=== PATIENT | male | born 1945 | race Caucasian/White ===

== ENCOUNTER → 2020-10-30 15:02 | Outpatient (BNVA) | payer SELFPAY | PROVIDERS: PCP Internal Medicine; Referring Provider Internal Medicine; Visit Provider Urology | DX: Z76.89 Persons encountering health services in other specified circumstances (principal) ==

== ENCOUNTER 2020-11-21 10:23 | Outpatient (REF) | payer MEDICARE, SELFPAY ==
--- NOTE | 2020-11-21 10:27 | US_ITS ---
EXAMINATION: US PELVIS LIMITED (BLADDER) CLINICAL INFORMATION: Poor urinary stream. COMPARISON: CT abdomen and pelvis without contrast dated 01/08/2020. Renal ultrasound only dated 01/04/2020. Renal ultrasound with bladder dated 08/03/2018. TECHNIQUE: Real-time imaging of the bladder. FINDINGS: BLADDER: Well distended and normal. Bilateral ureteral jets are demonstrated. Prevoid bladder volume is 949 mL. Postvoid bladder volume is 598 mL. The bladder wall is trabeculated with 2 small diverticula seen. Also visualized is a small TURP defect. Prostate volume is 26.5 mL. US/US bladder IMPRESSION: Diffuse trabeculated bladder wall thickening with 2 small diverticula seen one on each side laterally. Large postvoid residual bladder volume. Small TURP defect seen.
== END 2020-11-21 10:24 | disposition home or self-care (01) ==
LOC: HO.US 10:23
PROVIDERS: Visit Provider Urology
DX: N31.9 Neuromuscular dysfunction of bladder, unspecified (principal); R39.12 Poor urinary stream
CPT/HCPCS: 76857

== ENCOUNTER → 2020-11-26 13:30 | Outpatient (BNVA) | payer MEDICARE, SELFPAY | PROVIDERS: PCP Internal Medicine; Visit Provider Urology | DX: N31.9 Neuromuscular dysfunction of bladder, unspecified (principal); R39.14 Feeling of incomplete bladder emptying | CPT/HCPCS: Q3014 ==

== ENCOUNTER 2021-05-09 07:10 | Outpatient (REF) | payer MEDICARE, SELFPAY ==
[2021-05-09 11:08] LABS: MANUAL DIFF FLAG NO
[2021-05-09 11:29] LABS: Basophils Absolute Auto 0.1 X10*3/uL (0.0-0.2); Basophils Percent Auto 0.8 % (0-2); Eosinophils Absolute Auto 0.1 X10*3/uL (0.0-0.4); Eosinophils Percent Auto 1.8 % (0-4); Hematocrit 39.8 % (42-52); Hemoglobin 13.2 g/dl (14.0-18.0); Imm Gran Abs Auto 0.01 X10*3/uL (0.00-0.03); Imm Gran Pct Auto 0.2 % (0.0-0.4); Lymphocytes Percent Auto 31.5 % (20-40); Mean Corpuscular HGB Conc 33.2 g/dl (31.0-36.0); Mean Corpuscular Hemoglobin 30.7 pg (27.0-33.0); Mean Corpuscular Volume 92.6 fL (80-98); Mean Platelet Volume 11.5 fL (9.4-12.4); Monocytes Absolute Auto 0.7 X10*3/uL (0.1-1.2); Neutrophils Absolute Auto 3.3 X10*3/uL (2.0-8.3); Neutrophils Percent Auto 53.7 % (45-73); Platelet Count 225 X10*3/uL (160-400); Red Cell Distribution Width 13.2 % (11.0-16.0); White Blood Count 6.2 X10*3/uL (4.8-10.8)
[2021-05-09 11:52] LABS: Alanine Aminotransferase 9 U/L (0-40); Alkaline Phosphatase 60 U/L (39-117); Anion Gap 13 (12-20); Aspartate Amino Transferase 16 U/L (5-37); Bilirubin Total 0.3 mg/dL (0.0-1.0); Blood Urea Nitrogen 22 mg/dL (9-16); Calcium 9.1 mg/dL (8.4-10.2); Carbon Dioxide 28 mmol/L (22-29); Chloride 105 mmol/L (96-108); Cholesterol 193 mg/dL; Estimated Glomerular Filt Rate > 60; Glucose Fasting 108 mg/dL (60-99); HDL Cholesterol 63 mg/dL; LDL Cholesterol Calculated 122 mg/dl; Potassium 3.8 mmol/L (3.3-5.1); Sodium 142 mmol/L (135-145); Total Protein 6.8 g/dL (6.5-8.0); Triglycerides 42 mg/dL
[2021-05-09 12:45] LABS: Prostate Specific Antigen 0.38 ng/mL (<0.05-4.0)
== END 2021-05-09 07:11 | disposition home or self-care (01) ==
LOC: HO.HMGCLDS 07:10
PROVIDERS: PCP Internal Medicine; Visit Provider Nurse Practitioner Family
DX: Z12.5 Encounter for screening for malignant neoplasm of prostate (principal); Z13.220 Encounter for screening for lipoid disorders; Z13.1 Encounter for screening for diabetes mellitus; I10 Essential (primary) hypertension
CPT/HCPCS: 36415; 80053; 80061; 84153; 85025

== ENCOUNTER → 2021-05-27 13:25 | Outpatient (BNVA) | payer MEDICARE, SELFPAY | PROVIDERS: Visit Provider Urology | DX: N31.9 Neuromuscular dysfunction of bladder, unspecified (principal) | CPT/HCPCS: 51798; 99212 ==

== ENCOUNTER → 2021-07-07 10:59 | Outpatient (BNVA) | payer SELFPAY | PROVIDERS: Visit Provider Internal Medicine | DX: Z02.79 Encounter for issue of other medical certificate (principal) ==

== ENCOUNTER → 2022-01-13 10:10 | Outpatient (BNVA) | payer MEDICARE, SELFPAY | PROVIDERS: PCP Internal Medicine; Visit Provider Urology | DX: N31.9 Neuromuscular dysfunction of bladder, unspecified (principal) | CPT/HCPCS: 51798; 99212 ==

== ENCOUNTER 2022-02-09 09:29 | Outpatient (REF) | payer MEDICARE, SELFPAY ==
[2022-02-09 11:40] LABS: MANUAL DIFF FLAG NO
[2022-02-09 11:48] LABS: Basophils Absolute Auto 0.1 X10*3/uL (0.0-0.2); Basophils Percent Auto 0.8 % (0-2); Eosinophils Absolute Auto 0.1 X10*3/uL (0.0-0.4); Eosinophils Percent Auto 1.2 % (0-4); Hematocrit 40.6 % (42.0-52.0); Hemoglobin 13.4 g/dl (14.0-18.0); Imm Gran Abs Auto 0.02 X10*3/uL (0.00-0.03); Imm Gran Pct Auto 0.3 % (0.0-0.4); Lymphocytes Absolute Auto 1.8 X10*3/uL (1.2-4.9); Lymphocytes Percent Auto 27.9 % (20-40); Mean Corpuscular Hemoglobin 30.5 pg (27.0-33.0); Mean Corpuscular Volume 92.5 fL (80.0-98.0); Mean Platelet Volume 11.7 fL (9.4-12.4); Monocytes Absolute Auto 0.5 X10*3/uL (0.1-1.2); Monocytes Percent Auto 8.2 % (2-11); Neutrophils Absolute Auto 4.1 x10*3/uL (2.0-8.3); Neutrophils Percent Auto 61.6 % (45-73); Platelet Count 243 X10*3/uL (160-400); Red Blood Count 4.39 X10*6/uL (4.60-5.80); Red Cell Distribution Width 13.2 % (11.0-16.0); White Blood Count 6.6 X10*3/uL (4.8-10.8)
[2022-02-09 12:05] LABS: Alanine Aminotransferase 13 U/L (0-40); Albumin Level 4.2 g/dL (3.5-5.0); Alkaline Phosphatase 48 U/L (39-117); Anion Gap 12 (12-20); Aspartate Amino Transferase 17 U/L (5-37); Bilirubin Total 0.3 mg/dL (0.0-1.0); Blood Urea Nitrogen 19 mg/dL (9-16); Calcium 9.5 mg/dL (8.4-10.2); Carbon Dioxide 29 mmol/L (22-29); Chloride 102 mmol/L (96-108); Cholesterol 208 mg/dL; Estimated Glomerular Filt Rate > 60; Glucose Fasting 124 mg/dL (60-99); HDL Cholesterol 61 mg/dL; LDL Cholesterol Calculated 135 mg/dl; Potassium 4.2 mmol/L (3.3-5.1); Sodium 139 mmol/L (135-145); Total Protein 7.4 g/dL (6.5-8.0); Triglycerides 64 mg/dL
[2022-02-09 12:30] LABS: Thyroid Stimulating Hormone 1.32 uIU/mL (0.32-4.0)
== END 2022-02-09 09:30 | disposition home or self-care (01) ==
LOC: HO.HMGCLDS 09:29
PROVIDERS: Visit Provider Internal Medicine
DX: Z00.00 Encounter for general adult medical examination without abnormal findings (principal); Z13.0 Encounter for screening for diseases of the blood and blood-forming organs and certain disorders involving the immune mechanism
CPT/HCPCS: 36415; 80053; 80061; 84443; 85025

== ENCOUNTER → 2022-04-30 10:57 | Outpatient (BNVA) | payer MEDICARE, SELFPAY | PROVIDERS: PCP Internal Medicine; Visit Provider Urology | DX: N31.9 Neuromuscular dysfunction of bladder, unspecified (principal) | CPT/HCPCS: 51798; 99212 ==

== ENCOUNTER 2022-05-19 13:56 | Outpatient (REF) | payer MEDICARE, SELFPAY ==
--- NOTE | ~2022-05-19 | XR_ITS ---
EXAMINATION: XR LUMBOSACRAL SPINE CLINICAL INFORMATION: Pain COMPARISON: Previous CT of the abdomen and pelvis December 2019 TECHNIQUE: Three views of the lumbosacral spine. FINDINGS: Bone alignment is normal. No fracture or dislocation is seen. There is degenerative disc disease at L5-S1. There is multilevel spondylosis. 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 There is evidence of atherosclerotic disease. XR/XR lumbar spine 2-3V IMPRESSION: Degenerative changes.
== END 2022-05-19 13:57 | disposition home or self-care (01) ==
LOC: HO.XRAY 13:56
PROVIDERS: PCP Internal Medicine; Visit Provider Internal Medicine
DX: M54.9 Dorsalgia, unspecified (principal)
CPT/HCPCS: 72100

== ENCOUNTER → 2022-06-17 09:44 | Outpatient (BNVA) | payer MEDICARE, SELFPAY | PROVIDERS: PCP Internal Medicine; Visit Provider Orthopaedic Surgery | DX: M72.0 Palmar fascial fibromatosis [Dupuytren] (principal) | CPT/HCPCS: 99202 ==

== ENCOUNTER → 2022-07-22 13:02 | Outpatient (BNVA) | payer MEDICARE, SELFPAY | PROVIDERS: PCP Internal Medicine; Visit Provider Orthopaedic Surgery | DX: M72.0 Palmar fascial fibromatosis [Dupuytren] (principal); M19.042 Primary osteoarthritis, left hand; M19.041 Primary osteoarthritis, right hand | CPT/HCPCS: 99212 ==

== ENCOUNTER 2022-08-06 05:55 | Day surgery (SDC) | payer MEDICARE, SELFPAY ==
[2022-07-23 09:52] VITALS: BMI 29.7
--- NOTE | 2022-07-24 09:29 | ECG_ITS ---
Test Reason : PREOP Blood Pressure : / mmHG Vent. Rate : 064 BPM Atrial Rate : 064 BPM P-R Int : 134 ms QRS Dur : 090 ms QT Int : 420 ms P-R-T Axes : 061 -35 056 degrees QTc Int : 433 ms Normal sinus rhythm Left axis deviation Abnormal ECG When compared with ECG of 09-OCT-2014 15:19, QRS axis Shifted left Referred By: Geneva Berg Electronically Signed By:SIMON HE
--- NOTE | 2022-08-05 09:16 | P.CONAN_ITS ---
Documented by User: Luciana Jean NP 08/05/22 09:17 HPI - Anesthesia Eval Consult details Narrative: 76yo M for Right sm finger Dupuytrens Contracture Release of interfalangical joint, possible faciectomy, PCP cleared [facility] Active Problems Active Problems: All Active Problems (Updated 07/27/22 @ 10:15 by Miguelangel Bunch MD) Preop exam for internal medicine (Acute) Hypotonic neurogenic bladder (Acute) Gross hematuria (Acute) Feeling of incomplete bladder emptying (Acute) Cough (Acute) Impacted cerumen (Acute) Hypertension (Acute) Adult general medical exam (Acute) Trigger finger (Acute) Low back pain (Acute) Dupuytren's contracture of right hand (Acute) Screening for prostate cancer (Acute) Screening for hyperlipidemia (Acute) Screening for diabetes mellitus (Acute) Past Medical History Medical History (Updated 07/27/22 @ 10:15 by Miguelangel Bunch MD) History of bladder stone Screening for diabetes mellitus Screening for hyperlipidemia Screening for prostate cancer Family History Family History Father No problems noted. Mother No problems noted. Surgical History Surgical History History of appendectomy History of colonoscopy History of esophagogastroduodenoscopy (EGD) History of hemorrhoidectomy History of prostate surgery Hx of umbilical hernia repair Social History Social History Housing: House Do you presently have visiting nurse or other home services: No Alcohol intake: current Alcohol intake frequency: holidays/special occasions only Alcohol type: beer Patient Tobacco Use Status: Former Tobacco user Quit Date: 2013 Tobacco use type: Cigarette e-Cigarette/Vaping Use: Never Used Second Hand Smoke Exposure: No Have you been hit, kicked, punched, or otherwise hurt by someone within the past year? If so, by whom?: No Are you DNR?: No Advance Directives: No Advance Directives Information Provided: Yes Advance Directives on File: No Recently lost weight without trying: No service: No Current occupational status: retired Current occupation: left hand Cognitive needs: No Hearing needs: No Vision needs: No Meds Allergies Allergy/AdvReac Type Severity Reaction Status Date / Time No Known Allergies Allergy Verified 07/27/22 09:52 Home Medications Medication Instructions Recorded Confirmed Last Taken Type aspirin 81 mg tablet,delayed 81 mg PO DAILY 03/31/21 07/27/22 Unknown History release (Adult Low Dose Aspirin) Exam Exam Date and Time: August 05, 2022 0916 Height,Weight and Vital Signs: Height 6 ft 1 in Weight 102.058 kg Pertinent Lab Results Pertinent Lab Results: Laboratory Tests 02/09/22 02/09/22 09:45 09:45 WBC 6.6 Hgb 13.4 L Hct 40.6 L Plt Count 243 Sodium 139 Potassium 4.2 Chloride 102 Carbon Dioxide 29 BUN 19 H Creatinine 0.79 Narrative Narrative: EKG 06/2022 Vent. Rate : 064 BPM ? ? Atrial Rate : 064 BPM ?? P-R Int : 134 ms? QRS Dur : 090 ms ? ? QT Int : 420 ms ? ? ? P-R-T Axes : 061 -35 056 degrees ?? QTc Int : 433 ms ? Normal sinus rhythm Left axis deviation Abnormal ECG When compared with ECG of 09-OCT-2014 15:19, QRS axis Shifted left Assessment and Plan Assessment Anesthesia Assessment: Chart Reviewed Documented by User: Stephany Mobley MD 08/06/22 08:54 [facility] Past Medical History Medical History (Updated 07/27/22 @ 10:15 by Miguelangel Bunch MD) History of bladder stone Screening for diabetes mellitus Screening for hyperlipidemia Screening for prostate cancer Family History Family History Father No problems noted. Mother No problems noted. Family history of problems with anesthesia: No Surgical History Surgical History History of appendectomy History of colonoscopy History of esophagogastroduodenoscopy (EGD) History of hemorrhoidectomy History of prostate surgery Hx of umbilical hernia repair History of Problems with Anesthesia: No Social History Social History (Reviewed 07/22/22 @ 13:14 by ASHLEY Crowe Housing: House Do you presently have visiting nurse or other home services: No Alcohol intake: current Alcohol intake frequency: holidays/special occasions only Alcohol type: beer Patient Tobacco Use Status: Former Tobacco user Quit Date: 2013 Tobacco use type: Cigarette e-Cigarette/Vaping Use: Never Used Second Hand Smoke Exposure: No Have you been hit, kicked, punched, or otherwise hurt by someone within the past year? If so, by whom?: No Are you DNR?: No Advance Directives: No Advance Directives Information Provided: Yes Advance Directives on File: No Recently lost weight without trying: No service: No Current occupational status: retired Current occupation: left hand Cognitive needs: No Hearing needs: No Vision needs: No Meds Allergies Allergy/AdvReac Type Severity Reaction Status Date / Time No Known Allergies Allergy Verified 07/27/22 09:52 Home Medications Medication Instructions Recorded Confirmed Last Taken Type aspirin 81 mg tablet,delayed 81 mg PO DAILY 03/31/21 07/27/22 Unknown History release (Adult Low Dose Aspirin) Exam Height,Weight and Vital Signs: Height 6 ft 1 in Weight 102.058 kg Vital Signs Temp Pulse Resp BP Pulse Ox O2 Del Method 08/06/22 07:12 53 18 08/06/22 06:25 97.4 F 83 22 H 133/73 94 Room Air Airway Mallampati Class: III (Bearded ) TM Dist: >3cm Neck ROM: Full Loose/Missing/Broken Teeth: Yes (Some missing. No broken or loose) Heart: RRR Lungs: CTAB (post respiratory treatment) Assessment and Plan Assessment Anesthesia Assessment: Anesthesia Plan Discussed Final Anesthetic Review Family History of Problems with Anesthesia: No History of Problems with Anesthesia: No NPO: Yes ASA Class: III Final Preanesthetic Review: No Changes in Pt Med Stat, Meds/Allgs Chart Reviewed, Consent Obtained/Reviewed and Anes Risks/Benef Reviewed Patient Risk: Intermediate Procedure Risk: Low Assessment/Block/Sedation in SS: Assess/Block/Sedation-SS Anesthetic Plan Anesthetic Plan: GA and Regional Block (Supraclavicular brachial plexus block ) Disposition: Standard PACU
[2022-08-06] VITALS (9 sets, daily range): BP systolic 105–142; BP diastolic 51–81; PULSE 53–83; RESP 16–22; TEMP 36.1–36.6; O2SAT 93–99; BMI 29.7
[2022-08-06] MEDS: Lactated Ringers 1,000 ML 100 ML IVCONT (06:39)
--- NOTE | 2022-08-06 06:49 | PC.NURSE ---
pt with audible exp wheeze faint & freq npc rr 22 denies sob or respiratory distress sat 93-94% ra. coretext to Dr. Geovanny Mobley & request for udn made via text, pt updated.
[2022-08-06] MEDS: Albuterol Sulfate (0.083%) 2.5 MG/3 ML VIAL.NEB INHALE (07:10)
--- NOTE | 2022-08-06 09:48 | P.OP_ITS ---
Operative Note Operative Note Date of Service: 08/06/22 Narrative: Preop diagnosis: 1. Right small finger Dupuytren's contracture Postop diagnosis: Same Procedure: 1. right small finger Partial Dupuytren's fasciectomy 2. Right small finger PIP joint manipulation to improve flexion contracture Surgeon: Geneva Berg MD Anesthesia: General anesthesia plus regional block Findings: right small finger ulnar-sided Dupuytren's cord. Finger brought into full extension at the end of the case. Implants: None Tourniquet time: Fifty-nine minutes EBL: 5.0 ml Specimen: right small finger Dupuytren's cord sent for pathology Drains: None Complications: None Disposition: Brought to the recovery room in stable condition Plan: Follow-up in 10-14 days for wound check, suture removal and to check pathology OT appt on day of f/u to make a custom night spint and to begin OT Indications: The patient is a 76 year old man with a right small finger Dupuytren's contracture . The risks and benefits of operative treatment, including but not limited to risk of damage to blood vessels, nerves, tendons, infection, recurrence, persistent pain or numbness, incomplete resolution of preoperative symptoms, or need for further surgery were discussed with the patient and they wished to proceed with surgery. Procedure: Once consent was obtained patient was brought back to the operating suite and placed in the operating table in a supine position. A regional block was performed by the anesthesia team. Perioperative antibiotics and anesthesia was administered by the anesthesia team. A tourniquet was applied to the proximal aspect of the right upper extremity and the limb was prepped and draped in a standard surgical fashion. The limb was elevated exsanguinated with Esmarch bandage and the tourniquet inflated to 250 mm of mercury for a total tourniquet time of 59 minutes. I made a Marion type incision extending along the Dupuytren's cord from the A1 angeli to the distal phalanx of the right small finger.. The Incision was made with a 15. Blade through the skin the subcutaneous tissues. I then carefully dissected down to the level of the Dupuytren's cord beginning at the proximal aspect of the incision. This was done using tenotomy and iris scissors. Care was taken to protect the nearby neurovascular structures. he had an ulnar- sided Dupuytren's cord that extended from the small finger abductor extending distally inserting at various places in the skin, of the proximal and middle phalanxes before finally inserting distally at the ulnar aspect of the distal phalanx. The Dupuytren's cord was cut at its proximal aspect using tenotomy scissors. It was then grasped with an Allis clamp. The Dupuytren's cord was then carefully dissected free in a proximal to distal direction using tenotomy scissors and again taking care to protect the ulnar neurovascular bundle. The cord was dissected free and placed on the back table to be sent for histopathologic review. I was then able to bring the small finger out to extension with approximately 20 degrees of flexion contracture at the PIP joint. I then performed a gentle manipulation of the PIP joint, after which I was able to fully extend the small finger at all joints including the PIP joint. At this point the tourniquet was deflated and hemostasis obtained with a brief period of local pressure and bipolar electrocautery. The wound was copiously irrigated with normal saline. The skin edges were reapproximated with 5-0 Prolene suture. and ulnar nerve block was then performed by infiltrating about the ulnar nerve at the wrist with some 0.5% plain ropivacaine for postop pain control. A sterile dressing and volar splint holding the small and ring fingers in extension was applied. The patient appears to have tolerated the procedure well and with no complications. All digits were well vascularized conclusion of the case.
--- NOTE | 2022-08-06 09:48 | MHC.SHP ---
Pre-Procedural Eval Section A Date of Service: 08/06/22 The patient is an INPATIENT: No Changes since office visit: No Cold of Flu in the past 2 weeks, No New Medical Problems, No Changes in Medication and No Patient answered all questions The History & Physical has been completed within 30 days and I have reviewed it.: Yes Section B Chief Complaint: dupuytren Allergies: Allergies Allergy/AdvReac Type Severity Reaction Status Date / Time No Known Allergies Allergy Verified 07/27/22 09:52 Plan I have reviewed the history and physical and performed a pertinent physical examination on my patient. No changes have occurred unless specified.
== END 2022-08-06 11:07 | disposition home or self-care (01) ==
PROVIDERS: PCP Internal Medicine; Visit Provider Orthopaedic Surgery
PROC: (CPT 26045; principal; 2022-08-06 07:30)
DX: M72.0 Palmar fascial fibromatosis [Dupuytren] (principal); M19.041 Primary osteoarthritis, right hand; Z87.891 Personal history of nicotine dependence; Z79.82 Long term (current) use of aspirin; Z79.899 Other long term (current) drug therapy
CPT/HCPCS: 26123; 26340; 88304; 93005; 94640; J0690; J2250; J2370; J2795; J3010

== ENCOUNTER → 2022-08-19 12:56 | Outpatient (BNVA) | payer MEDICARE, SELFPAY | PROVIDERS: PCP Internal Medicine; Visit Provider Orthopaedic Surgery | DX: Z47.89 Encounter for other orthopedic aftercare (principal) | CPT/HCPCS: 99212 ==

== ENCOUNTER 2022-08-19 14:09 | Outpatient (RCR) | payer MEDICARE, SELFPAY ==
--- NOTE | 2022-08-20 10:57 | MHC.OT.EP ---
[address] [phone] Occupational Therapy Plan of Care Date of Evaluation: 08/19/22 Diagnosis: Right hand palmar fascial fibromatosis Assessment: Hunter was seen today for OT evaluation and splint fabrication s/p right small finger Dupuytren's release. Pt. saw Dr. Berg today for suture removal and is doing well post op. Pt. is able to bring his index, middle, and ring finger into a closed fist and fully extend. He is able to bring his small finger loosely to his palm with increased effort without pain. Pt. was educated in splint indications, wearing schedule and skin checks. Pt. does not wish to attend therapy based on his current abilities and demonstrated understanding of tendon glides, AROM, and precautions post session. Pt. was IND with donning/doffing splint this visit. Issued handouts for HEP. Pt. does not require skilled OT at this time and was instructed to call with questions/concerns. Frequency and Duration: Eval and d/c to HEP Short Term Goals: IND with nighttime orthosis wear (MET) Demo IND with home exercise program (MET) Magneto Repairer Goals: NA Treatment Plan: Home Exercise Program Splinting Patient Education Edema Control Other (see comments) Pt. seen for eval, HEP and splint fabrication. Discharged from OT. Electronically Signed By: Valery Yen MS OTR/L Please Sign and return to therapist. Thank you once again for your referral.
== END 2022-09-23 14:18 | disposition home or self-care (01) ==
LOC: HO.OT 14:09
PROVIDERS: Visit Provider Orthopaedic Surgery
DX: M72.0 Palmar fascial fibromatosis [Dupuytren] (principal)
CPT/HCPCS: 29130; 97110; 97165; 97760

== ENCOUNTER → 2022-08-25 13:55 | Outpatient (BNVA) | payer MEDICARE, SELFPAY | PROVIDERS: PCP Internal Medicine; Visit Provider Physician Assistant | DX: Z47.89 Encounter for other orthopedic aftercare (principal) | CPT/HCPCS: 99212 ==

== ENCOUNTER → 2022-09-23 09:58 | Outpatient (BNVA) | payer MEDICARE, SELFPAY | PROVIDERS: PCP Internal Medicine; Visit Provider Orthopaedic Surgery | DX: M72.0 Palmar fascial fibromatosis [Dupuytren] (principal) | CPT/HCPCS: 99212 ==

== ENCOUNTER → 2022-10-29 08:50 | Outpatient (BNVA) | payer MEDICARE, SELFPAY | PROVIDERS: PCP Internal Medicine; Visit Provider Urology | DX: N31.9 Neuromuscular dysfunction of bladder, unspecified (principal) | CPT/HCPCS: 51798; 99212 ==

== ENCOUNTER 2022-11-05 08:10 | Outpatient (REF) | payer MEDICARE, SELFPAY ==
--- NOTE | ~2022-11-05 | XR_ITS ---
EXAMINATION: XR CHEST CLINICAL INFORMATION: Cough COMPARISON: 10/28/2018 TECHNIQUE: 2 views of the chest were obtained. FINDINGS: The lungs are well expanded. There is no focal consolidation, edema, or effusion. No pneumothorax. The cardiomediastinal silhouette is within normal limits of size with a tortuous aorta. No acute osseous abnormality. XR/XR chest 2V IMPRESSION: Clear lungs.
== END 2022-11-05 08:11 | disposition home or self-care (01) ==
LOC: HO.XRAY 08:10
PROVIDERS: PCP Internal Medicine; Visit Provider Internal Medicine
DX: R05.9 Cough, unspecified (principal)
CPT/HCPCS: 71046

== ENCOUNTER 2022-11-27 08:05 | Outpatient (REF) | payer MEDICARE, SELFPAY ==
[2022-11-27 11:12] LABS: MANUAL DIFF FLAG NO
[2022-11-27 11:23] LABS: Basophils Absolute Auto 0.1 X10*3/uL (0.0-0.2); Eosinophils Absolute Auto 0.1 X10*3/uL (0.0-0.4); Hematocrit 38.9 % (42.0-52.0); Imm Gran Abs Auto 0.02 X10*3/uL (0.00-0.03); Imm Gran Pct Auto 0.3 % (0.0-0.4); Lymphocytes Absolute Auto 1.7 X10*3/uL (1.2-4.9); Lymphocytes Percent Auto 27.8 % (20-40); Mean Corpuscular HGB Conc 33.4 g/dl (31.0-36.0); Mean Corpuscular Hemoglobin 30.4 pg (27.0-33.0); Mean Corpuscular Volume 91.1 fL (80.0-98.0); Mean Platelet Volume 11.5 fL (9.4-12.4); Monocytes Absolute Auto 0.6 X10*3/uL (0.1-1.2); Neutrophils Absolute Auto 3.6 x10*3/uL (2.0-8.3); Neutrophils Percent Auto 59.9 % (45-73); Platelet Count 239 X10*3/uL (160-400); Red Blood Count 4.27 X10*6/uL (4.60-5.80); Red Cell Distribution Width 13.2 % (11.0-16.0)
[2022-11-27 12:07] LABS: Alanine Aminotransferase 12 U/L (0-40); Alkaline Phosphatase 48 U/L (39-117); Anion Gap 12 (12-20); Aspartate Amino Transferase 16 U/L (5-37); Bilirubin Total 0.5 mg/dL (0.0-1.0); Blood Urea Nitrogen 18 mg/dL (9-16); Calcium 9.3 mg/dL (8.4-10.2); Carbon Dioxide 29 mmol/L (22-29); Chloride 104 mmol/L (96-108); Cholesterol 206 mg/dL; Estimated Glomerular Filt Rate > 60; Glucose Fasting 92 mg/dL (60-99); HDL Cholesterol 58 mg/dL; LDL Cholesterol Calculated 137 mg/dl; Potassium 3.7 mmol/L (3.3-5.1); Sodium 141 mmol/L (135-145); Total Protein 6.6 g/dL (6.5-8.0); Triglycerides 56 mg/dL
== END 2022-11-27 08:06 | disposition home or self-care (01) ==
LOC: HO.HMGCLDS 08:05
PROVIDERS: PCP Internal Medicine; Visit Provider Internal Medicine
DX: I10 Essential (primary) hypertension (principal); E78.5 Hyperlipidemia, unspecified; Z13.0 Encounter for screening for diseases of the blood and blood-forming organs and certain disorders involving the immune mechanism
CPT/HCPCS: 36415; 80053; 80061; 85025

== ENCOUNTER → 2023-05-12 10:39 | Outpatient (BNVA) | payer MEDICARE, SELFPAY | PROVIDERS: PCP Internal Medicine; Visit Provider Urology | DX: N40.1 Benign prostatic hyperplasia with lower urinary tract symptoms (principal); N13.8 Other obstructive and reflux uropathy; N31.9 Neuromuscular dysfunction of bladder, unspecified; R33.9 Retention of urine, unspecified; Z87.442 Personal history of urinary calculi; Z79.82 Long term (current) use of aspirin | CPT/HCPCS: 51798; 99212 ==

== ENCOUNTER 2023-08-06 09:46 | Outpatient (AMB) | payer MEDICARE, SELFPAY ==
[2023-08-06 09:49] VITALS: BP 150/62; PULSE 65; O2SAT 97; BMI 29.9
--- NOTE | 2023-08-06 09:49 | A.OFFPC_ITS ---
Vital Signs 08/06/23 09:49 Height 6 ft 1 in Weight 226 lb 6 oz BMI 29.9 BP 150/62 H Blood Pressure Location Lt brachial Position Sitting Pulse 65 Pulse Source Pulse Oximeter Pulse Oximetry (%) 97 Oxygen Delivery Method Room Air Intake Visit Reasons: Podiatry Referral-Two Ingrown Toe Nails Emergency Service Worker: Not Required per policy Accompanied by: Self / Same As Patient Allergies No Known Allergies Allergy (Verified 08/06/23 09:49) Medication List - Last Reconciled 08/06/23 by Miguelangel Bunch MD albuterol sulfate 90 mcg/actuation (ProAir HFA) 2 puffs PO Q6H PRN 30 days aspirin (Adult Low Dose Aspirin) 81 mg PO DAILY bethanechol chloride 50 mg PO BID 90 days chlorthalidone 25 mg PO DAILY fluticasone propionate 50 mcg/actuation 1 spray intranasal Q12H hydrocortisone 2.5% (Anusol-HC) 1 appl [place] BID-QID PRN ibuprofen 600 mg PO Q6-8H PRN lisinopril 10 mg PO DAILY lorazepam 1 mg PO BID PRN sertraline (Zoloft) 50 mg PO DAILY Tobacco use date assessed: 12/08/22 Fall risk assessment: No Falls in past year Last assessed Fall Risk: 08/06/23 Dental Screening Dental Screen Date: 08/06/23 Did you have a dental visit in the last 12 months?: Yes Did you have a dental problem in the last 6 months where you did not have access to dental care?: No Was dental information given to patient?: Patient has dentist HPI Podiatry Referral-Two Ingrown Toe Nails HPI Details hypertension anxiety and ingrown toenails; sable; sees podiatry [facility] Medical History History of bladder stone Screening for prostate cancer Screening for hyperlipidemia Screening for diabetes mellitus Surgical History History of esophagogastroduodenoscopy (EGD) History of prostate surgery Hx of umbilical hernia repair History of colonoscopy History of hemorrhoidectomy History of appendectomy Family History Father No problems noted. Mother No problems noted. Social History Housing: House Do you presently have visiting nurse or other home services: No Alcohol intake: current Alcohol intake frequency: holidays/special occasions only Alcohol type: beer Patient Tobacco Use Status: Former Tobacco user Quit Date: 2013 Tobacco use type: Cigarette e-Cigarette/Vaping Use: Never Used Second Hand Smoke Exposure: No service: No Current occupational status: retired Current occupation: left hand Cognitive needs: No Hearing needs: No Vision needs: No Questionnaire PHQ-9 Over the last 2 weeks, how often have you been bothered by any of the following problems? 1. Little interest or pleasure in doing things: not at all 2. Feeling down, depressed, or hopeless: not at all 3. Trouble falling or staying asleep, or sleeping too much: not at all 4. Feeling tired or having little energy: not at all 5. Poor appetite or overeating: not at all 6. Feeling bad about yourself - or that you are a failure or have let yourself or your family down: not at all 7. Trouble concentrating on things, such as reading the newspaper or watching television: not at all 8. Moving or speaking so slowly that other people could have noticed. Or the opposite - being so fidgety or restless that you have been moving around a lot more than usual: not at all 9. Thoughts that you would be better off or of hurting yourself in some way: not at all Total score: 0 Depression Screening Interpretation: Negative 23471 - PHQ-9 Billing: Yes Source: Developed by Drs. Vince Calderon, Marlo Blanchard and colleagues, with an educational annmarie from [employer] ([employer]). Thrive Questionnaire Date Thrive assessed: 12/08/22 AUDIT C Alcohol Use Questionnaire (AUDIT-C) 1. How often do you have a drink containing alcohol?: Never Total Score: 0 Score Reviewed/Action Taken: Yes EDMUND-7 AMB Questionnaire EDMUND-7 Date EDMUND - 7 assessed: 12/08/22 Source: Developed by Drs. Vince Calderon, Marlo Blanchard and colleagues, with an educational annmarie from [employer] ([employer]). EDMUND-7 Assessment Billing EDMUND-7 Assessment Tool: EDMUND-7 Assessment 16211 Review of Systems Const Denies chills, Denies headache(s) and Denies weight loss ENT Denies headache(s) Card Denies chest pain, Denies syncope, Denies irregular heart rhythm and Denies dyspnea Resp Denies chest congestion, Denies cough and Denies dyspnea GI Denies abdominal pain, Denies change in stool character, Denies nausea and Denies vomiting Musc Denies deformity and Denies joint swelling Neuro Denies syncope and Denies headache(s) Physical exam (Primary Care) Vital Signs: Last Vital Signs Pulse 65 08/06/23 09:49 BP 150/62 H 08/06/23 09:49 Pulse Ox 97 08/06/23 09:49 Oxygen Delivery Method Room Air 08/06/23 09:49 BMI result Body Mass Index 29.9 Tobacco/Smoking Status: Tobacco use Status Tobacco use date assessed 12/08/22 08/06/23 09:50 Patient Tobacco Use Status Former Tobacco user 08/06/23 09:50 Tobacco use type Cigarette 08/06/23 09:50 e-Cigarette/Vaping Use Never Used 08/06/23 09:50 PHQ-9: PHQ-9 Score PHQ-9: Total score 0 08/06/23 09:50 Depression Screening Interpretation: Negative Thrive Assessment: Date of Thrive Assessment Date Thrive assessed 12/08/22 08/06/23 09:50 Const General: cooperative, comfortable, no acute distress and alert Neck Neck: Yes no lymphadenopathy Thyroid: Thyroid normal Resp Effort & Inspection: normal respiratory effort Auscultation: clear to auscultation bilaterally Percussion: percussion normal Cardio Jugular venous distension: no JVD Palpation: normal PMI Rate: regular rate Rhythm: regular rhythm Heart sounds: S1 normal heart sound present and S2 normal heart sound present GI Inspection: Yes normal to inspection Palpation (GI): No hepatosplenomegaly present Skin General skin exam: no rashes or lesions noted Extrem General: Yes no clubbing, cyanosis or edema Assessment and Plan Assessment & Plan (1) Anxiety: Code(s): F41.9 - Anxiety disorder, unspecified Plan: stable;same rx (2) Hypertension: Code(s): I10 - Essential (primary) hypertension Qualifiers: Hypertension type: unspecified Qualified Code(s): I10 - Essential (primary) hypertension Plan: stable;same rx (3) Ingrown right big toenail: Code(s): L60.0 - Ingrowing nail Plan: referred Orders: Referrals Podiatry Referral L60.0 - Ingrowing nail Coding Level of Care Code Est Pt Level 4 (96500) Diagnoses Anxiety F41.9 Hypertension, unspecified type I10 Hypertension type: unspecified Ingrown right big toenail L60.0 Additional Codes EDMUND-7 Assessment Billing - EDMUND-7 Assessment Tool: EDMUND-7 Assessment [id number] ([id number])
== END 2023-08-06 10:07 | disposition home or self-care (01) ==
PROVIDERS: PCP Internal Medicine; Visit Provider Internal Medicine
DX: I10 Essential (primary) hypertension (principal); F41.9 Anxiety disorder, unspecified; L60.0 Ingrowing nail
CPT/HCPCS: 99214

== ENCOUNTER 2023-11-05 09:17 | Outpatient (AMB) | payer MEDICARE, SELFPAY ==
[2023-11-05 10:53] VITALS: BP 130/78; PULSE 89; TEMP 36.1; O2SAT 96; BMI 30.7
--- NOTE | 2023-11-05 10:53 | AM.OFFWIN_ITS ---
Intake Vital Signs 11/05/23 10:53 Height 6 ft 1 in Weight 233 lb BMI 30.7 BP 130/78 Blood Pressure Location Lt brachial Position Sitting Pulse 89 Pulse Source Pulse Oximeter Temp 97.0 F Temp Source Temporal Artery Scan Pulse Oximetry (%) 96 Oxygen Delivery Method Room Air Intake Visit Reasons: EP, cough, congestion (masked) Intake Note: pt is here today for cough congestion started 1 week ago Patient Tobacco Use Status: Former Tobacco user Quit Date: 2013 Allergies No Known Allergies Allergy (Verified 11/05/23 10:58) Do you need a note to return to daycare/school/sports/work: No HPI HPI Comments History of Present Illness Details This is an 78-year-old male who presents to the office today for sick visit. Patient complaining of persistent cough and chest congestion x 3 weeks. He states that he has a history of COPD. He denies any shortness of breath. He states his cough is usually dry but sometimes productive of light sputum. He denies any chest pain. He denies any fevers/chills. [facility] Medical History History of bladder stone Screening for prostate cancer Screening for hyperlipidemia Screening for diabetes mellitus Surgical History History of esophagogastroduodenoscopy (EGD) History of prostate surgery Hx of umbilical hernia repair History of colonoscopy History of hemorrhoidectomy History of appendectomy Family History Father No problems noted. Mother No problems noted. Social History Housing: House Do you presently have visiting nurse or other home services: No Alcohol intake: current Alcohol intake frequency: holidays/special occasions only Alcohol type: beer Patient Tobacco Use Status: Former Tobacco user Quit Date: 2013 Tobacco use type: Cigarette e-Cigarette/Vaping Use: Never Used Second Hand Smoke Exposure: No service: No Current occupational status: retired Current occupation: left hand Cognitive needs: No Hearing needs: No Vision needs: No Review of Systems Const All systems reviewed & are unremarkable except as noted in HPI and below Reports no additional complaints Eyes Reports no additional complaints ENT Reports no additional complaints Card Reports no additional complaints Resp Reports no additional complaints GI Reports no additional complaints Reports no additional complaints Musc Reports no additional complaints Skin/Breast Reports system reviewed and no additional complaints, except as documented Neuro Reports no additional complaints Psych Reports no additional complaints Endo Reports no additional complaints Rigo/Lymph Reports no additional complaints Aller/Immun Reports no additional complaints Physical Exam Vital Signs: Last Vital Signs Temp 97.0 F 11/05/23 10:53 Pulse 89 11/05/23 10:53 BP 130/78 11/05/23 10:53 Pulse Ox 96 11/05/23 10:53 Oxygen Delivery Method Room Air 11/05/23 10:53 BMI result Body Mass Index 30.7 Const Other: Vital signs reviewed. Constitutional: Non-toxic appearing. No acute distress. Well-developed and well-nourished. HEENT: Normocephalic and atraumatic. Skin: Warm and dry. No rashes or lesions noted. Neck: Full and painless range of motion. No cervical lymphadenopathy. Cardio: Regular rate and rhythm. No murmurs, gallops, or rubs. No lower extremity edema. No JVD. Pulmonary: No respiratory distress. No accessory muscle usage. Clear to auscultation bilaterally without wheezing, crackles, or rhonchi. Gastrointestinal: Soft, nontender, and nondistended in all 4 quadrants. Musculoskeletal: Normal range of motion in joints throughout the body. No deformity or other signs of injury. Neuro: Alert and oriented x4. Cranial nerves 2-12 grossly intact. No focal deficits appreciated. Psych: Normal mood and affect. Assessment & Plan Assessment & Plan (1) Cough: Code(s): R05 - Cough Plan: This is an 78-year-old male presenting to the office complaining of cough and chest congestion x 3 weeks. He has a history of COPD but he denies any shortness of breath or sputum purulence. On physical examination, his lungs are clear to auscultation bilaterally. He is maintaining oxygen saturations on room air. Patient was offered a chest x-ray but he declined. He is just requesting an cough suppressant. COVID/RSV/flu sent. Patient sent home on PO benzonatate 100mg three times daily as needed. I do not believe patient requires steroids or antibiotics at this time. He was advised to follow up here or proceed to the emergency if he were to develop worsening symptoms such as sputum production/purulence, shortness of breath, or fevers/chills. Patient verbalized understanding and is agreeable with the plan. Orders: Orders SARS-CoV2/FLU/RSV Today R09.89 - Other specified symptoms and signs involving the circulatory and respiratory systems Medications: New benzonatate 100 mg PO TID PRN 20 caps 0RF cough Coding Level of Care Code Est Pt Level 3 (54631) Diagnoses Cough R05
== END 2023-11-05 11:35 | disposition home or self-care (01) ==
PROVIDERS: PCP Internal Medicine; Visit Provider Physician Assistant Medical
DX: R05.9 Cough, unspecified (principal)
CPT/HCPCS: 99213

== ENCOUNTER 2023-11-05 11:14 | Outpatient (REF) | payer MEDICARE, SELFPAY ==
[2023-11-05 15:44] LABS: Influenza A PCR NEGATIVE (Negative); Influenza B PCR NEGATIVE (Negative); Resp Syncy Virus RNA Qual PCR NEGATIVE (Negative); SARS COV2 PCR INHOUSE NEGATIVE (Negative)
== END 2023-11-05 11:15 | disposition home or self-care (01) ==
LOC: HO.LAB 11:14
PROVIDERS: Visit Provider Physician Assistant Medical
DX: Z11.52 Encounter for screening for COVID-19 (principal); Z20.822 Contact with and (suspected) exposure to COVID-19; R09.89 Other specified symptoms and signs involving the circulatory and respiratory systems
CPT/HCPCS: 0241U

== ENCOUNTER 2023-11-09 09:46 | Outpatient (AMB) | payer MEDICARE, SELFPAY ==
--- NOTE | 2023-11-09 09:54 | MHC.OFFVIS ---
Intake Intake Visit Reasons: 6m/PVR Intake Note: Patient is Present for Follow Up PVR Urology Medication: Bethanechol Antibiotic Allergies: None Blood Thinners: Aspirin PVR: 571 Allergies No Known Allergies Allergy (Verified 11/09/23 09:55) Medication List - Last Reconciled 11/09/23 by Jose Min MD albuterol sulfate 90 mcg/actuation (ProAir HFA) 2 puffs PO Q6H PRN 30 days aspirin (Adult Low Dose Aspirin) 81 mg PO DAILY benzonatate 100 mg PO TID PRN bethanechol chloride 50 mg PO BID 90 days chlorthalidone 25 mg PO DAILY fluticasone propionate 50 mcg/actuation 1 spray intranasal Q12H hydrocortisone 2.5% (Anusol-HC) 1 appl [place] BID-QID PRN ibuprofen 600 mg PO Q6-8H PRN lisinopril 10 mg PO DAILY lorazepam 1 mg PO BID PRN sertraline (Zoloft) 50 mg PO DAILY HPI HPI Comments History of Present Illness Details Hunter is a pleasant male. He is a patient of Dr. Hauser. He is seen for the following urologic conditions - lower urinary tract symptoms - incomplete bladder emptying PVR approximately 570 cc On bethanechol Discussed CIC versus suprapubic tube versus InterStim Creatinine remains stable Continue Q 6 month follow-up Neurogenic Bladder: 12/16 Greenlight laser - 08/16 PVR 300cc, 02/14 PVR 500cc. 11/20 PVR 570cc They are here for further management for incomplete emptying neurogenic bladder. Urinary retention initially found progressive development over time. Cystoscopy results 04/13 marked cellules and significant dilation. Imaging results 2015 - US shows 600cc residual, , no hydronephrosis. Cr 0.65, 100cc prostate 04/14 , US shows, , no hydronephrosis 10/15 , US shows, no hydronephrosis - 1cm bladder stone, 1300cc capacoty with 930cc residual 08/16 , US shows, no hydronephrosis, PVR 300 02/14 Cr 0.8 03/18 , US shows, no hydro, 11/17 bladder ultrasound with high residual Associated conditions Alzhiemers No CAD No CVA No Diabetes No Multiple sclerosis No renal replacement therapy No Spinal injury/surgery No Current management - bethanechol Therapeutic plan 6 month follow-up PVR PFSH Medical History History of bladder stone Screening for prostate cancer Screening for hyperlipidemia Screening for diabetes mellitus Surgical History History of esophagogastroduodenoscopy (EGD) History of prostate surgery Hx of umbilical hernia repair History of colonoscopy History of hemorrhoidectomy History of appendectomy Family History Father No problems noted. Mother No problems noted. Social History Housing: House Do you presently have visiting nurse or other home services: No Alcohol intake: current Alcohol intake frequency: holidays/special occasions only Alcohol type: beer Patient Tobacco Use Status: Former Tobacco user Quit Date: 2013 Tobacco use type: Cigarette e-Cigarette/Vaping Use: Never Used Second Hand Smoke Exposure: No service: No Current occupational status: retired Current occupation: left hand Cognitive needs: No Hearing needs: No Vision needs: No Review of Systems Const Denies chills and Denies fever(s) Card Reports no additional complaints and Denies syncope Resp Denies cough GI Denies abdominal pain and Denies heartburn Reports as per HPI and Denies change in libido Neuro Denies syncope Psych Denies change in libido Endo Denies change in libido Physical Exam Const General: cooperative, healthy appearing, comfortable and no acute distress Orientation/consciousness: patient oriented x3 HEENT Face and sinus: Yes normal facial exam Mouth: moist mucous membranes Neck Neck: Yes normal visual inspection, Yes full ROM and Yes trachea midline Chest Chest palpation & inspection: normal inspection of the chest Resp Effort & Inspection: normal respiratory effort, able to speak in complete sentences and no respiratory distress GI Inspection: Yes normal to inspection Back/Spine/Pelvis Cervical Spine: normal cervical lordosis Thoracic/Lumbar Spine: thoracic and lumbar spine normal to inspection Skin General skin exam: no rashes or lesions noted Neuro General: patient oriented x3, gait normal, tone normal and moves all extremities Extrem General: Yes normal to inspection and Yes capillary refill normal Office Procedures Post Void Residual Post Residual Void Post Void Residual (PVR): 571 [id number] Void Residual by ultrasound Assessment & Plan Assessment & Plan (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 No major barriers to patient understanding were identified. An opportunity to ask questions regarding the treatment plan was provided. All questions were answered. The patient expressed understanding and agreement with the above treatment plan. The patient is aware they should contact our office by phone for worsening of their current condition or the appearance of new urologic symptoms. Compliance is encouraged with any medications and followup testing that is ordered. It is a privilege to participate in the urologic care of your patient. If you have any questions or concerns regarding treatment for the above conditions, or other urologic issues, please do not hesitate to contact me. The office telephone contact is [phone]. This note is constructed using voice recognition software. While every effort has been made to ensure accuracy public relations writer errors may have been included. Yours sincerely, Dr Jose Min MD, [facility] - Urology Providers of Expert, Compassionate Care for the Genitourinary System Coding Level of Care Code Est Pt Level 3 (30606) Diagnoses Hypotonic neurogenic bladder N31.9 CPT Codes Post Residual Void - PVR CPT Code: [id number] Void Residual by ultrasound ([id number])
== END 2023-11-09 10:31 | disposition home or self-care (01) ==
PROVIDERS: PCP Internal Medicine; Visit Provider Urology
DX: N31.9 Neuromuscular dysfunction of bladder, unspecified (principal)
CPT/HCPCS: 99213

== ENCOUNTER → 2023-11-09 09:46 | Outpatient (BNVA) | payer MEDICARE, SELFPAY | PROVIDERS: PCP Internal Medicine; Visit Provider Urology | DX: N31.9 Neuromuscular dysfunction of bladder, unspecified (principal) | CPT/HCPCS: 51798; 99212 ==

== ENCOUNTER 2023-11-09 10:35 | Outpatient (AMB) | payer MEDICARE, SELFPAY ==
[2023-11-09 10:38] VITALS: BP 130/70; PULSE 60; O2SAT 98; BMI 30.5
--- NOTE | 2023-11-09 10:38 | MHC.PC.OV ---
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 Upsetting Machine Operator: Not Required per policy Accompanied by: Self / Same As Patient Allergies No Known Allergies Allergy (Verified 11/09/23 09:55) Medication List - Last Reconciled 11/09/23 by Miguelangel Bunch MD albuterol sulfate 90 mcg/actuation (ProAir HFA) 2 puffs PO Q6H PRN 30 days aspirin (Adult Low Dose Aspirin) 81 mg PO DAILY benzonatate 100 mg PO TID PRN bethanechol chloride 50 mg PO BID 90 days chlorthalidone 25 mg PO DAILY fluticasone propionate 50 mcg/actuation 1 spray intranasal Q12H hydrocortisone 2.5% (Anusol-HC) 1 appl [place] BID-QID PRN ibuprofen 600 mg PO Q6-8H PRN lisinopril 10 mg PO DAILY lorazepam 1 mg PO BID PRN sertraline (Zoloft) 50 mg PO DAILY Tobacco use date assessed: 12/08/22 Fall risk assessment: No Falls in past year Last assessed Fall Risk: 11/09/23 Dental Screening Dental Screen Date: 11/09/23 Did you have a dental visit in the last 12 months?: Yes Did you have a dental problem in the last 6 months where you did not have access to dental care?: No Was dental information given to patient?: Patient has dentist [facility], [facility] Medical History History of bladder stone Screening for prostate cancer Screening for hyperlipidemia Screening for diabetes mellitus Surgical History History of esophagogastroduodenoscopy (EGD) History of prostate surgery Hx of umbilical hernia repair History of colonoscopy History of hemorrhoidectomy History of appendectomy Family History Father No problems noted. Mother No problems noted. Social History Housing: House Do you presently have visiting nurse or other home services: No Alcohol intake: current Alcohol intake frequency: holidays/special occasions only Alcohol type: beer Patient Tobacco Use Status: Former Tobacco user Quit Date: 2013 Tobacco use type: Cigarette e-Cigarette/Vaping Use: Never Used Second Hand Smoke Exposure: No service: No Current occupational status: retired Current occupation: left hand Cognitive needs: No Hearing needs: No Vision needs: No Questionnaire Thrive Questionnaire Date Thrive assessed: 12/08/22 EDMUND-7 AMB Questionnaire EDMUND-7 Date EDMUND - 7 assessed: 12/08/22 Source: Developed by Drs. Vince Calderon, Jennifer Mathur, Marlo Bowman and colleagues, with an educational annmarie from [employer]. Review of Systems Const Denies chills, Denies headache(s) and Denies weight loss ENT Denies headache(s) Card Denies chest pain, Denies syncope, Denies irregular heart rhythm and Denies dyspnea Resp Denies chest congestion, Denies cough and Denies dyspnea GI Denies abdominal pain, Denies change in stool character, Denies nausea and Denies vomiting Musc Denies deformity and Denies joint swelling Neuro Denies syncope and Denies headache(s) Physical exam (Primary Care) Vital Signs: Last Vital Signs Pulse 60 11/09/23 10:38 BP 130/70 11/09/23 10:38 Pulse Ox 98 11/09/23 10:38 Oxygen Delivery Method Room Air 11/09/23 10:38 BMI result Body Mass Index 30.5 Tobacco/Smoking Status: Tobacco use Status Tobacco use date assessed 12/08/22 11/09/23 10:43 Patient Tobacco Use Status Former Tobacco user 11/09/23 10:43 Tobacco use type Cigarette 11/09/23 10:43 e-Cigarette/Vaping Use Never Used 11/09/23 10:43 Thrive Assessment: Date of Thrive Assessment Date Thrive assessed 12/08/22 11/09/23 10:43 Const General: cooperative, comfortable, no acute distress and alert Neck Neck: Yes no lymphadenopathy Thyroid: Thyroid normal Resp Effort & Inspection: normal respiratory effort Auscultation: clear to auscultation bilaterally Percussion: percussion normal Cardio Jugular venous distension: no JVD Palpation: normal PMI Rate: regular rate Rhythm: regular rhythm Heart sounds: S1 normal heart sound present and S2 normal heart sound present GI Inspection: Yes normal to inspection Palpation (GI): No hepatosplenomegaly present Skin General skin exam: no rashes or lesions noted Extrem General: Yes no clubbing, cyanosis or edema Assessment and Plan Assessment & Plan (1) Hypertension: Code(s): I10 - Essential (primary) hypertension Qualifiers: Hypertension type: unspecified Qualified Code(s): I10 - Essential (primary) hypertension Plan: stable; same rx Medications: New azithromycin take 500 mg today (day 1), then 250 mg for 4 days (days 2-5) PO 6 tabs 0RF Coding Level of Care Code Est Pt Level 3 (04420) Diagnoses Hypertension, unspecified type I10 Hypertension type: unspecified
== END 2023-11-09 11:01 | disposition home or self-care (01) ==
PROVIDERS: PCP Internal Medicine; Visit Provider Internal Medicine
DX: I10 Essential (primary) hypertension (principal)
CPT/HCPCS: 99213

== ENCOUNTER 2024-06-21 10:55 | Outpatient (AMB) | payer MEDICARE, SELFPAY ==
--- NOTE | 2024-06-21 10:49 | MHC.PC.OV ---
Intake Visit Reasons: Cough Intake Note: states feeling sick for a week with stomach pains and a cough. no fever Allergies No Known Allergies Allergy (Verified 11/09/23 09:55) Tobacco use date assessed: 06/21/24 Fall risk assessment: No Falls in past year Last assessed Fall Risk: 06/21/24 Dental Screening Dental Screen Date: 06/21/24 Did you have a dental visit in the last 12 months?: Yes Did you have a dental problem in the last 6 months where you did not have access to dental care?: No Was dental information given to patient?: Patient has dentist HPI Cough HPI Details cough for a week [facility] Medical History History of bladder stone Screening for prostate cancer Screening for hyperlipidemia Screening for diabetes mellitus Surgical History History of esophagogastroduodenoscopy (EGD) History of prostate surgery Hx of umbilical hernia repair History of colonoscopy History of hemorrhoidectomy History of appendectomy Family History Father No problems noted. Mother No problems noted. Social History Housing: House Do you presently have visiting nurse or other home services: No Alcohol intake: current Alcohol intake frequency: holidays/special occasions only Alcohol type: beer Patient Tobacco Use Status: Former Tobacco user Tobacco use type: Cigarette e-Cigarette/Vaping Use: Never Used Second Hand Smoke Exposure: No service: No Current occupational status: retired Current occupation: left hand Cognitive needs: No Hearing needs: No Vision needs: No Questionnaire PHQ-9 Over the last 2 weeks, how often have you been bothered by any of the following problems? 1. Little interest or pleasure in doing things: not at all 2. Feeling down, depressed, or hopeless: not at all 3. Trouble falling or staying asleep, or sleeping too much: not at all 4. Feeling tired or having little energy: not at all 5. Poor appetite or overeating: not at all 6. Feeling bad about yourself - or that you are a failure or have let yourself or your family down: not at all 7. Trouble concentrating on things, such as reading the newspaper or watching television: not at all 8. Moving or speaking so slowly that other people could have noticed. Or the opposite - being so fidgety or restless that you have been moving around a lot more than usual: not at all 9. Thoughts that you would be better off or of hurting yourself in some way: not at all Total score: 0 Depression Screening Interpretation: Negative Depression Screening Done: Yes 27504 - PHQ-9 Billing: Yes Source: Developed by Drs. Vince Calderon, Jennifer Mathur, Marlo Bowman and colleagues, with an educational annmarie from [employer]. Thrive Questionnaire Date Thrive assessed: 06/21/24 I am a: Patient What is your living situation today?: I have a steady place to live Within the past 12 months, did the food you bought not last and you didn't have the money to get more?: Never true Within the past 12 months, did you worry whether your food would run out before you got money to buy more?: Never true Do you have trouble paying for medicines?: No Do you have trouble getting transportation to medical appointments?: No Do you have trouble paying your heating and electricity bill?: No Do you have trouble taking care of your child, family member or friend?: No Do you have trouble with day-to-day activities such as bathing, preparing meals, shopping, managing finances, etc.?: No Are you currently unemployed and looking for a job?: No Are you interested in more education?: No Please select the resources that you would like help with: None THRIVE Score: 0 AUDIT C Alcohol Use Questionnaire (AUDIT-C) 1. How often do you have a drink containing alcohol?: Never Total Score: 0 Score Reviewed/Action Taken: Yes EDMUND-7 AMB Questionnaire EDMUND-7 Date EDMUND - 7 assessed: 12/08/22 Source: Developed by Drs. Vince Calderon, Jennifer Mathur, Marlo Bowman and colleagues, with an educational annmarie from [employer]. Review of Systems Const Denies chills, Denies headache(s) and Denies weight loss ENT Denies headache(s) Card Denies chest pain, Denies syncope, Denies irregular heart rhythm and Denies dyspnea Resp Denies dyspnea GI Denies abdominal pain, Denies change in stool character, Denies nausea and Denies vomiting Musc Denies deformity and Denies joint swelling Neuro Denies syncope and Denies headache(s) Physical exam (Primary Care) Tobacco/Smoking Status: Tobacco use Status Tobacco use date assessed 06/21/24 06/21/24 10:54 Patient Tobacco Use Status Former Tobacco user 06/21/24 10:51 Tobacco use type Cigarette 06/21/24 10:51 e-Cigarette/Vaping Use Never Used 06/21/24 10:51 PHQ-9: PHQ-9 Score PHQ-9: Total score 0 06/21/24 10:54 Depression Screening Interpretation: Negative Thrive Assessment: Date of Thrive Assessment Date Thrive assessed 06/21/24 06/21/24 10:54 Telehealth Telehealth Telehealth Platform: Telephone Location of provider rendering services: practice address Location of patient: address on file Patient Identification confirmed using: Name, : Yes Telehealth method: voice only Patient verbally consented to treatment: Yes Patient verbally consented to billing insurance company: Yes Patient informed of any privacy concerns related to visit: Yes Minutes spent on Phone/Video with Pt.: 15 (telephone) Assessment and Plan Assessment & Plan (1) Cough: Code(s): R05 - Cough Plan: rx sent Medications: New azithromycin take 500 mg today (day 1), then 250 mg for 4 days (days 2-5) PO 6 tabs 0RF Refilled lorazepam 1 mg PO BID PRN 60 tabs 5RF anxiety Coding Level of Care Code Tele Est Pt Level 3 (08695) Diagnoses Cough R05
== END 2024-06-21 14:12 | disposition home or self-care (01) ==
LOC: HO.HMGH 10:55
PROVIDERS: PCP Internal Medicine; Visit Provider Internal Medicine
DX: R05.9 Cough, unspecified (principal)
CPT/HCPCS: 99442

== ENCOUNTER 2024-10-02 08:39 | Outpatient (AMB) | payer MEDICARE, SELFPAY ==
[2024-10-02 08:43] VITALS: BP 144/86; PULSE 85; O2SAT 96; BMI 30.9
--- NOTE | 2024-10-02 08:43 | MHC.PC.OV ---
Vital Signs 10/02/24 08:43 Height 6 ft 1 in Weight 234 lb 2 oz BMI 30.9 BP 144/86 H Blood Pressure Location Lt brachial Position Sitting Pulse 85 Pulse Source Pulse Oximeter Pulse Oximetry (%) 96 Oxygen Delivery Method Room Air Intake Visit Reasons: 3m f/u sophie 09/21 Telephonic Nurse Required: No Accompanied by: Self / Same As Patient Allergies No Known Allergies Allergy (Verified 10/02/24 08:43) Medication List - Last Reconciled 10/02/24 by Miguelangel Bunch MD albuterol sulfate 90 mcg/actuation 2 puffs PO Q6H PRN 30 days aspirin (Adult Low Dose Aspirin) 81 mg PO DAILY azithromycin take 500 mg today (day 1), then 250 mg for 4 days (days 2-5) PO azithromycin take 500 mg today (day 1), then 250 mg for 4 days (days 2-5) PO benzonatate 100 mg PO TID PRN bethanechol chloride 50 mg PO BID 90 days chlorthalidone 25 mg PO DAILY fluticasone propionate 50 mcg/actuation 1 spray intranasal Q12H hydrocortisone 2.5% (Anusol-HC) 1 appl ME BID-QID PRN ibuprofen 600 mg PO Q6-8H PRN lisinopril 10 mg PO DAILY lorazepam 1 mg PO BID PRN sertraline (Zoloft) 50 mg PO DAILY Tobacco use date assessed: 10/02/24 Fall risk assessment: No Falls in past year Last assessed Fall Risk: 10/02/24 Dental Screening Dental Screen Date: 10/02/24 Did you have a dental visit in the last 12 months?: Yes Did you have a dental problem in the last 6 months where you did not have access to dental care?: No Was dental information given to patient?: Patient has dentist HPI 3mth f/u sophie 09/21 HPI Details HTN on Rx; doing well; compliant [facility] Medical History History of bladder stone Screening for prostate cancer Screening for hyperlipidemia Screening for diabetes mellitus Surgical History History of esophagogastroduodenoscopy (EGD) History of prostate surgery Hx of umbilical hernia repair History of colonoscopy History of hemorrhoidectomy History of appendectomy Family History Father No problems noted. Mother No problems noted. Social History Housing: House Do you presently have visiting nurse or other home services: No Alcohol intake: current Alcohol intake frequency: holidays/special occasions only Alcohol type: beer Patient Tobacco Use Status: Former Tobacco user Tobacco use type: Cigarette e-Cigarette/Vaping Use: Never Used Second Hand Smoke Exposure: No service: No Current occupational status: retired Current occupation: left hand Cognitive needs: No Hearing needs: No Vision needs: No Questionnaire PHQ-9 Over the last 2 weeks, how often have you been bothered by any of the following problems? 1. Little interest or pleasure in doing things: not at all 2. Feeling down, depressed, or hopeless: not at all 3. Trouble falling or staying asleep, or sleeping too much: not at all 4. Feeling tired or having little energy: not at all 5. Poor appetite or overeating: not at all 6. Feeling bad about yourself - or that you are a failure or have let yourself or your family down: not at all 7. Trouble concentrating on things, such as reading the newspaper or watching television: not at all 8. Moving or speaking so slowly that other people could have noticed. Or the opposite - being so fidgety or restless that you have been moving around a lot more than usual: not at all 9. Thoughts that you would be better off or of hurting yourself in some way: not at all Total score: 0 Depression Screening Interpretation: Negative Depression Screening Done: Yes 57408 - PHQ-9 Billing: Yes Source: Developed by Drs. Vince Calderon, Jennifer Mathur, Marlo Bowman and colleagues, with an educational annmarie from [employer]. Thrive Questionnaire Date Thrive assessed: 10/02/24 I am a: Patient What is your living situation today?: I have a steady place to live Within the past 12 months, did the food you bought not last and you didn't have the money to get more?: Never true Within the past 12 months, did you worry whether your food would run out before you got money to buy more?: Never true Do you have trouble paying for medicines?: No Do you have trouble getting transportation to medical appointments?: No Do you have trouble paying your heating and electricity bill?: No Do you have trouble taking care of your child, family member or friend?: No Do you have trouble with day-to-day activities such as bathing, preparing meals, shopping, managing finances, etc.?: No Are you currently unemployed and looking for a job?: No Are you interested in more education?: No Please select the resources that you would like help with: None Currently or been in a relationship where the following occur: No concerns reported THRIVE Score: 0 AUDIT C Alcohol Use Questionnaire (AUDIT-C) 1. How often do you have a drink containing alcohol?: Never Total Score: 0 Score Reviewed/Action Taken: Yes EDMUND-7 AMB Questionnaire EDMUND-7 Date EDMUND - 7 assessed: 10/02/24 Feeling nervous, anxious, or on edge: 0 = Not at all Not being able to stop or control worryin = Not at all Worrying too much about different things: 0 = Not at all Trouble relaxin = Not at all Being so restless that it is hard to sit still: 0 = Not at all Becoming easily annoyed or irritable: 0 = Not at all Feeling afraid as if something awful might happen: 0 = Not at all Total EDMUND-7 score (0-4 normal; 5-9 mild; 10-14 moderate; 15-21 severe): 0 Source: Developed by Drs. Vince Calderon, Jennifer Mathur, Marlo Bowman and colleagues, with an educational annmarie from [employer]. Review of Systems Const Denies chills, Denies headache(s) and Denies weight loss ENT Denies headache(s) Card Denies chest pain, Denies syncope, Denies irregular heart rhythm and Denies dyspnea Resp Denies chest congestion, Denies cough and Denies dyspnea GI Denies abdominal pain, Denies change in stool character, Denies nausea and Denies vomiting Musc Denies deformity and Denies joint swelling Neuro Denies syncope and Denies headache(s) Physical exam (Primary Care) Vital Signs: Last Vital Signs Pulse 85 10/02/24 08:43 BP 144/86 H 10/02/24 08:43 Pulse Ox 96 10/02/24 08:43 Oxygen Delivery Method Room Air 10/02/24 08:43 BMI result Body Mass Index 30.9 Tobacco/Smoking Status: Tobacco use Status Tobacco use date assessed 10/02/24 10/02/24 08:45 Patient Tobacco Use Status Former Tobacco user 10/02/24 08:45 Tobacco use type Cigarette 10/02/24 08:45 e-Cigarette/Vaping Use Never Used 10/02/24 08:45 PHQ-9: PHQ-9 Score PHQ-9: Total score 0 10/02/24 08:52 Depression Screening Interpretation: Negative Thrive Assessment: Date of Thrive Assessment Date Thrive assessed 10/02/24 10/02/24 08:45 Currently or been in a relationship where the following occur: No concerns reported Const General: cooperative, comfortable, no acute distress and alert Neck Neck: Yes no lymphadenopathy Thyroid: Thyroid normal Resp Effort & Inspection: normal respiratory effort Auscultation: clear to auscultation bilaterally Percussion: percussion normal Cardio Jugular venous distension: no JVD Palpation: normal PMI Rate: regular rate Rhythm: regular rhythm Heart sounds: S1 normal heart sound present and S2 normal heart sound present GI Inspection: Yes normal to inspection Palpation (GI): No hepatosplenomegaly present Skin General skin exam: no rashes or lesions noted Extrem General: Yes no clubbing, cyanosis or edema Office Procedures Flu Questionnaire Does the patient have a severe egg allergy?: No Immunizations Fluarix Triv [id number] (PF) 45 mcg (15 mcg x 3)/0.5 mL IM syringe Performing Provider: Miguelangel Bunch MD [facility] Documented (not given) by: YANNI Regalado on 10/02/24 08:52 Reason Not Given: Patient Refused Coding Level of Care Code Est Pt Level 3 (33027) Diagnoses Hypertension, unspecified type I10 Hypertension type: unspecified Assessment & Plan Assessment & Plan (1) Hypertension: Code(s): I10 - Essential (primary) hypertension Category: Medical Qualifiers: Hypertension type: unspecified Qualified Code(s): I10 - Essential (primary) hypertension Plan: stable; do labs Orders: Orders Influenza 1361-4911 Immunization Today Z23 - Encounter for immunization Lipid Panel Today Z13.220 - Encounter for screening for lipoid disorders Complete Blood Count Auto Diff Today Z13.0 - Encounter for screening for diseases of the blood and blood-forming organs and certain disorders involving the immune mechanism Comprehensive [place]. Panel Fast Today Z13.9 - Encounter for screening, unspecified
== END 2024-10-02 09:04 | disposition home or self-care (01) ==
LOC: HO.HMCH 08:40
PROVIDERS: PCP Internal Medicine; Visit Provider Internal Medicine
DX: Z23 Encounter for immunization (principal); I10 Essential (primary) hypertension

== ENCOUNTER → 2024-10-02 08:39 | Outpatient (BNVA) | payer MEDICARE, SELFPAY | PROVIDERS: PCP Internal Medicine; Visit Provider Internal Medicine | DX: I10 Essential (primary) hypertension (principal) | CPT/HCPCS: 90471; 96127; 99212 ==

== ENCOUNTER 2024-10-03 08:22 | Outpatient (REF) | payer MEDICARE, SELFPAY ==
[2024-10-03 10:12] LABS: MANUAL DIFF FLAG NO
[2024-10-03 10:24] LABS: Basophils Percent Auto 0.7 % (0-2); Eosinophils Absolute Auto 0.1 X10*3/uL (0.0-0.4); Eosinophils Percent Auto 1.5 % (0-4); Hematocrit 39.7 % (42.0-52.0); Hemoglobin 13.1 g/dl (14.0-18.0); Imm Gran Abs Auto 0.01 X10*3/uL (0.00-0.03); Imm Gran Pct Auto 0.2 % (0.0-0.4); Lymphocytes Absolute Auto 1.7 X10*3/uL (1.2-4.9); Lymphocytes Percent Auto 29.8 % (20-40); Mean Corpuscular Hemoglobin 30.7 pg (27.0-33.0); Mean Platelet Volume 11.4 fL (9.4-12.4); Monocytes Absolute Auto 0.6 X10*3/uL (0.1-1.2); Monocytes Percent Auto 10.5 % (2-11); Neutrophils Absolute Auto 3.3 x10*3/uL (2.0-8.3); Neutrophils Percent Auto 57.3 % (45-73); Platelet Count 253 X10*3/uL (160-400); Red Blood Count 4.27 X10*6/uL (4.60-5.80); Red Cell Distribution Width 13.4 % (11.0-16.0); White Blood Count 5.8 X10*3/uL (4.8-10.8)
[2024-10-03 10:45] LABS: Alanine Aminotransferase 21 U/L (0-40); Albumin Level 4.1 g/dL (3.5-5.0); Alkaline Phosphatase 60 U/L (39-117); Anion Gap 9 (12-20); Aspartate Amino Transferase 25 U/L (5-37); Bilirubin Total 0.5 mg/dL (0.0-1.0); Blood Urea Nitrogen 18 mg/dL (9-16); Calcium 9.9 mg/dL (8.4-10.2); Carbon Dioxide 31 mmol/L (22-29); Chloride 103 mmol/L (96-108); Cholesterol 207 mg/dL (<200); Estimated Glomerular Filt Rate > 60; Glucose Fasting 106 mg/dL (60-99); HDL Cholesterol 69 mg/dL (>40); LDL Cholesterol Calculated 128 mg/dL (<100); Potassium 4.3 mmol/L (3.3-5.1); Sodium 139 mmol/L (135-145); Total Protein 7.1 g/dL (6.5-8.0); Triglycerides 54 mg/dL (<150)
== END 2024-10-03 08:23 | disposition home or self-care (01) ==
LOC: HO.HMGCLDS 08:22
PROVIDERS: PCP Internal Medicine; Visit Provider Internal Medicine
DX: Z13.220 Encounter for screening for lipoid disorders (principal); Z13.0 Encounter for screening for diseases of the blood and blood-forming organs and certain disorders involving the immune mechanism; Z13.9 Encounter for screening, unspecified
CPT/HCPCS: 36415; 80053; 80061; 85025

== ENCOUNTER 2024-10-11 10:33 | Outpatient (AMB) | payer MEDICARE, SELFPAY ==
[2024-10-11 10:37] VITALS: BP 146/72; PULSE 75; O2SAT 93; BMI 30.3
--- NOTE | 2024-10-11 10:37 | MHC.PC.OV ---
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 Accompanied by: Self / Same As Patient Allergies No Known Allergies Allergy (Verified 10/11/24 10:37) Tobacco use date assessed: 10/02/24 Fall risk assessment: No Falls in past year Last assessed Fall Risk: 10/11/24 Dental Screening Dental Screen Date: 10/02/24 HPI Hips pain HPI Details low back pain for a few months PFSH Medical History History of bladder stone Screening for prostate cancer Screening for hyperlipidemia Screening for diabetes mellitus Surgical History History of esophagogastroduodenoscopy (EGD) History of prostate surgery Hx of umbilical hernia repair History of colonoscopy History of hemorrhoidectomy History of appendectomy Family History Father No problems noted. Mother No problems noted. Social History Housing: House Do you presently have visiting nurse or other home services: No Alcohol intake: current Alcohol intake frequency: holidays/special occasions only Alcohol type: beer Patient Tobacco Use Status: Former Tobacco user Tobacco use type: Cigarette e-Cigarette/Vaping Use: Never Used Second Hand Smoke Exposure: No service: No Current occupational status: retired Current occupation: left hand Cognitive needs: No Hearing needs: No Vision needs: No Questionnaire Thrive Questionnaire Date Thrive assessed: 10/02/24 EDMUND-7 AMB Questionnaire EDMUND-7 Date EDMUND - 7 assessed: 10/02/24 Source: Developed by Drs. Vince Calderon, Jennifer Mathur, Marlo Bowman and colleagues, with an educational annmarie from [employer]. Review of Systems Const Denies chills, Denies headache(s) and Denies weight loss ENT Denies headache(s) Card Denies chest pain, Denies syncope, Denies irregular heart rhythm and Denies dyspnea Resp Denies chest congestion, Denies cough and Denies dyspnea GI Denies abdominal pain, Denies change in stool character, Denies nausea and Denies vomiting Musc Denies deformity and Denies joint swelling Neuro Denies syncope and Denies headache(s) Physical exam (Primary Care) Vital Signs: Last Vital Signs Pulse 75 10/11/24 10:37 BP 146/72 H 10/11/24 10:37 Pulse Ox 93 10/11/24 10:37 Oxygen Delivery Method Room Air 10/11/24 10:37 BMI result Body Mass Index 30.3 Tobacco/Smoking Status: Tobacco use Status Tobacco use date assessed 10/02/24 10/11/24 10:41 Patient Tobacco Use Status Former Tobacco user 10/11/24 10:41 Tobacco use type Cigarette 10/11/24 10:41 e-Cigarette/Vaping Use Never Used 10/11/24 10:41 Thrive Assessment: Date of Thrive Assessment Date Thrive assessed 10/02/24 10/11/24 10:41 Const General: cooperative, comfortable, no acute distress and alert Neck Neck: Yes no lymphadenopathy Thyroid: Thyroid normal Resp Effort & Inspection: normal respiratory effort Auscultation: clear to auscultation bilaterally Percussion: percussion normal Cardio Jugular venous distension: no JVD Palpation: normal PMI Rate: regular rate Rhythm: regular rhythm Heart sounds: S1 normal heart sound present and S2 normal heart sound present GI Inspection: Yes normal to inspection Palpation (GI): No hepatosplenomegaly present Skin General skin exam: no rashes or lesions noted Extrem General: Yes no clubbing, cyanosis or edema Coding Level of Care Code Est Pt Level 3 (05824) Diagnoses Low back pain M54.50 Assessment & Plan Assessment & Plan (1) Low back pain: Code(s): M54.50 - Low back pain, unspecified Category: Medical Plan: xr Orders: Orders XR lumbar spine 2-3V Today M54.9 - Dorsalgia, unspecified ECG 12 lead EKG Today R00.2 - Palpitations
== END 2024-10-11 10:49 | disposition home or self-care (01) ==
PROVIDERS: PCP Internal Medicine; Visit Provider Internal Medicine
DX: M54.50 Low back pain, unspecified (principal)

== ENCOUNTER → 2024-10-11 10:33 | Outpatient (REF) | payer MEDICARE, SELFPAY ==
--- NOTE | 2024-10-11 11:03 | ECG_ITS ---
Test Reason : PALPITATIONS Blood Pressure : / mmHG Vent. Rate : 081 BPM Atrial Rate : 081 BPM P-R Int : 148 ms QRS Dur : 090 ms QT Int : 404 ms P-R-T Axes : 042 -34 032 degrees QTc Int : 469 ms Normal sinus rhythm Left axis deviation Nonspecific ST abnormality Abnormal ECG When compared with ECG of 24-JUL-2022 09:27, No significant change was found Referred By: Miguelangel Bunch Electronically Signed By:Preston Carter
== END ==
LOC: HO.CARD 10:33
PROVIDERS: PCP Internal Medicine; Visit Provider Internal Medicine
DX: R00.2 Palpitations (principal); M54.9 Dorsalgia, unspecified; M54.50 Low back pain, unspecified
CPT/HCPCS: 72100; 93005; 99212

== ENCOUNTER → 2024-10-11 11:03 | Outpatient (BNV) | payer MEDICARE, SELFPAY | PROVIDERS: PCP Internal Medicine; Visit Provider Internal Medicine Cardiovascular Disease | DX: R00.2 Palpitations (principal) | CPT/HCPCS: 93010 ==

== ENCOUNTER 2024-11-20 08:06 | Outpatient (AMB) | payer MEDICARE, SELFPAY ==
--- OUTSIDE RECORDS SUMMARY | 2024-11-20 08:13 | XMS_ITS ---
Author Organization [facility] Address [address] [place] [address] Care Team Providers Care Airport Representative Name Role Phone Alivia TOLENTINO, Miguelangel Primary Care Provider Otoniel Zahra Aviles Unavailable [phone] Allergies No Known Allergies REASON FOR VISIT Open sore - Toe Medications Medication SIG (Take, Route, Frequency, Duration) Notes Start Date End Date Status Chlorthalidone 25 MG 1 tablet in the mor anuel with food Orally Once a day for 30 day(s) Active Bethanechol Chloride 50 MG 1 tablet 1 ho ur before or 2 hours after meals Orally Three times a day Active Fluticasone Propionate 50 MCG/ACT 1 spray in each nostril Nasally Once a day Active Aspirin 81 81 MG 1 tablet Orally Once a day Active Albuterol Sulfate 108 (90 Base) MCG/ACT 1 puff as needed Inhalation every 4 hrs Active Cephalexin 500 MG 1 capsule Orally twi ce a day for 10 days 2023 Active LORazepam 1 MG 1 tablet at bedtime as needed Orally Once a day Active Sertraline HCl 50 MG 1 tablet Orally Onc e a day Active Hydrocortisone 2.5 % 1 application Exter gilberto Once a day Active Ibuprofen 600 MG 1 tablet with food o r milk as needed Orally Three times a day Active Lisinopril 10 MG 1 tablet Orally Once a day for 30 day(s) Active Social History Tobacco Use: Social History Observation Description Date Details (start date - stop date) Former Smoker NA - NA Tobacco Use/Smoking Question Answer Notes Are you a: former smoker Additional Findings: Tobacco Non-User Current no n-smoker Alcohol Screen Question Answer Notes Did you have a drink containing alcohol in the p ast year? No Points 0 Interpretation Negative Tobacco use other than smoking: Question Answer Notes Are you an other tobacco user? No Problems Problem Type SNOMED Code ICD Code Onset Dates Problem Status W/U Status Risk Notes Problem Skin ulcer of toe of left foot with fat layer exposed (L97.522) Active confirmed Problem Skin ulcer of toe of right foot with fat layer exposed (L97.512) Active confirmed Vital Signs Height 6 ft 1 in in 10/18/2023 Weight 225 lbs 10/18/2023 BMI 29.68 kg/m2 10/18/2023 Procedures Procedure Date Ordered Date Performed Result Body Sit e 32044-SNPXAWR SKIN/TISSUE 10/18/2023 N/A Encounters Encounter Location Date Provider Diagnosis [facility] [address] [address] 10/18/2023 Zahra Black Skin ulcer of toe of right foot with fat layer exposed L97.512 Assessments Encounter Date Diagnosis (ICD Code) Assessment Notes Treatment Notes Treatment Clinical Notes Section Notes 10/18/2023 Skin ulcer of toe of right foot with fat layer exposed (ICD-10 - L97.512) Patient Educated with: WOUND CARE INSTRUCTIONS.p df (WOUND CARE INSTRUCTIONS.p df) 10/18/2023 Other Plan Of Treatment Treatment Notes Assessment Notes Skin ulcer of toe of right f oot with fat layer exposed Patient Educated with: WOUND CARE INSTRUCTIONS.pdf (WOUND CARE INSTRUCTIONS.pdf) Pending Test Test Name Order Date [id number] SKIN/TISSUE 10/18/2023 Next Appt Details Follow Up: 2 Weeks, Reason: Procedure Notes * Category Sub-Category Detail Notes Debride skin and subQ Open wound Physician of record performed open wound selective debridement of devitalized necrotic/nonviable soft tissue, fibrin, exudate, epidermis, dermis, thru skin and subcutaneous fat tissue, first 20 sq cm or less, using sharp dissection with sterile 15 blade, and/or tissue nippers. ANESTHESIA- was accomplished TOPICALLY with Lidocaine Hydrochloride Jelly 2 percent, Sterile antibiotic dressing applied. Hemostasis was controlled through direct pressure. Post debridement measurements: 8 mm x 4mm x 3mm. Character of the wound post debriement is stable (85700) Progress Notes * Hunter DAVIS DDOB: [birth year] (78 yo M)Acc No.[id number]:10/18/2023 Progress Notes Patient:?Hunter Davis Provider:?Zahra Joya DPM :1945???Age:78 Y???Sex:Male Hardeep e:10/18/2023 Address:[address] [place] [address] [facility] Pcp:Miguelangel Bunch MD Subjective: * Chief Complaints: * ???Open sore - Toe * HPI: ???Skin problems:?Nature:?Open sore.?Treatments:?Topical abx, soaks.? * Medical History:? * Surgical History:?appendecto my 09/07/1963bladder surgery 2017esophagogastroduodenoscopy prostate surgery umbilical hernia repair colonoscopy hemorrhoidectomy * Hospitalization/Major Diagno stic Procedure:?Denies Past Hospitalization * Family History:?Mother: dece ased, Cancer, diagnosed with Other malignant neoplasm of unspecified site.?Father: .? * Social History:?Tobacco Use:?Tobacco Use/Smoking?Are you a:?former smoker ?Additional Findings: Tobacco Non-User?Current non-smoker ?Tobacco use other than smoking?Are you an other tobacco user??No ???Drugs/Alcohol:?Drugs?Have you used drugs other than those for medical reasons in the past 12 months??No ?Alcohol Screen?Did you have a drink containing alcohol in the past year??No ?Points?0 ?Interpretation?Negative ???Miscellaneous:?Caffeine: yes, 2-3 cups per day. ?Children: yes, 1. ?no Exercise. ?Marital status: . 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 * Medications:?TakingSertralin e HCl 50 MG Tablet 1 tablet Orally Once a dayIbuprofen 600 MG Tablet 1 tablet with food or milk as needed Orally Three times a dayHydrocortisone 2.5 % Cream 1 application Externally Once a dayFluticasone Propionate 50 MCG/ACT Suspension 1 spray in each nostril Nasally Once a dayBethanechol Chloride 50 MG Tablet 1 tablet 1 hour before or 2 hours after meals Orally Three times a dayAlbuterol Sulfate 108 (90 Base) MCG/ACT Aerosol Powder Breath Activated 1 puff as needed Inhalation every 4 hrsAspirin 81 81 MG Tablet Delayed Release 1 tablet Orally Once a dayChlorthalidone 25 MG Tablet 1 tablet in the morning with food Orally Once a dayLisinopril 10 MG Tablet 1 tablet Orally Once a dayLORazepam 1 MG Tablet 1 tablet at bedtime as needed Orally Once a dayCephalexin 500 MG Capsule 1 capsule Orally twice a dayMedication List reviewed and reconciled with the patientTaking Sertraline HCl 50 MG Tablet 1 tablet Orally Once a dayTaking Ibuprofen 600 MG Tablet 1 tablet with food or milk as needed Orally Three times a dayTaking Hydrocortisone 2.5 % Cream 1 application Externally Once a dayTaking Fluticasone Propionate 50 MCG/ACT Suspension 1 spray in each nostril Nasally Once a dayTaking Bethanechol Chloride 50 MG Tablet 1 tablet 1 hour before or 2 hours after meals Orally Three times a dayTaking Albuterol Sulfate 108 (90 Base) MCG/ACT Aerosol Powder Breath Activated 1 puff as needed Inhalation every 4 hrsTaking Aspirin 81 81 MG Tablet Delayed Release 1 tablet Orally Once a dayTaking Chlorthalidone 25 MG Tablet 1 tablet in the morning with food Orally Once a dayTaking Lisinopril 10 MG Tablet 1 tablet Orally Once a dayTaking LORazepam 1 MG Tablet 1 tablet at bedtime as needed Orally Once a dayTaking Cephalexin 500 MG Capsule 1 capsule Orally twice a dayMedication List reviewed and reconciled with the patient * Allergies:?N.K.D.A.yes[Aller gies Verified] Objective: * Vitals:?Ht: 6 ft 1 in, Wt: 2 25, BMI: 29.68, Shoe size: 12, Ht-cm: 185.42 cm, Wt- k.06 kg. * Examination: ???Dermatologic: ?ULCER:? LOCATION,T5, Dorsal, SIZE, 10mm X 6mm X 2-3mm, BASE, fibro- granular, RIM, hyperkeratotic, UNDERMINING, mild, TRACKING, Sub Q with Fat layer exposed, DRAINAGE, serosanguineous, moderate, NECROTIC TISSUE, loosely-adherent, yellow slough, MALODOR, absent, CALOR, trace, ERYTHEMA, trace.? Assessment: * Assessment: 1.?Skin ulcer of toe of righ t foot with fat layer exposed - L97.512 (Primary)? Plan: * Treatment: * Procedures:?Debride skin and subQ:?Open wound?Physician of record performed open wound selective debridement of devitalized necrotic/nonviable soft tissue, fibrin, exudate, epidermis, dermis, thru skin and subcutaneous fat tissue, first 20 sq cm or less, using sharp dissection with sterile 15 blade, and/or tissue nippers. ANESTHESIA- was accomplished TOPICALLY with Lidocaine Hydrochloride Jelly 2 percent, Sterile antibiotic dressing applied. Hemostasis was controlled through direct pressure. Post debridement measurements: 8 mm x 4mm x 3mm. Character of the wound post debriement is stable (03520).? * Procedure Codes:?00103 DEBRI DE SKIN/TISSUE, Modifiers: T5 * Preventive Medicine:? ??Counseling:?Ulcer:?A detailed plan of care was reviewed with the patient. We emphasized the fact that the patient takes on an active participating role in the treatment process and emphasized to them that they are an included, valued, and important member of the wound healing team in order to reach an expedient successful outcome. The patient agreed to follow their medically recommended diet while increasing their protein intake if safely able to do so, maintain proper bodily hydaration, abide by weight-bearing restrictions at all times, quit all current smoking habits if any, and diligently follow any/all dressing change instructions. It was clearly made known to the patient that if they fail to do their part, they will likely extend their course of treatment as well as possibly increase their risk of adverse events including amputation. The patient was instructed on importance of proper wound care consisting of pressure reduction, and proper maintainance of a moist wound environment. The patient is to cleanse the wound with warm soapy water/peroxide/saline, or betadine BID based on product availability. The patient is to apply ( Neosporin, Polysporin, or Triple, ) Antibiotic to the wound and cover with a DSD as directed. The patient was instructed to change dressings according to orders, or PRN saturation, leaks. The patient was instructed to monitor and report any signs or symptoms of infection or any untoward reactions. Precautions Taken: Offloading/Pressure reduction via rest/ limited activity to essential to daily life only, cane/ crutches/ walker/ knee scooter/ wheel chair, shoe modification, accommodative padding, sharp debridement, and take/apply medication as directed, Debridement frequency as indicated, Every 1-2 weeks until healed.? * Follow Up:?2 Weeks * Images: * Sign off status: Completed true * Provider:Neno Joya DPM Date:?2022 Generated for Jaya diaz/Josh/Cristyitting on:?11/20/2024 08:13 AM EST History and Physical Notes * HPI (History of Present Illness) Category Sub-Category Detail Notes Category Not es Skin problems Nature: Open sore Treatments: Topical abx, soaks Examination Category Sub-Category Detail Notes Category Not es Dermatologic ULCER: LOCATION,T5, Mj myra, SIZE, 10mm X 6mm X 2-3mm, BASE, fibro-granular, RIM, hyperkeratotic, UNDERMINING, mild, TRACKING, Sub Q with Fat layer exposed, DRAINAGE, serosanguineous, moderate, NECROTIC TISSUE, loosely-adherent, yellow slough, MALODOR, absent, CALOR, trace, ERYTHEMA, trace
--- OUTSIDE RECORDS SUMMARY | 2024-11-20 08:13 | XMS_ITS ---
Author Organization [facility] Address [address] [place] [address] Care Team Providers Care Appeals Analyst Name Role Phone Alivia TOLENTINO, Miguelangel Primary Care Provider Otoniel Zahra Aviles Unavailable [phone] Allergies No Known Allergies REASON FOR VISIT Open sore - Toe Medications Medication SIG (Take, Route, Frequency, Duration) Notes Start Date End Date Status Cephalexin 500 MG 1 capsule Orally twi ce a day for 10 days 2023 Active Chlorthalidone 25 MG 1 tablet in the mor anuel with food Orally Once a day for 30 day(s) Active Aspirin 81 81 MG 1 tablet Orally Once a day Active LORazepam 1 MG 1 tablet at bedtime as needed Orally Once a day Active Lisinopril 10 MG 1 tablet Orally Once a day for 30 day(s) Active Ibuprofen 600 MG 1 tablet with food o r milk as needed Orally Three times a day Active Fluticasone Propionate 50 MCG/ACT 1 spray in each nostril Nasally Once a day Active Hydrocortisone 2.5 % 1 application Exter gilberto Once a day Active Albuterol Sulfate 108 (90 Base) MCG/ACT 1 puff as needed Inhalation every 4 hrs Active Bethanechol Chloride 50 MG 1 tablet 1 ho ur before or 2 hours after meals Orally Three times a day Active Sertraline HCl 50 MG 1 tablet Orally Onc e a day Active Social History Tobacco Use: Social History [...] Problem Status W/U Status Risk Notes Problem Ulcer of toe of left foot (disorder) (7877833342 2954182) Skin ulcer of toe of left foot, limited to breakdown of skin (L97.521) Active confirmed Problem Ulcer of toe of right foot (disorder) (1263471143 2285113) Skin ulcer of toe of right foot, limited to breakdown of skin (L97.511) Active confirmed Improvement Vital Signs Height 6 ft 1 in in 11/01/2023 Weight 225 lbs 11/01/2023 BMI 29.68 kg/m2 11/01/2023 Procedures Procedure Date Ordered Date Performed Result Body Sit e 02720- Debride <25 sq cm 11/01/2023 N/A Encounters Encounter Location Date Provider Diagnosis [facility] [address] [address] 11/01/2023 Zahra Black Skin ulcer of toe of right foot, limited to breakdown of skin L97.511 Assessments Encounter Date Diagnosis (ICD Code) Assessment Notes Treatment Notes Treatment Clinical Notes Section Notes 11/01/2023 Skin ulcer of toe of right foot, limited to breakdown of skin (ICD-10 - L97.511) Improvement Patient Educated with: WOUND CARE INSTRUCTIONS.p df (WOUND CARE INSTRUCTIONS.p df) Plan Of Treatment Treatment Notes Assessment Notes Skin ulcer of toe of right f oot, limited to breakdown of skin Patient Educated with: WOUND CARE INSTRUCTIONS.pdf (WOUND CARE INSTRUCTIONS.pdf) Pending Test Test Name Order Date 38207- Debride <25 sq cm 11/01/2023 Next Appt Details Follow Up: prn, Reason: Procedure Notes * Category Sub-Category Detail Notes Debride skin< 25 sq cm Open wound Physician of record performed open wound selective debridement of first 25 sq cm or less, of devitilized necrotic/nonviable soft tissue, fibrin, and exudate extending from the epidermis through the dermis, utilizing sharp dissection with sterile 15 blade, and/or tissue nippers. Sterile antibiotic dressing applied, ANESTHESIA- was accomplished TOPICALLY with Lidocaine Hydrochloride Jelly 2 percent. Hemostasis was achieved through direct pressure. Post debridement measurements: 3 mm x 2 mm x 1-2 mm. Character of the wound post debridement is stable (04566) Progress Notes * Hunter DAVIS DDOB: [birth year] (78 yo M)Acc No.[id number]:11/01/2023 Progress Notes Patient:?Hunter Davis Provider:?Zahra Joya DPM :1945???Age:78 Y???Sex:Male Hardeep e:11/01/2023 Address:[address] [place], [place] [id number] Pcp:Miguelangel Bunch MD Subjective: * Chief Complaints: * ???Open sore - Toe * HPI: ???Skin problems:?Treatments:??Local care consisting of daily distilled water wound cleanse, topical antibiotic as recommended, application of sterile dressing, offloading/pressure reduction via rest, shoe modification, insert modification, accommodative padding, assisted ambulation via cane/ crutch/ walker/ wheel chair/ knee scooter, and surgical debridement.? * Medical History:? * Surgical History:?appendecto my [...] ?no Exercise. ?Marital status: . 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 * Medications:?TakingSertralin e HCl 50 MG [...] Wt- k.06 kg. * Examination: ???Dermatologic: ?ULCER:? LOCATION, SIZE, 4mm X 3mm X 2mm, BASE, granular, RIM, hyperkeratotic, UNDERMINING, absent, TRACKING, Full thickness breakdown of skin, DRAINAGE, serosanguineous, mild, NECROTIC TISSUE, loosely-adherent, yellow slough, MALODOR, absent, CALOR, absent, ERYTHEMA, absent, PAIN ON PALPATION, present.? Assessment: * Assessment: 1.?Skin ulcer of toe of righ t foot, limited to breakdown of skin - L97.511, Response to treatment, Improvement? Plan: * Treatment: * Procedures:?Debride skin< 25 sq cm:?Open wound?Physician of record performed open wound selective debridement of first 25 sq cm or less, of devitilized necrotic/nonviable soft tissue, fibrin, and exudate extending from the epidermis through the dermis, utilizing sharp dissection with sterile 15 blade, and/or tissue nippers. Sterile antibiotic dressing applied, ANESTHESIA- was accomplished TOPICALLY with Lidocaine Hydrochloride Jelly 2 percent. Hemostasis was achieved through direct pressure. Post debridement measurements: 3 mm x 2 mm x 1-2 mm. Character of the wound post debridement is stable (86368).? * Procedure Codes:?04350 ACTIV E WOUND CARE/20 CM OR <, Modifiers: T5 * Preventive Medicine:? ??Counseling:?Ulcer:?Given recent successful results to treatment, The patient is to cont the local wound care as directed.? * Follow Up:?prn * Images: * Sign off status: Completed true * Provider:Neno Joya DPM Date:?2022 Generated for Jaya diaz/Josh/Elizabeth on:?11/20/2024 08:13 AM EST History and Physical Notes * HPI (History of Present Illness) Category Sub-Category Detail Notes Category Not es Skin problems Treatments: Local care consi sting of daily distilled water wound cleanse, topical antibiotic as recommended, application of sterile dressing, offloading/pressure reduction via rest, shoe modification, insert modification, accommodative padding, assisted ambulation via cane/ crutch/ walker/ wheel chair/ knee scooter, and surgical debridement Examination Category Sub-Category Detail Notes Category Not es Dermatologic ULCER: LOCATION, SIZE, 4mm X 3mm X 2mm, BASE, granular, RIM, hyperkeratotic, UNDERMINING, absent, TRACKING, Full thickness breakdown of skin, DRAINAGE, serosanguineous, mild, NECROTIC TISSUE, loosely-adherent, yellow slough, MALODOR, absent, CALOR, absent, ERYTHEMA, absent, PAIN ON PALPATION, present
--- OUTSIDE RECORDS SUMMARY | 2024-11-20 08:14 | XMS_ITS | Patient Health Record ---
Author Organization [facility] Address [address] [place] [address] Care Team Providers Care Geology Technician Name Role Phone Miguelangel Bunch MD Primary Care Provider Booa dickson JoyaChee Unavailable [phone] Allergies No Known Allergies Reason For Referral No Information Medications Medication SIG (Take, Route, Frequency, Duration) Notes Start Date End Date Status Cephalexin 500 MG 1 capsule Orally twi ce a day for 10 days 2023 Active Ibuprofen 600 MG 1 tablet with food o r milk as needed Orally Three times a day Active Sertraline HCl 50 MG 1 tablet Orally Onc e a day Active Fluticasone Propionate 50 MCG/ACT [...] meals Orally Three times a day Active Chlorthalidone 25 MG 1 tablet in the mor anuel with food Orally Once a day for 30 day(s) Active Aspirin 81 81 MG 1 tablet Orally Once a day Active LORazepam 1 MG 1 tablet at bedtime as needed Orally Once a day Active Lisinopril 10 MG 1 tablet Orally Once a day for 30 day(s) Active Immunizations Vaccine Route Administration Date Status Comme nts COVID-19 Pfizer BioNTech Vaccine Unknown 10/03/[address] 1 [address] vaccine 12/31/20 2nd vaccine 01/21/21 Social History Tobacco Use: Social History Observation [...] Problem Status W/U Status Risk Notes Problem Acquired hammer toe of right foot (88170421294 08443) Other hammer toe(s) (acquired), right foot (M20.41) Active confirmed Problem Acquired hammer toe of left foot (93896648276 57451) Other hammer toe(s) (acquired), left foot (M20.42) Active confirmed Problem Ulcer of toe (879939778) Non-pressure chronic ulcer of other part of right foot limited to breakdown of skin (L97.511) Active confirmed Problem Ulcer of toe of right foot (disorder) (16836022688 161265) Skin ulcer of toe of right foot, limited to breakdown of skin (L97.511) Active confirmed Improvement Problem Ulcer of toe of left foot (disorder) (49984310306 583572) Skin ulcer of toe of left foot, limited to breakdown of skin (L97.521) Active confirmed Problem Skin ulcer of toe of right foot with fat layer exposed (L97.512) Active confirmed Problem Skin ulcer of toe of left foot with fat layer exposed (L97.522) Active confirmed Plan Of Treatment Pending Test Test Name Order Date 66734-ZGJCMPX NAIL, 6 OR MORE 07/15/2020 15294-JPCNWUJ NAIL, 6 OR MORE 10/28/2020 27539-FQTKJHV NAIL, 6 OR MORE 01/27/2021 40157-LDLEZMJ NAIL, 6 OR MORE 05/01/2021 20839-GGSBHGB NAIL, 1-5 2023 37748-Guwwbdvs Plate 10/01/2021 20550-Tgxwirdp Plate 05/01/2021 23683-Rwzdxljt Plate 01/27/2021 75309-Bmxfjenn Plate 10/28/2020 55105-Hwxaykbt Plate 07/15/2020 33450-XRG 2023 68687- Debride <25 sq cm 10/15/2021 31109- Debride <25 sq cm 11/01/2023 63779- Debride <25 sq cm 02/12/2021 87052-IUVKBZZ SKIN/TISSUE 10/18/2023 Insurance Providers Payer Name Payer Address Payer Phone Subscriber Number Group Number Insured Name Patient Relationship to Insured Coverage Start Date Coverage End Date Medicare [employer] [address] [place] [address] [id number] Hunter Davis Self - patient is the insured [facility] [address] [place] [address] [id number] Hunter Davis Self - patient is the insured Medical (General) History Medical History History ICD Code Anxiety Arthritis High blood pressure Measles Mumps Chicken pox Bladder stone Surgical History Surgery Date(Month/Year) appendectomy 09/07/1963 bladder surgery 2017 esophagogastroduodenoscopy prostate surgery umbilical hernia repair colonoscopy hemorrhoidectomy
--- OUTSIDE RECORDS SUMMARY | 2024-11-20 08:14 | XMS_ITS ---
Author Organization [facility] Address [address] [place] [address] Care Team Providers Care Wind Energy Technician Name Role Phone Miguelangel Bunch MD Primary Care Provider Otoniel Zahra Aviles Unavailable [phone] Allergies No Known Allergies REASON FOR VISIT Painful nail(s) aggrevated by shoes causing difficulty standing/walking, Ingrown nail Medications Medication SIG (Take, Route, Frequency, Duration) [...] each nostril Nasally Once a day Active Albuterol Sulfate 108 (90 Base) MCG/ACT 1 puff as needed Inhalation every 4 hrs Active Hydrocortisone 2.5 % 1 application Exter [...] Are you an other tobacco user? No Vital Signs Height 6 ft 1 in in 2023 Weight 226 lbs 2023 BMI 29.81 kg/m2 2023 Procedures Procedure Date Ordered Date Performed Result Body Sit e 90448-OBIXUCB NAIL, 1-5 2023 N/A 08279-LNQ 2023 N/A Encounters Encounter Location Date Provider Diagnosis [facility] [address] 2023 Zahra Black Tinea unguium B35.1 ; Pain in right toe(s) M79.674 ; Pain in left toe(s) M79.675 and Ingrown nail L60.0 Assessments Encounter Date Diagnosis (ICD Code) Assessment Notes Treatment Notes Treatment Clinical Notes Section Notes 2023 Tinea unguium (ICD-10 - B35.1) 2023 Pain in right toe(s) (ICD-10 - M79.674) 2023 Pain in left toe(s) (ICD-10 - M79.675) 2023 Ingrown nail (ICD-10 - L60.0) Plan Of Treatment Medication Medication Name Sig Start Date Stop Date Notes Cephalexin 500 MG 1 capsule Orally twice a day for 10 days 2023 Pending Test Test Name Order Date 62270-HDQYQIW NAIL, 1-5 2023 34120-WRH 2023 Next Appt Details Follow Up: 2 Weeks, Reason: Procedure Notes * Category Sub-Category Detail Notes Matricectomy (OP NOTE) Consent The patie nt was brought to the examination room and placed on the table in a supine position. The pre/yuri/postoperative course, risks, complications and alternatives were discussed, understood and accepted by the patient. No guarantees were given regarding the surgical outcome Procedure A digital prep with alcohol or betadine was performed. 3cc of 1 percent Xylocaine Plain local anesthetic was administered to the toe via digital block utilizing aseptic technique. A digital touriquet was applied. The affected toenail portion was undermined, incised and resected to the eponychium and matrix. It was noted to be significantly incurvated and hypertrophied. The nailbed and matrix were curetted and the nail groove, bed and matrix were cauterized with Phenol, 3 applications of 30 seconds each from a cotton tip applicator, no underling bone was identified. The surrounding skin was protected from the Phenol with Bacitracin ointment. The tourniquet was released and capillary fill time was intact to the digit. A sterile Bacitracin dressing was applied Disposition Disposition: The pat ient tolerated the procedure and anesthesia well and left in good condition, alert, oriented and stable in no acute distress. Local wound care instructions were discussed and dispensed. There were no complications and the prognosis is favorable, Recommended alternating/staggering Tylenol XS 2 tabs and Motrin 600mg q 6 hrs ea for discomfort, Rx narcotic postop pain meds were deferred Location Lateral nail border , T5 Debride Nails 1-5 Procedure: Nail debrideme nt performed extensively to reduce/remove overall nail length and girth, subungual debris, and necrotic tissue, by manual and electrical means with use of a nail nipper and/or dremel, to more viable healthy nail plate or bed tissue 1-5. Silver nitrate used for any petechial bleeding as necessary. Patient chooses, no pharmaceutical tx (36734) Progress Notes * Hunter DAVIS DDOB: [birth year] (78 yo M)Acc No.[id number] Progress Note Patient:?Hunter Davis Provider:?Zahra Joya DPM :1945???Age:78 Y???Sex:Male Hardeep e:2023 Address:[address] [place], [place] [id number] Pcp:Miguelangel Bunch MD Subjective: * Chief Complaints: * ???Painful nail(s) aggrevate d by shoes causing difficulty standing/walkingIngrown nail * HPI: ???Painful Nails:?Pt States Last PCP Visit:?Date:?08/18/2023 * Medical History:? * Surgical History:?appendecto my 09/07/1963bladder surgery 2017esophagogastroduodenoscopy prostate surgery umbilical hernia repair colonoscopy hemorrhoidectomy * Hospitalization/Major Diagno stic Procedure:?No Hospitalization History. * Family History:?Mother: dece ased, Cancer, diagnosed [...] ?no Exercise. ?Marital status: . 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 * Medications:?TakingSertralin e HCl 50 MG [...] at bedtime as needed Orally Once a dayMedication List reviewed and reconciled with [...] at bedtime as needed Orally Once a dayMedication List reviewed and reconciled with the patient * Allergies:?N.K.D.A.yes[Aller gies Verified] Objective: * Vitals:?Ht:6 ft 1 in, Wt:226 , BMI: 29.81, Shoe size: 12, Ht-cm: 185.42 cm, Wt- k.51 kg. * Examination: ???Nails: ?NAILS are:?Elongated, overgrown, dystrophic, lytic, greater than 3mm thick, discolored and friable with crumbly malodorous subungual debris, with pain on palpation , TA , T6.?Ingrown Nail: ?INSPECTION:?Reveals incurvation, pain on palpation, groove hypertrophy , groove ischemia , Lateral nail border , T5.? Assessment: * Assessment: 1.?Tinea unguium - B35.1?2.? Pain in right toe(s) - M79.674?3.?Pain in left toe(s) - M79.675?4.?Ingrown nail - L60.0 (Primary)? Plan: * Treatment: 2.?Tinea unguium?Procedure: 66820-SRLJGIL NAIL, 1-5 * Procedures:?Debride Nails 1-5:?Procedure:?Nail debridement performed extensively to reduce/remove overall nail length and girth, subungual debris, and necrotic tissue, by manual and electrical means with use of a nail nipper and/or dremel, to more viable healthy nail plate or bed tissue 1-5. Silver nitrate used for any petechial bleeding as necessary. Patient chooses, no pharmaceutical tx (68942).?Matricectomy (OP NOTE):?Location?Lateral nail border , T5.?Consent?The patient was brought to the examination room and placed on the table in a supine position. The pre/yuri/postoperative course, risks, complications and alternatives were discussed, understood and accepted by the patient. No guarantees were given regarding the surgical outcome.?Procedure?A digital prep with alcohol or betadine was performed. 3cc of 1 percent ?Xylocaine Plain local anesthetic was administered to the toe via digital block utilizing aseptic technique. A digital touriquet was applied. The affected toenail portion was undermined, incised and resected to the eponychium and matrix. It was noted to be significantly incurvated and hypertrophied. The nailbed and matrix were curetted and the nail groove, bed and matrix were cauterized with Phenol, 3 applications of 30 seconds each from a cotton tip applicator, no underling bone was identified. The surrounding skin was protected from the Phenol with Bacitracin ointment. The tourniquet was released and capillary fill time was intact to the digit. A sterile Bacitracin dressing was applied .?Disposition?Disposition: The patient tolerated the procedure and anesthesia well and left in good condition, alert, oriented and stable in no acute distress. Local wound care instructions were discussed and dispensed. There were no complications and the prognosis is favorable, Recommended alternating/staggering Tylenol XS 2 tabs and Motrin 600mg q 6 hrs ea for discomfort, Rx narcotic postop pain meds were deferred.? * Procedure Codes:?35819 RIKI BOOGIE NAIL, 1-5, Modifiers: XS 40115 REMOVAL OF NAIL BED, Modifiers: T5 A4550 STERILE TRAY * Follow Up:?2 Weeks * Images: * Sign off status: Completed true * Provider:?Zahra Joya DPM Date:?2022 Generated for Jaya diaz/Josh/Elizabeth on:?11/20/2024 08:13 AM EST History and Physical Notes * HPI (History of Present Illness) Category Sub-Category Detail Notes Category Not es Painful Nails Pt States Last PCP Visit: Date:: 08/18/2023 Examination Category Sub-Category Detail Notes Category Not es Ingrown Nail INSPECTION: Reveals incurvat ion, pain on palpation, groove hypertrophy , groove ischemia , Lateral nail border , T5 Nails NAILS are: Elongated, overg rown, dystrophic, lytic, greater than 3mm thick, discolored and friable with crumbly malodorous subungual debris, with pain on palpation , TA , T6
--- NOTE | 2024-11-20 08:44 | MHC.OFFWIV ---
Intake Vital Signs 11/20/24 08:49 Weight 234 lb BP 140/100 H Blood Pressure Location Lt brachial Position Sitting Pulse 80 Pulse Source Pulse Oximeter Temp 98.3 F Temp Source Oral Pulse Oximetry (%) 94 Oxygen Delivery Method Room Air Intake Visit Reasons: EP Cough [phone] Intake Note: Patient here for cough that has been present over 2 weeks. Patient Tobacco Use Status: Former Tobacco user Allergies No Known Allergies Allergy (Verified 11/20/24 08:49) Do you need a note to return to daycare/school/sports/work: No HPI HPI Comments History of Present Illness Details History The patient is an 79-year-old male presenting with a cough with phlegm and shortness of breath. The symptoms began approximately two weeks ago following what was initially perceived as a cold. The patient reports the phlegm is yellow in color. He denies fever but acknowledges elevated blood pressure. There is no head congestion, sinus pain, or ear pain. The patient has a past medical history of smoking and acknowledges a touch of COPD for which he uses an albuterol inhaler. The inhaler has been used consistently over the past two weeks with positive effects. The patient?s respiratory symptoms have been compounded by a mix of wheezing and shortness of breath. There is a reported familial tendency for cerumen impaction, and he expresses concerns about ongoing hip pain, presumed arthritic in nature. Physical Exam General: Cooperative, healthy appearing, comfortable and no acute distress Orientation/consciousness: Patient oriented x3 Limitations: No limitations Head: Normal to inspection Ears: Hearing grossly normal bilaterally, external ears normal and TM's normal left, right has cerumen blockage Nose: Normal external nose present, Normal nares present and No nasal discharge present Face and sinus: Normal facial exam and Yes sinuses nontender Mouth: Normal oral and palatal mucosa present and moist mucous membranes Throat: Yes tonsils normal, Yes uvula midline. Posterior oropharynx erythema Eyes: Appearance normal, both eyes and all related structures Neck: Normal visual inspection Respiratory: Right lower bronchovesicular sounds. Normal respiratory effort, able to speak in complete sentences, no respiratory distress, not tachypneic, no tripod positioning and no use of accessory muscles. Cardiovascular: Regular rate and rhythm. Normal S1 and S2 Skin: No rashes or lesions noted Neuro: Patient oriented x3 Extremities: Normal to inspection and Yes no clubbing, cyanosis or edema PFSH Medical History History of bladder stone Screening for prostate cancer Screening for hyperlipidemia Screening for diabetes mellitus Surgical History History of esophagogastroduodenoscopy (EGD) History of prostate surgery Hx of umbilical hernia repair History of colonoscopy History of hemorrhoidectomy History of appendectomy Family History Father No problems noted. Mother No problems noted. Social History Housing: House Do you presently have visiting nurse or other home services: No Alcohol intake: current Alcohol intake frequency: holidays/special occasions only Alcohol type: beer Patient Tobacco Use Status: Former Tobacco user Tobacco use type: Cigarette e-Cigarette/Vaping Use: Never Used Second Hand Smoke Exposure: No service: No Current occupational status: retired Current occupation: left hand Cognitive needs: No Hearing needs: No Vision needs: No Review of Systems Const All systems reviewed & are unremarkable except as noted in HPI and below Physical Exam Vital Signs: Last Vital Signs Temp 98.3 F 11/20/24 08:49 Pulse 80 11/20/24 08:49 BP 140/100 H 11/20/24 08:49 Pulse Ox 94 11/20/24 08:49 Oxygen Delivery Method Room Air 11/20/24 08:49 Assessment & Plan Assessment & Plan (1) Lower respiratory infection (e.g., bronchitis, pneumonia, pneumonitis, pulmonitis): Code(s): J22 - Unspecified acute lower respiratory infection Plan: - Antibiotic therapy: Initiate azithromycin Z-Romain with a loading dose of two tablets on the first day, followed by one tablet daily for four days. Concurrently, prescribe Augmentin every 12 hours for 7 days to comprehensively target suspected bacterial pneumonia. - Diagnostic Imaging: Obtain chest X-ray for confirmation of pneumonia. Plan to review and discuss findings promptly after imaging. My review of CXR is streaky opacity in right mid and lower lobe - Cough management: Nicko Leija advised for symptom relief at bedtime, not to exceed eight-hour intervals. - Cerumen management: Recommend eles-[id number]-eifqnud Debrox drops for cerumenolysis and plan return for follow-up if necessary. - Engage primary care physician for ongoing management of chronic conditions, particularly COPD and hypertension, and discussion of pulmonary function tests if persistent symptoms or exacerbations occur. Patient was informed and verbally consented to the use of an ambient scribe for clinic note documentation during this visit (2) Impacted cerumen of left ear: Code(s): H61.22 - Impacted cerumen, left ear Plan: as above Orders: Orders XR chest 2V Today R05.9 - Cough, unspecified SARS-CoV2/FLU/RSV Today J06.9 - Acute upper respiratory infection, unspecified Medications: New azithromycin For 250 mg dose pack: take 500 mg today (day 1), then 250 mg for 4 days (days 2-5) PO 6 tabs 0RF amoxicillin-pot clavulanate 875-125 mg 1 tab PO Q12H 14 tabs 0RF benzonatate 200 mg PO TID PRN 14 caps 0RF cough Coding Level of Care Code Est Pt Level 4 (48875) Diagnoses Lower respiratory infection (e.g., bronchitis, pneumonia, pneumonitis, pulmonitis) J22 Impacted cerumen of left ear H61.22
[2024-11-20 08:49] VITALS: BP 140/100; PULSE 80; TEMP 36.8; O2SAT 94
== END 2024-11-20 09:22 | disposition home or self-care (01) ==
PROVIDERS: PCP Internal Medicine; Visit Provider Physician Assistant
DX: J22 Unspecified acute lower respiratory infection (principal); H61.22 Impacted cerumen, left ear

== ENCOUNTER 2024-11-20 08:06 | Outpatient (REF) | payer MEDICARE, SELFPAY ==
[2024-11-20 13:04] LABS: Influenza A PCR NEGATIVE (Negative); Influenza B PCR NEGATIVE (Negative); Resp Syncy Virus RNA Qual PCR NEGATIVE (Negative); SARS COV2 PCR INHOUSE POSITIVE (Negative)
== END 2024-11-20 08:07 | disposition home or self-care (01) ==
LOC: HO.LAB 08:06
PROVIDERS: PCP Internal Medicine; Visit Provider Physician Assistant
DX: J06.9 Acute upper respiratory infection, unspecified (principal); R05.9 Cough, unspecified
CPT/HCPCS: 0241U; 99212

== ENCOUNTER 2024-11-20 09:03 | Outpatient (REF) | payer MEDICARE, SELFPAY ==
--- NOTE | ~2024-11-20 | XR_ITS ---
EXAMINATION: XR CHEST CLINICAL INFORMATION: R05.9 - Cough, unspecified COMPARISON: 11/05/2022 TECHNIQUE: 2 views of the chest were obtained. FINDINGS: Heart size is normal. There is no gross pneumothorax. Degenerative changes in the thoracic spine. No significant pleural effusion. Mild left basilar streaky opacities. XR/XR chest 2V IMPRESSION: Mild left basilar streaky opacities. This study was presented today to November 20, 2024 for interpretation. Stat results provided at this time as requested by referring provider. Electronically signed by: Tammy Leggett MD 11/20/2024 09:37 AM EST
== END 2024-11-20 09:04 | disposition home or self-care (01) ==
LOC: HO.HMGCLDS 09:03
PROVIDERS: PCP Internal Medicine; Visit Provider Physician Assistant
DX: R05.9 Cough, unspecified (principal)
CPT/HCPCS: 71046

== ENCOUNTER 2024-12-13 08:03 | Outpatient (REF) | payer MEDICARE, SELFPAY ==
--- NOTE | ~2024-12-13 | XR_ITS ---
EXAMINATION: XR CHEST CLINICAL INFORMATION: Z87.01 - Personal history of pneumonia (recurrent) COMPARISON: 11/20/2024, 11/05/22. TECHNIQUE: 2 views of the chest were obtained. FINDINGS: The cardiac, hilar, and mediastinal contours are normal. Aorta is uncoiled, calcified, tortuous. The lungs are somewhat hyperaerated, with flattened hemidiaphragms, suggestive of COPD. Lungs otherwise clear bilaterally. There is no pneumothorax or pleural effusion. There is no focal osseous or soft tissue abnormality. There are degenerative changes of the spine. XR/XR chest 2V IMPRESSION: 1. COPD. No active superimposed disease. Electronically signed by: Kelton Gallagher MD 12/13/2024 09:03 AM KRIS
== END 2024-12-13 08:04 | disposition home or self-care (01) ==
LOC: HO.HMGCX 08:03
PROVIDERS: PCP Internal Medicine; Visit Provider Physician Assistant
DX: R05.2 Subacute cough (principal); Z87.01 Personal history of pneumonia (recurrent)
CPT/HCPCS: 71046; 99212

== ENCOUNTER 2024-12-13 08:03 | Outpatient (AMB) | payer MEDICARE, SELFPAY ==
[2024-12-13 08:21] VITALS: BP 118/68; PULSE 78; O2SAT 95; BMI 30.3
--- NOTE | 2024-12-13 08:21 | MHC.OFFWIV ---
Intake Vital Signs 12/13/24 08:21 Height 6 ft 1 in Weight 230 lb BMI 30.3 BP 118/68 Blood Pressure Location Rt brachial Position Sitting Pulse 78 Pulse Source Pulse Oximeter Pulse Oximetry (%) 95 Oxygen Delivery Method Room Air Intake Visit Reasons: EP cough, phlegm Intake Note: Pt is here today for a walk in visit. Pt states that he was seen in a walk in and he had pneumonia and had covid. Pt states that he still has a cough Patient Tobacco Use Status: Former Tobacco user Allergies No Known Allergies Allergy (Verified 12/13/24 08:25) HPI HPI Comments History of Present Illness Details Patient is an 79yo M who presnts to office with cough He said ongoing x 2 months Associated phlegm He was seen 1 month ago and was + covid and also + infiltrate on xray Was treated with augmentin and azithromycin He completed medicine without complete relief No CP or SOB Cough lingering so wanted to be checked Cough medicine helped but he ran out No other URI symptoms like fever, chills congestion or ST No other complaints PFSH Medical History History of bladder stone Screening for prostate cancer Screening for hyperlipidemia Screening for diabetes mellitus Surgical History History of esophagogastroduodenoscopy (EGD) History of prostate surgery Hx of umbilical hernia repair History of colonoscopy History of hemorrhoidectomy History of appendectomy Family History Father No problems noted. Mother No problems noted. Social History Housing: House Do you presently have visiting nurse or other home services: No Alcohol intake: current Alcohol intake frequency: holidays/special occasions only Alcohol type: beer Patient Tobacco Use Status: Former Tobacco user Tobacco use type: Cigarette e-Cigarette/Vaping Use: Never Used Second Hand Smoke Exposure: No service: No Current occupational status: retired Current occupation: left hand Cognitive needs: No Hearing needs: No Vision needs: No Review of Systems Const Denies chills, Denies fever(s) and Denies headache(s) Eyes Denies change in vision ENT Denies otalgia, Denies headache(s), Reports nasal congestion and Denies sore throat Card Denies chest pain Resp Reports change in phlegm color, Reports chest congestion, Reports cough and Denies hemoptysis GI Denies abdominal pain Neuro Denies headache(s) Physical Exam Vital Signs: Last Vital Signs Pulse 78 12/13/24 08:21 BP 118/68 12/13/24 08:21 Pulse Ox 95 12/13/24 08:21 Oxygen Delivery Method Room Air 12/13/24 08:21 BMI result Body Mass Index 30.3 General: Non-toxic, NAD. Speaking full sentences. Skin: Warm dry throughout Eye: EOMI HENT: Airway patent. Uvula midline. No pharyngeal erythema or edema. 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 Bilateral canals clear. TM non-erythematous, non-bulging. No TM perforation or hemotympanum noted. Respiratory: Slight dinimished throughout but no wheezes, rales or rhonchi. No acessory muscle use or stridor Cardiac: RRR. MSK: Full ROM extremities. Neurology: Alert. No aphasia or facial droop. Gait without abnormality Psych: Good mood and affect Assessment & Plan Assessment & Plan (1) Cough: Code(s): R05 - Cough Qualifiers: Cough type: subacute Qualified Code(s): R05.2 - Subacute cough Plan: Chest xray; I viewed image and saw no significant difference. ? streak opacity from previous a chronic issue and not acute infection Will call pt with final reading if positive Discussed cough medicine Encouraged follow up with PCP Emergency room if worsening symotoms, CP or SOB (2) Hx of bacterial pneumonia: Code(s): Z87.01 - Personal history of pneumonia (recurrent) Plan: see above Orders: Orders XR chest 2V Today R05 - Cough, Z87.01 - Personal history of pneumonia (recurrent) Medications: Refilled benzonatate 200 mg PO TID PRN 14 caps 0RF cough Coding Level of Care Code Est Pt Level 3 (62036) Diagnoses Subacute cough R05.2 Cough type: subacute Hx of bacterial pneumonia Z87.01
== END 2024-12-13 09:03 | disposition home or self-care (01) ==
PROVIDERS: PCP Internal Medicine; Visit Provider Physician Assistant
DX: R05.2 Subacute cough (principal); Z87.01 Personal history of pneumonia (recurrent)

== ENCOUNTER → 2024-12-13 08:48 | Outpatient (BNV) | payer MEDICARE, SELFPAY | PROVIDERS: PCP Internal Medicine; Visit Provider Radiology Diagnostic Radiology | DX: Z87.01 Personal history of pneumonia (recurrent) (principal) | CPT/HCPCS: 71046 ==

== ENCOUNTER 2025-01-02 09:51 | Outpatient (AMB) | payer MEDICARE, SELFPAY ==
--- NOTE | 2025-01-02 09:58 | A.OFFPC_ITS ---
Vital Signs 01/02/25 10:01 Height 6 ft 1 in Weight 230 lb 4 oz BMI 30.4 BP 110/64 Blood Pressure Location Lt brachial Position Sitting Pulse 90 Pulse Source Pulse Oximeter Temp 96.9 F Temp Source Skin Pulse Oximetry (%) 96 Oxygen Delivery Method Room Air Intake Visit Reasons: 3 month f/u Intake Note: Patient is here to follow up on HTN, Low back pain. Supervisor Dry Cell Assembly Required: No Deputy Director Of Nursing: Not Required per policy Accompanied by: Self / Same As Patient Allergies No Known Allergies Allergy (Verified 01/02/25 10:00) Medication List - Last Reconciled 01/02/25 by Miguelangel Bunch MD albuterol sulfate 90 mcg/actuation 2 puffs PO Q6H PRN 30 days aspirin (Adult Low Dose Aspirin) 81 mg PO DAILY chlorthalidone 25 mg PO DAILY fluticasone propionate 50 mcg/actuation 1 spray intranasal Q12H hydrocortisone 2.5% (Anusol-HC) 1 appl MS BID-QID PRN ibuprofen 600 mg PO Q6-8H PRN lisinopril 10 mg PO DAILY lorazepam 1 mg PO BID PRN sertraline (Zoloft) 50 mg PO DAILY Tobacco use date assessed: 01/02/25 Fall risk assessment: No Falls in past year Last assessed Fall Risk: 01/02/25 Dental Screening Dental Screen Date: 01/02/25 Did you have a dental visit in the last 12 months?: Yes Did you have a dental problem in the last 6 months where you did not have access to dental care?: No Was dental information given to patient?: Patient has dentist HPI 3 month f/u HPI Details HTN on Rx; doing well; compliant [facility] Medical History History of bladder stone Screening for prostate cancer Screening for hyperlipidemia Screening for diabetes mellitus Surgical History History of esophagogastroduodenoscopy (EGD) History of prostate surgery Hx of umbilical hernia repair History of colonoscopy History of hemorrhoidectomy History of appendectomy Family History Father No problems noted. Mother No problems noted. Social History (Reviewed 01/02/25 @ 09:59 by ASHLEY Zambrano Housing: House Do you presently have visiting nurse or other home services: No Alcohol intake: current Alcohol intake frequency: holidays/special occasions only Alcohol type: beer Patient Tobacco Use Status: Former Tobacco user Tobacco use type: Cigarette e-Cigarette/Vaping Use: Never Used Second Hand Smoke Exposure: Yes service: No Current occupational status: retired Current occupation: left hand Cognitive needs: No Hearing needs: No Vision needs: No Questionnaire PHQ-9 Over the last 2 weeks, how often have you been bothered by any of the following problems? 1. Little interest or pleasure in doing things: not at all 2. Feeling down, depressed, or hopeless: not at all 3. Trouble falling or staying asleep, or sleeping too much: not at all 4. Feeling tired or having little energy: not at all 5. Poor appetite or overeating: not at all 6. Feeling bad about yourself - or that you are a failure or have let yourself or your family down: not at all 7. Trouble concentrating on things, such as reading the newspaper or watching television: not at all 8. Moving or speaking so slowly that other people could have noticed. Or the opposite - being so fidgety or restless that you have been moving around a lot more than usual: not at all 9. Thoughts that you would be better off or of hurting yourself in some way: not at all Total score: 0 Depression Screening Interpretation: Negative Depression Screening Done: Yes Source: Developed by Drs. Vince Calderon, Jennifer Mathur, Marlo Bowman and colleagues, with an educational annmarie from [employer]. Thrive Questionnaire Date Thrive assessed: 01/02/25 I am a: Patient What is your living situation today?: I have a steady place to live Within the past 12 months, did the food you bought not last and you didn't have the money to get more?: Never true Within the past 12 months, did you worry whether your food would run out before you got money to buy more?: Never true Do you have trouble paying for medicines?: No Do you have trouble getting transportation to medical appointments?: No Do you have trouble paying your heating and electricity bill?: No Do you have trouble taking care of your child, family member or friend?: No Do you have trouble with day-to-day activities such as bathing, preparing meals, shopping, managing finances, etc.?: No Are you currently unemployed and looking for a job?: No Are you interested in more education?: No Please select the resources that you would like help with: None Currently or been in a relationship where the following occur: No concerns reported THRIVE Score: 0 AUDIT C Alcohol Use Questionnaire (AUDIT-C) 1. How often do you have a drink containing alcohol?: Never Total Score: 0 EDMUND-7 AMB Questionnaire EDMUND-7 Date EDMUND - 7 assessed: 01/02/25 Feeling nervous, anxious, or on edge: 0 = Not at all Not being able to stop or control worryin = Not at all Worrying too much about different things: 0 = Not at all Trouble relaxin = Not at all Being so restless that it is hard to sit still: 0 = Not at all Becoming easily annoyed or irritable: 0 = Not at all Feeling afraid as if something awful might happen: 0 = Not at all Total EDMUND-7 score (0-4 normal; 5-9 mild; 10-14 moderate; 15-21 severe): 0 Source: Developed by Drs. Vince Calderon, Jennifer Mathur, Marlo Bowman and colleagues, with an educational annmarie from [employer]. Review of Systems Const Denies chills, Denies headache(s) and Denies weight loss ENT Denies headache(s) Card Denies chest pain, Denies syncope, Denies irregular heart rhythm and Denies dyspnea Resp Denies chest congestion, Denies cough and Denies dyspnea GI Denies abdominal pain, Denies change in stool character, Denies nausea and Denies vomiting Musc Denies deformity and Denies joint swelling Neuro Denies syncope and Denies headache(s) Physical exam (Primary Care) Vital Signs: Last Vital Signs Temp 96.9 F 01/02/25 10:01 Pulse 90 01/02/25 10:01 BP 110/64 01/02/25 10:01 Pulse Ox 96 01/02/25 10:01 Oxygen Delivery Method Room Air 01/02/25 10:01 BMI result Body Mass Index 30.4 Tobacco/Smoking Status: Tobacco use Status Tobacco use date assessed 01/02/25 01/02/25 10:06 Patient Tobacco Use Status Former Tobacco user 01/02/25 10:06 Tobacco use type Cigarette 01/02/25 10:06 e-Cigarette/Vaping Use Never Used 01/02/25 10:06 PHQ-9: PHQ-9 Score PHQ-9: Total score 0 01/02/25 10:06 Depression Screening Interpretation: Negative Thrive Assessment: Date of Thrive Assessment Date Thrive assessed 01/02/25 01/02/25 10:06 Currently or been in a relationship where the following occur: No concerns reported Const General: cooperative, comfortable, no acute distress and alert Neck Neck: Yes no lymphadenopathy Thyroid: Thyroid normal Resp Effort & Inspection: normal respiratory effort Auscultation: clear to auscultation bilaterally Percussion: percussion normal Cardio Jugular venous distension: no JVD Palpation: normal PMI Rate: regular rate Rhythm: regular rhythm Heart sounds: S1 normal heart sound present and S2 normal heart sound present GI Inspection: Yes normal to inspection Palpation (GI): No hepatosplenomegaly present Skin General skin exam: no rashes or lesions noted Extrem General: Yes no clubbing, cyanosis or edema Coding Level of Care Code Est Pt Level 3 (07405) Diagnoses Hypertension, unspecified type I10 Hypertension type: unspecified Assessment & Plan Assessment & Plan (1) Hypertension: Code(s): I10 - Essential (primary) hypertension Category: Medical Qualifiers: Hypertension type: unspecified Qualified Code(s): I10 - Essential (primary) hypertension Plan: stable; same rx
[2025-01-02 10:01] VITALS: BP 110/64; PULSE 90; TEMP 36.1; O2SAT 96; BMI 30.4
== END 2025-01-02 10:21 | disposition home or self-care (01) ==
PROVIDERS: PCP Internal Medicine; Visit Provider Internal Medicine
DX: I10 Essential (primary) hypertension (principal)

== ENCOUNTER → 2025-01-02 09:51 | Outpatient (BNVA) | payer MEDICARE, SELFPAY | PROVIDERS: PCP Internal Medicine; Visit Provider Internal Medicine | DX: I10 Essential (primary) hypertension (principal) | CPT/HCPCS: 99212 ==

== ENCOUNTER 2025-04-02 09:56 | Outpatient (AMB) | payer MEDICARE, SELFPAY ==
--- NOTE | 2025-04-02 10:01 | MHC.PC.OV ---
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 Required: No [place]: Not Required per policy Accompanied by: Self / Same As Patient Allergies No Known Allergies Allergy (Verified 04/02/25 10:13) Medication List - Last Reconciled 04/08/25 by PERRY Humphreys albuterol sulfate 90 mcg/actuation 2 puffs PO Q6H PRN 30 days aspirin (Adult Low Dose Aspirin) 81 mg PO DAILY chlorthalidone 25 mg PO DAILY fluticasone propionate 50 mcg/actuation 1 spray intranasal Q12H hydrocortisone 2.5% (Anusol-HC) 1 appl AL BID-QID PRN ibuprofen 600 mg PO Q6-8H PRN lisinopril 10 mg PO DAILY lorazepam 1 mg PO BID PRN mometasone-formoterol 100-5 mcg/actuation (Dulera) 2 puffs inhalation BID Tobacco use date assessed: 04/02/25 Fall risk assessment: No Falls in past year Last assessed Fall Risk: 04/02/25 Dental Screening Dental Screen Date: 01/02/25 HPI Transfer From [facility] 3 month f/u HPI Details The patient is 79 year old male presenting for transiton of care from Dr. Bunch Significant history of asthma, COPD, chronic anxiety, HTN, Dupuytren's contracture of right hand He experiences morning congestion and cough likely due to asthma exacerbated by allergies. Asthma symptoms are currently relieved after clearing airways, but wheezing persists on clinical examination. The patient is noted to only have a rescue inhaler-will add a long-acting His anxiety, particularly situational from his 's health deterioration, is managed with as-needed lorazepam. The patient previously used sertraline but discontinued it, finding effective management with lorazepam alone. There is a history of pneumonia on the right side, treated successfully. The patient has hip osteoarthritis, causing morning stiffness but subsiding with movement. Additionally, he has bladder urgency linked to a history of bladder enlargement surgery. Reports seeing Dr. Min every 6 months usually and will call and make an appt today. The patient is worried about not getting his medications refilled on time [facility] Medical History History of bladder stone Screening for prostate cancer Screening for hyperlipidemia Screening for diabetes mellitus Surgical History History of esophagogastroduodenoscopy (EGD) History of prostate surgery Hx of umbilical hernia repair History of colonoscopy History of hemorrhoidectomy History of appendectomy Family History Father No problems noted. Mother No problems noted. Social History Housing: House Do you presently have visiting nurse or other home services: No Alcohol intake: current Alcohol intake frequency: holidays/special occasions only Alcohol type: beer Patient Tobacco Use Status: Former Tobacco user Tobacco use type: Cigarette e-Cigarette/Vaping Use: Never Used Second Hand Smoke Exposure: Yes service: No Current occupational status: retired Current occupation: left hand Cognitive needs: No Hearing needs: No Vision needs: No Questionnaire Thrive Questionnaire Date Thrive assessed: 01/02/25 EDMUND-7 AMB Questionnaire EDMUND-7 Date EDMUND - 7 assessed: 01/02/25 Source: Developed by Drs. Vince Calderon, Jennifer Mathur, Marlo Bowman and colleagues, with an educational annmarie from [employer]. Review of Systems Const Denies headache(s) Eyes Denies loss of vision ENT Denies vertigo, Denies dizziness, Denies headache(s) and Denies sore throat Card Denies chest pain, Denies leg edema and Denies lightheadedness Resp Denies cough, Denies hemoptysis and Reports wheezing GI Denies abdominal pain, Denies melena, Denies constipation, Denies diarrhea and Denies vomiting Denies dysuria, Denies urinary frequency and Reports urinary urgency (Neurogenic bladder) Musc Reports arthralgias (Bilateral hip discomfort), Denies joint swelling, Denies numbness and Denies tingling Neuro Denies Abnormal speech present, Denies behavioral changes, Denies vertigo, Denies dizziness, Denies headache(s), Denies loss of vision, Denies memory loss, Denies numbness and Denies tingling Psych Reports anxiety (Chronic), Denies behavioral changes, Denies depression, Denies memory loss and Denies panic attacks Rigo/Lymph Denies easy bleeding and Denies easy bruising Aller/Immun Reports wheezing Physical exam (Primary Care) Vital Signs: Last Vital Signs Temp 97.1 F 04/02/25 10:03 Pulse 69 04/02/25 10:03 BP 120/64 04/02/25 10:03 Pulse Ox 95 04/02/25 10:03 Oxygen Delivery Method Room Air 04/02/25 10:03 BMI result Body Mass Index 29.9 Tobacco/Smoking Status: Tobacco use Status Tobacco use date assessed 04/02/25 04/02/25 10:08 Patient Tobacco Use Status Former Tobacco user 04/02/25 10:08 Tobacco use type Cigarette 04/02/25 10:08 e-Cigarette/Vaping Use Never Used 04/02/25 10:08 Thrive Assessment: Date of Thrive Assessment Date Thrive assessed 01/02/25 04/02/25 10:08 Const General: healthy appearing, no acute distress, alert and awake Nutritional Appearance: well nourished Orientation/consciousness: oriented to person, oriented to place and oriented to time HENMT Ears: TM's normal bilaterally General nose exam: Normal nasal mucous membranes and turbinates present Eyes Conjunctivae: conjunctivae normal Sclerae: sclerae normal Pupils: Equal, round and reactive pupils present Neck Neck: Yes no lymphadenopathy and Yes no JVD Thyroid: Thyroid normal Carotids: no bruits Resp Effort & Inspection: normal respiratory effort and not tachypneic Auscultation: no crackles, no rales, no rhonchi and wheezes expiratory wheezes, lower bilaterally, upper bilaterally and posterior Cardio Rate: regular rate Rhythm: regular rhythm Heart sounds: no murmurs and normal S1 and S2 GI Palpation (GI): Soft to palpation, nontender, no hepatomegaly and no splenomegaly Auscultation: normal bowel sounds General: Yes no CVA tenderness Back/Spine/Pelvis Back: no CVA tenderness Skin General skin exam: no rashes or lesions noted and dry skin Neuro General: oriented to person, oriented to place and oriented to time Cranial nerves: Yes Equal, round and reactive pupils present Speech: No Abnormal speech present Gait exam (Neuro): Normal gait present Motor exam (neuro): no tremor noted Extrem Right upper extremity: full ROM Left upper extremity: full ROM Right lower extremity: full ROM and hip/thigh Details: no tenderness; no edema Left lower extremity: full ROM and hip/thigh Details: no tenderness; no edema Psych Mental Status: mental status grossly normal Speech and movement: Normal speech and movement present Affect: normal affect Attitude: cooperative Thought process: Normal thought process present Coding Level of Care Code Est Pt Level 4 (49263) Diagnoses Anxiety F41.9 Asthma, unspecified asthma severity, unspecified whether complicated, unspecified whether persistent J45.909 Asthma severity: unspecified severity Asthma persistence: unspecified Asthma complication type: unspecified Urinary urgency R39.15 Hypertension, unspecified type I10 Hypertension type: unspecified Time Spent (min) 41 Assessment & Plan Assessment & Plan (1) Anxiety: Code(s): F41.9 - Anxiety disorder, unspecified Category: Medical Plan: The patient reports that he used to take zoloft 50 mg but stopped the medication because he it was not helping. He currently uses Ativan 1 mg BID PRN for anxiety. Denies si/hi. (2) Asthma: Code(s): J45.909 - Unspecified asthma, uncomplicated Category: Medical Qualifiers: Asthma severity: unspecified severity Asthma persistence: unspecified Asthma complication type: unspecified Qualified Code(s): J45.909 - Unspecified asthma, uncomplicated Plan: wheezing through lung bases, currently using rescue inhaler on and off, will add a long-acting inhaler (Dulera 2 puffs BID) (3) Urinary urgency: Code(s): R39.15 - Urgency of urination Category: Medical Plan: HX neurogenic bladder, s/p bladder surgery, he is being followed by Dr. Min every 6 months Follow up with urology as scheduled (4) Hypertension: Code(s): I10 - Essential (primary) hypertension Category: Medical Qualifiers: Hypertension type: unspecified Qualified Code(s): I10 - Essential (primary) hypertension Plan: BP 120/64 in office reinforced DASH diet continue lisinopril 10 mg daily, chlorthalidone 25 mg daily Orders: Orders Comprehensive [place]. Panel Fast 3 Months E78.5 - Hyperlipidemia, unspecified, F41.9 - Anxiety disorder, unspecified, I10 - Essential (primary) hypertension Glucose Fasting 3 Months E78.5 - Hyperlipidemia, unspecified, F41.9 - Anxiety disorder, unspecified, I10 - Essential (primary) hypertension Complete Blood Count Auto Diff 3 Months E78.5 - Hyperlipidemia, unspecified, F41.9 - Anxiety disorder, unspecified, I10 - Essential (primary) hypertension Lipid Panel 3 Months E78.5 - Hyperlipidemia, unspecified, F41.9 - Anxiety disorder, unspecified, I10 - Essential (primary) hypertension UA CC w/rflx Micro + Cult 3 Months E78.5 - Hyperlipidemia, unspecified, F41.9 - Anxiety disorder, unspecified, I10 - Essential (primary) hypertension TSH reflex Free T4 3 Months E78.5 - Hyperlipidemia, unspecified, F41.9 - Anxiety disorder, unspecified, I10 - Essential (primary) hypertension Vitamin D 25-OH Total 3 Months E78.5 - Hyperlipidemia, unspecified, F41.9 - Anxiety disorder, unspecified, I10 - Essential (primary) hypertension Medications: New mometasone-formoterol 100-5 mcg/actuation (Dulera) 2 puffs inhalation BID 8.8 grams 2RF Refilled lorazepam 1 mg PO BID PRN 60 tabs 0RF anxiety Patient Instructions: The patient to return in 3 months
[2025-04-02 10:03] VITALS: BP 120/64; PULSE 69; TEMP 36.2; O2SAT 95; BMI 29.9
== END 2025-04-02 10:45 | disposition home or self-care (01) ==
LOC: HO.HMCH 09:56
DX: F41.9 Anxiety disorder, unspecified (principal); J45.909 Unspecified asthma, uncomplicated; R39.15 Urgency of urination; I10 Essential (primary) hypertension

== ENCOUNTER → 2025-04-02 09:56 | Outpatient (BNVA) | payer MEDICARE, SELFPAY | DX: F41.9 Anxiety disorder, unspecified (principal); J45.909 Unspecified asthma, uncomplicated; R39.15 Urgency of urination; I10 Essential (primary) hypertension | CPT/HCPCS: 99212 ==

== ENCOUNTER 2025-06-13 09:07 | Outpatient (REF) | payer MEDICARE, SELFPAY | END 2025-06-13 09:08 | disposition home or self-care (01) | LOC: HO.HMGCLDS 09:07 | DX: Z13.89 Encounter for screening for other disorder (principal) ==

== ENCOUNTER 2025-06-14 06:13 | Outpatient (REF) | payer MEDICARE, SELFPAY ==
--- OUTSIDE RECORDS SUMMARY | 2025-06-14 06:16 | XMS_ITS | Patient Health Record ---
[facility] Address [address] [place] [address] Care Team Providers Care Sql Etl Developer Name Role Phone Miguelangel Bunch MD Primary Care Provider Otoniel JoyaChee Unavailable [phone] Allergies No Known Allergies Reason For Referral No Information Medications Medication SIG (Take, Route, Frequency, Duration) Notes Start Date End Date Status Cephalexin 500 MG 1 capsule Orally twi ce a day; Duration: 10 days 2023 Active Ibuprofen 600 MG [...] mor anuel with food Orally Once a day; Duration: 30 day(s) Active Aspirin 81 81 MG 1 tablet Orally Once a day Active LORazepam 1 MG 1 tablet at bedtime as needed Orally Once a day Active Lisinopril 10 MG 1 tablet Orally Once a day; Duration: 30 day(s) Active Immunizations Vaccine Route Administration [...] Problem Status W/U Status Risk Notes Problem Information temporarily unavailable Other hammer toe(s) (acquired), right foot (M20.41) Active confirmed Problem Information temporarily unavailable Other hammer toe(s) (acquired), left foot (M20.42) Active confirmed Problem Information temporarily unavailable Non-pressure chronic ulcer of other part of right foot limited to breakdown of skin (L97.511) Active confirmed Problem Information temporarily unavailable Skin ulcer of toe of right foot, limited to breakdown of skin (L97.511) Active confirmed Improvement Problem Information temporarily unavailable Skin ulcer of toe of left foot, limited to breakdown of skin (L97.521) Active confirmed Problem Information temporarily unavailable Skin ulcer of toe of right foot with fat layer exposed (L97.512) Active confirmed Problem Information temporarily unavailable Skin ulcer of toe of left foot with fat layer exposed (L97.522) Active confirmed Plan Of Treatment Pending Test Test Name Order Date [id number] NAIL, 6 OR MORE 07/15/2020 [id number] NAIL, 6 OR MORE 10/28/2020 [id number] NAIL, 6 OR MORE 01/27/2021 [id number] NAIL, 6 OR MORE 05/01/2021 [id number] NAIL, 1-5 2023 [id number]-Lrvkklqg Plate 10/01/2021 [id number]-Vtcuazyd Plate 05/01/2021 [id number]-Ueyegjmc Plate 01/27/2021 [id number] Plate 10/28/2020 [id number]-Uvrwezam Plate 07/15/2020 [id number] 2023 71447- Debride <25 sq cm 10/15/2021 89217- Debride <25 sq cm 11/01/2023 54516- Debride <25 sq cm 02/12/2021 [id number] SKIN/TISSUE 10/18/2023 Insurance Providers Payer Name Payer Address Payer Phone Subscriber Number Group Number Insured Name Patient Relationship to Insured Coverage Start Date Coverage End Date Medicare [employer] [address] [place] [address] [id number] Hunter Davis Self - patient is the insured [facility] [address] [place] [address] [phone] [id number] Hunter Davis Self - patient is the insured Medical (General) History Medical History History ICD Code Anxiety Arthritis High blood pressure Measles Mumps Chicken pox Bladder stone Surgical History Surgery Date(Month/Year) appendectomy 09/07/1963 bladder surgery 2017 esophagogastroduodenoscopy prostate surgery umbilical hernia repair colonoscopy hemorrhoidectomy
[2025-06-14 10:07] LABS: MANUAL DIFF FLAG NO
[2025-06-14 10:11] LABS: Hematocrit 37.7 % (42.0-52.0); Hemoglobin 13.0 g/dl (14.0-18.0); Imm Gran Abs Auto 0.02 X10*3/uL (0.00-0.03); Imm Gran Pct Auto 0.3 % (0.0-0.4); Lymphocytes Absolute Auto 2.0 X10*3/uL (1.2-4.9); Mean Corpuscular HGB Conc 34.5 g/dl (31.0-36.0); Mean Corpuscular Hemoglobin 31.3 pg (27.0-33.0); Mean Corpuscular Volume 90.8 fL (80.0-98.0); NRBC Abs Auto 0.000 X10*3/uL (0.0-0.012); NRBC Pct Auto 0.0 /100WBC (0.0-0.2); Platelet Count 238 X10*3/uL (160-400); Red Blood Count 4.15 X10*6/uL (4.60-5.80); White Blood Count 6.1 X10*3/uL (4.8-10.8)
[2025-06-14 10:42] LABS: Alanine Aminotransferase 16 U/L (0-40); Albumin Level 4.0 g/dL (3.5-5.0); Alkaline Phosphatase 73 U/L (39-117); Anion Gap 12 (12-20); Aspartate Amino Transferase 27 U/L (5-37); Blood Urea Nitrogen 22 mg/dL (9-16); Calcium 9.2 mg/dL (8.4-10.2); Carbon Dioxide 28 mmol/L (22-29); Chloride 106 mmol/L (96-108); Cholesterol 201 mg/dL (<200); Estimated Glomerular Filt Rate > 60; HDL Cholesterol 61 mg/dL (>40); Potassium 3.3 mmol/L (3.3-5.1); Sodium 143 mmol/L (135-145); Total Protein 6.8 g/dL (6.5-8.0); Triglycerides 56 mg/dL (<150)
[2025-06-14 10:55] LABS: Appearance Urine Clear; Glucose Urine UA Negative (Negative); PH 6.5 (5.0-9.0); Specific Gravity - Urine 1.020 (1.005-1.025); UMIC TRIGGER UACC YES
== END 2025-06-14 06:14 | disposition home or self-care (01) ==
LOC: HO.HMGCLDS 06:13
DX: I10 Essential (primary) hypertension (principal); F41.9 Anxiety disorder, unspecified; E78.5 Hyperlipidemia, unspecified
CPT/HCPCS: 36415; 80053; 80061; 81001; 81003; 82306; 84443; 85025

== ENCOUNTER 2025-07-03 09:00 | Outpatient (AMB) | payer MEDICARE, SELFPAY ==
[2025-07-03 09:06] VITALS: BP 148/70; PULSE 74; RESP 8; TEMP 36.2; O2SAT 94; BMI 30.2
--- NOTE | 2025-07-03 09:06 | A.OFFPC_ITS ---
Vital Signs 07/03/25 09:06 07/03/25 09:28 Height 6 ft 1 in Weight 229 lb 2 oz BMI 30.2 BP 148/70 H 128/72 Blood Pressure Location Lt brachial Lt brachial Position Sitting Sitting Respiration 8 L Pulse 74 Pulse Source Pulse Oximeter Temp 97.1 F Temp Source Temporal Artery Scan Pulse Oximetry (%) 94 Oxygen Delivery Method Room Air Intake Visit Reasons: 3mth f/u Machine Pecan Gatherer Required: No Accompanied by: Self / Same As Patient Allergies No Known Allergies Allergy (Verified 07/03/25 09:25) Medication List - Last Reconciled 07/03/25 by PERRY Humphreys aspirin (Adult Low Dose Aspirin) 81 mg PO DAILY chlorthalidone 25 mg PO DAILY hydrocortisone 2.5% (Anusol-HC) 1 appl SD BID-QID PRN ibuprofen 600 mg PO Q6-8H PRN lisinopril 10 mg PO DAILY lorazepam 1 mg PO BID PRN mometasone-formoterol 100-5 mcg/actuation (Dulera) 2 puffs inhalation BID Tobacco use date assessed: 07/03/25 Fall risk assessment: 1 Fall in past year Last assessed Fall Risk: 07/03/25 Dental Screening Dental Screen Date: 07/03/25 Did you have a dental visit in the last 12 months?: Yes Did you have a dental problem in the last 6 months where you did not have access to dental care?: No Was dental information given to patient?: Patient has dentist HPI 3mth f/u HPI Details The patient is an 79-year-old male presenting with management of low potassium levels, controlled substance prescription, and evaluation of a left foot bruised area and finger injury. The patient has a history of hypokalemia, which was noted again during recent blood work. He is advised to consume potassium-rich foods such as bananas and potatoes to manage the condition. The patient is currently on a medication that may contribute to decreased potassium levels. The patient is on a controlled substance and is required to visit every three months for prescription refills. There is a concern about the regulation of controlled substances, and the patient is advised to call for refills before running out. The patient reports a bruised area on his left foot that turned purple a few weeks ago, possibly due to trauma. The discoloration has persisted, and the growth is firm to touch. The patient experienced a fall resulting in a finger injury, which does not cause pain but requires an x-ray for further evaluation. The patient has a chronic cough with grayish mucus production, which improves with the use of an inhaler. He is advised to use the inhaler regularly to manage symptoms. The patient reports symptoms of allergic rhinitis, including nasal congestion and eye irritation, particularly in the last week. He is advised to use a nasal spray for symptom relief. [facility] Medical History History of bladder stone Screening for prostate cancer Screening for hyperlipidemia Screening for diabetes mellitus Surgical History History of esophagogastroduodenoscopy (EGD) History of prostate surgery Hx of umbilical hernia repair History of colonoscopy History of hemorrhoidectomy History of appendectomy Family History Father No problems noted. Mother No problems noted. Social History Housing: House Do you presently have visiting nurse or other home services: No Alcohol intake: current Alcohol intake frequency: holidays/special occasions only Alcohol type: beer Patient Tobacco Use Status: Former Tobacco user Tobacco use type: Cigarette e-Cigarette/Vaping Use: Never Used Second Hand Smoke Exposure: Yes service: No Current occupational status: retired Current occupation: left hand Cognitive needs: No Hearing needs: No Vision needs: No Questionnaire PHQ-9 Over the last 2 weeks, how often have you been bothered by any of the following problems? 1. Little interest or pleasure in doing things: not at all 2. Feeling down, depressed, or hopeless: not at all 3. Trouble falling or staying asleep, or sleeping too much: not at all 4. Feeling tired or having little energy: not at all 5. Poor appetite or overeating: not at all 6. Feeling bad about yourself - or that you are a failure or have let yourself or your family down: not at all 7. Trouble concentrating on things, such as reading the newspaper or watching television: not at all 8. Moving or speaking so slowly that other people could have noticed. Or the opposite - being so fidgety or restless that you have been moving around a lot more than usual: not at all 9. Thoughts that you would be better off or of hurting yourself in some way: not at all Total score: 0 Depression Screening Interpretation: Negative Depression Screening Done: Yes Source: Developed by Drs. Vince Calderon, Jennifer Mathur, Marlo Bowman and colleagues, with an educational annmarie from [employer] Thrive Questionnaire Date Thrive assessed: 07/03/25 I am a: Patient What is your living situation today?: I have a steady place to live Within the past 12 months, did the food you bought not last and you didn't have the money to get more?: Never true Within the past 12 months, did you worry whether your food would run out before you got money to buy more?: I choose not to answer this question Do you have trouble paying for medicines?: No Do you have trouble getting transportation to medical appointments?: No Do you have trouble paying your heating and electricity bill?: No Do you have trouble taking care of your child, family member or friend?: No Do you have trouble with day-to-day activities such as bathing, preparing meals, shopping, managing finances, etc.?: No Are you currently unemployed and looking for a job?: No Are you interested in more education?: No Please select the resources that you would like help with: None Currently or been in a relationship where the following occur: No concerns reported THRIVE Score: 0 AUDIT C Alcohol Use Questionnaire (AUDIT-C) 1. How often do you have a drink containing alcohol?: Monthly or less 2. How many drinks containing alcohol do you have on a typical day when you are drinking?: 1 or 2 3. How often do you have six or more drinks on one occasion?: Never Total Score: 1 EDMUND-7 AMB Questionnaire EDMUND-7 Date EDMUND - 7 assessed: 07/03/25 Feeling nervous, anxious, or on edge: 0 = Not at all Not being able to stop or control worryin = Not at all Worrying too much about different things: 0 = Not at all Trouble relaxin = Not at all Being so restless that it is hard to sit still: 0 = Not at all Becoming easily annoyed or irritable: 0 = Not at all Feeling afraid as if something awful might happen: 0 = Not at all Total EDMUND-7 score (0-4 normal; 5-9 mild; 10-14 moderate; 15-21 severe): 0 Source: Developed by Drs. Vince Calderon, Jennifer Mathur, Marlo Bowman and colleagues, with an educational annmarie from [employer] Review of Systems Const Denies body aches, Denies chills, Reports fatigue, Denies fever(s), Denies headache(s) and Denies poor appetite Eyes Reports itchy eyes ENT Denies dysphagia, Denies dizziness, Denies headache(s), Reports nasal congestion and Denies odynophagia Card Denies chest pain, Denies syncope, Denies edema, Denies irregular heart rhythm, Denies lightheadedness and Denies dyspnea Resp Reports cough (productive) and Denies dyspnea GI Denies abdominal pain, Denies constipation, Denies dysphagia, Denies diarrhea, Denies nausea, Denies odynophagia and Denies vomiting Reports no additional complaints Musc Denies abnormal gait, Reports deformity (Right 4th finger) and Reports other (Left foot bruised area) Skin/Breast Reports other (Left foot bruised area) Neuro Denies abnormal gait, Denies dizziness, Denies syncope and Denies headache(s) Psych Reports no additional complaints Endo Reports fatigue Aller/Immun Reports itchy eyes Physical exam (Primary Care) Vital Signs: Last Vital Signs Temp 97.1 F 07/03/25 09:06 Pulse 74 07/03/25 09:06 Resp 8 L 07/03/25 09:06 BP 128/72 07/03/25 09:28 Pulse Ox 94 07/03/25 09:06 Oxygen Delivery Method Room Air 07/03/25 09:06 BMI result Body Mass Index 30.2 Tobacco/Smoking Status: Tobacco use Status Tobacco use date assessed 07/03/25 07/03/25 09:16 Patient Tobacco Use Status Former Tobacco user 07/03/25 09:16 Tobacco use type Cigarette 07/03/25 09:16 e-Cigarette/Vaping Use Never Used 07/03/25 09:16 PHQ-9: PHQ-9 Score PHQ-9: Total score 0 07/03/25 09:53 Depression Screening Interpretation: Negative Thrive Assessment: Date of Thrive Assessment Date Thrive assessed 07/03/25 07/03/25 09:16 Currently or been in a relationship where the following occur: No concerns reported Const General: cooperative, healthy appearing, comfortable and no acute distress Orientation/consciousness: patient oriented x3 HENMT Head: Yes normocephalic Ears: TM's normal bilaterally General nose exam: Abnormal mucous membranes and turbinates present erythematous bilateral Eyes General: appearance normal, both eyes and all related structures Conjunctivae: conjunctivae normal Neck Neck: Yes full ROM and Yes no lymphadenopathy Resp Effort & Inspection: normal respiratory effort Auscultation: clear to auscultation bilaterally, no crackles, no rales, no rhonchi and no wheezes Cardio Rate: regular rate Rhythm: regular rhythm GI Inspection: Yes obesity Palpation (GI): Soft to palpation and nontender Auscultation: normal bowel sounds General: Yes no CVA tenderness Back/Spine/Pelvis Back: no CVA tenderness Skin Wounds: wounds noted (left foot, 2nd toe blister) Neuro General: patient oriented x3 Gait exam (Neuro): Normal gait present Extrem General: Yes normal to inspection, Yes full ROM and No edema Right upper extremity: Extremity exam: right hand (Right 4th finger deformity) Psych Affect: normal affect Attitude: cooperative Insight: Good insight present (Psych) Judgement: Good judgement present (Psych) Results Reviewed Results Reviewed: Laboratory Tests 06/14/25 06:25 WBC 6.1 RBC 4.15 L Hgb 13.0 L Hct 37.7 L MCV 90.8 MCH 31.3 RDW 13.4 Plt Count 238 Sodium 143 Potassium 3.3 D Chloride 106 Carbon Dioxide 28 Anion Gap 12 BUN 22 H Creatinine 0.78 Estimated GFR > 60 Fasting Glucose 118 H Calcium 9.2 D Total Bilirubin 0.4 AST 27 ALT 16 Alkaline Phosphatase 73 Total Protein 6.8 Albumin 4.0 Triglycerides 56 Cholesterol 201 H LDL Cholesterol, Calc 129 H HDL Cholesterol 61 25-OH Vitamin D Total 33.1 TSH 1.86 Urine Color Yellow Urine Appearance Clear Urine pH 6.5 Ur Specific [place] 1.020 Urine Protein Negative Urine Glucose (UA) Negative Urine Ketones Negative Urine Blood Negative Urine Nitrite Negative Ur Leukocyte Esterase Trace H Urine RBC 0-2 Urine WBC 0-5 Ur Squamous Epith Cells 0-2 Urine Bacteria None Seen Hyaline Casts 0-2 Coding Level of Care Code Est Pt Level 3 (71950) Diagnoses Anxiety F41.9 Asthma, unspecified asthma severity, unspecified whether complicated, unspecified whether persistent J45.909 Asthma severity: unspecified severity Asthma persistence: unspecified Asthma complication type: unspecified Urinary urgency R39.15 Hypertension, unspecified type I10 Hypertension type: unspecified Pure hypercholesterolemia E78.00 Hyperlipidemia type: pure hypercholesterolemia Seasonal allergic rhinitis, unspecified trigger J30.2 Allergic rhinitis trigger: unspecified Allergic rhinitis seasonality: seasonal Finger deformity M20.009 Blister of toe of left foot, subsequent encounter S90.425D Encounter type: subsequent encounter Hypokalemia E87.6 Impaired fasting glucose R73.01 Time Spent (min) 35 Assessment & Plan Assessment & Plan (1) Anxiety: Code(s): F41.9 - Anxiety disorder, unspecified Category: Medical Plan: The patient reports that he used to take zoloft 50 mg but stopped the medication because he it was not helping. He currently uses Ativan 1 mg BID PRN for anxiety. Denies si/hi. (2) Asthma: Code(s): J45.909 - Unspecified asthma, uncomplicated Category: Medical Qualifiers: Asthma severity: unspecified severity Asthma persistence: unspecified Asthma complication type: unspecified Qualified Code(s): J45.909 - Unspecified asthma, uncomplicated Plan: No shortness a breath or wheezing in office. Continue albuterol sulfate 90 mcg/actuation 2 puffs q.6 H p.r.n., Dulera 2 puffs inhalation b.i.d.. Rinse mouth after each use of the inhalers. (3) Urinary urgency: Code(s): R39.15 - Urgency of urination Category: Medical Plan: HX neurogenic bladder, s/p bladder surgery, he is being followed by Dr. Min every 6 months Follow up with urology as scheduled (4) Hypertension: Code(s): I10 - Essential (primary) hypertension Category: Medical Qualifiers: Hypertension type: unspecified Qualified Code(s): I10 - Essential (primary) hypertension Plan: BP 128/72 in office reinforced DASH diet continue lisinopril 10 mg daily, chlorthalidone 25 mg daily (5) HLD (hyperlipidemia): Code(s): E78.5 - Hyperlipidemia, unspecified Category: Medical Qualifiers: Hyperlipidemia type: pure hypercholesterolemia Qualified Code(s): E78.00 - Pure hypercholesterolemia, unspecified Plan: Total cholesterol 201 and LDL 129 Discussed lifestyle modifications including dietary changes and physical activity We will repeat lipid panel in 3 months (6) Allergic rhinitis: Code(s): J30.9 - Allergic rhinitis, unspecified Category: Medical Qualifiers: Allergic rhinitis trigger: unspecified Allergic rhinitis seasonality: seasonal Qualified Code(s): J30.2 - Other seasonal allergic rhinitis Plan: Limit exposure to allergens Air purifiers and dust filters Air conditioner in house, especially where sleeping Continue fluticasone propionate 50 mcg/actuation 1 spray intranasally q.12 hours. Refill Rx (7) Finger deformity: Code(s): M20.009 - Unspecified deformity of unspecified finger(s) Category: Medical Plan: Status post fall, right 4th finger deformity, denies pain. X-ray ordered to further evaluate (8) Blister of toe of left foot: Code(s): S90.425A - Blister (nonthermal), left lesser toe(s), initial encounter Category: Medical Qualifiers: Encounter type: subsequent encounter Qualified Code(s): S90.425D - Blister (nonthermal), left lesser toe(s), subsequent encounter Plan: Blister between left 2nd toe and 3rd towards the bottom to foot. To cleansed and clean dry dressing applied, similar to with the patient already applied. Keep area clean and monitor for infection. (9) Hypokalemia: Code(s): E87.6 - Hypokalemia Category: Medical Plan: Potassium low normal at 3.3. Encouraged foods that are rich in potassium. We will continue to monitor (10) Impaired fasting glucose: Code(s): R73.01 - Impaired fasting glucose Category: Medical Plan: Fasting glucose was 118, who will add an A1c to follow up labs Plan The patient is advised to increase the intake of potassium-rich foods such as bananas and potatoes to address hypokalemia. Regular monitoring of potassium levels is recommended to ensure stability. For the controlled substance management, the patient is instructed to schedule regular visits every three months for prescription refills and to call for refills before running out. The growth on the patient's toe should be monitored for changes in size or color, and the patient is advised to report any significant changes. An x-ray is recommended for the finger injury to assess any underlying damage, despite the absence of pain. The patient is advised to use the inhaler regularly to manage the chronic cough and to contact the clinic if symptoms persist or worsen. For allergic rhinitis, the patient is advised to use a nasal spray to alleviate symptoms of congestion and eye irritation. Patient was informed and verbally consented to the use of an ambient scribe for clinic note documentation during this visit. Orders: Orders Complete Blood Count Auto Diff 3 Months F41.9 - Anxiety disorder, unspecified, I10 - Essential (primary) hypertension, E78.5 - Hyperlipidemia, unspecified, R39.14 - Feeling of incomplete bladder emptying, R39.15 - Urgency of urination Comprehensive [place]. Panel Fast 3 Months F41.9 - Anxiety disorder, unspecified, I10 - Essential (primary) hypertension, E78.5 - Hyperlipidemia, unspecified, R39.14 - Feeling of incomplete bladder emptying, R39.15 - Urgency of urination UA CC w/rflx Micro + Cult 3 Months F41.9 - Anxiety disorder, unspecified, I10 - Essential (primary) hypertension, E78.5 - Hyperlipidemia, unspecified, R39.14 - Feeling of incomplete bladder emptying, R39.15 - Urgency of urination XR finger RT min 2V 07/03/25 M20.009 - Unspecified deformity of unspecified finger(s) Lipid Panel 3 Months F41.9 - Anxiety disorder, unspecified, I10 - Essential (primary) hypertension, E78.5 - Hyperlipidemia, unspecified, R39.14 - Feeling of incomplete bladder emptying, R39.15 - Urgency of urination TSH reflex Free T4 3 Months F41.9 - Anxiety disorder, unspecified, I10 - Essential (primary) hypertension, E78.5 - Hyperlipidemia, unspecified, R39.14 - Feeling of incomplete bladder emptying, R39.15 - Urgency of urination Hemoglobin A1c 3 Months F41.9 - Anxiety disorder, unspecified, I10 - Essential (primary) hypertension, E78.5 - Hyperlipidemia, unspecified, R39.14 - Feeling of incomplete bladder emptying, R39.15 - Urgency of urination Vitamin D 25-OH Total 3 Months F41.9 - Anxiety disorder, unspecified, I10 - Essential (primary) hypertension, E78.5 - Hyperlipidemia, unspecified, R39.14 - Feeling of incomplete bladder emptying, R39.15 - Urgency of urination Medications: Changed From mometasone-formoterol 100-5 mcg/actuation 2 puffs inhalation BID 8.8 grams 2RF To mometasone-formoterol 100-5 mcg/actuation (Dulera) 2 puffs inhalation BID 8.8 grams 2RF From albuterol sulfate 90 mcg/actuation 2 puffs PO Q6H 30 days PRN 18 grams 8RF bronchospasm R31.0 - Gross hematuria To albuterol sulfate 90 mcg/actuation 2 puffs PO Q6H PRN 18 grams 3RF bronchospasm 30 days R31.0 - Gross hematuria Refilled fluticasone propionate 50 mcg/actuation 1 spray intranasal Q12H 16 grams 2RF
[2025-07-03 09:28] VITALS: BP 128/72
== END 2025-07-03 09:55 | disposition home or self-care (01) ==
LOC: HO.HMCH 09:01
DX: F41.9 Anxiety disorder, unspecified (principal); J45.909 Unspecified asthma, uncomplicated; R39.15 Urgency of urination; I10 Essential (primary) hypertension; E78.00 Pure hypercholesterolemia, unspecified; J30.2 Other seasonal allergic rhinitis; M20.009 Unspecified deformity of unspecified finger(s); S90.425D Blister (nonthermal), left lesser toe(s), subsequent encounter; E87.6 Hypokalemia; R73.01 Impaired fasting glucose

== ENCOUNTER → 2025-07-03 09:00 | Outpatient (BNVA) | payer MEDICARE, SELFPAY | DX: F41.9 Anxiety disorder, unspecified (principal); J45.909 Unspecified asthma, uncomplicated; R39.15 Urgency of urination; E78.00 Pure hypercholesterolemia, unspecified; I10 Essential (primary) hypertension; M20.009 Unspecified deformity of unspecified finger(s); E87.6 Hypokalemia; R73.01 Impaired fasting glucose; S90.425D Blister (nonthermal), left lesser toe(s), subsequent encounter | CPT/HCPCS: 99212 ==

== ENCOUNTER 2025-09-20 08:11 | Outpatient (REF) | payer MEDICARE, SELFPAY ==
[2025-09-20 10:30] LABS: Appearance Urine Clear; Glucose Urine UA Negative (Negative); PH 6.5 (5.0-9.0); Specific Gravity - Urine 1.020 (1.005-1.025); UMIC TRIGGER UACC YES
[2025-09-20 10:31] LABS: MANUAL DIFF FLAG NO
[2025-09-20 10:38] LABS: Hematocrit 39.3 % (42.0-52.0); Hemoglobin 13.0 g/dl (14.0-18.0); Imm Gran Abs Auto 0.03 X10*3/uL (0.00-0.03); Imm Gran Pct Auto 0.5 % (0.0-0.4); Lymphocytes Absolute Auto 1.7 X10*3/uL (1.2-4.9); Mean Corpuscular HGB Conc 33.1 g/dl (31.0-36.0); Mean Corpuscular Hemoglobin 30.6 pg (27.0-33.0); Mean Corpuscular Volume 92.5 fL (80.0-98.0); NRBC Abs Auto 0.000 X10*3/uL (0.0-0.012); NRBC Pct Auto 0.0 /100WBC (0.0-0.2); Platelet Count 263 X10*3/uL (160-400); Red Blood Count 4.25 X10*6/uL (4.60-5.80); White Blood Count 6.3 X10*3/uL (4.8-10.8)
[2025-09-20 10:47] LABS: Hemoglobin A1C 152.3936 umol/L; Total Hemoglobin (HGBA1C) 3434.3553 umol/L
[2025-09-20 10:56] LABS: UACC Culture Trigger YES
[2025-09-20 10:59] LABS: Alanine Aminotransferase 157 U/L (0-40); Albumin Level 4.1 g/dL (3.5-5.0); Alkaline Phosphatase 198 U/L (39-117); Anion Gap 11 (12-20); Aspartate Amino Transferase 107 U/L (5-37); Blood Urea Nitrogen 20 mg/dL (9-16); Calcium 9.5 mg/dL (8.4-10.2); Carbon Dioxide 30 mmol/L (22-29); Chloride 105 mmol/L (96-108); Cholesterol 230 mg/dL (<200); Estimated Glomerular Filt Rate > 60; HDL Cholesterol 80 mg/dL (>40); Potassium 3.8 mmol/L (3.3-5.1); Sodium 142 mmol/L (135-145); Total Protein 7.1 g/dL (6.5-8.0); Triglycerides 55 mg/dL (<150)
== END 2025-09-20 08:12 | disposition home or self-care (01) ==
LOC: HO.HMGCLDS 08:11
DX: I10 Essential (primary) hypertension (principal); R39.14 Feeling of incomplete bladder emptying; R39.15 Urgency of urination; F41.9 Anxiety disorder, unspecified; E78.5 Hyperlipidemia, unspecified; Z13.1 Encounter for screening for diabetes mellitus
CPT/HCPCS: 36415; 80053; 80061; 81001; 82306; 83036; 84443; 85025; 87086

== ENCOUNTER 2025-10-05 09:01 | Outpatient (AMB) | payer MEDICARE, SELFPAY ==
[2025-10-05 09:09] VITALS: BP 140/68; PULSE 77; RESP 18; TEMP 36.2; O2SAT 97; BMI 30.9
--- NOTE | 2025-10-05 09:09 | A.OFFPC_ITS ---
Vital Signs 10/05/25 09:09 10/05/25 09:58 Height 6 ft 1 in Weight 234 lb 4 oz BMI 30.9 BP 140/68 H 138/62 Blood Pressure Location Lt brachial Lt brachial Position Sitting Sitting Respiration 18 Pulse 77 Pulse Source Pulse Oximeter Temp 97.1 F Temp Source Temporal Artery Scan Pulse Oximetry (%) 97 Oxygen Delivery Method Room Air Intake Visit Reasons: follow up Staff Physical Therapist Required: No Accompanied by: Self / Same As Patient Allergies No Known Allergies Allergy (Verified 10/05/25 09:17) Medication List - Last Reconciled 10/05/25 by PERRY Humphreys albuterol sulfate 90 mcg/actuation 2 puffs PO Q6H PRN 30 days aspirin (Adult Low Dose Aspirin) 81 mg PO DAILY chlorthalidone 25 mg PO DAILY fluticasone propionate 50 mcg/actuation 1 spray intranasal Q12H hydrocortisone 2.5% (Anusol-HC) 1 appl [place] BID-QID PRN ibuprofen 600 mg PO Q6-8H PRN lisinopril 10 mg PO DAILY lorazepam 1 mg PO BID PRN Tobacco use date assessed: 10/05/25 Fall risk assessment: No Falls in past year Last assessed Fall Risk: 10/05/25 Dental Screening Dental Screen Date: 10/05/25 Did you have a dental visit in the last 12 months?: Yes Did you have a dental problem in the last 6 months where you did not have access to dental care?: No Was dental information given to patient?: Patient has dentist HPI follow up HPI Details The patient is 79 year old male presenting significant history of asthma, COPD, chronic anxiety, HTN, Dupuytren's contracture of right hand The patient is presenting for a follow-up visit to review lab results and discuss new-onset abdominal discomfort. He reports intermittent central abdominal pain and some associated diarrhea, occurring about once every 10 hours. He has a history of a hernia repair and previously did heavy lifting during his working years. Two days of loose stools. Recent returned from [place]. No known sick contacts. Bilateral sclera light yellow appearing. Review of recent lab work revealed that his chronic anemia is stable. However, his liver enzymes have become significantly elevated, with his AST increasing from 27 to 107 and his ALT from 16 to 157. His cholesterol continues to be elevated. The patient reports significant stress as his is very ill battling cancer. He consumes alcohol sparingly, noting he might have one beer a week when dining out and keeps no liquor at home. He experiences morning congestion and cough likely due to asthma exacerbated by allergies. Asthma symptoms are currently relieved after clearing airways, but wheezing persists on clinical examination. The patient is noted to only have a rescue inhaler-will add a long-acting His anxiety, particularly situational from his 's health deterioration, is managed with as-needed lorazepam. The patient previously used sertraline but discontinued it, finding effective management with lorazepam alone. There is a history of pneumonia on the right side, treated successfully. The patient has hip osteoarthritis, causing morning stiffness but subsiding with movement. Additionally, he has bladder urgency linked to a history of bladder enlargement surgery. Reports seeing Dr. Min every 6 months usually and will call and make an appt. [facility] Medical History History of bladder stone Screening for prostate cancer Screening for hyperlipidemia Screening for diabetes mellitus Surgical History History of esophagogastroduodenoscopy (EGD) History of prostate surgery Hx of umbilical hernia repair History of colonoscopy History of hemorrhoidectomy History of appendectomy Family History Father No problems noted. Mother No problems noted. Social History Housing: House Do you presently have visiting nurse or other home services: No Alcohol intake: current Alcohol intake frequency: holidays/special occasions only Alcohol type: beer Patient Tobacco Use Status: Former Tobacco user Tobacco use type: Cigarette e-Cigarette/Vaping Use: Never Used Second Hand Smoke Exposure: Yes service: No Current occupational status: retired Current occupation: left hand Cognitive needs: No Hearing needs: No Vision needs: No Questionnaire PHQ-9 Over the last 2 weeks, how often have you been bothered by any of the following problems? Depression Screening Interpretation: Negative Depression Screening Done: Yes Source: Developed by Drs. Vince Calderon, Jennifer Mathur, Marlo Bowman and colleagues, with an educational annmarie from [facility]. Thrive Questionnaire Date Thrive assessed: 07/03/25 I am a: Patient What is your living situation today?: I have a steady place to live Within the past 12 months, did the food you bought not last and you didn't have the money to get more?: Never true Within the past 12 months, did you worry whether your food would run out before you got money to buy more?: I choose not to answer this question Do you have trouble paying for medicines?: No Do you have trouble getting transportation to medical appointments?: No Do you have trouble paying your heating and electricity bill?: No Do you have trouble taking care of your child, family member or friend?: No Do you have trouble with day-to-day activities such as bathing, preparing meals, shopping, managing finances, etc.?: No Are you currently unemployed and looking for a job?: No Are you interested in more education?: No Please select the resources that you would like help with: None Currently or been in a relationship where the following occur: No concerns r eported THRIVE Score: 0 EDMUND-7 AMB Questionnaire EDMUND-7 Date EDMUND - 7 assessed: 07/03/25 Source: Developed by Drs. Vince Calderon, Jennifer Mathur, Marlo Bowman and colleagues, with an educational annmarie from [facility]. Review of Systems Const Denies body aches, Denies chills, Reports fatigue, Denies fever(s), Denies headache(s) and Denies poor appetite Eyes Reports itchy eyes ENT Denies dysphagia, Denies dizziness, Denies headache(s), Reports nasal congestion and Denies odynophagia Card Denies chest pain, Denies syncope, Denies edema, Denies irregular heart rhythm, Denies lightheadedness and Denies dyspnea Resp Reports cough (productive) and Denies dyspnea GI Reports abdominal pain (slightly above umbiliu), Denies constipation, Denies dysphagia, Denies diarrhea, Denies nausea, Denies odynophagia and Denies vomiting Reports no additional complaints Musc Denies abnormal gait, Reports deformity (Right 4th finger) and Reports other (Left foot bruised area) Skin/Breast Reports other (Left foot bruised area) Neuro Denies abnormal gait, Denies dizziness, Denies syncope and Denies headache(s) Psych Reports no additional complaints Endo Reports fatigue Aller/Immun Reports itchy eyes Physical exam (Primary Care) Vital Signs: Last Vital Signs Temp 97.1 F 10/05/25 09:09 Pulse 77 10/05/25 09:09 Resp 18 10/05/25 09:09 BP 138/62 10/05/25 09:58 Pulse Ox 97 10/05/25 09:09 Oxygen Delivery Method Room Air 10/05/25 09:09 BMI result Body Mass Index 30.9 Tobacco/Smoking Status: Tobacco use Status Tobacco use date assessed 10/05/25 10/05/25 09:18 Patient Tobacco Use Status Former Tobacco user 10/05/25 09:18 Tobacco use type Cigarette 10/05/25 09:18 e-Cigarette/Vaping Use Never Used 10/05/25 09:18 Depression Screening Interpretation: Negative Thrive Assessment: Date of Thrive Assessment Date Thrive assessed 07/03/25 10/05/25 09:18 Currently or been in a relationship where the following occur: No concerns reported Const General: cooperative, healthy appearing, comfortable and no acute distress Orientation/consciousness: patient oriented x3 HENMT Head: Yes normocephalic Ears: TM's normal bilaterally General nose exam: Abnormal mucous membranes and turbinates present erythematous bilateral Eyes General: appearance normal, both eyes and all related structures Conjunctivae: conjunctivae normal Neck Neck: Yes full ROM and Yes no lymphadenopathy Resp Effort & Inspection: normal respiratory effort Auscultation: clear to auscultation bilaterally, no crackles, no rales, no rhonchi and no wheezes Cardio Rate: regular rate Rhythm: regular rhythm GI Inspection: Yes distended and Yes obesity Palpation (GI): Soft to palpation and Tenderness to palpation present (GI) periumbilically Auscultation: normal bowel sounds General: Yes no CVA tenderness Back/Spine/Pelvis Back: no CVA tenderness Neuro General: patient oriented x3 Gait exam (Neuro): Normal gait present Extrem General: Yes normal to inspection, Yes full ROM and No edema Right upper extremity: Extremity exam: right hand (Right 4th finger deformity) Psych Affect: normal affect Attitude: cooperative Insight: Good insight present (Psych) Judgement: Good judgement present (Psych) Results Reviewed Results Reviewed: Laboratory Tests 09/20/25 08:34 WBC 6.3 RBC 4.25 L Hgb 13.0 L Hct 39.3 L MCV 92.5 MCH 30.6 MCHC 33.1 RDW 13.7 Plt Count 263 MPV 11.4 Sodium 142 Potassium 3.8 Chloride 105 Carbon Dioxide 30 H Anion Gap 11 L BUN 20 H Creatinine 0.73 Estimated GFR > 60 Fasting Glucose 112 H Estimat Average Glucose 131 Hemoglobin A1c % 6.2 H Calcium 9.5 Total Bilirubin 0.6 AST 107 H ALT 157 H Alkaline Phosphatase 198 H Total Protein 7.1 Albumin 4.1 Triglycerides 55 Cholesterol 230 H LDL Cholesterol, Calc 139 H HDL Cholesterol 80 25-OH Vitamin D Total 26.7 L TSH 1.74 Urine Color Dark Yellow Urine Appearance Clear Urine pH 6.5 Ur Specific [place] 1.020 Urine Protein Negative Urine Glucose (UA) Negative Urine Ketones Negative Urine Blood Negative Urine Nitrite Negative Ur Leukocyte Esterase Small (1+) H Urine RBC 0-2 Urine WBC 0-5 Ur Squamous Epith Cells 0-2 Urine Bacteria None Seen Hyaline Casts 0-2 Coding Level of Care Code Est Pt Level 4 (56634) Diagnoses Anxiety F41.9 Asthma, unspecified asthma severity, unspecified whether complicated, unspecified whether persistent J45.909 Asthma complication type: unspecified Asthma persistence: unspecified Asthma severity: unspecified severity Urinary urgency R39.15 Hypertension, unspecified type I10 Hypertension type: unspecified Pure hypercholesterolemia E78.00 Hyperlipidemia type: pure hypercholesterolemia Seasonal allergic rhinitis, unspecified trigger J30.2 Allergic rhinitis seasonality: seasonal Allergic rhinitis trigger: unspecified Finger deformity M20.009 Hypokalemia E87.6 Impaired fasting glucose R73.01 Periumbilical abdominal pain R10.33 Abdominal location: periumbilical Jaundice R17 Elevated liver enzymes R74.8 Time Spent (min) 37 Assessment & Plan Assessment & Plan (1) Anxiety: Code(s): F41.9 - Anxiety disorder, unspecified Category: Medical Plan: The patient reports that he used to take zoloft 50 mg but stopped the medication because he it was not helping. He currently uses Ativan 1 mg BID PRN for anxiety. Denies si/hi. (2) Asthma: Code(s): J45.909 - Unspecified asthma, uncomplicated Category: Medical Qualifiers: Asthma complication type: unspecified Asthma persistence: unspecified Asthma severity: unspecified severity Qualified Code(s): J45.909 - Unspecified asthma, uncomplicated Plan: No shortness a breath or wheezing in office. Continue albuterol sulfate 90 mcg/actuation 2 puffs q.6 H p.r.n., Dulera 2 puffs inhalation b.i.d.. Rinse mouth after each use of the inhalers. (3) Urinary urgency: Code(s): R39.15 - Urgency of urination Category: Medical Plan: HX neurogenic bladder, s/p bladder surgery, he is being followed by Dr. Min every 6 months Follow up with urology as scheduled (4) Hypertension: Code(s): I10 - Essential (primary) hypertension Category: Medical Qualifiers: Hypertension type: unspecified Qualified Code(s): I10 - Essential (primary) hypertension Plan: BP 138/62 in office reinforced DASH diet continue lisinopril 10 mg daily, chlorthalidone 25 mg daily (5) HLD (hyperlipidemia): Code(s): E78.5 - Hyperlipidemia, unspecified Category: Medical Qualifiers: Hyperlipidemia type: pure hypercholesterolemia Qualified Code(s): E78.00 - Pure hypercholesterolemia, unspecified Plan: Total cholesterol 201 and LDL 129 Discussed lifestyle modifications including dietary changes and physical activity We will repeat lipid panel in 3 months (6) Allergic rhinitis: Code(s): J30.9 - Allergic rhinitis, unspecified Category: Medical Qualifiers: Allergic rhinitis seasonality: seasonal Allergic rhinitis trigger: unspecified Qualified Code(s): J30.2 - Other seasonal allergic rhinitis Plan: Limit exposure to allergens Air purifiers and dust filters Air conditioner in house, especially where sleeping Continue fluticasone propionate 50 mcg/actuation 1 spray intranasally q.12 hours . Refill Rx (7) Finger deformity: Code(s): M20.009 - Unspecified deformity of unspecified finger(s) Category: Medical Plan: Status post fall, right 4th finger deformity, denies pain. X-ray ordered to further evaluate (8) Hypokalemia: Code(s): E87.6 - Hypokalemia Category: Medical Plan: Potassium low normal at 3.3. Encouraged foods that are rich in potassium. We will continue to monitor (9) Impaired fasting glucose: Code(s): R73.01 - Impaired fasting glucose Category: Medical Plan: Fasting glucose was 118, who will add an A1c to follow up labs (10) Abdominal pain: Code(s): R10.9 - Unspecified abdominal pain Category: Medical Qualifiers: Abdominal location: periumbilical Qualified Code(s): R10.33 - Periumbilical pain Plan: Patient complain of pain slightly above the umbilicus area. Reports that this is worse after eating, but denies heartburn. Abdominal ultrasound ordered to further evaluate. (11) Jaundice: Code(s): R17 - Unspecified jaundice Category: Medical Plan: Bilateral sclera noted to be light yellow, labs and ultrasound ordered, to further evaluate. (12) Elevated liver enzymes: Code(s): R74.8 - Abnormal levels of other serum enzymes Category: Medical Plan: The patient liver enzymes significantly increased since last checked 3 months ago. Given the patient complaints of abdominal pain, we will order ultrasounds and labs Orders: Orders Hepatitis A,B,C Profile Today R17 - Unspecified jaundice, R74.8 - Abnormal levels of other serum enzymes Transferrin Today R17 - Unspecified jaundice, R74.8 - Abnormal levels of other serum enzymes Ferritin Today R17 - Unspecified jaundice, R74.8 - Abnormal levels of other serum enzymes US abdomen complete Today R10.9 - Unspecified abdominal pain, R74.8 - Abnormal levels of other serum enzymes Complete Blood Count Auto Diff 3 Months E78.00 - Pure hypercholesterolemia, unspecified, F41.9 - Anxiety disorder, unspecified, I10 - Essential (primary) hypertension, J45.909 - Unspecified asthma, uncomplicated, R73.01 - Impaired fasting glucose, R74.8 - Abnormal levels of other serum enzymes, Z13.220 - Encounter for screening for lipoid disorders Lipid Panel 3 Months E78.00 - Pure hypercholesterolemia, unspecified, F41.9 - Anxiety disorder, unspecified, I10 - Essential (primary) hypertension, J45.909 - Unspecified asthma, uncomplicated, R73.01 - Impaired fasting glucose, R74.8 - Abnormal levels of other serum enzymes, Z13.220 - Encounter for screening for lipoid disorders Vitamin D 25-OH Total 3 Months E78.00 - Pure hypercholesterolemia, unspecified, F41.9 - Anxiety disorder, unspecified, I10 - Essential (primary) hypertension, J45.909 - Unspecified asthma, uncomplicated, R73.01 - Impaired fasting glucose, R74.8 - Abnormal levels of other serum enzymes, Z13.220 - Encounter for screening for lipoid disorders CK, Total+Isoenzymes, Serum Today R17 - Unspecified jaundice, R74.8 - Abnormal levels of other serum enzymes Comprehensive [place]. Panel Fast 3 Months E78.00 - Pure hypercholesterolemia, unspecified, F41.9 - Anxiety disorder, unspecified, I10 - Essential (primary) hypertension, J45.909 - Unspecified asthma, uncomplicated, R73.01 - Impaired fasting glucose, R74.8 - Abnormal levels of other serum enzymes, Z13.220 - Encounter for screening for lipoid disorders UA CC w/rflx Micro + Cult 3 Months E78.00 - Pure hypercholesterolemia, unspecified, F41.9 - Anxiety disorder, unspecified, I10 - Essential (primary) hypertension, J45.909 - Unspecified asthma, uncomplicated, R73.01 - Impaired fasting glucose, R74.8 - Abnormal levels of other serum enzymes, Z13.220 - Encounter for screening for lipoid disorders TSH reflex Free T4 3 Months E78.00 - Pure hypercholesterolemia, unspecified, F41.9 - Anxiety disorder, unspecified, I10 - Essential (primary) hypertension, J45.909 - Unspecified asthma, uncomplicated, R73.01 - Impaired fasting glucose, R74.8 - Abnormal levels of other serum enzymes, Z13.220 - Encounter for screening for lipoid disorders Hemoglobin A1c 3 Months E78.00 - Pure hypercholesterolemia, unspecified, F41.9 - Anxiety disorder, unspecified, I10 - Essential (primary) hypertension, J45.909 - Unspecified asthma, uncomplicated, R73.01 - Impaired fasting glucose, R74.8 - Abnormal levels of other serum enzymes Medications: Refilled mometasone-formoterol 100-5 mcg/actuation (Dulera) 2 puffs inhalation BID 13 grams 2RF
[2025-10-05 09:58] VITALS: BP 138/62
== END 2025-10-05 10:09 | disposition home or self-care (01) ==
LOC: HO.HMCH 09:02
DX: F41.9 Anxiety disorder, unspecified (principal); J45.909 Unspecified asthma, uncomplicated; R39.15 Urgency of urination; I10 Essential (primary) hypertension; E78.00 Pure hypercholesterolemia, unspecified; J30.2 Other seasonal allergic rhinitis; M20.009 Unspecified deformity of unspecified finger(s); E87.6 Hypokalemia; R73.01 Impaired fasting glucose; R10.33 Periumbilical pain; R17 Unspecified jaundice; R74.8 Abnormal levels of other serum enzymes

== ENCOUNTER 2025-10-05 13:59 | Outpatient (REF) | payer MEDICARE, SELFPAY ==
--- NOTE | ~2025-10-05 | US_ITS ---
EXAMINATION: US ABDOMEN COMPLETE CLINICAL INFORMATION: Unspecified mid abdominal pain, increased LFTs, jaundice. COMPARISON: 11/28/2019. Correlation made with CT abdomen and pelvis 01/08/2020. TECHNIQUE: Real-time imaging of the abdominal viscera. FINDINGS: PANCREAS: Largely obscured by gas. Visualized aspects are normal. ABDOMINAL AORTA: The proximal and mid aspects are normal in caliber. Heavy atheromatous calcification. The distal aspect is not well seen. INFERIOR VENA CAVA: Visualized portions are normal. LIVER: There is mild liver enlargement. The right hepatic lobe measures 18.5 cm. The liver contour is normal. Parenchymal echogenicity is normal. No focal hepatic lesion. There is intrahepatic biliary ductal dilatation in the left liver lobe. In the right hepatic lobe there is a 9 x 6 mm coarse calcification. GALLBLADDER: The gallbladder is physiologically distended without evidence of stones, sludge, polyps, wall thickening or pericholecystic fluid. COMMON BILE DUCT: Normal in caliber measuring 0.6 cm in diameter. RIGHT KIDNEY: No hydronephrosis. No renal calculi or focal parenchymal lesions. The kidney measures 10.3 cm in maximum dimension. LEFT KIDNEY: No hydronephrosis. No renal calculi or focal parenchymal lesions. The kidney measures 11.6 cm in maximum dimension. SPLEEN: The spleen measures 7.2 cm in maximum dimension. FREE FLUID: None. US/US abdomen complete IMPRESSION: 1. Mild hepatomegaly. Focal intrahepatic ductal dilatation involving the left lobe of the liver. Obstructing lesion is not identified on this examination, although not excluded. No extrahepatic biliary dilatation. Recommend further evaluation with contrast-enhanced cross-sectional imaging, either CT or MR with hepatic protocol. 2. Normal gallbladder. 3. The pancreas is essentially obscured by bowel gas. 4. Heavy atheromatous calcification of the proximal and mid aorta. There is no definite aneurysm although the distal aspect is obscured. Electronically signed by: Kelton Gallagher MD 10/05/2025 04:12 PM [facility]
== END 2025-10-05 14:00 | disposition home or self-care (01) ==
LOC: HO.US 13:59
DX: R10.9 Unspecified abdominal pain (principal); R74.8 Abnormal levels of other serum enzymes; F41.9 Anxiety disorder, unspecified; J45.909 Unspecified asthma, uncomplicated; R39.15 Urgency of urination; I10 Essential (primary) hypertension; E78.00 Pure hypercholesterolemia, unspecified; M20.009 Unspecified deformity of unspecified finger(s); E87.6 Hypokalemia; R73.01 Impaired fasting glucose; R10.33 Periumbilical pain; R17 Unspecified jaundice
CPT/HCPCS: 76700; 99212

== ENCOUNTER → 2025-10-05 14:00 | Outpatient (BNV) | payer MEDICARE, SELFPAY | PROVIDERS: Visit Provider Radiology Diagnostic Radiology | DX: R16.0 Hepatomegaly, not elsewhere classified (principal); I70.0 Atherosclerosis of aorta | CPT/HCPCS: 76700 ==

== ENCOUNTER 2025-10-06 06:35 | Outpatient (REF) | payer MEDICARE, SELFPAY ==
[2025-10-06 12:13] LABS: Ferritin 1443 ng/mL (20-250)
[2025-10-07 04:07] LABS: HBS Num1 0.00 mIU/mL (0-7.99); HBc Num1 0.14 S/CO (0.00-0.79); HBsAGNum1 0.40 S/CO (0.00-0.99); Hepatitis A Antibody IgM 0.18 Index (0-0.79); Hepatitis B Surface Antigen Negative (Negative); ~HepC Num1 0.11 S/CO (0.00-0.79); ~Hepatitis A Antibody IgM Nonreactive (Nonreactive); ~Hepatitis B Surface Antibody NONREACTIVE (Nonreactive); ~Hepatitis C Antibody Nonreactive (Nonreactive)
[2025-10-09 09:34] LABS: Transferrin 242 mg/dL (188-341)
[2025-10-10 19:34] LABS: CK-BB None Detected (None Detected); CK-MB 0 % (<5); CK-MM 100 % (95-100); Creatine Kinase,Total,Serum 151 U/L (17-247)
== END 2025-10-06 06:36 | disposition home or self-care (01) ==
LOC: HO.HMGCLDS 06:35
DX: R74.8 Abnormal levels of other serum enzymes (principal); R17 Unspecified jaundice
CPT/HCPCS: 36415; 82552; 82728; 84466; 86704; 86706; 86709; 86803; 87340

== ENCOUNTER 2025-10-18 13:59 | Outpatient (AMB) | payer MEDICARE, SELFPAY ==
--- NOTE | 2025-10-18 14:03 | A.OFFPC_ITS ---
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 Accompanied by: Self / Same As Patient Allergies No Known Allergies Allergy (Verified 10/18/25 22:17) Medication List - Last Reconciled 10/18/25 by PERRY Humphreys albuterol sulfate 90 mcg/actuation 2 puffs PO Q6H PRN 30 days aspirin (Adult Low Dose Aspirin) 81 mg PO DAILY chlorthalidone 25 mg PO DAILY fluticasone propionate 50 mcg/actuation 1 spray intranasal Q12H hydrocortisone 2.5% (Anusol-HC) 1 appl [place] BID-QID PRN ibuprofen 600 mg PO Q6-8H PRN lisinopril 10 mg PO DAILY loperamide (Imodium A-D) 2 mg PO Q4H PRN lorazepam 1 mg PO BID PRN mometasone-formoterol 100-5 mcg/actuation (Dulera) 2 puffs inhalation BID Tobacco use date assessed: 10/18/25 Fall risk assessment: No Falls in past year Last assessed Fall Risk: 10/18/25 Dental Screening Dental Screen Date: 10/18/25 Did you have a dental visit in the last 12 months?: Yes Did you have a dental problem in the last 6 months where you did not have access to dental care?: No Was dental information given to patient?: Patient has dentist HPI HPI Comments History of Present Illness Details The patient is an 80 year old individual presenting for evaluation of new-onset diarrhea and to follow up on elevated liver enzymes. The patient reports a 15- day history of diarrhea, which began on October 03 [place] being [place] the airport. The patient has no prior history of chronic diarrhea and describes the stool as pale brown, runny, and sometimes like small alina. The patient has also experienced fecal urgency and several episodes of inconti nence, being unable to make it to the bathroom in time. Associated symptoms include dark urine, which started around the same time, dysgeusia, decreased appetite, and occasional weakness. Recent lab work revealed elevated liver enzymes (AST, ALT) and elevated ferritin (iron storage), which represented a sudden increase from baseline normal levels. Tests for hepatitis A, B, and C were negative. A prior imaging study noted an indeterminate shadow on the liver. The patient's past medical history is notable for a bladder procedure about 8 years ago for urinary retention. The patient reports maintaining a consistent diet for many years, including red meat once or twice a week. Health Maintenance Social History - Diet: Reports a consistent, lifelong d iet, which includes red meat once or twice weekly. - Recent intake includes a muffin for br eakfast, soup for lunch, and hamburger macaroni for dinner. - Travel: The patient was at an airport on October 03, the day the current symptoms began. Results - Labs: - Elevated liver enzymes (AST/ALT). - Elevated ferritin. - Hepatitis A, B, and C panel was negati ve. - Imaging: - A prior imaging study showed a 'shadow ' on the liver that could not be differentiated. [facility] Medical History History of bladder stone Screening for prostate cancer Screening for hyperlipidemia Screening for diabetes mellitus Surgical History History of esophagogastroduodenoscopy (EGD) History of prostate surgery Hx of umbilical hernia repair History of colonoscopy History of hemorrhoidectomy History of appendectomy Family History Father No problems noted. Mother No problems noted. Social History Housing: House Do you presently have visiting nurse or other home services: No Alcohol intake: current Alcohol intake frequency: holidays/special occasions only Alcohol type: beer Patient Tobacco Use Status: Former Tobacco user Tobacco use type: Cigarette e-Cigarette/Vaping Use: Never Used Second Hand Smoke Exposure: Yes service: No Current occupational status: retired Current occupation: left hand Cognitive needs: No Hearing needs: No Vision needs: No Questionnaire PHQ-9 Over the last 2 weeks, how often have you been bothered by any of the following problems? Depression Screening Interpretation: Negative Depression Screening Done: Yes Source: Developed by Drs. Jennifer Parker, Marlo Bowman and colleagues, with an educational annmarie from [employer]. Thrive Questionnaire Date Thrive assessed: 10/18/25 I am a: Patient What is your living situation today?: I have a steady place to live Within the past 12 months, did the food you bought not last and you didn't have the money to get more?: Never true Within the past 12 months, did you worry whether your food would run out before you got money to buy more?: I choose not to answer this question Do you have trouble paying for medicines?: No Do you have trouble getting transportation to medical appointments?: No Do you have trouble paying your heating and electricity bill?: No Do you have trouble taking care of your child, family member or friend?: No Do you have trouble with day-to-day activities such as bathing, preparing meals, shopping, managing finances, etc.?: No Are you currently unemployed and looking for a job?: No Are you interested in more education?: No Please select the resources that you would like help with: None Currently or been in a relationship where the following occur: No concerns reported THRIVE Score: 0 AUDIT C Alcohol Use Questionnaire (AUDIT-C) 1. How often do you have a drink containing alcohol?: Monthly or less 2. How many drinks containing alcohol do you have on a typical day when you are drinking?: 1 or 2 3. How often do you have six or more drinks on one occasion?: Never Total Score: 1 EDMUND-7 AMB Questionnaire EDMUND-7 Date EDMUND - 7 assessed: 07/03/25 Source: Developed by Drs. Vince Calderon, Marlo Blanchard and colleagues, with an educational annmarie from [employer]. Review of Systems Narrative Review of Systems - Constitutional: Reports occasionally feeling weak. - Gastrointestinal: Reports diarrhea for the past 15 days, described as runny, pale brown, and sometimes like small alina. - Reports decreased appetite and states that nothing tastes good (dysgeusia). - Reports fecal urgency and incontinence. - Denies constipation. - Genitourinary: Reports very dark urine. Const Denies body aches, Denies chills, Reports fatigue, Denies fever(s), Denies headache(s) and Denies poor appetite Eyes Reports itchy eyes ENT Denies dysphagia, Denies dizziness, Denies headache(s), Reports nasal congestion and Denies odynophagia Card Denies chest pain, Denies syncope, Denies edema, Denies irregular heart rhythm, Denies lightheadedness and Denies dyspnea Resp Reports cough (productive) and Denies dyspnea GI Reports abdominal pain (slightly above umbiliu), Denies constipation, Denies dysphagia, Reports fecal incontinence, Reports diarrhea (On and off explosive), Denies nausea, Denies odynophagia and Denies vomiting Reports other (Dark colored urine) Musc Denies abnormal gait, Reports deformity (Right 4th finger) and Reports other (Left foot bruised area) Skin/Breast Reports jaundice and Reports other (Left foot bruised area) Neuro Denies abnormal gait, Denies dizziness, Denies syncope and Denies headache(s) Psych Reports anxiety Endo Reports fatigue Aller/Immun Reports itchy eyes Physical exam (Primary Care) Vital Signs: Last Vital Signs Pulse 83 10/18/25 14:05 Resp 18 10/18/25 14:05 BP 116/52 L 10/18/25 14:05 Pulse Ox 98 10/18/25 14:05 Oxygen Delivery Method Room Air 10/18/25 14:05 BMI result Body Mass Index 30.0 Tobacco/Smoking Status: Tobacco use Status Tobacco use date assessed 10/18/25 10/18/25 14:12 Patient Tobacco Use Status Former Tobacco user 10/18/25 14:04 Tobacco use type Cigarette 10/18/25 14:04 e-Cigarette/Vaping Use Never Used 10/18/25 14:04 Depression Screening Interpretation: Negative Thrive Assessment: Date of Thrive Assessment Date Thrive assessed 10/18/25 10/18/25 14:12 Currently or been in a relationship where the following occur: No concerns reported Narrative Physical Exam Const General: cooperative, healthy appearing, comfortable and no acute distress Orientation/consciousness: patient oriented x3 HENMT Head: Yes normocephalic Ears: TM's normal bilaterally General nose exam: Abnormal mucous membranes and turbinates present erythematous bilateral Eyes General: appearance normal, both eyes and all related structures Conjunctivae: conjunctivae normal Sclerae: scleral abnormal bilateral (icterus) Neck Neck: Yes full ROM and Yes no lymphadenopathy Resp Effort & Inspection: normal respiratory effort Auscultation: clear to auscultation bilaterally, no crackles, no rales, no rhonchi and no wheezes Cardio Rate: regular rate Rhythm: regular rhythm Heart sounds: S1 normal heart sound present and S2 normal heart sound present GI Inspection: Yes distended and Yes obesity Palpation (GI): Soft to palpation and Tenderness to palpation present (GI) periumbilically Auscultation: normal bowel sounds General: Yes no CVA tenderness Back/Spine/Pelvis Back: no CVA tenderness Neuro General: patient oriented x3 Gait exam (Neuro): Normal gait present Extrem General: Yes normal to inspection, Yes full ROM and No edema Right upper extremity: Extremity exam: right hand (Right 4th finger deformity) Psych Affect: normal affect Attitude: cooperative Insight: Good insight present (Psych) Judgement: Good judgement present (Psych) Coding Level of Care Code Est Pt Level 4 (36610) Diagnoses Jaundice R17 Elevated liver enzymes R74.8 Liver mass R16.0 Diarrhea, unspecified type R19.7 Diarrhea type: unspecified type Periumbilical abdominal pain R10.33 Abdominal location: periumbilical Time Spent (min) 37 Assessment & Plan Assessment & Plan (1) Jaundice: Code(s): R17 - Unspecified jaundice Category: Medical (2) Elevated liver enzymes: Code(s): R74.8 - Abnormal levels of other serum enzymes Category: Medical (3) Liver mass: Code(s): R16.0 - Hepatomegaly, not elsewhere classified Category: Medical (4) Diarrhea: Code(s): R19.7 - Diarrhea, unspecified Category: Medical Qualifiers: Diarrhea type: unspecified type Qualified Code(s): R19.7 - Diarrhea, unspecified (5) Abdominal pain: Code(s): R10.9 - Unspecified abdominal pain Category: Medical Qualifiers: Abdominal location: periumbilical Qualified Code(s): R10.33 - Periumbilical pain Plan Plan Patient was informed and verbally consented to the use of an ambient scribe for clinic note documentation during this visit. 1. Diarrhea And Fecal Incontinence The patient's diarrhea, with associated fecal urgency and incontinence, is thought to be connected to an underlying liver and/or gallbladder pathology. To rule out an infectious etiology, a stool sample will be collected for analysis to check for parasites or any infectious processes. For symptomatic relief, Imodium 2 mg will be prescribed to be taken as needed. 2. Abnormal Liver Function Tests And Hyperferritinemia The patient has had a sudden elevation in liver enzymes (AST, ALT) and ferritin from a normal baseline, which is concerning. Hepatitis serologies were negative. The accompanying dark urine and characteristics of the stool suggest a connection to both the liver and gallbladder. Due to the acute and significant change in labs, an MRI was ordered on a STAT basis to urgently evaluate for serious pathology, including liver disease or malignancy. 3. Unspecified Finding On Diagnostic Imaging Of Liver A previous imaging study revealed an indeterminate shadow on the liver. The upcoming STAT MRI will be crucial to further characterize this finding in the context of the patient's new symptoms and abnormal lab results. Discussion Notes I discussed with the patient the concerning nature of the recent onset of diarrhea, dark urine, and the results of the recent blood work showing a sudden jump in liver enzymes and ferritin levels. I explained that these findings are likely interconnected and point toward a potential liver or gallbladder issue. I conveyed that due to the abrupt change from normal labs, we must consider serious possibilities, including malignancy, and that this was the reason for ordering an urgent (STAT) MRI. The plan is to await the results of this imaging before making a definitive diagnosis. In the interim, I ordered stool studies to rule out parasitic infection and recommended Imodium for symptomatic control of diarrhea. I informed the patient that I will contact the patient as soon as the MRI results are available to discuss the findings and next steps. The patient was advised to keep the currently scheduled follow-up appointment for January 03. Patient Instructions - An MRI has been ordered for you as an urgent priority and is scheduled for March 31. 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 - You will need to provide two separate stool samples to check for any infection. - The lab will provide a special container to catch the sample so it does not get contaminated by toilet water. - I have sent a prescription for Imodium 2 mg to your pharmacy. - Take this as needed to help control the diarrhea. - Please keep your follow-up appointment scheduled for January 03. - I will contact you with the results of your MRI as soon as they are available. Orders: Orders CDiff Gene PCR Today R19.7 - Diarrhea, unspecified Leukocytes Stool Qualitative Today R19.7 - Diarrhea, unspecified Ova and Parasite Today R19.7 - Diarrhea, unspecified Giardia Ag Stool EIA Today R19.7 - Diarrhea, unspecified Medications: New loperamide (Imodium A-D) administer after each loose stool until symptoms controlled; do not exceed 8 mg per 24 hrs 2 mg PO Q4H PRN 30 caps 3RF loose stool
[2025-10-18 14:05] VITALS: BP 116/52; PULSE 83; RESP 18; O2SAT 98
== END 2025-10-18 15:36 | disposition home or self-care (01) ==
LOC: HO.HMCH 14:00
DX: R17 Unspecified jaundice (principal); R74.8 Abnormal levels of other serum enzymes; R16.0 Hepatomegaly, not elsewhere classified; R19.7 Diarrhea, unspecified; R10.33 Periumbilical pain

== ENCOUNTER → 2025-10-18 13:59 | Outpatient (BNVA) | payer MEDICARE, SELFPAY | DX: R17 Unspecified jaundice (principal); R74.8 Abnormal levels of other serum enzymes; R16.0 Hepatomegaly, not elsewhere classified; R19.7 Diarrhea, unspecified; R10.33 Periumbilical pain; Z87.891 Personal history of nicotine dependence | CPT/HCPCS: 99212 ==

== ENCOUNTER 2025-10-19 14:03 | Outpatient (REF) | payer MEDICARE, SELFPAY ==
[2025-10-19 14:56] LABS: CDiff Gene PCR NEGATIVE (Negative); Leukocytes Stool Qualitative NEGATIVE (NEGATIVE)
== END 2025-10-19 14:04 | disposition home or self-care (01) ==
LOC: HO.LNP 14:03
DX: R19.7 Diarrhea, unspecified (principal)
CPT/HCPCS: 87177; 87209; 87329; 87493; 89055

== ENCOUNTER → 2025-10-22 14:55 | Outpatient (BNV) | payer MEDICARE, SELFPAY | PROVIDERS: Visit Provider Radiology Diagnostic Radiology | DX: K83.8 Other specified diseases of biliary tract (principal); E27.9 Disorder of adrenal gland, unspecified; N32.89 Other specified disorders of bladder; I77.812 Thoracoabdominal aortic ectasia | CPT/HCPCS: 74183 ==

== ENCOUNTER 2025-10-22 14:58 | Outpatient (REF) | payer MEDICARE, SELFPAY ==
--- NOTE | ~2025-10-22 | MR_ITS ---
EXAMINATION: MR ABDOMEN WITHOUT THEN WITH IV CONTRAST HISTORY: R17 - Unspecified jaundice COMPARISON: Previous abdominal ultrasound September [address] of the abdomen and pelvis December 2019 TECHNIQUE: Axial in and out of phase T1-weighted gradient echo, axial diffusion weighted, and axial and coronal HASTE T2 with fat saturation images were obtained through the abdomen. Subsequently, fat suppressed axial and coronal T1-weighted images were obtained after the intravenous administration of 10 mL Gadavist. FINDINGS: Liver: There are mild atrophic changes of the left lobe of the liver, particularly the lateral segment. There is no loss of signal intensity in the liver on opposed phase imaging to suggest steatosis. There is a 5 mm low signal T1 very high signal T2 lesion in the right lobe segment 8/5 axial T2 image 15 series 5. This does not demonstrate enhancement postcontrast for example image 29 series 20 and 29 series 16 and likely represents a cyst. There is no enhancing liver mass. There is is severe left-sided intrahepatic biliary duct dilatation, particularly the lateral segment of the left lobe. There is mild right-sided intrahepatic biliary duct dilatation. The common bile duct is not well visualized but does not appear dilated. There is diffuse restricted diffusion in the left lobe. No focal mass or abnormal enhancement appreciated. Gallbladder/biliary tree: No gallstones are identified. The common bile duct is not well visualized but does not appear dilated. Spleen: Small splenule.The spleen is otherwise unremarkable. Pancreas: There is no enhancing pancreatic mass. The pancreatic duct is normal in caliber. There are multiple small bright T2 lesions throughout the pancreas. These may represent small cysts or dilated side branch pancreatic duct radicals. Largest measure up to 3 mm. Adrenals: There is a1 cm right adrenal nodule and 1.7 x 2.3 cm left adrenal nodule. These loose signal on out of phase sequences suggestive of benign lipid rich adenomas. These are similar to 2020 CT scan. Kidneys: The kidneys are unremarkable. There is no hydronephrosis. Lymph nodes: There are small retroperitoneal lymph nodes. No enlarged lymph nodes. Fluid: There is no ascites in the upper abdomen. Vascular: The visualized descending thoracic aorta is tortuous and slightly dilated measuring 3.9 cm in diameter. This is similar to 2020 CT. The upper abdominal aorta is dilated measuring 4.3 x 4.8 cm in AP and transverse dimension. This is increased from prior CT 2019 when this measured 3.8 cm. The mid and lower abdominal aorta are normal in caliber. There is severe atherosclerotic plaque seen in the lower abdominal aorta and aortic bifurcation/origin of the bilateral common iliac arteries. There is significant secondary luminal narrowing or distal aortic stenosis. The portal and splenic veins are patent. The right and middle hepatic veins are patent. The left hepatic vein is not seen. Visualized bowel: The visualized small and large bowel loops are unremarkable in appearance. Very distended bladder with trabeculated bladder wall. Visualized bones: Degenerative changes of the spine. 8 mm bright T11 and 5 mm bright L4 vertebral body lesions. This may represent hemangiomas. MR/MR abdomen wo/w con IMPRESSION: Severe left-sided intrahepatic biliary duct dilatation and mild right-sided intrahepatic biliary duct dilatation. This is new from December 2019 exam. The common bile duct is not well visualized but does not appear dilated. There is diffuse restricted diffusion in the left lobe and mild atrophic changes of the lateral segment of the left lobe. No mass or abnormal enhancement is appreciated. Neoplasm cannot be excluded. Correlation with the ERCP and brushings is recommended. Probable small liver cyst. Small pancreatic cysts or dilated side branch radicles measuring up to 2 to 3 mm. The main pancreatic duct does not appear dilated. Cannot exclude small side branch IPMNs. 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 Very distended bladder with trabeculated bladder wall. This is suggestive of bladder outlet obstruction. 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 Upper abdominal aorta is increased from December 2019 exam now measuring up to 4.8 cm. Significant plaque in the lower abdominal aorta and likely secondary aortic stenosis. Electronically signed by: Sary Milton MD 10/22/2025 05:21 PM EST
== END 2025-10-22 14:59 | disposition home or self-care (01) ==
LOC: HO.MRI 14:58
DX: R16.0 Hepatomegaly, not elsewhere classified (principal); R17 Unspecified jaundice; R74.8 Abnormal levels of other serum enzymes
CPT/HCPCS: 74183; A9585

== ENCOUNTER 2025-10-23 10:53 | Emergency (ER) | payer MEDICARE, SELFPAY ==
--- NOTE | ~2025-10-23 | XR_ITS ---
EXAMINATION: XR CHEST CLINICAL INFORMATION: dyspnea on exertion, smoker, new jaundice COMPARISON: December 13, 2024 TECHNIQUE: 2 views of the chest were obtained. FINDINGS: Lungs are clear. There is no pneumothorax. The aorta is tortuous. Heart size is within normal limits. There is no pleural effusion. Mild degenerative changes are present in the midthoracic spine. XR/XR chest 2V IMPRESSION: Stable chest x-ray, no acute disease Electronically signed by: Armani Arguello MD 10/23/2025 11:49 AM EST
[2025-10-23 10:55] VITALS: BP 162/68; PULSE 94; RESP 18; O2SAT 95; BMI 29.0
--- NOTE | 2025-10-23 10:55 | ED.GENADULT ---
HPI - General Adult General Chief complaint: General Medical Stated complaint: sent by PCP, liver issues Time Seen by Provider: 10/23/25 11:11 History of Present Illness ED Provider: Shadia NGUYEN narrative: The patient is an 80-year-old male who says that he has been feeling gradually unwell over the last 3-4 weeks. Additionally he has developed a yellowish discoloration to his skin and he has also noticed that his stools have become paler. He says he has been losing his appetite and finds that things he normally enjoys eating or drinking no longer taste good. He has not had a fever, sweats, or. He has not were diarrhea. He has chronic shortness of breath he attributes to COPD. The patient has been seeing his primary care doctor with regard to these symptoms. He has had some outpatient lab work recently that showed some abnormal LFTs. Yesterday the patient had an outpatient MRI of his abdomen. Today the patient was contacted by his PCP and advised to come to the emergency room because the results of the MRI. The MRI shows severe left-sided intrahepatic biliary duct dilatation and mild right-sided intrahepatic biliary duct dilatation. These findings are new from December of 2019. The common bile duct was not well visualized but did not appear dilated. No mass was appreciated. Recommendation is for ERCP. Additional findings included small pancreatic cysts, stable bilateral adrenal nodules, and a distended bladder with a trabeculated bladder wall suggestive of a chronic bladder outlet obstruction. Related Data Home Medications ?Medication ?Instructions ?Recorded ?Confirmed aspirin 81 mg tablet,delayed 81 mg PO DAILY 03/31/21 10/18/25 release (Adult Low Dose Aspirin) Previous Rx's ?Medication ?Instructions ?Recorded hydrocortisone 2.5 % topical cream 1 appl NE BID-QID PRN hemorrhoids 03/21/21 with perineal applicator #30 grams (Anusol-HC) ibuprofen 600 mg tablet 600 mg PO Q6-8H PRN pain #30 tabs 08/06/22 lisinopril 10 mg tablet 10 mg PO DAILY #90 tabs 01/23/25 albuterol sulfate 90 mcg/actuation 2 puff PO Q6H PRN bronchospasm 30 07/03/25 aerosol inhaler days #18 grams fluticasone propionate 50 1 spray intranasal Q12H #16 grams 07/03/25 mcg/actuation nasal spray,suspension chlorthalidone 25 mg tablet 25 mg PO DAILY #90 tabs 07/16/25 lorazepam 1 mg tablet 1 mg PO BID PRN anxiety #60 tabs 07/16/25 mometasone-formoterol HFA 100 2 puff inhalation BID #13 grams 10/05/25 mcg-5 mcg/actuation aerosol inhaler (Dulera) loperamide 2 mg capsule (Imodium 2 mg PO Q4H PRN loose stool #30 10/18/25 A-D) caps Allergies Allergy/AdvReac Type Severity Reaction Status Date / Time No Known Allergies Allergy Verified 10/23/25 10:58 Review of Systems Review of Systems: Yes all other systems are reviewed and are negative [facility] Past Medical History Medical History History of bladder stone Screening for prostate cancer Screening for hyperlipidemia Screening for diabetes mellitus Surgical History History of esophagogastroduodenoscopy (EGD) History of prostate surgery Hx of umbilical hernia repair History of colonoscopy History of hemorrhoidectomy History of appendectomy Family History Family History Father No problems noted. Mother No problems noted. Social History Social History Housing: House Do you presently have visiting nurse or other home services: No Alcohol intake: current Alcohol intake frequency: holidays/special occasions only Alcohol type: beer Patient Tobacco Use Status: Former Tobacco user Tobacco use type: Cigarette e-Cigarette/Vaping Use: Never Used Second Hand Smoke Exposure: Yes Advance Directives: No Advance Directives Information Provided: Yes service: No Current occupational status: retired Current occupation: left hand Cognitive needs: No Hearing needs: No Vision needs: No Physical Exam ED Vital Signs: Vital Signs - 24 hr 10/23/25 10:55 10/23/25 11:19 Pulse Rate 94 74 Respiratory Rate 18 18 Blood Pressure 162/68 H 128/83 Pulse Oximetry 95 97 Oxygen Delivery Method Room Air Room Air BMI result Body Mass Index 29.0 Const Other: The patient is an 80-year-old man who was awake and alert with a normal mental status. He appears jaundiced. He does not appear obviously acutely ill although he has has a slightly unusual respiratory pattern. He seems to have some mild pursed lipped breathing. He says this is chronic because of a COPD. Orientation/consciousness: patient oriented x3 HENMT Other: The face is symmetrical. ?Mucous membranes moist. Eyes Other: Scleral icterus is present. Eyes are otherwise unremarkable Neck Neck: Yes normal visual inspection and Yes full ROM Resp Effort & Inspection: normal respiratory effort Auscultation: clear to auscultation bilaterally Cardio Rate: regular rate Rhythm: regular rhythm Heart sounds: S1 normal heart sound present and S2 normal heart sound present GI Other: The patient has a mildly protuberant abdomen. No tenderness appreciated, no masses. Skin Other: The patient's skin has a yellowish hue consistent with jaundice Neuro General: patient oriented x3, tone normal, moves all extremities and CN's II-XI intact bilaterally Extrem Other: There is no calf swelling or tenderness. No asymmetry. No peripheral edema. Course Course Course Narrative: This is a rapid medical exam performed by Tara Germain NP: Additional HPI, ROS, PE not included below will be deferred to primary provider. Patient is an 80y/o M referred to the ED by Dr. Cruz for evaluation of increasingly elevated LFTs. Patient with significant jaundice. Had MRI yesterday, noted to have intrahepatic biliary duct dilation. No solid stool for 3 weeks, all liquid. Plan: labs, pt to repain NPO Medications Administered Generic Name Dose Route Start Last Admin Trade Name Freq PRN Reason Stop Dose Admin Potassium Chloride/Sodium Chloride 40 meq in 1,000 mls @ 250 mls/hr 10/23/25 11:30 10/23/25 12:00 Kcl 40 Meq In 0.9 % Sodium Chl IV 10/23/25 15:29 250 mls/hr .Q4H NII Administration Discontinued Medications Generic Name Dose Route Start Last Admin Trade Name Freq PRN Reason Stop Dose Admin Potassium Chloride 40 meq 10/23/25 12:45 10/23/25 13:08 Potassium Chloride Er 20 Meq Tab.Er.Prt PO 10/23/25 12:46 40 meq ONCE ONE Administration Potassium Chloride 40 meq 10/23/25 12:52 10/23/25 13:28 Potassium Chloride Er 20 Meq Tab.Er.Prt PO 10/23/25 12:53 Not Given ONCE ONE Medical Decision Making Medical Decision Making [facility] Narrative: The patient is an 80-year-old male with a long smoking history who presents with 3-4 weeks of worsening jaundice and general malaise and failure to thrive. He has been seeing his primary care doctor who noticed abnormal liver testing. The patient has had an outpatient ultrasound 2 weeks ago which was not very diagnostic. He had an outpatient MRI of his abdomen yesterday that shows a lot of intrahepatic ductal dilation with the recommendation for ERCP. On this basis the patient was advised to come to the hospital today by his PCP. The patient has markedly abnormal LFTs today including a very high total bilirubin. Also transaminitis. He does not seem septic or unstable however. He remains without discomfort. He has a benign abdomen. This seems to be some kind of an obstructive jaundice. I contacted Gastroenterology. The plan will be to admit the patient to the hospital for a probable ERCP tomorrow. The patient was mildly hypokalemic and supplemental potassium was ordered. The patient will be admitted to the hospitalist service. Lab Data 10/23/25 11:03 10/23/25 11:03 Labs: Lab Results 10/23/25 Range/Units 11:03 WBC 8.5 (4.8-10.8) X10*3/uL RBC 3.93 L (4.60-5.80) X10*6/uL Hgb 12.6 L (14.0-18.0) g/dl Hct 34.8 L (42.0-52.0) % MCV 88.5 (80.0-98.0) fL MCH 32.1 (27.0-33.0) pg MCHC 36.2 H (31.0-36.0) g/dl RDW 17.2 H (11.0-16.0) % Plt Count 268 (160-400) X10*3/uL MPV 12.0 (9.4-12.4) fL Immature Gran % (Auto) 0.6 H (0.0-0.4) % Neut % (Auto) 67.9 (45-73) % Lymph % (Auto) 20.6 (20-40) % Cotton % (Auto) 9.3 (2-11) % Eos % (Auto) 0.9 (0-4) % Baso % (Auto) 0.7 (0-2) % Lymph # (Auto) 1.8 (1.2-4.9) X10*3/uL Cotton # (Auto) 0.8 (0.1-1.2) X10*3/uL Eos # (Auto) 0.1 (0.0-0.4) X10*3/uL Baso # (Auto) 0.1 (0.0-0.2) X10*3/uL Abs Immat Gran (auto) 0.05 H (0.00-0.03) X10*3/uL Absolute Neuts (auto) 5.8 (2.0-8.3) x10*3/uL Absolute Nucleated RBC 0.000 (0.0-0.012) X10*3/uL Nucleated RBC % (auto) 0.0 (0.0-0.2) /100WBC PT 16.6 H (11.2-13.5) SEC INR 1.4 H (0.9-1.1) Sodium 141 (135-145) mmol/L Potassium 2.8 L* D (3.3-5.1) mmol/L Chloride 104 (96-108) mmol/L Carbon Dioxide 30 H (22-29) mmol/L Anion Gap 10 L (12-20) BUN 25 H (9-16) mg/dL Creatinine 0.73 (0.5-1.4) mg/dL Estim Creat Clear Calc 96.9 Estimated GFR > 60 Random Glucose 156 H (60-115) mg/dL Calcium 9.7 (8.4-10.2) mg/dL Magnesium 1.8 (1.6-2.6) mg/dL Total Bilirubin 15.0 H (0.0-1.0) mg/dL Direct Bilirubin 10.7 H (0.0-0.5) mg/dL AST 246 H (5-37) U/L ALT 323 H (0-40) U/L Alkaline Phosphatase 410 H (39-117) U/L Total Protein 7.0 (6.5-8.0) g/dL Albumin 3.8 (3.5-5.0) g/dL Lipase 12 (8-78) U/L Independent Interpretation I performed an independent interpretation of an: EKG Interpretation: EKG at 11:53 shows normal sinus rhythm at 60 beats per minute. There is left axis deviation, there is LVH. Overall no significant change from previous. Discharge Plan Discharge Clinical Impression: Painless jaundice, Hypokalemia, COPD (chronic obstructive pulmonary disease) Patient Disposition: Admitted As Inpatient Print Language: [place]
[2025-10-23 11:07] LABS: MANUAL DIFF FLAG NO
[2025-10-23 11:08] LABS: Hematocrit 34.8 % (42.0-52.0); Hemoglobin 12.6 g/dl (14.0-18.0); Imm Gran Abs Auto 0.05 X10*3/uL (0.00-0.03); Imm Gran Pct Auto 0.6 % (0.0-0.4); Lymphocytes Absolute Auto 1.8 X10*3/uL (1.2-4.9); Mean Corpuscular HGB Conc 36.2 g/dl (31.0-36.0); Mean Corpuscular Hemoglobin 32.1 pg (27.0-33.0); Mean Corpuscular Volume 88.5 fL (80.0-98.0); NRBC Abs Auto 0.000 X10*3/uL (0.0-0.012); NRBC Pct Auto 0.0 /100WBC (0.0-0.2); Platelet Count 268 X10*3/uL (160-400); Red Blood Count 3.93 X10*6/uL (4.60-5.80); White Blood Count 8.5 X10*3/uL (4.8-10.8)
--- NOTE | 2025-10-23 11:18 | PC.NURSE ---
Pt roomed and placed on full monitor. Provider in to examine pt. Pt NSR no ectopy. VSS.
[2025-10-23 11:19] VITALS: BP 128/83; PULSE 74; RESP 18; O2SAT 97
[2025-10-23 11:23] LABS: INTERNATIONAL NORM RATIO 1.4 (0.9-1.1); Prothrombin Time 16.6 SEC (11.2-13.5)
[2025-10-23 11:26] LABS: Alanine Aminotransferase 323 U/L (0-40); Albumin Level 3.8 g/dL (3.5-5.0); Alkaline Phosphatase 410 U/L (39-117); Anion Gap 10 (12-20); Aspartate Amino Transferase 246 U/L (5-37); Blood Urea Nitrogen 25 mg/dL (9-16); Calcium 9.7 mg/dL (8.4-10.2); Carbon Dioxide 30 mmol/L (22-29); Chloride 104 mmol/L (96-108); Creatinine Clr Calc Pharmacy 96.9; Estimated Glomerular Filt Rate > 60; Lipase 12 U/L (8-78); Magnesium 1.8 mg/dL (1.6-2.6); Potassium 2.8 mmol/L (3.3-5.1); Sodium 141 mmol/L (135-145); Total Protein 7.0 g/dL (6.5-8.0)
--- NOTE | 2025-10-23 11:39 | ECG_ITS ---
Test Reason : HYPOKALEMIA Blood Pressure : */* mmHG Vent. Rate : 60 BPM Atrial Rate : 60 BPM P-R Int : 138 ms QRS Dur : 96 ms QT Int : 456 ms P-R-T Axes : 62 -31 79 degrees QTcB Int : 456 ms Normal sinus rhythm Left axis deviation Left ventricular hypertrophy with repolarization abnormality ( R in aVL ) Abnormal ECG When compared with ECG of 11-Oct-2024 11:08, No significant change was found Referred By: Cj Reno Electronically Signed By: Preston Carter
[2025-10-23] MEDS: KCl 40 mEq in 0.9 % Sodium Chl 40 MEQ/1,000 ML IV.SOLN 250 MEQ IV (12:00)
--- NOTE | 2025-10-23 12:41 | PM.IMHP ---
History of Present Illness Date of Service: 10/23/25 Chief Complaint: Jaundice 80 year old man presenting with jaundice. She has been following with his PCP over the last several weeks. He reports on October 04, he started having loose stools and when he came back from vacation. He has seen his primary care which showed severe left-sided intrahepatic biliary duct dilatation and mild right-sided intrahepatic biliary duct dilatation, common bile duct does not appear to be dilated, no mass or abnormal enhancement appreciated. He denied chest pain, shortness of breath, nausea, vomiting. He did report poor appetite poor p.o. intake. His potassium is 2.8, total bili 15.0 by direct bili 10.7, AST 246, ALT 323, alkaline phosphatase 410. No fever leukocytosis noted. Patient is noted to be jaundiced. Plan will be to admit patient to follow up with Gastroenterology for biliary tract dilatation and possible obstruction. Review of Systems Review of Systems: Denies any recent fever chills or decrease in appetite respiratory denies any shortness of breath or cough cardiovascular denied chest pain gastrointestinal see HPI genitourinary denies any dysuria frequency or hematuria musculoskeletal denies any joint pain or swelling neuropsych denies any weakness or seizures all other systems reviewed are negative [facility] Medical History History of bladder stone Screening for prostate cancer Screening for hyperlipidemia Screening for diabetes mellitus Family History Father No problems noted. Mother No problems noted. Surgical History History of esophagogastroduodenoscopy (EGD) History of prostate surgery Hx of umbilical hernia repair History of colonoscopy History of hemorrhoidectomy History of appendectomy Social History Housing: House Do you presently have visiting nurse or other home services: No Alcohol intake: current Alcohol intake frequency: holidays/special occasions only Alcohol type: beer Patient Tobacco Use Status: Former Tobacco user Tobacco use type: Cigarette e-Cigarette/Vaping Use: Never Used Second Hand Smoke Exposure: Yes Advance Directives: No Advance Directives Information Provided: Yes service: No Current occupational status: retired Current occupation: left hand Cognitive needs: No Hearing needs: No Vision needs: No Meds Allergies Allergy/AdvReac Type Severity Reaction Status Date / Time No Known Allergies Allergy Verified 10/23/25 10:58 Active Medications: Current Medications Acetaminophen (Acetaminophen 325 Mg Tablet) 650 mg PO Q6H PRN PRN Reason: Pain, Mild 1-3,fever,headache Calcium Carbonate (Calcium Carbonate 750 Mg Tab.Chew) 750 mg PO Q4H PRN PRN Reason: Heartburn Potassium Chloride/Sodium Chloride (Kcl 40 Meq In 0.9 % Sodium Chl) 40 meq in 1,000 mls @ 250 mls/hr IV .Q4H [facility] Stop: 10/23/25 15:29 Last Admin: 10/23/25 12:00 Dose: 250 mls/hr Magnesium Hydroxide (Milk Of Magnesia 30 Ml Oral.Susp) 30 ml PO DAILY PRN PRN Reason: Constipation Melatonin (Melatonin 3 Mg Tablet) 6 mg PO BEDTIME PRN PRN Reason: Insomnia Ondansetron HCl (Ondansetron Hcl 4 Mg/2 Ml Vial) 4 mg IVPUSH Q8H PRN PRN Reason: Nausea and Vomiting Sodium Chloride (0.9 % Sodium Chloride Flush 3 Ml Syringe) 3 ml IVFLUSH QSHIFT [facility] Home Medications ?Medication ?Instructions ?Recorded ?Confirmed ?Last Taken ?Type aspirin 81 mg tablet,delayed 81 mg PO DAILY 03/31/21 10/23/25 10/23/25 History release (Adult Low Dose Aspirin) Physical Exam Vital Signs and Narrative: Vital Signs: Last Vital Signs Pulse 74 10/23/25 11:19 Resp 18 10/23/25 11:19 BP 128/83 10/23/25 11:19 Pulse Ox 97 10/23/25 11:19 O2 Del Method Room Air 10/23/25 11:19 BMI result Body Mass Index 29.0 Appearing in no acute distress head is normocephalic atraumatic eyes pupils are PERRLA sclera is anicteric mouth throat mucous membranes are intact and moist neck is supple no lymphadenopathy, no JVD noted lung sounds are clear to auscultation heart regular rate rhythm, clear S1, S2 positive bowel sounds, abdomen is soft, nontender neuro patient is alert x3, no focal deficits Results Labs 10/23/25 11:03 10/23/25 11:03 Labs: Laboratory Results - last 24 hr 10/23/25 11:03 MCV 88.5 MCH 32.1 MCHC 36.2 H RDW 17.2 H Plt Count 268 MPV 12.0 Immature Gran % (Auto) 0.6 H Neut % (Auto) 67.9 Lymph % (Auto) 20.6 Mayes % (Auto) 9.3 Eos % (Auto) 0.9 Baso % (Auto) 0.7 Lymph # (Auto) 1.8 Mayes # (Auto) 0.8 Eos # (Auto) 0.1 Baso # (Auto) 0.1 Abs Immat Gran (auto) 0.05 H Absolute Neuts (auto) 5.8 Absolute Nucleated RBC 0.000 Nucleated RBC % (auto) 0.0 PT 16.6 H INR 1.4 H Anion Gap 10 L Estim Creat Clear Calc 96.9 Estimated GFR > 60 Random Glucose 156 H Calcium 9.7 Magnesium 1.8 Total Bilirubin 15.0 H Direct Bilirubin 10.7 H AST 246 H ALT 323 H Alkaline Phosphatase 410 H Total Protein 7.0 Albumin 3.8 Lipase 12 Imaging Radiologist's Impressions: Impressions Chest X-Ray 10/23/25 11:44 IMPRESSION: Stable chest x-ray, no acute disease Electronically signed by: Armani Arguello MD 10/23/2025 11:49 [place] [facility] and Plan Plan 80 year old man admitted with biliary duct dilatation Acute hepatitis Total bili 15.0, AST 246, ALT 323, alk phos 410, direct bili 10.7 Abdominal MRI from 10/22/2025 showing left-sided intrahepatic biliary duct dilatation and mild right-sided duct dilatation Gastroenterology consultation, we will likely need ERCP versus IR drain Monitor liver enzymes Urinary retention Question bladder outlet obstruction on abdominal MRI Place [place] catheter Hypokalemia potassium 2.8 replete and monitor Normocytic anemia Stable H&H Hypertension Continue lisinopril, hold chlorthalidone History of asthma No exacerbation Albuterol as needed Anxiety Continue lorazepam DVT prophylaxis with pneumatic compression boots Full code Quality VTE VTE Risk Level:: Medical - moderate - high VTE Device Contraindication: N/A - Device Ordered VTE Drug Contraindication: Treatment Not Indicated
--- NOTE | 2025-10-23 13:05 | P.CNGI_ITS ---
History of Present Illness Data of Consult Service Date: 10/23/25 Requesting physician: Nithya Chu Primary Care Provider: PERRY Humphreys Reason for consult: Painless jaundice This is an 80-year-old gentleman with reported history of COPD, hypertension, who presented to the hospital on behest of his primary care provider for abnormal labs and MRI. Patient reports 3 weeks of pale diarrhea with dark urine. Assoc with loss of appetite and nausea. He denies any fevers, pruritus, abdominal pain. Pt otherwise has good functional status. Lives at home with his . 09/20: AST 107, ALT 157, ALP 198 TB 0.6. 10/05: ultrasound showed intrahepatic ductal dilatation in the left lobe of the liver. No overt mass was noted. 10/22: MRI shows atrophic left lobe of the liver with severe left-sided dilation of the biliary system. No dilation of the CBD. Pt was therefore referred to ER by his PCP. Overall appearance suspicious for cholangioca. Case reviewed with the biliary colleague, who recommended IR consultation. Case discussed with IR, and based on their view of imaging may not be able to successfully drain the L system + may have risk of seeding. Case was then reviewed with [facility] advanced GI who accept the pt for transfer. Review of Systems 2 Review of Systems: Yes all other systems are reviewed and are negative [facility] Past Medical History Medical History History of bladder stone Screening for prostate cancer Screening for hyperlipidemia Screening for diabetes mellitus Family History Family History Father No problems noted. Mother No problems noted. Surgical History Surgical History History of esophagogastroduodenoscopy (EGD) History of prostate surgery Hx of umbilical hernia repair History of colonoscopy History of hemorrhoidectomy History of appendectomy Social History Social History Housing: House Do you presently have visiting nurse or other home services: No Alcohol intake: current Alcohol intake frequency: holidays/special occasions only Alcohol type: beer Patient Tobacco Use Status: Former Tobacco user Tobacco use type: Cigarette e-Cigarette/Vaping Use: Never Used Second Hand Smoke Exposure: Yes service: No Current occupational status: retired Current occupation: left hand Cognitive needs: No Hearing needs: No Vision needs: No Meds Allergies Allergy/AdvReac Type Severity Reaction Status Date / Time No Known Allergies Allergy Verified 10/23/25 10:58 Active Medications: Current Medications Acetaminophen (Acetaminophen 325 Mg Tablet) 650 mg PO Q6H PRN PRN Reason: Pain, Mild 1-3,fever,headache Calcium Carbonate (Calcium Carbonate 750 Mg Tab.Chew) 750 mg PO Q4H PRN PRN Reason: Heartburn Potassium Chloride/Sodium Chloride (Kcl 40 Meq In 0.9 % Sodium Chl) 40 meq in 1,000 mls @ 250 mls/hr IV .Q4H [facility] Stop: 10/23/25 15:29 Last Admin: 10/23/25 12:00 Dose: 250 mls/hr Magnesium Hydroxide (Milk Of Magnesia 30 Ml Oral.Susp) 30 ml PO DAILY PRN PRN Reason: Constipation Melatonin (Melatonin 3 Mg Tablet) 6 mg PO BEDTIME PRN PRN Reason: Insomnia Ondansetron HCl (Ondansetron Hcl 4 Mg/2 Ml Vial) 4 mg IVPUSH Q8H PRN PRN Reason: Nausea and Vomiting Sodium Chloride (0.9 % Sodium Chloride Flush 3 Ml Syringe) [facility] Medications ?Medication ?Instructions ?Recorded ?Confirmed ?Last Taken ?Type aspirin 81 mg tablet,delayed 81 mg PO DAILY 03/31/21 1 12/23/24 10/23/25 History release (Adult Low Dose Aspirin) Physical Exam 2 Exam: Exam: Elderly male Tachypneac with mild WOB Grossly icteric abd soft nontender nondistended No VINCENZO Vital Signs: Vital Signs: Last Vital Signs Pulse 74 10/23/25 11:19 Resp 18 10/23/25 11:19 BP 128/83 10/23/25 11:19 Pulse Ox 97 10/23/25 11:19 O2 Del Method Room Air 10/23/25 11:19 BMI result Body Mass Index 29.0 Results Labs 10/23/25 11:03 10/23/25 11:03 Labs: Short CBC 10/23/25 Range/Units 11:03 WBC 8.5 (4.8-10.8) X10*3/uL Hgb 12.6 L (14.0-18.0) g/dl Hct 34.8 L (42.0-52.0) % Plt Count 268 (160-400) X10*3/uL BMP 10/23/25 11:03 Sodium 141 Potassium 2.8 L* D Chloride 104 Carbon Dioxide 30 H BUN 25 H Creatinine 0.73 Calcium 9.7 Liver Function 10/23/25 Range/Units 11:03 Total Bilirubin 15.0 H (0.0-1.0) mg/dL Direct Bilirubin 10.7 H (0.0-0.5) mg/dL AST 246 H (5-37) U/L ALT 323 H (0-40) U/L Alkaline Phosphatase 410 H (39-117) U/L Albumin 3.8 (3.5-5.0) g/dL Imaging MRI - abdomen: My impression: Assessment and Plan (1) Biliary stricture: Status: Acute (2) Elevated liver enzymes: Status: Acute (3) Painless jaundice: Status: Acute Plan Reviewed with the pt that overall presentation 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 Biliary and IR colleagues here recommend transfer to tertiary care hospital. Case reviewed with [facility] advanced endoscopy team who recommend transfer to [facility]. Keep on clears for now Correction of electrolytes Thank you for allowing me to participate in his care. Please do not hesitate to reach out for questions or concerns. Procedures Date of Service Date of Service: 10/23/25
[2025-10-23] MEDS: Potassium Chloride ER 20 MEQ TAB.ER.PRT 40 MEQ PO (13:08)
--- NOTE | 2025-10-23 14:16 | PHA.MEDREC ---
Addendum entered by Cookie Landeros RPh 10/23/25 14:27: MED REC REVIEWED BY [facility] Original Note: Pharmacy Consult ? Medication Reconciliation Pharmacy has completed the medication reconciliation. Spoke with pt and he confirmed his medications. Pt states he is no longer taking Loperamide due to not liking how it made him feel.
[2025-10-23 15:34] VITALS: BP 143/70; PULSE 88; RESP 16; TEMP 36.5; O2SAT 97
--- NOTE | 2025-10-23 15:45 | PC.NURSE ---
[facility] paper baler aware of this patient. Awaiting ALS transport
[2025-10-23 16:02] VITALS: BP 143/70; PULSE 88; RESP 16; TEMP 36.5; O2SAT 97
--- NOTE | 2025-10-23 16:07 | PC.NURSE ---
Pt transferred to ED, Potassium remained running on transfer.
[2025-10-24 05:47] LABS: HBS Num1 4.35 mIU/mL (0-7.99); HBc Num1 0.26 S/CO (0.00-0.79); HBsAGNum1 2.49 S/CO (0.00-0.99); Hepatitis A Antibody IgM 0.18 Index (0-0.79); ~HepC Num1 0.10 S/CO (0.00-0.79); ~Hepatitis A Antibody IgM Nonreactive (Nonreactive); ~Hepatitis B Surface Antibody NONREACTIVE (Nonreactive); ~Hepatitis C Antibody Nonreactive (Nonreactive)
[2025-10-24 07:06] LABS: HBsAGNum2 Nonreactive; HBsAGNum3 Nonreactive; Hepatitis B Surface Antigen NEGATIVE (Negative)
== END 2025-10-23 16:08 | disposition short-term general hospital (02) ==
LOC: HO.ED 12:34 → HO.EDOVER 14:44 → HO.ED 16:02
PROVIDERS: Nurse Practitioner Acute Care; Registered Nurse Emergency; Emergency Provider Emergency Medicine
DX: R17 Unspecified jaundice (principal); E87.6 Hypokalemia; K83.1 Obstruction of bile duct; R74.8 Abnormal levels of other serum enzymes; J44.9 Chronic obstructive pulmonary disease, unspecified; R19.7 Diarrhea, unspecified; I10 Essential (primary) hypertension; Z79.899 Other long term (current) drug therapy
CPT/HCPCS: 36415; 71046; 80048; 80076; 83690; 83735; 85025; 85610; 86704; 86706; 86709; 86803; 87340; 93005; 96365; 96366; 99285; J3480

== ENCOUNTER → 2025-10-23 11:07 | Outpatient (BNV) | payer MEDICARE, SELFPAY | PROVIDERS: Emergency Provider Emergency Medicine; Visit Provider Internal Medicine | DX: K83.1 Obstruction of bile duct (principal); R74.8 Abnormal levels of other serum enzymes; R17 Unspecified jaundice | CPT/HCPCS: 99283 ==

== ENCOUNTER → 2025-10-23 11:37 | Outpatient (BNV) | payer MEDICARE, SELFPAY | PROVIDERS: Emergency Provider Emergency Medicine; Visit Provider Radiology Diagnostic Radiology | DX: R06.00 Dyspnea, unspecified (principal); R17 Unspecified jaundice; F17.210 Nicotine dependence, cigarettes, uncomplicated | CPT/HCPCS: 71046 ==

== ENCOUNTER → 2025-10-23 11:39 | Outpatient (BNV) | payer MEDICARE, SELFPAY | PROVIDERS: Emergency Provider Emergency Medicine; Visit Provider Internal Medicine Cardiovascular Disease | DX: I51.7 Cardiomegaly (principal) | CPT/HCPCS: 93010 ==

== ENCOUNTER 2025-11-08 09:33 | Outpatient (AMB) | payer MEDICARE, SELFPAY ==
[2025-11-08 09:38] VITALS: BP 110/62; PULSE 68; O2SAT 97; BMI 28.6
--- NOTE | 2025-11-08 09:38 | A.OFFPC_ITS ---
Vital Signs 11/08/25 09:38 Height 6 ft 1 in Weight 217 lb BMI 28.6 BP 110/62 Blood Pressure Location Lt brachial Position Sitting Pulse 68 Pulse Source Pulse Oximeter Pulse Oximetry (%) 97 Oxygen Delivery Method Room Air Intake Visit Reasons: [facility] [place] 11/02 Allergies No Known Allergies Allergy (Verified 11/08/25 09:57) Medication List - Last Reconciled 11/08/25 by PERRY Humphreys albuterol sulfate 90 mcg/actuation 2 puffs PO Q6H PRN 30 days aspirin (Adult Low Dose Aspirin) 81 mg PO DAILY chlorthalidone 25 mg PO DAILY fluticasone propionate 50 mcg/actuation 1 spray intranasal Q12H hydrocortisone 2.5% (Anusol-HC) 1 appl DC BID-QID PRN ibuprofen 600 mg PO Q6-8H PRN lisinopril 10 mg PO DAILY lorazepam 1 mg PO BID PRN mometasone-formoterol 100-5 mcg/actuation (Dulera) 2 puffs inhalation BID Tobacco use date assessed: 10/18/25 Fall risk assessment: No Falls in past year Last assessed Fall Risk: 11/08/25 Dental Screening Dental Screen Date: 10/18/25 HPI [facility] [place] 11/02 HPI Details The patient is 80 year old male presenting post hospital follow appt The patient was noted to have an abrupt elevation liver enzymes along with jaundice A stat abdominal ultrasound was ordered that showed mild hepatomegaly. Focal intrahepatic ductal dilatation involving the left lobe of the liver. Obstructing lesion is not identified on that exam but was not excluded. No extrahepatic biliary dilatation. Recommend further evaluation with contrast enhancement cross-sectional imaging, either CT or MRI. A stat MRI was ordered that showed severe left-sided intrahepatic biliary ductal dilatation. There was diffuse restricted diffusion in the left lobe and mild atrophic changes of the lateral segment of the left lobe. No mass or abnormal enhancement was appreciated.. Neoplasm was not excluded and a correlation with ERCP and brushings was recommended. There was also a small pancreatic cyst or dilated side branch radicles measuring up to 2-3 mm. They could not exclude small side branch intraductal papillary mucinous neoplasm. 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 The patient was sent emergently to the [facility] ER for concern of biliary obstruction. He was evaluated by [facility] gastroenterology, who decided that the patient needed services that were not readily available at [facility]. [facility] was contacted but they are closed to transfers because of capacity. [facility] was also contacted and they are willing to accept the patient for further care. The patient was seen at [facility] and is presenting for post hospital follow up today. There is no paperwork available to evaluate. The patient reports that he was told that he have liver cancer and needs to be seen by Oncology. The patient also has a Salinas catheter in place, per patient, they placed 3 stents due to obstruction. The patient is requesting to see Urology to see when his Salinas catheter is able to be taken out. The patient is requesting to be referred to oncology at [facility] (Dr. Alaniz and Dr. Teran). Reports that his is battling cancer and he as been pleased with the care she is receiving from the these providers. Patient requested to be referred to Dr. Min Urology to see if his Salinas could be removed. [facility] Medical History History of bladder stone Screening for prostate cancer Screening for hyperlipidemia Screening for diabetes mellitus Surgical History History of esophagogastroduodenoscopy (EGD) History of prostate surgery Hx of umbilical hernia repair History of colonoscopy History of hemorrhoidectomy History of appendectomy Family History Father No problems noted. Mother No problems noted. Social History Housing: House Do you presently have visiting nurse or other home services: No Alcohol intake: current Alcohol intake frequency: holidays/special occasions only Alcohol type: beer Patient Tobacco Use Status: Former Tobacco user Tobacco use type: Cigarette e-Cigarette/Vaping Use: Never Used Second Hand Smoke Exposure: Yes service: No Current occupational status: retired Current occupation: left hand Cognitive needs: No Hearing needs: No Vision needs: Yes Questionnaire PHQ-9 Over the last 2 weeks, how often have you been bothered by any of the following problems? Depression Screening Interpretation: Negative Depression Screening Done: Yes Source: Developed by Drs. Jennifer Parker, Marlo Bowman and colleagues, with an educational annmarie from [employer]. Thrive Questionnaire Date Thrive assessed: 07/03/25 I am a: Patient What is your living situation today?: I have a steady place to live Within the past 12 months, did the food you bought not last and you didn't have the money to get more?: Never true Within the past 12 months, did you worry whether your food would run out before you got money to buy more?: I choose not to answer this question Do you have trouble paying for medicines?: No Do you have trouble getting transportation to medical appointments?: No Do you have trouble paying your heating and electricity bill?: No Do you have trouble taking care of your child, family member or friend?: No Do you have trouble with day-to-day activities such as bathing, preparing meals, shopping, managing finances, etc.?: No Are you currently unemployed and looking for a job?: No Are you interested in more education?: No Please select the resources that you would like help with: None Currently or been in a relationship where the following occur: No concerns reported THRIVE Score: 0 EDMUND-7 AMB Questionnaire EDMUND-7 Date EDMUND - 7 assessed: 07/03/25 Source: Developed by Drs. Vince Calderon, Jennifer Mathur, Marlo Bowman and colleagues, with an educational annmarie from [employer]. Review of Systems Narrative Review of Systems - General: Reports significant recent weight loss of almost 20 pounds. - Eyes: Reports color change in his eyes. - Gastrointestinal: Reports melena, though it is improving, and abdominal pain described as feeling like being punched in the stomach. - Genitourinary: Reports having an indwelling catheter due to inability to urinate. Const Denies body aches, Denies chills, Reports fatigue, Denies fever(s), Denies headache(s) and Denies poor appetite Eyes Denies loss of vision ENT Denies dysphagia, Denies dizziness, Denies headache(s) and Denies odynophagia Card Denies chest pain, Denies syncope, Denies edema, Denies irregular heart rhythm, Denies lightheadedness and Denies dyspnea Resp Reports cough (productive) and Denies dyspnea GI Reports abdominal pain (slightly above umbilicus), Denies constipation, Denies dysphagia, Reports fecal incontinence, Reports diarrhea (On and off explosive), Denies nausea, Denies odynophagia and Denies vomiting Reports other (Dark colored urine) Musc Denies abnormal gait, Reports deformity (Right 4th finger) and Reports other (Left foot bruised area) Skin/Breast Reports jaundice and Reports other (Left foot bruised area) Neuro Denies abnormal gait, Denies dizziness, Denies syncope, Denies headache(s) and Denies loss of vision Psych Reports anxiety Endo Reports fatigue Physical exam (Primary Care) Vital Signs: Last Vital Signs Pulse 68 11/08/25 09:38 BP 110/62 11/08/25 09:38 Pulse Ox 97 11/08/25 09:38 Oxygen Delivery Method Room Air 11/08/25 09:38 BMI result Body Mass Index 28.6 Tobacco/Smoking Status: Tobacco use Status Tobacco use date assessed 10/18/25 11/08/25 09:44 Patient Tobacco Use Status Former Tobacco user 11/08/25 09:44 Tobacco use type Cigarette 11/08/25 09:44 e-Cigarette/Vaping Use Never Used 11/08/25 09:44 Depression Screening Interpretation: Negative Thrive Assessment: Date of Thrive Assessment Date Thrive assessed 07/03/25 11/08/25 09:44 Currently or been in a relationship where the following occur: No concerns reported Narrative Physical Exam Const General: cooperative, healthy appearing, comfortable and no acute distress Orientation/consciousness: patient oriented x3 HENMT Head: Yes normocephalic Ears: TM's normal bilaterally General nose exam: Abnormal mucous membranes and turbinates present erythematous bilateral Eyes General: appearance normal, both eyes and all related structures Conjunctivae: conjunctivae normal Sclerae: scleral abnormal bilateral (icterus) Neck Neck: Yes full ROM and Yes no lymphadenopathy Resp Effort & Inspection: normal respiratory effort Auscultation: clear to auscultation bilaterally, no crackles, no rales, no rhonchi and no wheezes Cardio Rate: regular rate Rhythm: regular rhythm Heart sounds: S1 normal heart sound present and S2 normal heart sound present GI Inspection: Yes distended and Yes obesity Palpation (GI): Soft to palpation and Tenderness to palpation present (GI) periumbilically Auscultation: normal bowel sounds General: Yes no CVA tenderness Back/Spine/Pelvis Back: no CVA tenderness Neuro General: patient oriented x3 Gait exam (Neuro): Normal gait present Extrem General: Yes normal to inspection, Yes full ROM and No edema Right upper extremity: Extremity exam: right hand (Right 4th finger deformity) Psych Affect: normal affect Attitude: cooperative Insight: Good insight present (Psych) Judgement: Good judgement present (Psych) Coding Level of Care Code Est Pt Level 4 (37910) Diagnoses Malignant neoplasm of liver, unspecified liver malignancy type C22.9 Liver malignancy type: unspecified liver malignancy Acute urinary retention R33.8 Time Spent (min) 41 Assessment & Plan Assessment & Plan (1) Liver cancer: Code(s): C22.9 - Malignant neoplasm of liver, not specified as primary or secondary Category: Medical Qualifiers: Liver malignancy type: unspecified liver malignancy Qualified Code(s): C22.9 - Malignant neoplasm of liver, not specified as primary or secondary (2) Acute urinary retention: Code(s): R33.8 - Other retention of urine Category: Medical Plan Plan Patient was informed and verbally consented to the use of an ambient scribe for clinic note documentation during this visit. 1. Liver Cancer This is a new diagnosis from a recent hospitalization at [facility], where the patient was transferred because [facility] could not due to capacity constraints. He reports he underwent two endoscopies, a CT scan, and an MRI. No discharge summary or records were provided to the patient. Plan is to obtain all records from [facility] to understand the exact findings, extent of disease, and recommended plan. A referral will be made to an oncologist, and the patient has provided contact information for Dr. Chet Loyola and Dr. Marshall Cintron at [facility]. Blood work will be ordered after reviewing the hospital records to ensure comprehensive testing is done at once. Once the information is received, the patient will be contacted by phone to ex plain the findings and next steps. 2. Urinary Retention The patient has an indwelling Salnias catheter, which was placed because he was unable to void after a procedure where three stents were inserted. He finds the catheter uncomfortable and wishes to have it removed if not necessary. An urgent referral will be placed to urology with Dr. Min to evaluate the need for the catheter. The patient is advised to call Dr. Min's office to schedule an appointment after the referral is sent. Discussion Notes I explained to the patient that the immediate priority is to obtain all his medical records from [facility] regarding his recent admission and new diagnosis of liver cancer. I acknowledged the lack of a discharge summary and informed him that my office will fax a request to obtain these documents. I informed him that I will place an urgent referral to urology (Dr. Min) for evaluation of his Salinas catheter. I also discussed placing a referral to an oncologist once we have more information. I advised delaying further blood work until the hospital records are reviewed to avoid repeat testing, ensuring all necessary labs are drawn at once. I reassured the patient that I would call him as soon as I receive and review the information to explain the findings and the plan. A follow-up appointment was scheduled in a month as a placeholder, which can be canceled if not needed. Patient Instructions - My office will request your medical records from [facility]. - Once the records are received, I will call you to discuss the findings and the plan for your care. - We will send an urgent referral to the urologist, Dr. iMn, for your catheter. - Please call Dr. Min's office to schedule an appointment once you get home. - Please wait to have blood work done until I contact you, so we can ensure we order all the necessary tests at one time. - A follow-up appointment has been scheduled for about a month from now, which can be canceled if not needed. Orders: Referrals Hematology & Oncology Referral C22.9 - Malignant neoplasm of liver, not specified as primary or secondary Urology Referral R33.8 - Other retention of urine
== END 2025-11-08 10:28 | disposition home or self-care (01) ==
LOC: HO.HMCH 09:33
DX: C22.9 Malignant neoplasm of liver, not specified as primary or secondary (principal); R33.8 Other retention of urine

== ENCOUNTER → 2025-11-08 09:33 | Outpatient (BNVA) | payer MEDICARE, SELFPAY | DX: Z09 Encounter for follow-up examination after completed treatment for conditions other than malignant neoplasm (principal); C22.9 Malignant neoplasm of liver, not specified as primary or secondary; R33.8 Other retention of urine | CPT/HCPCS: 99212 ==

== ENCOUNTER 2025-11-14 12:22 | Outpatient (REF) | payer MEDICARE, SELFPAY ==
[2025-11-14 12:47] LABS: MANUAL DIFF FLAG NO
[2025-11-14 13:02] LABS: Hematocrit 36.4 % (42.0-52.0); Hemoglobin 12.3 g/dl (14.0-18.0); Imm Gran Abs Auto 0.09 X10*3/uL (0.00-0.03); Imm Gran Pct Auto 0.6 % (0.0-0.4); Lymphocytes Absolute Auto 2.0 X10*3/uL (1.2-4.9); Mean Corpuscular HGB Conc 33.8 g/dl (31.0-36.0); Mean Corpuscular Hemoglobin 32.0 pg (27.0-33.0); Mean Corpuscular Volume 94.8 fL (80.0-98.0); NRBC Abs Auto 0.000 X10*3/uL (0.0-0.012); NRBC Pct Auto 0.0 /100WBC (0.0-0.2); Platelet Count 320 X10*3/uL (160-400); Red Blood Count 3.84 X10*6/uL (4.60-5.80); White Blood Count 14.1 X10*3/uL (4.8-10.8)
[2025-11-14 13:37] LABS: Alanine Aminotransferase 115 U/L (0-40); Albumin Level 3.5 g/dL (3.5-5.0); Alkaline Phosphatase 281 U/L (39-117); Anion Gap 15 (12-20); Aspartate Amino Transferase 95 U/L (5-37); Blood Urea Nitrogen 24 mg/dL (9-16); Calcium 9.3 mg/dL (8.4-10.2); Carbon Dioxide 28 mmol/L (22-29); Chloride 98 mmol/L (96-108); Estimated Glomerular Filt Rate 49; Potassium 3.5 mmol/L (3.3-5.1); Sodium 137 mmol/L (135-145); Total Protein 7.1 g/dL (6.5-8.0)
--- OUTSIDE RECORDS SUMMARY | 2025-11-14 16:15 | XMS_ITS ---
Author Name [facility] Organization Unknown Results Test Name/Text Value Interpretation Date Range Source Albumin SerPl-mCnc 2.9 g/dL Below low normal 11/02/2025 3.4 - 4.8 [facility] ALT SerPl-cCnc 130.0 U/L Above high normal 11/02/2025 10 - 5 5 [facility] AST SerPl-cCnc 112.0 U/L Above high normal 11/02/2025 10 - 5 5 [facility] Prot SerPl-mCnc 6.0 g/dL Below low normal 11/02/2025 6.3 - 8.3 [facility] Bilirub Direct SerPl-mCnc 4.9 mg/dL Above high normal 11/02/2025 0 - 0.2 [facility] Albumin/Glob SerPl 0.9 Ratio Below low normal 11/02/2025 1 - 3 [facility] Bilirub SerPl-mCnc 6.2 mg/dL Above high normal 11/02/2025 0. 2 - 1 [facility] Globulin Ser Calc-mCnc 3.1 g/dL 11/02/2025 1.5 - 3.9 [facility] ALP SerPl-cCnc 312.0 U/L Above high normal 11/02/2025 45 - 1 28 [facility] Prothrombin time 13.4 seconds 11/02/2025 10 - 13.5 [facility] INR PPP 1.2 11/02/2025 [facility] Anticoagulant NO ANTI COAGULANT MEDS 11/02/2025 [facility] Nitrite Ur Ql Strip Positive Abnormal 11/02[facility]2025 [facility] Leukocyte esterase Ur Ql Strip Small Abnormal 11/02/2025 - [facility] Glucose Ur Strip-mCnc Negative 11/02/2025 - [facility] Hgb Ur Ql Strip Trace Abnormal 11/02/2025 - [facility] CT Ketones Ur Strip-mCnc Negative 11/02/2025 - [facility] WBC num/area UrnS HPF 3.0 per hpf 11/02/2025 0 - 4 [facility] Clarity Ur Cloudy 11/02/2025 [facility] RBC num/area UrnS HPF >25.0 per hpf Above high normal 11/02/2025 0 - 4 [facility] Sp Gr Ur Strip 1.02 11/02/2025 1.005 - 1.03 [facility] Color Ur Dark yellow 11/02/2025 [facility] Squamous num/area UrnS HPF 2.0 per hpf 11/02/2025 [facility] pH Ur Strip 6.5 11/02/2025 5 - 8 [facility] Prot Ur Strip-mCnc 30.0 mg/dL Abnormal 11/02/2025 - [facility] Bilirub Ur Strip-mCnc Large Abnormal 11/02/2025 - [facility] Albumin SerPl-mCnc 3.1 g/dL Below low normal 11/01/2025 3.4 - 4.8 [facility]CT Globulin Ser Calc-mCnc 3.2 g/dL 11/01/2025 1.5 - 3.9 [facility] Albumin/Glob SerPl 1.0 Ratio 11/01/2025 1 - 3 [facility] ALP SerPl-cCnc 329.0 U/L Above high normal 11/01/2025 45 - 1 28 [facility]CT Bilirub SerPl-mCnc 7.5 mg/dL Above high normal 11/01/2025 0. 2 - 1 [facility] Bilirub Direct SerPl-mCnc 5.8 mg/dL Above high normal 11/01/2025 0 - 0.2 [facility]CT AST SerPl-cCnc 117.0 U/L Above high normal 11/01/2025 10 - 5 5 [facility]CT ALT SerPl-cCnc 140.0 U/L Above high normal 11/01/2025 10 - 5 5 [facility] Prot SerPl-mCnc 6.3 g/dL 11/01/2025 6.3 - 8.[address] Prothrombin time 14.2 seconds Above high normal 11/01/2025 1 0 - 13.5 [facility]HCCT INR PPP 1.2 11/01/2025 [facility]CT Anticoagulant NO ANTI COAGULANT MEDS 11/01/2025 [facility]CT Phosphate SerPl-mCnc 2.8 mg/dL 10/31/2025 2.7 - 4.5 H[facility]CT BUN/Creat SerPl 25.0 Ratio 10/31/2025 10 - 25 HH CCT BUN SerPl-mCnc 16.0 mg/dL 10/31/2025 8 - [address] Calcium SerPl-mCnc 8.9 mg/dL 10/31/2025 8.7 - 10.5 H[facility]CT Creat SerPl-mCnc 0.64 mg/dL 10/31/2025 0.5 - 1.3 H HCCT Chloride SerPl-sCnc 104.0 mmol/L 10/31/2025 98 - 1 07 H[facility]CT Sodium SerPl-sCnc 141.0 mmol/L 10/31/2025 136 - 14 5 HHCCT CO2 SerPl-sCnc 25.0 mmol/L 10/31/2025 22 - 33 HH CCT Anion Gap Bld-sCnc 12.0 10/31/2025 7 - 17 H[facility]CT GFR/BSA.pred SerPlBld RJX-TFE-DfLBin >90.0 10/31/2025 59 - HHCCT Glucose SerPl-mCnc 127.0 mg/dL Above high normal 10/31/2025 65 - 99 HHCCT Potassium SerPl-sCnc 3.8 mmol/L 10/31/2025 3.4 - 5.3 HHCCT Bilirub SerPl-mCnc 7.6 mg/dL Above high normal 10/31/2025 0. 2 - 1 HHCCT AST SerPl-cCnc 121.0 U/L Above high normal 10/31/2025 10 - 5 5 [facility]CT Globulin Ser Calc-mCnc 3.4 g/dL 10/31/2025 1.5 - 3.9 HHCCT Albumin SerPl-mCnc 3.2 g/dL Below low normal 10/31/2025 3.4 - 4.8 HHCCT Albumin/Glob SerPl 0.9 Ratio Below low normal 10/31/2025 1 - 3 H[facility]CT Prot SerPl-mCnc 6.6 g/dL 10/31/2025 6.3 - 8.[address] ALT SerPl-cCnc 150.0 U/L Above high normal 10/31/2025 10 - 5 5 HHCCT ALP SerPl-cCnc 334.0 U/L Above high normal 10/31/2025 45 - 1 28 HHCCT Bilirub Direct SerPl-mCnc 5.8 mg/dL Above high normal 10/31/2025 0 - 0.2 HHCCT Magnesium SerPl-mCnc 2.2 mg/dL 10/31/2025 1.6 - 2.7 HHCCT Albumin/Glob SerPl 1.0 Ratio 10/30/2025 1 - 3 H[facility]CT Bilirub Direct SerPl-mCnc 6.4 mg/dL Above high normal 10/30/2025 0 - 0.2 HHCCT AST SerPl-cCnc 126.0 U/L Above high normal 10/30/2025 10 - 5 5 H[facility]CT ALP SerPl-cCnc 330.0 U/L Above high normal 10/30/2025 45 - 1 28 HHCCT Prot SerPl-mCnc 6.2 g/dL Below low normal 10/30/2025 6.3 - 8.3 HHCCT Albumin SerPl-mCnc 3.1 g/dL Below low normal 10/30/2025 3.4 - 4.8 HHCCT ALT SerPl-cCnc 154.0 U/L Above high normal 10/30/2025 10 - 5 5 HHCCT Bilirub SerPl-mCnc 8.4 mg/dL Above high normal 10/30/2025 0. 2 - 1 H[facility]CT Globulin Ser Calc-mCnc 3.1 g/dL 10/30/2025 1.5 - 3.9 HHCCT CO2 SerPl-sCnc 24.0 mmol/L 10/30/2025 22 - 33 HH CCT Anion Gap Bld-sCnc 9.0 10/30/2025 7 - 17 HHCCT Creat SerPl-mCnc 0.61 mg/dL 10/30/2025 0.5 - 1.3 H HCCT Calcium SerPl-mCnc 8.6 mg/dL Below low normal 10/30/2025 8.7 - 10.5 HHCCT Chloride SerPl-sCnc 104.0 mmol/L 10/30/2025 98 - 1 07 HHCCT Glucose SerPl-mCnc 101.0 mg/dL Above high normal 10/30/2025 65 - 99 HHCCT Potassium SerPl-sCnc 3.8 mmol/L 10/30/2025 3.4 - 5.3 HHCCT BUN SerPl-mCnc 15.0 mg/dL 10/30/2025 8 - [address] BUN/Creat SerPl 25.0 Ratio 10/30/2025 10 - 25 HH CCT Sodium SerPl-sCnc 137.0 mmol/L 10/30/2025 136 - 14 5 HHCCT GFR/BSA.pred SerPlBld JHQ-WOZ-JlILhx >90.0 10/30/2025 59 - HHCCT Magnesium SerPl-mCnc 1.9 mg/dL 10/30/2025 1.6 - 2.7 HHCCT Prothrombin time 13.5 seconds 10/30/2025 10 - 13.5 HHCCT INR PPP 1.2 10/30/2025 HHCCT Anticoagulant SUB Q UNFRACTIONATED HEPARIN 10/30/2025 HHCCT MCH RBC Qn Auto 32.2 pg Above high normal 10/30/2025 27 - 31 HHCCT MCV RBC Auto 92.0 fL 10/30/2025 80 - 100 HHCCT WBC num Bld Auto 11.1 Thou/uL Above high normal 10/30/2025 4 - 11 HHCCT RBC num Bld Auto 3.38 Mil/uL Below low normal 10/30/2025 4.5 - 6.2 HHCCT MCHC RBC Auto-mCnc 35.0 g/dL 10/30/2025 30 - 36 HHCCT Platelet num Bld Auto 249.0 Thou/uL 10/30/2025 150 - 450 HHCCT Hgb Bld-mCnc 10.9 g/dL Below low normal 10/30/2025 13 - 17.7 HHCCT RDW RBC Auto-Rto 19.5 % Above high normal 10/30/2025 11.5 - 14.5 HHCCT Hct VFr Bld Auto 31.1 % Below low normal 10/30/2025 39 - 54 HHCCT PMV Bld Auto 12.5 fL 10/30/2025 7.5 - 12.5 HHCCT POC Glucose 154.0 mg/dL Above high normal 10/29/2025 65 - 99 HHCCT Sodium SerPl-sCnc 138.0 mmol/L 10/29/2025 136 - 14 5 HHCCT Potassium SerPl-sCnc 3.6 mmol/L 10/29/2025 3.4 - 5.3 HHCCT Calcium SerPl-mCnc 8.8 mg/dL 10/29/2025 8.7 - 10.5 HHCCT BUN SerPl-mCnc 18.0 mg/dL 10/29/2025 8 - [address] Creat SerPl-mCnc 0.63 mg/dL 10/29/2025 0.5 - 1.3 H HCCT GFR/BSA.pred SerPlBld EBL-[id number]-[id number] >90.0 10/29/2025 59 - HHCCT Anion Gap Bld-sCnc 11.0 10/29/2025 7 - 17 HHCCT Chloride SerPl-sCnc 103.0 mmol/L 10/29/2025 98 - 1 07 HHCCT Glucose SerPl-mCnc 100.0 mg/dL Above high normal 10/29/2025 65 - 99 HHCCT CO2 SerPl-sCnc 24.0 mmol/L 10/29/2025 22 - 33 HH CCT BUN/Creat SerPl 29.0 Ratio Above high normal 10/29/2025 10 - 25 HHCCT Albumin/Glob SerPl 1.0 Ratio 10/29/2025 1 - 3 HHCCT AST SerPl-cCnc 125.0 U/L Above high normal 10/29/2025 10 - 5 5 HHCCT Prot SerPl-mCnc 6.1 g/dL Below low normal 10/29/2025 6.3 - 8.3 HHCCT ALP SerPl-cCnc 322.0 U/L Above high normal 10/29/2025 45 - 1 28 HHCCT Albumin SerPl-mCnc 3.1 g/dL Below low normal 10/29/2025 3.4 - 4.8 HHCCT ALT SerPl-cCnc 155.0 U/L Above high normal 10/29/2025 10 - 5 5 HHCCT Globulin Ser Calc-mCnc 3.0 g/dL 10/29/2025 1.5 - 3.9 HHCCT Bilirub Direct SerPl-mCnc 6.7 mg/dL Above high normal 10/29/2025 0 - 0.2 HHCCT Bilirub SerPl-mCnc 8.8 mg/dL Above high normal 10/29/2025 0. 2 - 1 HHCCT D dimer FEU PPP-mCnc 372.0 ng/mL DDU Above high normal 10/28/2025 - 230 HHCCT pro BNP, N-terminal 211.0 pg/mL 10/28/2025 - 450 HHCCT BUN/Creat SerPl 26.0 Ratio Above high normal 10/28/2025 10 - 25 HHCCT Chloride SerPl-sCnc 104.0 mmol/L 10/28/2025 98 - 1 07 HHCCT Sodium SerPl-sCnc 139.0 mmol/L 10/28/2025 136 - 14 5 HHCCT BUN SerPl-mCnc 19.0 mg/dL 10/28/2025 8 - [address] CO2 SerPl-sCnc 25.0 mmol/L 10/28/2025 22 - 33 HH CCT Potassium SerPl-sCnc 3.3 mmol/L Below low normal 10/28/2025 3.4 - 5.3 HHCCT Glucose SerPl-mCnc 103.0 mg/dL Above high normal 10/28/2025 65 - 99 HHCCT Anion Gap Bld-sCnc 10.0 10/28/2025 7 - 17 HHCCT Calcium SerPl-mCnc 8.7 mg/dL 10/28/2025 8.7 - 10.5 HHCCT Creat SerPl-mCnc 0.72 mg/dL 10/28/2025 0.5 - 1.3 H HCCT GFR/BSA.pred SerPlBld IZA-POA-VhKWiy >90.0 10/28/2025 59 - HHCCT ALP SerPl-cCnc 309.0 U/L Above high normal 10/28/2025 45 - 1 28 HHCCT Globulin Ser Calc-mCnc 2.7 g/dL 10/28/2025 1.5 - 3.9 HHCCT Prot SerPl-mCnc 5.9 g/dL Below low normal 10/28/2025 6.3 - 8.3 HHCCT AST SerPl-cCnc 121.0 U/L Above high normal 10/28/2025 10 - 5 5 HHCCT Bilirub Direct SerPl-mCnc 6.6 mg/dL Above high normal 10/28/2025 0 - 0.2 HHCCT Bilirub SerPl-mCnc 9.3 mg/dL Above high normal 10/28/2025 0. 2 - 1 HHCCT ALT SerPl-cCnc 157.0 U/L Above high normal 10/28/2025 10 - 5 5 HHCCT Albumin/Glob SerPl 1.2 Ratio 10/28/2025 1 - 3 HHCCT Albumin SerPl-mCnc 3.2 g/dL Below low normal 10/28/2025 3.4 - 4.8 HHCCT ALP SerPl-cCnc 364.0 U/L Above high normal 10/27/2025 45 - 1 28 HHCCT Albumin SerPl-mCnc 3.4 g/dL 10/27/2025 3.4 - 4.8 HHCCT CO2 SerPl-sCnc 27.0 mmol/L 10/27/2025 22 - 33 HH CCT AST SerPl-cCnc 144.0 U/L Above high normal 10/27/2025 10 - 5 5 HHCCT Chloride SerPl-sCnc 99.0 mmol/L 10/27/2025 98 - 10 7 HHCCT Glucose SerPl-mCnc 109.0 mg/dL Above high normal 10/27/2025 65 - 99 HHCCT Albumin/Glob SerPl 1.1 Ratio 10/27/2025 1 - 3 HHCCT Anion Gap Bld-sCnc 11.0 10/27/2025 7 - 17 HHCCT GFR/BSA.pred SerPlBld HQW-ASY-QmPOxk >90.0 10/27/2025 59 - HHCCT Sodium SerPl-sCnc 137.0 mmol/L 10/27/2025 136 - 14 5 HHCCT ALT SerPl-cCnc 194.0 U/L Above high normal 10/27/2025 10 - 5 5 HHCCT BUN/Creat SerPl 23.0 Ratio 10/27/2025 10 - 25 HH CCT Bilirub SerPl-mCnc 10.6 mg/dL Above high normal 10/27/2025 0 .2 - 1 HHCCT Creat SerPl-mCnc 0.7 mg/dL 10/27/2025 0.5 - 1.3 HH CCT Prot SerPl-mCnc 6.6 g/dL 10/27/2025 6.3 - 8.[address] Potassium SerPl-sCnc 3.5 mmol/L 10/27/2025 3.4 - 5.3 HHCCT Globulin Ser Calc-mCnc 3.2 g/dL 10/27/2025 1.5 - 3.9 HHCCT Calcium SerPl-mCnc 9.2 mg/dL 10/27/2025 8.7 - 10.5 HHCCT BUN SerPl-mCnc 16.0 mg/dL 10/27/2025 8 - [address] Bilirub Direct SerPl-mCnc 7.8 mg/dL Above high normal 10/26/2025 0 - 0.2 HHCCT Prot SerPl-mCnc 6.5 g/dL 10/26/2025 6.3 - 8.[address] ALP SerPl-cCnc 381.0 U/L Above high normal 10/26/2025 45 - 1 28 HHCCT ALT SerPl-cCnc 210.0 U/L Above high normal 10/26/2025 10 - 5 5 HHCCT Globulin Ser Calc-mCnc 2.9 g/dL 10/26/2025 1.5 - 3.9 HHCCT AST SerPl-cCnc 155.0 U/L Above high normal 10/26/2025 10 - 5 5 HHCCT Albumin SerPl-mCnc 3.6 g/dL 10/26/2025 3.4 - 4.8 HHCCT Bilirub SerPl-mCnc 10.9 mg/dL Above high normal 10/26/2025 0 .2 - 1 HHCCT Albumin/Glob SerPl 1.2 Ratio 10/26/2025 1 - 3 HHCCT Chloride SerPl-sCnc 102.0 mmol/L 10/26/2025 98 - 1 07 HHCCT Sodium SerPl-sCnc 141.0 mmol/L 10/26/2025 136 - 14 5 HHCCT Glucose SerPl-mCnc 122.0 mg/dL Above high normal 10/26/2025 65 - 99 HHCCT BUN/Creat SerPl 16.0 Ratio 10/26/2025 10 - 25 HH CCT Potassium SerPl-sCnc 3.1 mmol/L Below low normal 10/26/2025 3.4 - 5.3 HHCCT CO2 SerPl-sCnc 26.0 mmol/L 10/26/2025 22 - 33 HH CCT GFR/BSA.pred SerPlBld [id number]-WuXAld 86.0 10/26/2025 59 - HHCCT Calcium SerPl-mCnc 9.2 mg/dL 10/26/2025 8.7 - 10.5 HHCCT BUN SerPl-mCnc 14.0 mg/dL 10/26/2025 8 - [address] Anion Gap Bld-sCnc 13.0 10/26/2025 7 - 17 HHCCT Creat SerPl-mCnc 0.87 mg/dL 10/26/2025 0.5 - 1.3 H HCCT CA 19-9 984.0 U/mL Above high normal 10/27/2025 - 34 HHCCT CEA SerPl-mCnc 5.1 ng/mL Above high normal 10/25/2025 0 - 3. 8 HHCCT Prot SerPl-mCnc 6.6 g/dL 10/25/2025 6.3 - 8.[address] BUN SerPl-mCnc 16.0 mg/dL 10/25/2025 8 - [address] Glucose SerPl-mCnc 106.0 mg/dL Above high normal 10/25/2025 65 - 99 HHCCT Creat SerPl-mCnc 0.67 mg/dL 10/25/2025 0.5 - 1.3 H HCCT Sodium SerPl-sCnc 138.0 mmol/L 10/25/2025 136 - 14 5 HHCCT CO2 SerPl-sCnc 24.0 mmol/L 10/25/2025 22 - 33 HH CCT Potassium SerPl-sCnc 3.3 mmol/L Below low normal 10/25/2025 3.4 - 5.3 HHCCT Bilirub SerPl-mCnc 12.0 mg/dL Above high normal 10/25/2025 0 .2 - 1 HHCCT ALT SerPl-cCnc 237.0 U/L Above high normal 10/25/2025 10 - 5 5 HHCCT Chloride SerPl-sCnc 101.0 mmol/L 10/25/2025 98 - 1 07 HHCCT Calcium SerPl-mCnc 9.2 mg/dL 10/25/2025 8.7 - 10.5 HHCCT Albumin SerPl-mCnc 3.4 g/dL 10/25/2025 3.4 - 4.8 HHCCT AST SerPl-cCnc 173.0 U/L Above high normal 10/25/2025 10 - 5 5 HHCCT Albumin/Glob SerPl 1.1 Ratio 10/25/2025 1 - 3 HHCCT GFR/BSA.pred SerPlBld ECH-YED-AsLWza >90.0 10/25/2025 59 - HHCCT Globulin Ser Calc-mCnc 3.2 g/dL 10/25/2025 1.5 - 3.9 HHCCT ALP SerPl-cCnc 396.0 U/L Above high normal 10/25/2025 45 - 1 28 HHCCT BUN/Creat SerPl 24.0 Ratio 10/25/2025 10 - 25 HH CCT Anion Gap Bld-sCnc 13.0 10/25/2025 7 - 17 HHCCT INR PPP 1.5 10/24/2025 HHCCT Prothrombin time 17.3 seconds Above high normal 10/24/2025 1 0 - 13.5 HHCCT Anticoagulant OTHER AGENT OR UNKNOWN 10/24/2025 HHCCT Magnesium SerPl-mCnc 1.9 mg/dL 10/24/2025 1.6 - 2.7 HHCCT Phosphate SerPl-mCnc 2.0 mg/dL Below low normal 10/24/2025 2.7 - 4.5 HHCCT GFR/BSA.pred SerPlBld RJI-ZYC-FhXIvq >90.0 10/24/2025 59 - HHCCT Creat SerPl-mCnc 0.71 mg/dL 10/24/2025 0.5 - 1.3 H HCCT Calcium SerPl-mCnc 9.2 mg/dL 10/24/2025 8.7 - 10.5 HHCCT Potassium SerPl-sCnc 3.3 mmol/L Below low normal 10/24/2025 3.4 - 5.3 HHCCT Anion Gap Bld-sCnc 10.0 10/24/2025 7 - 17 HHCCT CO2 SerPl-sCnc 27.0 mmol/L 10/24/2025 22 - 33 HH CCT Sodium SerPl-sCnc 137.0 mmol/L 10/24/2025 136 - 14 5 HHCCT Chloride SerPl-sCnc 100.0 mmol/L 10/24/2025 98 - 1 07 HHCCT Glucose SerPl-mCnc 102.0 mg/dL Above high normal 10/24/2025 65 - 99 HHCCT BUN/Creat SerPl 24.0 Ratio 10/24/2025 10 - 25 HH CCT BUN SerPl-mCnc 17.0 mg/dL 10/24/2025 8 - [address] Monocytes/leuk NFr Bld Auto 11.3 % 10/24/2025 HHCCT Imm Granulocytes/leuk NFr Bld Auto 1.2 % 10/24/2025 HHCCT MCH RBC Qn Auto 31.4 pg Above high normal 10/24/2025 27 - 31 HHCCT Neutrophils num Bld Auto 5.16 Thou/uL 10/24/2025 2 - 7.5 HHCCT Eosinophil num Bld Auto 0.09 Thou/uL 10/24/2025 0 - 0.7 HHCCT RDW RBC Auto-Rto 18.1 % Above high normal 10/24/2025 11.5 - 14.5 HHCCT Basophils/leuk NFr Bld Auto 0.7 % 10/24/2025 HHCCT Lymphocytes num Bld Auto 1.43 Thou/uL Below low normal 10/24/2025 1.5 - 4.5 HHCCT WBC num Bld Auto 7.7 Thou/uL 10/24/2025 4 - 11 HHCCT Imm Granulocytes num Bld Auto 0.09 Thou/uL 10/24/2025 0 - 0.1 HHCCT Neutrophils/leuk NFr Bld Auto 67.0 % 10/24/2025 HHCCT Platelet num Bld Auto 250.0 Thou/uL 10/24/2025 150 - 450 HHCCT PMV Bld Auto 11.7 fL 10/24/2025 7.5 - 12.5 HHCCT Eosinophil/leuk NFr Bld Auto 1.2 % 10/24/2025 HHCCT RBC num Bld Auto 3.79 Mil/uL Below low normal 10/24/2025 4.5 - 6.2 HHCCT Basophils num Bld Auto 0.05 Thou/uL 10/24/2025 0 - 0.2 HHCCT Hct VFr Bld Auto 34.1 % Below low normal 10/24/2025 39 - 54 HHCCT MCV RBC Auto 90.0 fL 10/24/2025 80 - 100 HHCCT MCHC RBC Auto-mCnc 34.9 g/dL 10/24/2025 30 - 36 HHCCT Lymphocytes/leuk NFr Bld Auto 18.6 % 10/24/2025 HHCCT Hgb Bld-mCnc 11.9 g/dL Below low normal 10/24/2025 13 - 17.7 HHCCT Monocytes num Bld Auto 0.87 Thou/uL 10/24/2025 0.2 - 1.5 HHCCT Lipase SerPl-cCnc 15.0 U/L 10/24/2025 13 - 60 H HCCT Sodium SerPl-sCnc 142.0 mmol/L 10/24/2025 136 - 14 5 HHCCT GFR/BSA.pred SerPlBld TVW-QCE-HvCMly >90.0 10/24/2025 59 - HHCCT Chloride SerPl-sCnc 105.0 mmol/L 10/24/2025 98 - 1 07 HHCCT BUN/Creat SerPl 32.0 Ratio Above high normal 10/24/2025 10 - 25 HHCCT Calcium SerPl-mCnc 8.9 mg/dL 10/24/2025 8.7 - 10.5 HHCCT CO2 SerPl-sCnc 23.0 mmol/L 10/24/2025 22 - 33 HH CCT BUN SerPl-mCnc 21.0 mg/dL 10/24/2025 8 - [address] Glucose SerPl-mCnc 86.0 mg/dL 10/24/2025 65 - 99 HHCCT Potassium SerPl-sCnc 3.0 mmol/L Below low normal 10/24/2025 3.4 - 5.3 HHCCT Creat SerPl-mCnc 0.65 mg/dL 10/24/2025 0.5 - 1.3 H HCCT Anion Gap Bld-sCnc 14.0 10/24/2025 7 - 17 HHCCT Albumin SerPl-mCnc 3.3 g/dL Below low normal 10/24/2025 3.4 - 4.8 HHCCT Globulin Ser Calc-mCnc 2.9 g/dL 10/24/2025 1.5 - 3.9 HHCCT Albumin/Glob SerPl 1.1 Ratio 10/24/2025 1 - 3 HHCCT Bilirub Direct SerPl-mCnc 9.0 mg/dL Above high normal 10/24/2025 0 - 0.2 HHCCT Prot SerPl-mCnc 6.2 g/dL Below low normal 10/24/2025 6.3 - 8.3 HHCCT AST SerPl-cCnc 207.0 U/L Above high normal 10/24/2025 10 - 5 5 HHCCT ALT SerPl-cCnc 256.0 U/L Above high normal 10/24/2025 10 - 5 5 HHCCT ALP SerPl-cCnc 368.0 U/L Above high normal 10/24/2025 45 - 1 28 HHCCT Bilirub SerPl-mCnc 11.8 mg/dL Above high normal 10/24/2025 0 .2 - 1 HHCCT Neutrophils num Bld Auto 4.78 Thou/uL 10/23/2025 2 - 7.5 HHCCT MCH RBC Qn Auto 31.3 pg Above high normal 10/23/2025 27 - 31 HHCCT Hct VFr Bld Auto 31.7 % Below low normal 10/23/2025 39 - 54 HHCCT Imm Granulocytes num Bld Auto 0.08 Thou/uL 10/23/2025 0 - 0.1 HHCCT Neutrophils/leuk NFr Bld Auto 62.5 % 10/23/2025 HHCCT MCHC RBC Auto-mCnc 35.0 g/dL 10/23/2025 30 - 36 HHCCT Monocytes num Bld Auto 0.92 Thou/uL 10/23/2025 0.2 - 1.5 HHCCT RDW RBC Auto-Rto 17.5 % Above high normal 10/23/2025 11.5 - 14.5 HHCCT Platelet num Bld Auto 235.0 Thou/uL 10/23/2025 150 - 450 HHCCT Basophils num Bld Auto 0.06 Thou/uL 10/23/2025 0 - 0.2 HHCCT Eosinophil/leuk NFr Bld Auto 1.4 % 10/23/2025 HHCCT Imm Granulocytes/leuk NFr Bld Auto 1.0 % 10/23/2025 HHCCT WBC num Bld Auto 7.7 Thou/uL 10/23/2025 4 - 11 HHCCT Hgb Bld-mCnc 11.1 g/dL Below low normal 10/23/2025 13 - 17.7 HHCCT Monocytes/leuk NFr Bld Auto 12.0 % 10/23/2025 HHCCT PMV Bld Auto 12.4 fL 10/23/2025 7.5 - 12.5 HHCCT Eosinophil num Bld Auto 0.11 Thou/uL 10/23/2025 0 - 0.7 HHCCT Lymphocytes/leuk NFr Bld Auto 22.3 % 10/23/2025 HHCCT MCV RBC Auto 89.0 fL 10/23/2025 80 - 100 HHCCT Basophils/leuk NFr Bld Auto 0.8 % 10/23/2025 HHCCT Lymphocytes num Bld Auto 1.71 Thou/uL 10/23/2025 1.5 - 4.5 HHCCT RBC num Bld Auto 3.55 Mil/uL Below low normal 10/23/2025 4.5 - 6.2 HHCCT Problems Problem Status Onset Date Problem Type Date of Resolution Source Anxiety active 2025-10-23 ProblemAct [facility] Hypertension active 2025-10-23 ProblemAct [facility] Obstructive jaundice active 2025-10-27 ProblemAct [facility] Transaminitis active 2025-10-23 ProblemAct [facility] T GERD (gastroesophageal reflux disease) active 2025-10-25 ProblemAct [facility] Jaundice active 2025-10-23 ProblemAct [facility] COPD (chronic obstructive pulmonary disease) active 2025-10-23 ProblemAct [facility] Dilation of biliary tract active 2025-10-23 ProblemAct [facility] Shortness of breath active EncounterDiagnosisAc t [facility] Urinary retention active 2025-10-29 ProblemAct [facility] Hyperbilirubinemia active 2025-10-27 ProblemAct [facility] Hypokalemia active EncounterDiagnosisAct [facility] Hypokalemia active EncounterDiagnosisAct [facility] Immunizations Vaccine Date Source Lot Number Status Influenza, Trivalent (FLUAD) Adjuvanted Preservative Free IM 65 years and older 10/24/2025 CCT completed Encounters Encounter Type Encounter Reason Primary Diagnosis Location Date Inpatient Unspecified jaundice Unspecified jaundice [facility] 10/23/2025 Care Team Organization Name Specialty Phone Email Start Date End Da te [facility] 10/23/2025 [facility] 10/23/2025
--- OUTSIDE RECORDS SUMMARY | 2025-11-14 16:15 | XMS_ITS | Clinical Summary ---
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 Active LORazepam (ATIVAN) 1 MG tablet Take 1 tablet (1 mg total) by mouth 2 times daily (every 12 hours) as needed for anxiety. Active mometasone-form oterol (DULERA) 100-5 MCG/ACT inhaler Inhale 2 puffs 2 (two) times a day. Active albuterol (PROVENTIL HFA; VENTOLIN HFA) 108 (90 Base) MCG/ACT inhaler Inhale 2 puffs 4 times daily (every 6 hours) as needed for wheezing. Active chlorhexidine gluconate 2 % wipesIndication s:Urinary retention Apply topically once. For Salinas catheter care 30 each 5 Active PANTOprazole (PROTONIX) 40 MG EC tabletIndicatio ns:Gastroesopha geal reflux disease, unspecified whether esophagitis present Take 1 tablet (40 mg total) by mouth daily. 30 tablet 5 12/03/19 26 Active tamsulosin (FLOMAX) 0.4 MG capsuleIndicati ons:Urinary retention Take 1 capsule (0.4 mg total) by mouth daily. 30 capsule 5 12/03/19 26 Active chlorthalidone (HYGROTON) 25 MG tablet Take 1 tablet (25 mg total) by mouth daily. 11/02/20 25 Discontinu ed(Stop Taking at Discharge) Active Problems Problem Noted Date Diagnosed Date Urinary retention 10/29/2025 Assessment & Plan (11/01/2025 1:43 PM EST): Remove urinary catheter today Will do bladder scan 2 hours after removal. Patient also reports burning urination even while he is on Salinas. Will obtain urinalysis after Salinas is removed Continue tamsulosin 0.4 mg daily Assessment & Plan (10/31/2025 6:09 PM EST): Continue Salinas catheter. Start tamsulosin. Will plan for Salinas catheter discontinuation tomorrow Assessment & Plan (10/30/2025 4:17 PM EST): He was retaining urine on 10/28. Straight cath was performed. He retained urine again on the morning of 10/29 for which Salinas catheter was placed. He reports remote history of bladder/prostate issues for which she had an intervention before. He could not recall further details. His urine is dark likely secondary to hyperbilirubinemia. Will plan to discontinue Salinas catheter today and attempt voiding trial in anticipation he gets discharged in the next 24-48 hours. Assessment & Plan (10/29/2025 12:13 PM EST): He was retaining urine on 10/28. Straight cath was performed. He retained urine again on the morning of 10/29 for which Salinas catheter was placed. He reports remote history of bladder/prostate issues for which she had an intervention before. He could not recall further details. His urine is dark likely secondary to hyperbilirubinemia. Will attempt a voiding trial when closer to discharge. 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 A biliary sphincterotomy was performed and brushing was obtained. One pancreatic stent was placed into the ventral pancreatic duct. One plastic stent was placed into the left hepatic duct.One plastic stent was placed into the right hepatic duct. Cytology brushing suspicious for possible adenocarcinoma Status post repeat ERCP 10/26: Biliary strictures were found in the common hepatic duct extending into the left and right hepatic ducts. Previously placed stents removed and replaced with smaller stents which could be advanced further into the intrahepatic ducts. One stent was removed from the pancreatic duct. S/p levofloxacin course of 5 days Discussed with GI team Parag Navarro PA-C regarding discharge plan. Patient continues to remain asymptomatic. 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 A biliary sphincterotomy was performed and brushing was obtained. One pancreatic stent was placed into the ventral pancreatic duct. One plastic stent was placed into the left hepatic duct.One plastic stent was placed into the right hepatic duct. Cytology brushing suspicious for possible adenocarcinoma Status post repeat ERCP 10/26: Biliary strictures were found in the common hepatic duct extending into the left and right hepatic ducts. Previously placed stents removed and replaced with smaller stents which could be advanced further into the intrahepatic ducts. One stent was removed from the pancreatic duct. S/p levofloxacin course of 5 days Patient continues to remain asymptomatic. LFTs slightly improved specially bilirubin. Plan: Plan was to get IR involvement if LFTs are worsening. GI recommended to hold off on IR consult for now. 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 A biliary sphincterotomy was performed and brushing was obtained. One pancreatic stent was placed into the ventral pancreatic duct. One plastic stent was placed into the left hepatic duct.One plastic stent was placed into the right hepatic duct. Cytology brushing suspicious for possible adenocarcinoma Status post repeat ERCP 10/26: Biliary strictures were found in the common hepatic duct extending into the left and right hepatic ducts. Previously placed stents removed and replaced with smaller stents which could be advanced further into the intrahepatic ducts. One stent was removed from the pancreatic duct. ALP, ALT, AST and total bilirubin still elevated but significantly improved from last ERCP. Continue to monitor LFTs. For abdominal distention, paracentesis attempted on 10/28 but there was not enough fluid for drainage. S/p Levaquin course Continue Ensure supplements He will follow-up with [facility] oncology after discharge. 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 A biliary sphincterotomy was performed and brushing was obtained. One pancreatic stent was placed into the ventral pancreatic duct. One plastic stent was placed into the left hepatic duct.One plastic stent was placed into the right hepatic duct. Cytology brushing suspicious for possible adenocarcinoma Status post repeat ERCP 10/26: Biliary strictures were found in the common hepatic duct extending into the left and right hepatic ducts. Previously placed stents removed and replaced with smaller stents which could be advanced further into the intrahepatic ducts. One stent was removed from the pancreatic duct. ALP, ALT, AST and total bilirubin are plateauing and still elevated. Will continue to monitor LFTs and if remains with no improvement over the next 24-48 hours, will consider consulting IR for percutaneous cholecystostomy. For abdominal distention, paracentesis attempted on 10/28 but there was not enough fluid for drainage. S/p Levaquin course Continue Ensure supplements He will follow-up with [facility] oncology after discharge. 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 A biliary sphincterotomy was performed and brushing was obtained. One pancreatic stent was placed into the ventral pancreatic duct. One plastic stent was placed into the left hepatic duct.One plastic stent was placed into the right hepatic duct. Cytology brushing suspicious for possible adenocarcinoma Status post repeat ERCP 10/26: Biliary strictures were found in the common hepatic duct extending into the left and right hepatic ducts. Previously placed stents removed and replaced with smaller stents which could be advanced further into the intrahepatic ducts. One stent was removed from the pancreatic duct. AST, ALT, ALP and bilirubin still elevated but trending down.. If continues to have hyperbilirubinemia, will consider percutaneous bile duct drain placement For abdominal distention, paracentesis attempted on 10/28 but there was not enough fluid for drainage. S/p Levaquin course Nutrition consult for decreased appetite. Ordered Ensure supplements He will follow-up with [facility] oncology after discharge. 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 A biliary sphincterotomy was performed and brushing was obtained. One pancreatic stent was placed into the ventral pancreatic duct. One plastic stent was placed into the left hepatic duct.One plastic stent was placed into the right hepatic duct. Cytology brushing suspicious for possible adenocarcinoma Status post repeat ERCP 10/26: Biliary strictures were found in the common hepatic duct extending into the left and right hepatic ducts. Previously placed stents removed and replaced with smaller stents which could be advanced further into the intrahepatic ducts. One stent was removed from the pancreatic duct. total bilirubin continues to be elevated If continues to have hyperbilirubinemia, will consider percutaneous bile duct drain placement Continue Levaquin 500 mg daily He will follow-up with [facility] oncology after discharge. 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 A biliary sphincterotomy was performed and brushing was obtained. One pancreatic stent was placed into the ventral pancreatic duct. One plastic stent was placed into the left hepatic duct.One plastic stent was placed into the right hepatic duct. Cytology brushing suspicious for possible adenocarcinoma Status post repeat ERCP 10/26: Biliary strictures were found in the common hepatic duct extending into the left and right hepatic ducts. Previously placed stents removed and replaced with smaller stents which could be advanced further into the intrahepatic ducts. One stent was removed from the pancreatic duct. S/p levofloxacin course of 5 days Discussed with GI team Parag Navarro PA-C regarding discharge plan. Patient continues to remain asymptomatic. 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 A biliary sphincterotomy was performed and brushing was obtained. One pancreatic stent was placed into the ventral pancreatic duct. One plastic stent was placed into the left hepatic duct.One plastic stent was placed into the right hepatic duct. Cytology brushing suspicious for possible adenocarcinoma Status post repeat ERCP 10/26: Biliary strictures were found in the common hepatic duct extending into the left and right hepatic ducts. Previously placed stents removed and replaced with smaller stents which could be advanced further into the intrahepatic ducts. One stent was removed from the pancreatic duct. S/p levofloxacin course of 5 days Patient continues to remain asymptomatic. LFTs slightly improved specially bilirubin. Plan: Plan was to get IR involvement if LFTs are worsening. GI recommended to hold off on IR consult for now. 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 A biliary sphincterotomy was performed and brushing was obtained. One pancreatic stent was placed into the ventral pancreatic duct. One plastic stent was placed into the left hepatic duct.One plastic stent was placed into the right hepatic duct. Cytology brushing suspicious for possible adenocarcinoma Status post repeat ERCP 10/26: Biliary strictures were found in the common hepatic duct extending into the left and right hepatic ducts. Previously placed stents removed and replaced with smaller stents which could be advanced further into the intrahepatic ducts. One stent was removed from the pancreatic duct. ALP, ALT, AST and total bilirubin still elevated but significantly improved from last ERCP. Continue to monitor LFTs. For abdominal distention, paracentesis attempted on 10/28 but there was not enough fluid for drainage. S/p Levaquin course Continue Ensure supplements He will follow-up with [facility] oncology after discharge. 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 A biliary sphincterotomy was performed and brushing was obtained. One pancreatic stent was placed into the ventral pancreatic duct. One plastic stent was placed into the left hepatic duct.One plastic stent was placed into the right hepatic duct. Cytology brushing suspicious for possible adenocarcinoma Status post repeat ERCP 10/26: Biliary strictures were found in the common hepatic duct extending into the left and right hepatic ducts. Previously placed stents removed and replaced with smaller stents which could be advanced further into the intrahepatic ducts. One stent was removed from the pancreatic duct. ALP, ALT, AST and total bilirubin are plateauing and still elevated. Will continue to monitor LFTs and if remains with no improvement over the next 24-48 hours, will consider consulting IR for percutaneous cholecystostomy. For abdominal distention, paracentesis attempted on 10/28 but there was not enough fluid for drainage. S/p Levaquin course Continue Ensure supplements He will follow-up with [facility] oncology after discharge. 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 A biliary sphincterotomy was performed and brushing was obtained. One pancreatic stent was placed into the ventral pancreatic duct. One plastic stent was placed into the left hepatic duct.One plastic stent was placed into the right hepatic duct. Cytology brushing suspicious for possible adenocarcinoma Status post repeat ERCP 10/26: Biliary strictures were found in the common hepatic duct extending into the left and right hepatic ducts. Previously placed stents removed and replaced with smaller stents which could be advanced further into the intrahepatic ducts. One stent was removed from the pancreatic duct. AST, ALT, ALP and bilirubin still elevated but trending down.. If continues to have hyperbilirubinemia, will consider percutaneous bile duct drain placement For abdominal distention, paracentesis attempted on 10/28 but there was not enough fluid for drainage. S/p Levaquin course Nutrition consult for decreased appetite. Ordered Ensure supplements He will follow-up with [facility] oncology after discharge. 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 A biliary sphincterotomy was performed and brushing was obtained. One pancreatic stent was placed into the ventral pancreatic duct. One plastic stent was placed into the left hepatic duct.One plastic stent was placed into the right hepatic duct. Cytology brushing suspicious for possible adenocarcinoma Status post repeat ERCP 10/26: Biliary strictures were found in the common hepatic duct extending into the left and right hepatic ducts. Previously placed stents removed and replaced with smaller stents which could be advanced further into the intrahepatic ducts. One stent was removed from the pancreatic duct. total bilirubin continues to be elevated If continues to have hyperbilirubinemia, will consider percutaneous bile duct drain placement Continue Levaquin 500 mg daily He will follow-up with [facility] oncology after discharge. 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 A biliary sphincterotomy was performed and brushing was obtained. One pancreatic stent was placed into the ventral pancreatic duct. One plastic stent was placed into the left hepatic duct.One plastic stent was placed into the right hepatic duct. Cytology brushing suspicious for possible adenocarcinoma Status post repeat ERCP 10/26: Biliary strictures were found in the common hepatic duct extending into the left and right hepatic ducts. Previously placed stents removed and replaced with smaller stents which could be advanced further into the intrahepatic ducts. One stent was removed from the pancreatic duct. S/p levofloxacin course of 5 days Discussed with GI team Parag Navarro PA-C regarding discharge plan. Patient continues to remain asymptomatic. 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 A biliary sphincterotomy was performed and brushing was obtained. One pancreatic stent was placed into the ventral pancreatic duct. One plastic stent was placed into the left hepatic duct.One plastic stent was placed into the right hepatic duct. Cytology brushing suspicious for possible adenocarcinoma Status post repeat ERCP 10/26: Biliary strictures were found in the common hepatic duct extending into the left and right hepatic ducts. Previously placed stents removed and replaced with smaller stents which could be advanced further into the intrahepatic ducts. One stent was removed from the pancreatic duct. S/p levofloxacin course of 5 days Patient continues to remain asymptomatic. LFTs slightly improved specially bilirubin. Plan: Plan was to get IR involvement if LFTs are worsening. GI recommended to hold off on IR consult for now. 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 A biliary sphincterotomy was performed and brushing was obtained. One pancreatic stent was placed into the ventral pancreatic duct. One plastic stent was placed into the left hepatic duct.One plastic stent was placed into the right hepatic duct. Cytology brushing suspicious for possible adenocarcinoma Status post repeat ERCP 10/26: Biliary strictures were found in the common hepatic duct extending into the left and right hepatic ducts. Previously placed stents removed and replaced with smaller stents which could be advanced further into the intrahepatic ducts. One stent was removed from the pancreatic duct. ALP, ALT, AST and total bilirubin still elevated but significantly improved from last ERCP. Continue to monitor LFTs. For abdominal distention, paracentesis attempted on 10/28 but there was not enough fluid for drainage. S/p Levaquin course Continue Ensure supplements He will follow-up with [facility] oncology after discharge. 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 A biliary sphincterotomy was performed and brushing was obtained. One pancreatic stent was placed into the ventral pancreatic duct. One plastic stent was placed into the left hepatic duct.One plastic stent was placed into the right hepatic duct. Cytology brushing suspicious for possible adenocarcinoma Status post repeat ERCP 10/26: Biliary strictures were found in the common hepatic duct extending into the left and right hepatic ducts. Previously placed stents removed and replaced with smaller stents which could be advanced further into the intrahepatic ducts. One stent was removed from the pancreatic duct. ALP, ALT, AST and total bilirubin are plateauing and still elevated. Will continue to monitor LFTs and if remains with no improvement over the next 24-48 hours, will consider consulting IR for percutaneous cholecystostomy. For abdominal distention, paracentesis attempted on 10/28 but there was not enough fluid for drainage. S/p Levaquin course Continue Ensure supplements He will follow-up with [facility] oncology after discharge. 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 A biliary sphincterotomy was performed and brushing was obtained. One pancreatic stent was placed into the ventral pancreatic duct. One plastic stent was placed into the left hepatic duct.One plastic stent was placed into the right hepatic duct. Cytology brushing suspicious for possible adenocarcinoma Status post repeat ERCP 10/26: Biliary strictures were found in the common hepatic duct extending into the left and right hepatic ducts. Previously placed stents removed and replaced with smaller stents which could be advanced further into the intrahepatic ducts. One stent was removed from the pancreatic duct. AST, ALT, ALP and bilirubin still elevated but trending down.. If continues to have hyperbilirubinemia, will consider percutaneous bile duct drain placement For abdominal distention, paracentesis attempted on 10/28 but there was not enough fluid for drainage. S/p Levaquin course Nutrition consult for decreased appetite. Ordered Ensure supplements He will follow-up with [facility] oncology after discharge. 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 A biliary sphincterotomy was performed and brushing was obtained. One pancreatic stent was placed into the ventral pancreatic duct. One plastic stent was placed into the left hepatic duct.One plastic stent was placed into the right hepatic duct. Cytology brushing suspicious for possible adenocarcinoma Status post repeat ERCP 10/26: Biliary strictures were found in the common hepatic duct extending into the left and right hepatic ducts. Previously placed stents removed and replaced with smaller stents which could be advanced further into the intrahepatic ducts. One stent was removed from the pancreatic duct. total bilirubin continues to be elevated If continues to have hyperbilirubinemia, will consider percutaneous bile duct drain placement Continue Levaquin 500 mg daily He will follow-up with [facility] oncology after discharge. 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 A biliary sphincterotomy was performed and brushing was obtained. One pancreatic stent was placed into the ventral pancreatic duct. One plastic stent was placed into the left hepatic duct.One plastic stent was placed into the right hepatic duct. Cytology brushing suspicious for possible adenocarcinoma Status post repeat ERCP today, 10/26: Biliary strictures were found in the common hepatic duct extending into the left and right hepatic ducts. Previously placed stents removed and replaced with smaller stents which could be advanced further into the intrahepatic ducts. One stent was removed from the pancreatic duct. Plan for clear liquid diet today. Will advance tomorrow as tolerated If continues to have hyperbilirubinemia then plan for possible percutaneous bile duct drain placement On antibiotic Levaquin as per GI, continue Plan for referral to [facility] oncology, Dr. Indio Coker (oncology) and Dr. 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 A biliary sphincterotomy was performed and brushing was obtained. One pancreatic stent was placed into the ventral pancreatic duct. One plastic stent was placed into the left hepatic duct.One plastic stent was placed into the right hepatic duct. Diet advance to soft diet today. Tolerating Bilirubin 12 this morning As per GI, plan to monitor LFTs early a.m. If bilirubin does not go down, plan for repeatERCP tomorrow, 10/26. N.p.o. from midnight CT chest abdomen pelvis done, read pending, follow CEA 5.1, CA 19-9 pending, follow On antibiotic Levaquin as per GI, continue Monitor LFTs Assessment & Plan (10/24/2025 5:58 PM EST): Came in for worsening jaundice and hyperbilirubinemia Bilirubin 11.8 AST 207 ALT 256 alk phos 368 lipase 15 Appreciate GI recommendations, status post ERCP 10/24 -pending results Tumor markers including CEA, CA 19-9 CT chest abdomen pelvis with contrast N.p.o. for ERCP today Assessment & Plan (10/23/2025 8:14 PM EST): 10/05: Ultrasound showed intrahepatic ductal dilatation in the left lobe of liver. No overt mass was noted. 10/22: MRI shows atrophic left lobe of the liver with severe left-sided dilatation of biliary system. No dilatation of CBD. LFTs abnormal ALP 368, AST 207, ALT 256, total bilirubin 1.8, direct bilirubin 9 Plan - Consult GI - Keep patient n.p.o. 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 A biliary sphincterotomy was performed and brushing was obtained. One pancreatic stent was placed into the ventral pancreatic duct. One plastic stent was placed into the left hepatic duct.One plastic stent was placed into the right hepatic duct. Cytology brushing suspicious for possible adenocarcinoma Status post repeat ERCP 10/26: Biliary strictures were found in the common hepatic duct extending into the left and right hepatic ducts. Previously placed stents removed and replaced with smaller stents which could be advanced further into the intrahepatic ducts. One stent was removed from the pancreatic duct. S/p levofloxacin course of 5 days Discussed with GI team Parag Navarro PA-C regarding discharge plan. Patient continues to remain asymptomatic. 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 A biliary sphincterotomy was performed and brushing was obtained. One pancreatic stent was placed into the ventral pancreatic duct. One plastic stent was placed into the left hepatic duct.One plastic stent was placed into the right hepatic duct. Cytology brushing suspicious for possible adenocarcinoma Status post repeat ERCP 10/26: Biliary strictures were found in the common hepatic duct extending into the left and right hepatic ducts. Previously placed stents removed and replaced with smaller stents which could be advanced further into the intrahepatic ducts. One stent was removed from the pancreatic duct. S/p levofloxacin course of 5 days Patient continues to remain asymptomatic. LFTs slightly improved specially bilirubin. Plan: Plan was to get IR involvement if LFTs are worsening. GI recommended to hold off on IR consult for now. 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 A biliary sphincterotomy was performed and brushing was obtained. One pancreatic stent was placed into the ventral pancreatic duct. One plastic stent was placed into the left hepatic duct.One plastic stent was placed into the right hepatic duct. Cytology brushing suspicious for possible adenocarcinoma Status post repeat ERCP 10/26: Biliary strictures were found in the common hepatic duct extending into the left and right hepatic ducts. Previously placed stents removed and replaced with smaller stents which could be advanced further into the intrahepatic ducts. One stent was removed from the pancreatic duct. ALP, ALT, AST and total bilirubin still elevated but significantly improved from last ERCP. Continue to monitor LFTs. For abdominal distention, paracentesis attempted on 10/28 but there was not enough fluid for drainage. S/p Levaquin course Continue Ensure supplements He will follow-up with [facility] oncology after discharge. 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 A biliary sphincterotomy was performed and brushing was obtained. One pancreatic stent was placed into the ventral pancreatic duct. One plastic stent was placed into the left hepatic duct.One plastic stent was placed into the right hepatic duct. Cytology brushing suspicious for possible adenocarcinoma Status post repeat ERCP 10/26: Biliary strictures were found in the common hepatic duct extending into the left and right hepatic ducts. Previously placed stents removed and replaced with smaller stents which could be advanced further into the intrahepatic ducts. One stent was removed from the pancreatic duct. ALP, ALT, AST and total bilirubin are plateauing and still elevated. Will continue to monitor LFTs and if remains with no improvement over the next 24-48 hours, will consider consulting IR for percutaneous cholecystostomy. For abdominal distention, paracentesis attempted on 10/28 but there was not enough fluid for drainage. S/p Levaquin course Continue Ensure supplements He will follow-up with [facility] oncology after discharge. 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 A biliary sphincterotomy was performed and brushing was obtained. One pancreatic stent was placed into the ventral pancreatic duct. One plastic stent was placed into the left hepatic duct.One plastic stent was placed into the right hepatic duct. Cytology brushing suspicious for possible adenocarcinoma Status post repeat ERCP 10/26: Biliary strictures were found in the common hepatic duct extending into the left and right hepatic ducts. Previously placed stents removed and replaced with smaller stents which could be advanced further into the intrahepatic ducts. One stent was removed from the pancreatic duct. AST, ALT, ALP and bilirubin still elevated but trending down.. If continues to have hyperbilirubinemia, will consider percutaneous bile duct drain placement For abdominal distention, paracentesis attempted on 10/28 but there was not enough fluid for drainage. S/p Levaquin course Nutrition consult for decreased appetite. Ordered Ensure supplements He will follow-up with [facility] oncology after discharge. 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 A biliary sphincterotomy was performed and brushing was obtained. One pancreatic stent was placed into the ventral pancreatic duct. One plastic stent was placed into the left hepatic duct.One plastic stent was placed into the right hepatic duct. Cytology brushing suspicious for possible adenocarcinoma Status post repeat ERCP 10/26: Biliary strictures were found in the common hepatic duct extending into the left and right hepatic ducts. Previously placed stents removed and replaced with smaller stents which could be advanced further into the intrahepatic ducts. One stent was removed from the pancreatic duct. total bilirubin continues to be elevated If continues to have hyperbilirubinemia, will consider percutaneous bile duct drain placement Continue Levaquin 500 mg daily He will follow-up with [facility] oncology after discharge. 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 A biliary sphincterotomy was performed and brushing was obtained. One pancreatic stent was placed into the ventral pancreatic duct. One plastic stent was placed into the left hepatic duct.One plastic stent was placed into the right hepatic duct. Cytology brushing suspicious for possible adenocarcinoma Status post repeat ERCP today, 10/26: Biliary strictures were found in the common hepatic duct extending into the left and right hepatic ducts. Previously placed stents removed and replaced with smaller stents which could be advanced further into the intrahepatic ducts. One stent was removed from the pancreatic duct. Plan for clear liquid diet today. Will advance tomorrow as tolerated If continues to have hyperbilirubinemia then plan for possible percutaneous bile duct drain placement On antibiotic Levaquin as per GI, continue Plan for referral to [facility] oncology, Dr. Indio Coker (oncology) and Dr. 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 A biliary sphincterotomy was performed and brushing was obtained. One pancreatic stent was placed into the ventral pancreatic duct. One plastic stent was placed into the left hepatic duct.One plastic stent was placed into the right hepatic duct. Diet advance to soft diet today. Tolerating Bilirubin 12 this morning As per GI, plan to monitor LFTs early a.m. If bilirubin does not go down, plan for repeatERCP tomorrow, 10/26. N.p.o. from midnight CT chest abdomen pelvis done, read pending, follow CEA 5.1, CA 19-9 pending, follow On antibiotic Levaquin as per GI, continue Monitor LFTs Assessment & Plan (10/24/2025 5:58 PM EST): Came in for worsening jaundice and hyperbilirubinemia Bilirubin 11.8 AST 207 ALT 256 alk phos 368 lipase 15 Appreciate GI recommendations, status post ERCP 10/24 -pending results Tumor markers including CEA, CA 19-9 CT chest abdomen pelvis with contrast N.p.o. for ERCP today Assessment & Plan (10/23/2025 8:14 PM EST): 10/05: Ultrasound showed intrahepatic ductal dilatation in the left lobe of liver. No overt mass was noted. 10/22: MRI shows atrophic left lobe of the liver with severe left-sided dilatation of biliary system. No dilatation of CBD. LFTs abnormal ALP 368, AST 207, ALT 256, total bilirubin 1.8, direct bilirubin 9 Plan - Consult GI - Keep patient n.p.o. after midnight for possible ERCP COPD (chronic obstructive pulmonary disease) Assessment & Plan (11/01/2025 1:43 PM EST): COPD: Not currently in exacerbation. Will continue Breo Ellipta Hypertension: Blood pressure stable so far. Will continue lisinopril Anxiety: Continue home dose of Ativan as needed Assessment & Plan (10/31/2025 6:09 PM EST): Not currently in exacerbation. Continue Breo Ellipta Assessment & Plan (10/30/2025 2:41 PM EST): Patient reports intermittent episodes of shortness of breath, likely secondary to abdominal distention. proBNP WNL D-dimer slightly elevated but age-appropriate Chest x-ray negative for acute intrathoracic abnormalities. Low concern for pneumonia Continue Breo Ellipta inhaler Assessment & Plan (10/29/2025 12:13 PM EST): Continue Breo Ellipta inhaler Assessment & Plan (10/28/2025 2:48 PM EST): Continue Breo Ellipta Assessment & Plan (10/27/2025 1:20 PM EST): Continue Breo Ellipta Assessment & Plan (10/26/2025 5:32 PM EST): Continue home Breo Assessment & Plan (10/25/2025 3:38 PM EST): Continue home Breo Currently stable, not in exacerbation Assessment & Plan (10/24/2025 5:58 PM EST): He is on room air in no acute respiratory distress Continue Breo once a day and albuterol as needed Assessment & Plan (10/23/2025 8:14 PM EST): - Continue albuterol, breo Hypertension 10/23/2025 Assessment & Plan (11/01/2025 1:43 PM EST): COPD: Not currently in exacerbation. Will continue Breo Ellipta Hypertension: Blood pressure stable so far. Will continue lisinopril Anxiety: Continue home dose of Ativan as needed Assessment & Plan (10/31/2025 6:09 PM EST): Vitals have been stable so far. Continue lisinopril Assessment & Plan (10/30/2025 2:41 PM EST): Continue lisinopril 10 mg daily Assessment & Plan (10/29/2025 12:13 PM EST): Continue lisinopril 10 mg daily Assessment & Plan (10/28/2025 2:48 PM EST): Continue lisinopril 10 mg daily Assessment & Plan (10/27/2025 1:20 PM EST): Continue lisinopril Assessment & Plan (10/26/2025 5:32 PM EST): Continue lisinopril Assessment & Plan (10/25/2025 3:38 PM EST): Continue lisinopril Assessment & Plan (10/24/2025 5:58 PM EST): Blood pressure is well-controlled Will resume lisinopril Continue to hold chlorthalidone due to hyponatremia Monitor blood pressure, may need to uptitrate lisinopril Assessment & Plan (10/23/2025 8:14 PM EST): - Continue chlorthalidone 25 mg daily - Continue lisinopril 10 mg daily Anxiety 10/23/2025 Assessment & Plan (11/01/2025 1:43 PM EST): COPD: Not currently in exacerbation. Will continue Breo Ellipta Hypertension: Blood pressure stable so far. Will continue lisinopril Anxiety: Continue home dose of Ativan as needed Assessment & Plan (10/31/2025 6:09 PM EST): Continue home dose of Ativan as needed for anxiety Assessment & Plan (10/30/2025 2:41 PM EST): Continue Ativan as needed for anxiety Assessment & Plan (10/29/2025 12:13 PM EST): Continue Ativan as needed Assessment & Plan (10/28/2025 2:48 PM EST): Continue Ativan as needed Assessment & Plan (10/27/2025 1:20 PM EST): Continue Ativan as needed Assessment & Plan (10/26/2025 5:32 PM EST): On Ativan as needed, continue Assessment & Plan (10/25/2025 3:38 PM EST): On Ativan as needed Assessment & Plan (10/24/2025 5:58 PM EST): Continue home dose of Ativan 1 mg every 12 as needed Assessment & Plan (10/23/2025 8:14 PM EST): - Continue lorazepam 1 mg twice daily Jaundice 10/23/2025 Resolved Problems Problem Noted Date Diagnosed Date Resolved Date Shortness of breath 10/28/2025 10/31/20 Assessment & Plan (10/31/2025 6:09 PM EST): Not currently in exacerbation. Continue Breo Ellipta Assessment & Plan (10/30/2025 2:41 PM EST): Patient reports intermittent episodes of shortness of breath, likely secondary to abdominal distention. proBNP WNL D-dimer slightly elevated but age-appropriate Chest x-ray negative for acute intrathoracic abnormalities. Low concern for pneumonia Continue Breo Ellipta inhaler Assessment & Plan (10/29/2025 12:13 PM EST): Patient reports intermittent episodes of shortness of breath, likely secondary to abdominal distention. proBNP WNL D-dimer slightly elevated but age-appropriate Chest x-ray negative for acute intrathoracic abnormalities. Assessment & Plan (10/28/2025 2:48 PM EST): Patient describes intermittent episodes of shortness of breath upon physical exertion. proBNP WNL Will obtain a D-dimer Follow-up chest x-ray Hypokalemia 10/24/2025 10/31/2025 Assessment & Plan (10/30/2025 2:41 PM EST): Potassium 3.8 Assessment & Plan (10/29/2025 12:13 PM EST): Potassium chloride 40 mEq x 1 ordered for today. Hold chlorthalidone for intermittent episodes of hyperkalemia. Assessment & Plan (10/28/2025 2:48 PM EST): Potassium 3.3. Will replace with potassium chloride 40 mEq x 2 Assessment & Plan (10/27/2025 1:20 PM EST): Potassium 3.5. Will give potassium chloride 40 meq x 1. Assessment & Plan (10/26/2025 5:32 PM EST): Potassium still low Repleted with goal K >4 Monitor potassium Assessment & Plan (10/25/2025 3:38 PM EST): potassium decreased at 3.3 this a.m. Repleted Monitor BMP with goal K >4 Assessment & Plan (10/24/2025 5:58 PM EST): Potassium 3 improved to 3.3 GI vs renal losses Patient is on chlorthalidone at home -Will hold Continue to replace and monitor potassium Encounters Date Type Department Care Team Description 10/26/2025 12:10 PM EST Anesthesia Event [facility] [address] [place] [address], [place] [address] Gerson Horn MD Clair, Hannah A, PA-C 10/26/2025 10:45 AM EST - 10/26/2025 11:56 AM EST Surgery [facility] [address] [place] [address], [place] [phone] Boston Hunt MD ERCP /C PLACEMENT STENT 10/24/2025 5:48 PM EST Anesthesia Event [facility] [address] [place] [address], [place] [address] Radha Molina MD Waqar, Syed M, MD 10/24/2025 5:16 PM EST - 10/24/2025 6:27 PM EST Surgery [facility] [address] [place] [address], [place] [address] Boston Hunt MD ERCP /C PLACEMENT STENT 10/23/2025 5:47 PM EST - 11/02/2025 3:30 PM EST Hospital Encounter [facility] [address] [place] [id number] She, MD Buzz Malagon, MD Ansley Graham, MD Bo Orta, MD Federico Dao Bibek, MD Elajami, MD Catarina Duncan, MD Alessandra Jaundice (Primary Dx); Transaminitis; Gastroesophageal reflux disease, unspecified whether esophagitis present; Urinary retention Discharge Disposition: Home or Self Care from Last 3 Months Immunizations Immunization Administration Dates Next Due Influenza, Trivalent (FLUAD) Adjuvanted Preservative Free IM 65 years and older 10/24/2025() Social History Tobacco Use Types Packs/Day Years Used Date Smoking Tobacco: Former Cigarettes Tobacco Cessation:Counseling Given: Yes Alcohol Use Standard Drinks/Week Comments Never 0 (1 standard drink = 0.6 oz pur e alcohol) AUDIT-C Answer Date Recorded Q1: How often do you have a drink containing alcohol? Never 10/25/2025 Q2: How many drinks containi ng alcohol do you have on a typical day when you are drinking? Patient does not drink Q3: How often do you have si x or more drinks on one occasion? Never 10/25/2025 Overall Financial Resource Strain (CARDIA) Answe r Date Recorded How hard is it for you to pa y for the very basics like food, housing, medical care, and heating? Not very hard 10/24/2025 Hunger Vital Sign Answer Date Recorded Within the past 12 months, y ou worried that your food would run out before you got the money to buy more. Never true 10/24/20 25 Within the past 12 months, t he food you bought just didn't last and you didn't have money to get more. Never true 10/24/2025 PRAPARE - Transportation Answer Date Re corded In the past 12 months, has l ack of transportation kept you from medical appointments or from getting medications? No 09/30 In the past 12 months, has l ack of transportation kept you from meetings, work, or from getting things needed for daily living? No 10/24/2025 Housing Stability Vital Sign Answer Hardeep e Recorded In the last 12 months, was t here a time when you were not able to pay the mortgage or rent on time? No 10/24/2025 In the past 12 months, how m any times have you moved where you were living? 0 10/24/2025 At any time in the past 12 m [facility], were you homeless or living in a correction (including now)? No 10/24/2025 [facility] Utilities Answer Date Recorded In the past 12 months has [employer] electric, gas, oil, or water company threatened to shut off services in your home? No 10/24/2025 Sex and Gender Information Value Date Recorded Sex Assigned at Male 10/23/2025 5:55 PM EST Legal Sex Male 3:12 PM EST Gender Identity Male 10/23/2025 5:55 PM EST Sexual Orientation Heterosexual (straight) 10/23 5:55 PM EST Last Filed Vital Signs Vital Sign Reading Time Taken Comments Blood Pressure 128/68 11/02/2025 11:11 AM EST Pulse 76 11/02/2025 11:11 AM EST Temperature 36.7 C (98.1 F) 11/02/2025 11:11 AM EST Respiratory Rate 18 11/02/2025 11:11 AM EST Oxygen Saturation 96% 11/02/2025 11:11 AM EST Inhaled Oxygen Concentration - - Weight 106 kg (233 lb 11 oz) 10/24/2025 3:00 AM EST Height 185.4 cm (6' 1 ) 10/24/2025 3:00 AM EST Body Mass Index 30.83 10/24/2025 3:00 AM EST Plan of Treatment Upcoming Encounters Date Type Department Care Team (Late st Contact Info) Description 11/20/2025 10:15 AM EST Office Visit [facility] [address] [place] [address] Parag Navarro PA-C [address] [place] [address] Health Maintenance Due Date Last Done Comments Advance Care Planning 1945 DTaP/Tdap/Td Vaccines (1 - Tdap) 1962 Pneumococcal Vaccines 50+ (1 of 2 - PCV) 1962 Zoster (Shingles) Vaccine (1 of 2) 1993 RSV Vaccine 50 years and old er and Patients (1 - 1-dose 75+ series) 2018 Influenza Vaccine 06/29/2025 COVID-19 Vaccine (2024-2 6 season) 2025 Hepatitis B Vaccines Aged Out No long er eligible based on patient's age to complete this topic Medical Devices Implanted Type Area Building Stonecutter Device Identifier Shelf Expiration Date Model / Serial / Lot [id number] Stent Pancreatic 5fr 12cm Guidewire Zimmon 2mm [place] Accessory - [id number] Implanted:Qty: 1 on 10/26/2025 by Boston Hunt MD at [facility] Stent N/A: Bile Duct [employer] [id number] 05/10/2027 [id number] / / [id number] Stent Pancreatic 5fr 12cm Guidewire Zimmon 2mm [place] Accessory - [id number] Implanted:Qty: 1 on 10/26/2025 by Boston Hunt MD at [facility] Stent N/A: Bile Duct [employer] [id number] 11/14/2027 [id number] / / [id number] Explanted Type Area Building Stonecutter Device Identifier Shelf Expiration Date Model / Serial / Lot [id number] Stent Pancreatic 5fr 5cm Pigtail Curve Radopq Push Cath - [id number] Implanted:Qty: 1 on 10/24/2025 by Boston Hunt MD at [facility] Explanted:Qty: 1 on 10/26/2025 by Boston Hunt MD at [facility] Stent N/A: Pancreas [employer] [id number] 08/31/2028 [id number] / / [id number] Stent Pancreatic 7fr 12cm Push Cath Drain Obstruct Pstn - [id number] Implanted:Qty: 1 on 10/24/2025 by Boston Hunt MD at [facility] Explanted:Qty: 1 on 10/26/2025 by Boston Hunt MD at [facility] Stent N/A: Bile Duct [employer] [id number] 08/27/2028 [id number] / / [id number] Stent Pancreatic 7fr 15cm [facility] Cath [facility] [id number] Implanted:Qty: 1 on 10/24/2025 by Boston Hunt MD at [facility] Explanted:Qty: 1 on 10/26/2025 by Boston Hunt MD at [facility] Stent N/A: Bile Duct [employer] [id number] 08/06/2028 [id number] / / [id number] Procedures Procedure Name Priority Date/Time Associated Diagnosis Comments HEPATIC FUNCTION PANEL Routine 6:05 AM EST PROTIME-INR Routine 11/02/2025 6:05 AM EST URINALYSIS WITH REFLEX TO MICROSCOPIC Routine 11/02/2025 2:19 AM EST HEPATIC FUNCTION PANEL Routine 5 5:49 AM EST PROTIME-INR Routine 11/01/2025 5:49 AM EST MAGNESIUM Routine 10/31/2025 11:15 AM EST PHOSPHORUS Routine 10/31/2025 11:15 AM EST BASIC METABOLIC PANEL Routine 10/31/2025 11:15 AM EST HEPATIC FUNCTION PANEL Routine 5 11:15 AM EST HEPATIC FUNCTION PANEL Routine 5 6:14 AM EST PROTIME-INR Routine 10/30/2025 6:14 AM EST COMPLETE BLOOD COUNT, WITHOUT DIFFERENTIAL Routine 10/30/2025 6:14 AM EST MAGNESIUM Routine 10/30/2025 6:14 AM EST BASIC METABOLIC PANEL Routine 10/30/2025 6:14 AM EST POCT GLUCOSE, FINGERSTICK (CHARGE) Routine 10/29/2025 5:19 PM EST BASIC METABOLIC PANEL Routine 10/29/2025 6:31 AM EST HEPATIC FUNCTION PANEL Routine 6:31 AM EST XR CHEST 1 VIEW-PORTABLE STAT 10/28/2025 3:33 PM EST HIGH SENSITIVITY D-DIMER Routine 10/28/2025 3:14 PM EST US GUIDED BEDSIDE ABDOMINAL PARACENTESIS Routine 10/28/2025 9:11 AM EST PROBNP, N-TERMINAL Routine 10/28/2025 6: 30 AM EST HEPATIC FUNCTION PANEL Routine 6:30 AM EST BASIC METABOLIC PANEL Routine 10/28/2025 6:30 AM EST COMPREHENSIVE METABOLIC PANEL Routine 10/27/2025 8:06 AM EST [place] ERCP BILIARY AND PANCREATIC Routine 10/26/2025 1:15 PM EST CYTOLOGY REPORT Routine 10/26/2025 12:42 PM EST [place] ERCP STENT PLACEMENT BILIARY/PANCREATIC DUCT 10/26/2025 12:04 PM EST Jaundice Transaminitis BASIC METABOLIC PANEL Routine 10/26/2025 6:07 AM EST HEPATIC FUNCTION PANEL Routine 6:[address] CHEST/ABDOMEN+PELVIS W/CONTRAST W/PO Routine 10/25/2025 6:14 AM EST COMPREHENSIVE METABOLIC PANEL Routine 10/25/2025 5:45 AM EST CA 19-9 [id number] Routine 10/25/2025 5:45 AM EST CEA Routine 10/25/2025 5:45 AM EST [place] ERCP BILIARY AND PANCREATIC Routine 10/24/2025 7:30 PM EST CYTOLOGY REPORT Routine 10/24/2025 6:28 PM EST [place] ERCP STENT PLACEMENT BILIARY/PANCREATIC DUCT 10/24/2025 5:37 PM EST Jaundice PROTIME-INR Routine 10/24/2025 10:47 AM EST PHOSPHORUS Routine 10/24/2025 6:37 AM EST MAGNESIUM Routine 10/24/2025 6:37 AM EST BASIC METABOLIC PANEL Routine 10/24/2025 6:37 AM EST COMPLETE BLOOD COUNT, WITH DIFFERENTIAL Routine 10/24/2025 6:37 AM EST LIPASE STAT 10/23/2025 6:08 PM EST HEPATIC FUNCTION PANEL STAT 6:08 PM EST BASIC METABOLIC PANEL STAT 10/23/2025 6:08 PM EST COMPLETE BLOOD COUNT, WITH DIFFERENTIAL STAT 10/23/2025 6:08 PM EST from Last 3 Months Results * PROTIME-INR (11/02/2025 6:05 AM EST) Only the most recent of4 resultswithin the time period is included. Anticoagulant NO ANTI COAGULANT MEDS 11/01/2025 9:30 PM EST [facility] Prothrombin Time (PT) 13.4 10.0 - 13.5 seconds 11/02/2025 7:26 AM [facility] INR 1.2 11/02/2025 7:26 AM [facility] Comment:INR Therapeutic Rang es: Standard dose anticoagulant 2.0 to 3.0, High dose anticoagulant 2.5-3.5. Blood Blood specimen / Unknown 11/02/2025 6:05 AM EST 11/02/2025 6:51 AM EST Alessandra Elmore MD LAB BLOOD [place]AB[place] [address], [place] [address] * (ABNORMAL) Hepatic Function Panel (AM) (11/02/2025 6:05 AM EST) Only the most recent of8 resultswithin the time period is included. Alkaline Phosphatase 312(H) 45 - 128 U/L 11/02/2025 7:49 AM [facility] Aspartate Aminotrans (AST) 112(H) 10 - 55 U/L 11/02/2025 7:49 AM [facility] Alanine Aminotrans (ALT) 130(H) 10 - 55 U/L 11/02/2025 7:49 AM [facility] Bilirubin, Total 6.2(H) 0.2 - 1.0 mg/dL 11/02/2025 7:49 AM [facility] Protein, Total 6.0(L) 6.3 - 8.3 g/dL 11/02/2025 7:49 AM [facility] Albumin 2.9(L) 3.4 - 4.8 g/dL 11/02/2025 7:49 AM [facility] Bilirubin, Direct 4.9(H) 0 - 0.2 mg/dL 11/02/2025 7:49 AM [facility] Globulin 3.1 1.5 - 3.9 g/dL 11/02/2025 7:49 AM [facility] Albumin/Globulin Ratio 0.9(L) 1.0 - 3.0 Ratio 11/02/2025 7:49 AM [facility] Blood Blood specimen / Unknown 11/02/2025 6:05 AM EST 11/02/2025 6:51 AM EST Alessandra Elmore MD LAB BLOOD ORDERABLES Final Resu lt Performing Organization Address City/[facility]/[place] [address], [place] [address] * (ABNORMAL) Urinalysis with Reflex to Microscopic (11/02/2025 2:19 AM EST) Color Dark yellow 11/02/2025 3:57 AM [facility] Clarity Cloudy 11/02/2025 3:57 AM [facility] Specific [place] 1.020 1.005 - 1.030 11/02/2025 3:57 AM [facility] pH 6.5 5.0 - 8.0 11/02/2025 3:57 AM [facility] Leukocyte Esterase Small(A) Negative 11/02/2025 3:57 AM [facility] Nitrite Positive(A) Negative 11/02/2025 3:57 AM [facility] Protein 30(A) NEG^Negative mg/dL 11/02/2025 3:57 AM [facility] Glucose Negative Negative mg/dL 11/02/2025 3:57 AM [facility] Ketones Negative Negative mg/dL 11/02/2025 3:57 AM [facility] Blood Trace(A) Negative 11/02/2025 3:57 AM [facility] Bilirubin Large(A) Negative 11/02/2025 3:57 AM [facility] RBC >25(H) 0 - 4 per hpf 11/02/2025 3:57 AM [facility] WBC 3 0 - 4 per hpf 11/02/2025 3:57 AM [facility] Epithelial Cells 2 per hpf 11/02/2025 3:57 AM [facility] Urine Urine specimen obtained via straight catheter / Unknown 11/02/2025 2:19 AM EST 11/02/2025 3:19 AM EST Alessandra Elmore MD URINE ORDERABLES Final Result Performing Organization Address City/[facility]/[place] [address], [place] [address] * Phosphorus (10/31/2025 11:15 AM EST) Only the most recent of2 resultswithin the time period is included. Phosphorus 2.8 2.7 - 4.5 mg/dL 10/31/2025 12:30 PM [facility] Blood Blood specimen / Unknown 10/31/2025 11:15 AM EST 10/31/2025 11:56 AM EST us Alessandra Elmore MD LAB BLOOD ORDERABLES Final Resu lt Performing Organization Address City/[facility]/[place] [address], [place] [address] * Magnesium (10/31/2025 11:15 AM EST) Only the most recent of3 resultswithin the time period is included. Magnesium 2.2 1.6 - 2.7 mg/dL 10/31/2025 12:30 PM [facility] Blood Blood specimen / Unknown 10/31/2025 11:15 AM EST 10/31/2025 11:56 AM EST us Alessandra Elmore MD LAB BLOOD ORDERABLES Final Resu lt Performing Organization Address City/[facility]/[place] [address], [place] [address] * (ABNORMAL) Basic Metabolic Panel (10/31/2025 11:15 AM EST) Only the most recent of7 resultswithin the time period is included. Glucose 127(H) 65 - 99 mg/dL 10/31/2025 12:30 PM [facility] Comment:Fasting: <100 mg/dL, Non-Fasting: <200 mg/dL (ADA 2005) Blood Urea Nitrogen (BUN) 16 8 - 21 mg/dL 10/31/2025 12:30 PM [facility] Creatinine 0.64 0.50 - 1.30 mg/dL 10/31/2025 12:30 PM [facility] eGFR >90 >59 10/31/2025 12:30 PM [facility] Comment:CKD-EPI (2020) in mL /min/1.73 sq meters. Sodium 141 136 - 145 mmol/L 10/31/2025 12:30 PM [facility] Potassium 3.8 3.4 - 5.3 mmol/L 10/31/2025 12:30 PM [facility] Chloride 104 98 - 107 mmol/L 10/31/2025 12:30 PM [facility] CO2 25 22 - 33 mmol/L 10/31/2025 12:30 PM [facility] Anion Gap 12 7 - 17 10/31/2025 12:30 PM [facility] Calcium 8.9 8.7 - 10.5 mg/dL 10/31/2025 12:30 PM [facility] BUN/Creatinine Ratio 25 10.0 - 25.0 Ratio 10/31/2025 12:30 PM [facility] Blood Blood specimen / Unknown 10/31/2025 11:15 AM EST 10/31/2025 11:56 AM EST Alessandra Elmore MD LAB BLOOD [place] [address], [place] [address] * (ABNORMAL) COMPLETE BLOOD COUNT, WITHOUT DIFFERENTIAL (10/30/2025 6:14 AM EST) White Blood Cell Count 11.1(H) 4.0 - 11.0 Thou/uL 10/30/2025 7:37 AM [facility] Platelet Count 249 150 - 450 Thou/uL 10/30/2025 7:37 AM [facility] Hemoglobin 10.9(L) 13.0 - 17.7 g/dL 10/30/2025 7:37 AM [facility] Hematocrit 31.1(L) 39.0 - 54.0 % 10/30/2025 7:37 AM [facility] Red Blood Cell Count 3.38(L) 4.50 - 6.20 Mil/uL 10/30/2025 7:37 AM [facility] MCV 92 80 - 100 fL 10/30/2025 7:37 AM [facility] MCH 32.2(H) 27.0 - 31.0 pg 10/30/2025 7:37 AM [facility] MCHC 35.0 30.0 - 36.0 g/dL 10/30/2025 7:37 AM [facility] RDW 19.5(H) 11.5 - 14.5 % 10/30/2025 7:37 AM [facility] MPV 12.5 7.5 - 12.5 fL 10/30/2025 7:37 AM [facility] Blood Blood specimen / Unknown 10/30/2025 6:14 AM EST 10/30/2025 7:16 AM EST Perla Ivan MD LAB BLOOD ORDERABLES Final Re sult Performing Organization Address [facility]/[place] [address], [place] [address] * (ABNORMAL) POCT Glucose, Fingerstick (10/29/2025 5:19 PM EST) POC Glucose 154(H) 65 - 99 mg/dL 10/29/2025 5:23 PM EST Blood specimen / Unknown 10/29/2025 5:19 PM EST 10/29/2025 5:23 PM EST Felix Garcia MD POINT OF CARE TEST ORDERABLES Fi nal Result HOSPITAL LAB See Below * XR Chest 1 view-Portable (10/28/2025 3:33 PM EST) Anatomical Region Laterality Modality Chest Computed Radiogr aphy 10/28/2025 2:56 PM EST Impressions 10/28/2025 6:08 PM EST No acute pulmonary disease. Interpreted by: Kelton Mckinley MD Sheriff Sergeant I personally reviewed the images and the resident's preliminary report and AGREE with the report as it is now presented ([id number]). Narrative 10/28/2025 6:08 PM EST EXAMINATION: XR CHEST CLINICAL INFORMATION: Shortness of breath COMPARISON: CT chest 10/25/2025 TECHNIQUE: AP view of the chest was obtained. FINDINGS: The lungs are adequately expanded. There is no focal consolidation or effusion or edema. No perceptible pneumothorax. The cardiomediastinal silhouette is enlarged. Tortuous thoracic aorta. No acute osseous abnormality. Procedure Note Natanael Foster MD - 10/28/2025 EXAMINATION: XR CHEST CLINICAL INFORMATION: Shortness of breath COMPARISON: CT chest 10/25/2025 TECHNIQUE: AP view of the chest was obtained. FINDINGS: The lungs are adequately expanded. There is no focal consolidation or effusion or edema. No perceptible pneumothorax. The cardiomediastinal silhouette is enlarged. Tortuous thoracic aorta. No acute osseous abnormality. IMPRESSION: No acute pulmonary disease. Interpreted by: Kelton Mckinley MD Sheriff Sergeant I personally reviewed the images and the resident's preliminary report and AGREE with the report as it is now presented ([id number]). Perla Ivan MD IMG DIAGNOSTIC IMAGING ORDERA BLES Final Result * (ABNORMAL) High Sensitivity D-Dimer (10/28/2025 3:14 PM EST) [facility] High Sensitivity D-Dimer 372(H) <230 ng/mL DDU 10/28/2025 3:48 PM EST [facility] Comment: The threshold for exclusion of venous thromboembolism (VTE) is 230 ng/mL DDU (D Dimer Units). The Normal Range for D-Dimer is <244 ng/mL DDU (D Dimer Units). Studies, however, indicate a higher threshold is more appropriate for patients >50 y. This threshold is calculated by multiplying age by 5. Example: The estimated age adjusted VTE threshold for a 60 year old is 60 x 5 = 300 ng/mL DDU. Note: 1 DDU = 2 FEU (Fibrinogen Equivalent Units) Blood Blood specimen / Unknown 10/28/2025 3:14 PM EST 10/28/2025 3:31 PM EST Perla Ivan MD LAB BLOOD ORDERABLES Final Re sult Performing Organization Address [facility] [place] [address], [place] [address] * US Guided Bedside Abdominal Paracentesis (10/28/2025 9:11 AM EST) Anatomical Region Laterality Modality Ultrasound Narrative 10/28/2025 9:13 AM EST Table formatting from the original result was not included. Images from the original result were not included. Inpatient Procedure Team Brief Procedure Note: Patient name: Naomi Davis Pt Date of procedure: 10/28/2025 Comments: Ultrasound images of the abdomen shows no ascites. No procedure performed at this time. VALENTINE Davalos 10/28/2025 9:04 AM Perla Ivan MD IMG US ORDERABLES Final Resul t * proBNP, N-terminal (10/28/2025 6:30 AM EST) proBNP, N-terminal 211 <450 pg/mL 10/28/2025 11:54 AM EST [facility] 10/28/2025 6:30 AM EST 10/28/2025 7:38 AM EST Perla Ivan MD LAB BLOOD ORDERABLES Final Re sult Performing Organization Address [facility]/ZIP Co de Phone Number [address] [address], [address] [address] * (ABNORMAL) Comprehensive Metabolic Panel (10/27/2025 8:06 AM EST) Only the most recent of2 resultswithin the time period is included. Glucose 109(H) 65 - 99 mg/dL 10/27/2025 9:21 AM EST [facility] Comment:Fasting: <100 mg/dL, Non-Fasting: <200 mg/dL (ADA 2005) Blood Urea Nitrogen (BUN) 16 8 - 21 mg/dL 10/27/2025 9:21 AM [facility] Creatinine 0.70 0.50 - 1.30 mg/dL 10/27/2025 9:21 AM [facility] eGFR >90 >59 10/27/2025 9:21 AM [facility] Comment:CKD-EPI (2020) in mL /min/1.73 sq meters. Sodium 137 136 - 145 mmol/L 10/27/2025 9:21 AM [facility] Potassium 3.5 3.4 - 5.3 mmol/L 10/27/2025 9:21 AM [facility] Chloride 99 98 - 107 mmol/L 10/27/2025 9:21 AM [facility] CO2 27 22 - 33 mmol/L 10/27/2025 9: AM [facility] Calcium 9.2 8.7 - 10.5 mg/dL 10/27/2025 9:21 [facility] Alkaline Phosphatase 364(H) 45 - 128 U/L 10/27/2025 9:21 AM [facility] Aspartate Aminotrans (AST) 144(H) 10 - 55 U/L 10/27/2025 9:21 [facility] Alanine Aminotrans (ALT) 194(H) 10 - 55 U/L 10/27/2025 9:21 AM [facility] Bilirubin, Total 10.6(H) 0.2 - 1.0 mg/dL 10/27/2025 9: [facility] Protein, Total 6.6 6.3 - 8.3 g/dL 10/27/2025 9:21 AM [facility] Albumin 3.4 3.4 - 4.8 g/dL 10/27/2025 9:21 AM [facility] BUN/Creatinine Ratio 23 10.0 - 25.0 Ratio 10/27/2025 9: AM [facility] Globulin 3.2 1.5 - 3.9 g/dL 10/27/2025 9:21 [facility] Albumin/Globulin Ratio 1.1 1.0 - 3.0 Ratio 10/27/2025 9:21 [facility] Anion Gap 11 7 - 17 10/27/2025 9:21 AM [facility] Blood Blood specimen / Unknown 10/27/2025 8:06 AM EST 10/27/2025 8:35 AM EST us Igor Caballero MD LAB BLOOD ORDERABLES Final Resul t [address] [address], [address] [address] * [place] ERCP (10/26/2025 1:15 PM EST) Only the most recent of2 resultswithin the time period is included. Anatomical Region Laterality Modality Abdomen Radio Fluoroscop y 10/26/2025 11:5 9 AM EST Impressions 11/01/2025 12:57 PM EST Fluoroscopy during procedure. Please see procedure report for additional information. Narrative 11/01/2025 12:57 PM EST EXAMINATION: [place] ERCP BILIARY AND PANCREATIC CLINICAL INFORMATION: Jaundice. COMPARISON: None available. TECHNIQUE: Fluoroscopy during procedure. 7 mL of Omnipaque 350 was used. FINDINGS: Cholangiogram, CBD stent exchange and pancreatic stent placement FLUOROSCOPY TIME: 06.5 (mm.d) DOSE AREA PRODUCT: 44.179 Gy-cm2 (wall-centimeter squared) Procedure Note Asiya Small MD - 11/01/2025 EXAMINATION: [place] ERCP BILIARY AND PANCREATIC CLINICAL INFORMATION: Jaundice. COMPARISON: None available. TECHNIQUE: Fluoroscopy during procedure. 7 mL of Omnipaque 350 was used. FINDINGS: Cholangiogram, CBD stent exchange and pancreatic stent placement FLUOROSCOPY TIME: 06.5 (mm.d) DOSE AREA PRODUCT: 44.179 Gy-cm2 (wall-centimeter squared) IMPRESSION: Fluoroscopy during procedure. Please see procedure report for additional information. us Boston Hunt MD IMG FLUOROSCOPY ORDERABL ES Final Result * (ABNORMAL) Cytology Report (10/26/2025 12:42 PM EST) Only the most recent of2 resultswithin the time period is included. Report [facility] [id number] CLIA ID [id number] [address] [place] [id number] / [phone] Cytopathology Report PATIENT NAME: NAOMI DAVIS REC NUMBER: [id number] (AGE): 1945 (Age: 80) SPECIMEN NUMBER: [id number] DATE OBTAINED: 10/26/2025 DIAGNOSIS: A. 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 Again noted atrophic left hepatic lobe with heterogenous attenuation and significant intrahepatic biliary ductal dilatation. The dilated left intrahepatic ducts are opacified with contrast, possibly related to recent ERCP procedure. Correlation with recent tissue sampling is recommended. 2. Interval placement of biliary and ventral pancreatic stents as above. 3. No definite findings to suggest metastatic disease in the abdomen and pelvis. 4. 4 mm nodule in the anterior right upper lobe. Multiple additional pulmonary micronodules bilaterally as above. Findings are nonspecific. Follow-up as per oncology protocol. 5. 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 Narrative 10/26/2025 11:20 AM EST EXAMINATION: CT CHEST, ABDOMEN AND PELVIS WITH CONTRAST CLINICAL INFORMATION: obstructive jaundice, biliary stricture. check for metastatic disease. COMPARISON: Fluoroscopic ERCP 10/24/2025. MRI abdomen without and with contrast 10/22/2025. TECHNIQUE: Multidetector volumetric imaging was performed from the thoracic inlet through the pubic symphysis following the administration of: Oral contrast: Present Intravenous contrast: 80 mL Omnipaque 350 No contrast reaction reported Sagittal and coronal reformatted images were obtained on the technologist's workstation. This CT examination was performed using dose optimization techniques as appropriate, variously including the following: *Automated exposure control *Adjustment of mA and/or kV according to patient size (this includes techniques or standardized protocols for targeted exams where dose is matched to indication/reason for exam; i.e. extremities or head) *Use of iterative reconstruction technique Total exam dose-length product 527 mGy-cm. FINDINGS: CHEST: LUNG: Central airways are patent. Mild bilateral bronchial wall thickening. Streaky bibasilar atelectasis. No focal consolidation. Mild emphysematous changes. 4 mm nodule in the anterior right upper lobe, 303:154. Multiple additional pulmonary micronodules for instance 3 mm nodule in the lateral right upper lobe, 303:178. 3 mm nodule in the lateral right lung apex, 303:119. 3 mm nodule in the lateral left upper lobe, 303:253. 3 mm nodule in the posterior left lower lobe, 303:250. PLEURA: No pleural effusion or pneumothorax. MEDIASTINUM: Normal heart size. No pericardial effusion. No hilar or mediastinal lymphadenopathy. VASCULAR: Aneurysmal dilation of ascending thoracic aorta measuring 4.5 x 4.2 cm, 303:298. Irregular aneurysmal dilation of the aortic arch measuring up to 3.8 cm, 303:214. Aneurysmal dilatation of descending thoracic aorta measuring 3.7 x 3.4 cm, 303:306. Scattered aortic calcifications Central pulmonary arteries opacify normally. CHEST WALL/AXILLA: No axillary or internal mammary lymphadenopathy. ABDOMEN/PELVIS: LIVER, GALLBLADDER, AND BILIARY TREE: Again noted atrophic left hepatic lobe with heterogenous attenuation and significant intrahepatic biliary ductal dilation. The dilated left intrahepatic ducts are opacified with contrast, possibly related to recent ERCP procedure. No dilatation of the right intrahepatic ducts. Again noted focal coarse calcification in the right hepatic lobe. Interval placement of biliary and pancreatic stent. The gallbladder is opacified with contrast with small focus of gas, likely related to recent ERCP procedure. No intraluminal filling defects. No pericholecystic inflammatory changes. PANCREAS: Interval placement of pigtail stent in the ventral pancreatic duct. No ductal dilation. No surrounding inflammatory changes. SPLEEN: Normal size. No focal lesion. Accessory splenule in the left upper quadrant. 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 KIDNEYS AND URETERS: The kidneys are normal in size, shape, and attenuation. No hydronephrosis, hydroureter, or calculi. GASTROINTESTINAL TRACT: Stomach and small bowel non-dilated. No significant colonic wall thickening or pericolonic inflammatory changes. Few scattered colonic diverticuli. Moderate stool burden in the descending and rectosigmoid colon. Although the appendix is not visualized, there are no inflammatory changes in the right upper quadrant. ABDOMINAL WALL: No significant hernia is appreciated. LYMPHOVASCULAR STRUCTURES: No abdominopelvic lymphadenopathy. 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 Aneurysmal dilatation of suprarenal abdominal aorta measuring 3.8 x 3.7 cm, 303:516. Extensive aortoiliac atherosclerosis. BLADDER: The urinary bladder is overdistended. No wall thickening or bladder calculi. PELVIC VISCERA: Coarse calcifications within the prostate. OSSEOUS STRUCTURES: No acute or suspicious osseous abnormality. 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 Multilevel degenerative changes of the visualized spine, with degenerative disc disease in the lumbar spine most prominent at L2-L3 and L3-L4.. 5 mm retrolisthesis of L2 over L3 and 6 mm retrolisthesis of L3 over L4. Severe spondylosis of the visualized cervical spine. Procedure Note Juan Stover MD - 10/26/2025 EXAMINATION: CT CHEST, ABDOMEN AND PELVIS WITH CONTRAST CLINICAL INFORMATION: obstructive jaundice, biliary stricture. check for metastatic disease. COMPARISON: Fluoroscopic ERCP 10/24/2025. MRI abdomen without and with contrast 10/22/2025. TECHNIQUE: Multidetector volumetric imaging was performed from the thoracic inlet through the pubic symphysis following the administration of: Oral contrast: Present Intravenous contrast: 80 mL Omnipaque 350 No contrast reaction reported Sagittal and coronal reformatted images were obtained on the technologist's workstation. This CT examination was performed using dose optimization techniques as appropriate, variously including the following: *Automated exposure control *Adjustment of mA and/or kV according to patient size (this includes techniques or standardized protocols for targeted exams where dose is matched to indication/reason for exam; i.e. extremities or head) *Use of iterative reconstruction technique Total exam dose-length product 527 mGy-cm. FINDINGS: CHEST: LUNG: Central airways are patent. Mild bilateral bronchial wall thickening. Streaky bibasilar atelectasis. No focal consolidation. Mild emphysematous changes. 4 mm nodule in the anterior right upper lobe, 303:154. Multiple additional pulmonary micronodules for instance 3 mm nodule in the lateral right upper lobe, 303:178. 3 mm nodule in the lateral right lung apex, 303:119. 3 mm nodule in the lateral left upper lobe, 303:253. 3 mm nodule in the posterior left lower lobe, 303:250. PLEURA: No pleural effusion or pneumothorax. MEDIASTINUM: Normal heart size. No pericardial effusion. No hilar or mediastinal lymphadenopathy. VASCULAR: Aneurysmal dilation of ascending thoracic aorta measuring 4.5 x 4.2 cm, 303:298. Irregular aneurysmal dilation of the aortic arch measuring up to 3.8 cm, 303:214. Aneurysmal dilatation of descending thoracic aorta measuring 3.7 x 3.4 cm, 303:306. Scattered aortic calcifications Central pulmonary arteries opacify normally. CHEST WALL/AXILLA: No axillary or internal mammary lymphadenopathy. ABDOMEN/PELVIS: LIVER, GALLBLADDER, AND BILIARY TREE: Again noted atrophic left hepatic lobe with heterogenous attenuation and significant intrahepatic biliary ductal dilation. The dilated left intrahepatic ducts are opacified with contrast, possibly related to recent ERCP procedure. No dilatation of the right intrahepatic ducts. Again noted focal coarse calcification in the right hepatic lobe. Interval placement of biliary and pancreatic stent. The gallbladder is opacified with contrast with small focus of gas, likely related to recent ERCP procedure. No intraluminal filling defects. No pericholecystic inflammatory changes. PANCREAS: Interval placement of pigtail stent in the ventral pancreatic duct. No ductal dilation. No surrounding inflammatory changes. SPLEEN: Normal size. No focal lesion. Accessory splenule in the left upper quadrant. 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 KIDNEYS AND URETERS: The kidneys are normal in size, shape, and attenuation. No hydronephrosis, hydroureter, or calculi. GASTROINTESTINAL TRACT: Stomach and small bowel non-dilated. No significant colonic wall thickening or pericolonic inflammatory changes. Few scattered colonic diverticuli. Moderate stool burden in the descending and rectosigmoid colon. Although the appendix is not visualized, there are no inflammatory changes in the right upper quadrant. ABDOMINAL WALL: No significant hernia is appreciated. LYMPHOVASCULAR STRUCTURES: No abdominopelvic lymphadenopathy. 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 Aneurysmal dilatation of suprarenal abdominal aorta measuring 3.8 x 3.7 cm, 303:516. Extensive aortoiliac atherosclerosis. BLADDER: The urinary bladder is overdistended. No wall thickening or bladder calculi. PELVIC VISCERA: Coarse calcifications within the prostate. OSSEOUS STRUCTURES: No acute or suspicious osseous abnormality. 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 Multilevel degenerative changes of the visualized spine, with degenerative disc disease in the lumbar spine most prominent at L2-L3 and L3-L4.. 5 mm retrolisthesis of L2 over L3 and 6 mm retrolisthesis of L3 over L4. Severe spondylosis of the visualized cervical spine. IMPRESSION: 1. Again noted atrophic left hepatic lobe with heterogenous attenuation and significant intrahepatic biliary ductal dilatation. The dilated left intrahepatic ducts are opacified with contrast, possibly related to recent ERCP procedure. Correlation with recent tissue sampling is recommended. 2. Interval placement of biliary and ventral pancreatic stents as above. 3. No definite findings to suggest metastatic disease in the abdomen and pelvis. 4. 4 mm nodule in the anterior right upper lobe. Multiple additional pulmonary micronodules bilaterally as above. Findings are nonspecific. Follow-up as per oncology protocol. 5. 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 Marivel Panchal MD IMG CT ORDERABLES Final Result * (ABNORMAL) CA 19-9 (10/25/2025 5:45 AM EST) Pathologist [facility] CA 19-9 984(H) <34 U/mL 10/27/2025 7:14 AM EST [employer], [place] Comment: (NOTE) This test was performed using the Siemens chemiluminescent method. Values obtained from different assay methods cannot be used inter- changeably. CA 19-9 levels, regardless of value, should not be interpreted as absolute evidence of the presence or absence of disease. Blood Blood specimen / Unknown 10/25/2025 5:45 AM EST 10/25/2025 6:50 AM EST Boston Hunt MD LAB BLOOD ORDERABLES Fin al Result Performing Organization Address City/[facility] de Phone Number [employer], [employer] [address] [place] [address] [address] [place] [address] , [employer], [employer] [address] [place] [address] [place] [address] * (ABNORMAL) CEA (10/25/2025 5:45 AM EST) Pathologist [facility] CEA (Javy) 5.1(H) 0.0 - 3.8 ng/mL 10/25/2025 7:33 AM EST [facility] Comment: Reference range: Age 20 - 69: Non-smokers 0 - 3.8 ng/mL Smokers 0 - 5.4 ng/mL Performed by [employer] electrochemiluminescence immunoassay (ECLIA). Results obtained by different methods not interchangeable. Result cannot be interpreted as absolute evidence of the presence or absence of malignant disease. Blood Blood specimen / Unknown 10/25/2025 5:45 AM EST 10/25/2025 6:50 AM EST Boston Hunt MD LAB BLOOD ORDERABLES Fin al Result Performing Organization Address City/[facility] Co de Phone Number [address] [address], [facility] [address] [place] [address] * (ABNORMAL) Complete Blood Count, with Differential (10/24/2025 6:37 AM EST) Only the most recent of2 resultswithin the time period is included. White Blood Cell Count 7.7 4.0 - 11.0 Thou/uL 10/24/2025 7:22 AM [facility] Platelet Count 250 150 - 450 Thou/uL 10/24/2025 7:22 AM [facility] Hemoglobin 11.9(L) 13.0 - 17.7 g/dL 10/24/2025 7:22 AM [facility] Hematocrit 34.1(L) 39.0 - 54.0 % 10/24/2025 7:22 AM [facility] Red Blood Cell Count 3.79(L) 4.50 - 6.20 Mil/uL 10/24/2025 7:22 AM [facility] MCV 90 80 - 100 fL 10/24/2025 7:22 AM [facility] MCH 31.4(H) 27.0 - 31.0 pg 10/24/2025 7:22 AM [facility] MCHC 34.9 30.0 - 36.0 g/dL 10/24/2025 7:22 AM [facility] RDW 18.1(H) 11.5 - 14.5 % 10/24/2025 7:22 [facility] MPV 11.7 7.5 - 12.5 fL 10/24/2025 7:22 AM [facility] Neutrophils Auto 67.0 % 10/24/20 7:22 AM [facility] Immature Granulocytes 1.2 % 10/24/2025 7:22 AM [facility] Lymphocytes Auto 18.6 % 10/24/20 7: AM [facility] Monocytes Auto 11.3 % 10/24/2025 7:22 [facility] Eosinophils Auto 1.2 % 10/24/20 7:22 AM [facility] Basophils Auto 0.7 % 10/24/2025 7:22 [facility] Abs Neutrophils Auto 5.16 2.00 - 7.50 Thou/uL 10/24/2025 7:22 AM [facility] Abs Immature Granulocytes 0.09 0.00 - 0.10 Thou/uL 10/24/2025 7:22 AM [facility] Abs Lymphocytes Auto 1.43(L) 1.50 - 4.50 Thou/uL 10/24/2025 7:22 AM [facility] Abs Monocytes Auto 0.87 0.20 - 1.50 Thou/uL 10/24/2025 7:22 AM [facility] Abs Eosinophils Auto 0.09 0.00 - 0.70 Thou/uL 10/24/2025 7:22 AM [facility] Abs Basophils Auto 0.05 0.00 - 0.20 Thou/uL 10/24/2025 7:22 AM [facility] Blood Blood specimen / Unknown 10/24/2025 6:37 AM EST 10/24/2025 7:07 AM EST Gladys Gerber MD LAB BLOOD ORDERABLES Final Re sult Performing Organization Address City/[facility]/[place] [address], [place] [address] * Lipase (10/23/2025 6:08 PM EST) Lipase 15 13 - 60 U/L 10/23/2025 7:07 PM [facility] Blood Blood specimen / Unknown 10/23/2025 6:08 PM EST 10/23/2025 6:48 PM EST Vamshi Castillo PA-C LAB BLOOD ORDERABLES Final Re sult Performing Organization Address City/[facility]/[place] [address], [place] [address] from Last 3 Months Insurance [facility] OUT STATE - PPO MEDICARE PART A & B [facility] [employer] MEDIC[facility] PART A & B Advance Directives * Full Code (Latest Code Status on File) Date Activated Date Inactivated Comments 10/23/2025 7:53 PM
== END 2025-11-14 12:23 | disposition home or self-care (01) ==
LOC: HO.LAB 12:22
DX: R16.0 Hepatomegaly, not elsewhere classified (principal)
CPT/HCPCS: 36415; 80053; 85025; 85652; 86141

== ENCOUNTER 2025-11-15 13:47 | Outpatient (REF) | payer MEDICARE, SELFPAY ==
[2025-11-15 14:20] LABS: Appearance Urine Cloudy; Glucose Urine UA Negative (Negative); PH 5.5 (5.0-9.0); Specific Gravity - Urine 1.015 (1.005-1.025); UMIC TRIGGER UACC YES
[2025-11-15 14:42] LABS: UACC Culture Trigger YES
--- OUTSIDE RECORDS SUMMARY | 2025-11-15 18:02 | XMS_ITS | Clinical Summary ---
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 Assessment & Plan [...] Continue Ensure supplements He will follow-up with [facility] oncology after discharge. Assessment & Plan [...] Ordered Ensure supplements He will follow-up with [facility] oncology after discharge. Assessment & Plan [...] 500 mg daily He will follow-up with [facility] oncology after discharge. Obstructive jaundice 10/27/2025 [...] Continue Ensure supplements He will follow-up with [facility] oncology after discharge. Assessment & Plan [...] Continue Ensure supplements He will follow-up with [facility] oncology after discharge. Assessment & Plan [...] Ordered Ensure supplements He will follow-up with [facility] oncology after discharge. Assessment & Plan [...] 500 mg daily He will follow-up with [facility] oncology after discharge. GERD (gastroesophageal reflux [...] Continue Ensure supplements He will follow-up with [facility] oncology after discharge. Assessment & Plan [...] Continue Ensure supplements He will follow-up with [facility] oncology after discharge. Assessment & Plan [...] Ordered Ensure supplements He will follow-up with [facility] oncology after discharge. Assessment & Plan [...] 500 mg daily He will follow-up with [facility] oncology after discharge. Assessment & Plan [...] per GI, continue Plan for referral to [facility] oncology, Dr. Indio Coker (oncology) and [...] Continue Ensure supplements He will follow-up with [facility] oncology after discharge. Assessment & Plan [...] Continue Ensure supplements He will follow-up with [facility] oncology after discharge. Assessment & Plan [...] Ordered Ensure supplements He will follow-up with [facility] oncology after discharge. Assessment & Plan [...] 500 mg daily He will follow-up with [facility] oncology after discharge. Assessment & Plan [...] per GI, continue Plan for referral to [facility] oncology, Dr. Indio Coker (oncology) and [...] Description 10/26/2025 12:10 PM EST Anesthesia Event [facility] [address] [place] [address], [place] [address] Gerson Horn MD Clair, Hannah A, PA-C 10/26/2025 10:45 AM EST - 10/26/2025 11:56 AM EST Surgery [facility] [address] [place] [address], [place] [address] Boston Hunt MD ERCP /C PLACEMENT STENT 10/24/2025 5:48 PM EST Anesthesia Event [facility] [address] [place] [address], [place] [address] Radha Molina MD Waqar, Syed M, MD 10/24/2025 5:16 PM EST - 10/24/2025 6:27 PM EST Surgery [facility] [address] [place] [address], [place] [address] Boston Hunt MD ERCP /C PLACEMENT STENT 10/23/2025 5:47 PM EST - 11/02/2025 3:30 PM EST Hospital Encounter [facility] [address] [place] [id number] She, MD Buzz Malagon, MD Ansley Graham, [...] any time in the past 12 m [facility], were you homeless or living in a intermediate (including now)? No 10/24/2025 [facility] Utilities Answer Date Recorded In the past 12 months has [employer], gas, oil, or water company threatened [...] Description 11/20/2025 10:15 AM EST Office [facility] [address] [place] [address] Parag Navarro PA-C [address] [place] [address] Health Maintenance Due Date Last Done Comments [...] this topic Medical Devices Implanted Type Area Chief Psychology Device Identifier Shelf Expiration Date Model / Serial / Lot [id number] Stent Pancreatic 5fr 12cm Guidewire Zimmon 2mm Mn Accessory - [id number] Implanted:Qty: 1 on 10/26/2025 by Boston Hunt MD at [facility] Stent N/A: Bile Duct [employer] [id number] 05/10/2027 [id number] / / [id number] Stent Pancreatic 5fr 12cm Guidewire Zimmon 2mm Mn Accessory - [id number] Implanted:Qty: 1 on 10/26/2025 by Boston Hunt MD at [facility] Stent N/A: Bile Duct [employer] [id number] 11/14/2027 [id number] / / [id number] Explanted Type Area Chief Psychology Device Identifier Shelf Expiration Date Model / Serial / Lot [id number] Stent Pancreatic 5fr 5cm Pigtail Curve Radopq Push Cath - [id number] Implanted:Qty: 1 on 10/24/2025 by Boston Hunt MD at [facility] Explanted:Qty: 1 on 10/26/2025 by Boston Hunt MD at [facility] Stent N/A: Pancreas [employer] [id number] 08/31/2028 [id number] / / [id number] Stent Pancreatic 7fr 12cm Push Cath Drain Obstruct Pstn - [id number] Implanted:Qty: 1 on 10/24/2025 by Boston Hunt MD at [facility] Explanted:Qty: 1 on 10/26/2025 by Boston Hunt MD at [facility] Stent N/A: Bile Duct [employer] [id number] 08/27/2028 [id number] / / [id number] Stent Pancreatic 7fr 15cm Push Cath Drain [facility] [id number] Implanted:Qty: 1 on 10/24/2025 by Boston Hunt MD at [facility] Explanted:Qty: 1 on 10/26/2025 by Boston Hunt MD at [facility] Stent N/A: Bile Duct [employer] [id number] 08/06/2028 [id number] / / [id number] Procedures Procedure Name Priority Date/Time Associated Diagnosis [...] CYTOLOGY REPORT Routine 10/26/2025 12:42 PM EST [facility] ERCP STENT PLACEMENT BILIARY/PANCREATIC DUCT 10/26/2025 12:04 PM EST Jaundice Transaminitis BASIC METABOLIC PANEL Routine 10/26/2025 6:07 AM EST HEPATIC FUNCTION PANEL Routine 6:[address] CHEST/ABDOMEN+PELVIS W/CONTRAST W/PO Routine 10/25/2025 6:14 AM EST COMPREHENSIVE METABOLIC PANEL Routine 10/25/2025 5:45 AM EST CA 19-9 [id number] Routine 10/25/2025 5:45 AM EST CEA Routine 10/25/2025 5:45 AM EST [place] ERCP BILIARY AND PANCREATIC Routine 10/24/2025 7:30 PM EST CYTOLOGY REPORT Routine 10/24/2025 6:28 PM EST [facility] ERCP STENT PLACEMENT BILIARY/PANCREATIC DUCT 10/24/2025 5:37 [...] ANTI COAGULANT MEDS 11/01/2025 9:30 PM EST [facility] Prothrombin Time (PT) 13.4 10.0 - 13.5 seconds 11/02/2025 7:26 AM [facility] INR 1.2 11/02/2025 7:26 AM [facility] Comment:INR Therapeutic Rang es: Standard dose anticoagulant 2.0 to 3.0, High dose anticoagulant 2.5-3.5. Blood Blood specimen / Unknown 11/02/2025 6:05 AM EST 11/02/2025 6:51 AM EST Alessandra Elmore MD LAB BLOOD [place] [address], [place] [address] * (ABNORMAL) Hepatic Function Panel (AM) (11/02/2025 6:05 AM EST) Only the most recent of8 resultswithin the time period is included. Alkaline Phosphatase 312(H) 45 - 128 U/L 11/02/2025 7:49 AM [facility] Aspartate Aminotrans (AST) 112(H) 10 - 55 U/L 11/02/2025 7:49 AM [facility] Alanine Aminotrans (ALT) 130(H) 10 - 55 U/L 11/02/2025 7:49 AM [facility] Bilirubin, Total 6.2(H) 0.2 - 1.0 mg/dL 11/02/2025 7:49 AM [facility] Protein, Total 6.0(L) 6.3 - 8.3 g/dL 11/02/2025 7:49 AM [facility] Albumin 2.9(L) 3.4 - 4.8 g/dL 11/02/2025 7:49 AM [facility] Bilirubin, Direct 4.9(H) 0 - 0.2 mg/dL 11/02/2025 7:49 AM [facility] Globulin 3.1 1.5 - 3.9 g/dL 11/02/2025 7:49 AM [facility] Albumin/Globulin Ratio 0.9(L) 1.0 - 3.0 Ratio 11/02/2025 7:49 AM [facility] Blood Blood specimen / Unknown 11/02/2025 6:05 AM EST 11/02/2025 6:51 AM EST Alessandra Elmore MD LAB BLOOD ORDERABLES Final Resu lt Performing Organization Address City/[facility]/[place] [address], [place] [address] * (ABNORMAL) Urinalysis with Reflex to Microscopic (11/02/2025 2:19 AM EST) Color Dark yellow 11/02/2025 3:57 AM [facility] Clarity Cloudy 11/02/2025 3:57 AM [facility] Specific [place] 1.020 1.005 - 1.030 11/02/2025 3:57 AM [facility] pH 6.5 5.0 - 8.0 11/02/2025 3:57 AM [facility] Leukocyte Esterase Small(A) Negative 11/02/2025 3:57 AM [facility] Nitrite Positive(A) Negative 11/02/2025 3:57 AM [facility] Protein 30(A) NEG^Negative mg/dL 11/02/2025 3:57 AM [facility] Glucose Negative Negative mg/dL 11/02/2025 3:57 AM [facility] Ketones Negative Negative mg/dL 11/02/2025 3:57 AM [facility] Blood Trace(A) Negative 11/02/2025 3:57 AM [facility] Bilirubin Large(A) Negative 11/02/2025 3:57 AM [facility] RBC >25(H) 0 - 4 per hpf 11/02/2025 3:57 AM [facility] WBC 3 0 - 4 per hpf 11/02/2025 3:57 AM [facility] Epithelial Cells 2 per hpf 11/02/2025 3:57 AM [facility] Urine Urine specimen obtained via straight catheter / Unknown 11/02/2025 2:19 AM EST 11/02/2025 3:19 AM EST Alessandra Elmore MD URINE ORDERABLES Final Result Performing Organization Address City/[facility]/[place] [address], [place] [address] * Phosphorus (10/31/2025 11:15 AM EST) Only the most recent of2 resultswithin the time period is included. Phosphorus 2.8 2.7 - 4.5 mg/dL 10/31/2025 12:30 PM [facility] Blood Blood specimen / Unknown 10/31/2025 11:15 AM EST 10/31/2025 11:56 AM EST us Alessandra Elmore MD LAB BLOOD ORDERABLES Final Resu lt Performing Organization Address City/[facility]/[place] [address], [place] [address] * Magnesium (10/31/2025 11:15 AM EST) Only the most recent of3 resultswithin the time period is included. Magnesium 2.2 1.6 - 2.7 mg/dL 10/31/2025 12:30 PM [facility] Blood Blood specimen / Unknown 10/31/2025 11:15 AM EST 10/31/2025 11:56 AM EST us Alessandra Elmore MD LAB BLOOD ORDERABLES Final Resu lt Performing Organization Address City/[facility]/[place] [address], [place] [address] * (ABNORMAL) Basic Metabolic Panel (10/31/2025 11:15 AM EST) Only the most recent of7 resultswithin the time period is included. Glucose 127(H) 65 - 99 mg/dL 10/31/2025 12:30 PM [facility] Comment:Fasting: <100 mg/dL, Non-Fasting: <200 mg/dL (ADA 2005) Blood Urea Nitrogen (BUN) 16 8 - 21 mg/dL 10/31/2025 12:30 PM [facility] Creatinine 0.64 0.50 - 1.30 mg/dL 10/31/2025 12:30 PM [facility] eGFR >90 >59 10/31/2025 12:30 PM [facility] Comment:CKD-EPI (2020) in mL /min/1.73 sq meters. Sodium 141 136 - 145 mmol/L 10/31/2025 12:30 PM [facility] Potassium 3.8 3.4 - 5.3 mmol/L 10/31/2025 12:30 PM [facility] Chloride 104 98 - 107 mmol/L 10/31/2025 12:30 PM [facility] CO2 25 22 - 33 mmol/L 10/31/2025 12:30 PM [facility] Anion Gap 12 7 - 17 10/31/2025 12:30 PM [facility] Calcium 8.9 8.7 - 10.5 mg/dL 10/31/2025 12:30 PM [facility] BUN/Creatinine Ratio 25 10.0 - 25.0 Ratio 10/31/2025 12:30 PM [facility] Blood Blood specimen / Unknown 10/31/2025 11:15 AM EST 10/31/2025 11:56 AM EST Alessandra Elmore MD LAB BLOOD [place] [address], [place] [address] * (ABNORMAL) COMPLETE BLOOD COUNT, WITHOUT DIFFERENTIAL (10/30/2025 6:14 AM EST) White Blood Cell Count 11.1(H) 4.0 - 11.0 Thou/uL 10/30/2025 7:37 AM [facility] Platelet Count 249 150 - 450 Thou/uL 10/30/2025 7:37 AM [facility] Hemoglobin 10.9(L) 13.0 - 17.7 g/dL 10/30/2025 7:37 AM [facility] Hematocrit 31.1(L) 39.0 - 54.0 % 10/30/2025 7:37 AM [facility] Red Blood Cell Count 3.38(L) 4.50 - 6.20 Mil/uL 10/30/2025 7:37 AM [facility] MCV 92 80 - 100 fL 10/30/2025 7:37 AM [facility] MCH 32.2(H) 27.0 - 31.0 pg 10/30/2025 7:37 AM [facility] MCHC 35.0 30.0 - 36.0 g/dL 10/30/2025 7:37 AM [facility] RDW 19.5(H) 11.5 - 14.5 % 10/30/2025 7:37 AM [facility] MPV 12.5 7.5 - 12.5 fL 10/30/2025 7:37 AM [facility] Blood Blood specimen / Unknown 10/30/2025 6:14 AM EST 10/30/2025 7:16 AM EST Perla Ivan MD LAB BLOOD ORDERABLES Final Re sult Performing Organization Address [facility]/[place] [address], [place] [address] * (ABNORMAL) POCT Glucose, Fingerstick (10/29/2025 5:19 [...] pulmonary disease. Interpreted by: Kelton Mckinley MD Stull Hewer I personally reviewed the images and the [...] pulmonary disease. Interpreted by: Kelton Mckinley MD Stull Hewer I personally reviewed the images and the resident's preliminary report and AGREE with the report as it is now presented (RADPAL1). Perla Ivan MD IMG DIAGNOSTIC IMAGING ORDERA BLES Final Result * (ABNORMAL) High Sensitivity D-Dimer (10/28/2025 3:14 PM EST) [facility] High Sensitivity D-Dimer 372(H) <230 ng/mL DDU 10/28/2025 3:48 PM EST [facility] Comment: The threshold for exclusion of venous [...] ORDERABLES Final Re sult Performing Organization Address [facility] [place] [address], [place] [address] * US Guided Bedside Abdominal Paracentesis (10/28/2025 [...] 211 <450 pg/mL 10/28/2025 11:54 AM EST [facility] 10/28/2025 6:30 AM EST 10/28/2025 7:38 AM EST Perla Ivan MD LAB BLOOD ORDERABLES Final Re sult Performing Organization Address [facility]/ZIP Co de Phone Number [address] [address], [address] [address] * (ABNORMAL) Comprehensive Metabolic Panel (10/27/2025 8:06 AM EST) Only the most recent of2 resultswithin the time period is included. Glucose 109(H) 65 - 99 mg/dL 10/27/2025 9:21 AM EST [facility] Comment:Fasting: <100 mg/dL, Non-Fasting: <200 mg/dL (ADA 2005) Blood Urea Nitrogen (BUN) 16 8 - 21 mg/dL 10/27/2025 9:21 AM [facility] Creatinine 0.70 0.50 - 1.30 mg/dL 10/27/2025 9:21 AM [facility] eGFR >90 >59 10/27/2025 9:21 AM [facility] Comment:CKD-EPI (2020) in mL /min/1.73 sq meters. Sodium 137 136 - 145 mmol/L 10/27/2025 9:21 AM [facility] Potassium 3.5 3.4 - 5.3 mmol/L 10/27/2025 9:21 AM [facility] Chloride 99 98 - 107 mmol/L 10/27/2025 9:21 AM [facility] CO2 27 22 - 33 mmol/L 10/27/2025 9: AM [facility] Calcium 9.2 8.7 - 10.5 mg/dL 10/27/2025 9:21 [facility] Alkaline Phosphatase 364(H) 45 - 128 U/L 10/27/2025 9:21 AM [facility] Aspartate Aminotrans (AST) 144(H) 10 - 55 U/L 10/27/2025 9:21 [facility] Alanine Aminotrans (ALT) 194(H) 10 - 55 U/L 10/27/2025 9:21 AM [facility] Bilirubin, Total 10.6(H) 0.2 - 1.0 mg/dL 10/27/2025 9: [facility] Protein, Total 6.6 6.3 - 8.3 g/dL 10/27/2025 9:21 AM [facility] Albumin 3.4 3.4 - 4.8 g/dL 10/27/2025 9:21 AM [facility] BUN/Creatinine Ratio 23 10.0 - 25.0 Ratio 10/27/2025 9: AM [facility] Globulin 3.2 1.5 - 3.9 g/dL 10/27/2025 9:21 [facility] Albumin/Globulin Ratio 1.1 1.0 - 3.0 Ratio 10/27/2025 9:21 [facility] Anion Gap 11 7 - 17 10/27/2025 9:21 AM [facility] Blood Blood specimen / Unknown 10/27/2025 8:06 AM EST 10/27/2025 8:35 AM EST us Igor Caballero MD LAB BLOOD ORDERABLES Final Resul t [address] [address], [address] [address] * [place] ERCP (10/26/2025 1:15 PM EST) [...] resultswithin the time period is included. Report [facility] [id number] CLIA ID [id number] [address] [place] [id number] / [phone] Cytopathology Report PATIENT NAME: NAOMI DAVIS REC NUMBER: [id number] (AGE): 1945 (Age: 80) SPECIMEN NUMBER: [id number] DATE OBTAINED: 10/26/2025 DIAGNOSIS: A. 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 rna/10/30/2025 Electronicall y Signed Out MD MADISON SANTIAGO III, MD Signout Facility: [address] CLIA #: [id number] Clinical Diagnosis and History: COMMON HEPATIC DUCT [...] 19-9 (10/25/2025 5:45 AM EST) Pathologist [facility] [place] 19-9 984(H) <34 U/mL 10/27/2025 7:14 AM EST [facility], [place] Comment: (NOTE) This test was performed using [...] ORDERABLES Fin al Result Performing Organization Address City/[facility] de Phone Number [email or web address] [address] [place] [address] [place] [address] , [facility], [employer] [address] [place] [address] [place] [address] * (ABNORMAL) CEA (10/25/2025 5:45 AM EST) Pathologist [facility] [place] CEA (Javy) 5.1(H) 0.0 - 3.8 ng/mL 10/25/2025 7:33 AM EST [facility] Comment: Reference range: Age 20 - 69: [...] ORDERABLES Fin al Result Performing Organization Address City/[facility] Co de Phone Number [address] [address], [facility] [address] [place] [address] * (ABNORMAL) Complete Blood Count, with Differential (10/24/2025 6:37 AM EST) Only the most recent of2 resultswithin the time period is included. White Blood Cell Count 7.7 4.0 - 11.0 Thou/uL 10/24/2025 7:22 AM [facility] Platelet Count 250 150 - 450 Thou/uL 10/24/2025 7:22 AM [facility] Hemoglobin 11.9(L) 13.0 - 17.7 g/dL 10/24/2025 7:22 AM [facility] Hematocrit 34.1(L) 39.0 - 54.0 % 10/24/2025 7:22 AM [facility] Red Blood Cell Count 3.79(L) 4.50 - 6.20 Mil/uL 10/24/2025 7:22 AM [facility] MCV 90 80 - 100 fL 10/24/2025 7:22 AM [facility] MCH 31.4(H) 27.0 - 31.0 pg 10/24/2025 7:22 AM [facility] MCHC 34.9 30.0 - 36.0 g/dL 10/24/2025 7:22 AM [facility] RDW 18.1(H) 11.5 - 14.5 % 10/24/2025 7:22 [facility] MPV 11.7 7.5 - 12.5 fL 10/24/2025 7:22 AM [facility] Neutrophils Auto 67.0 % 10/24/20 7:22 AM [facility] Immature Granulocytes 1.2 % 10/24/2025 7:22 AM [facility] Lymphocytes Auto 18.6 % 10/24/20 7: AM [facility] Monocytes Auto 11.3 % 10/24/2025 7:22 [facility] Eosinophils Auto 1.2 % 10/24/20 7:22 AM [facility] Basophils Auto 0.7 % 10/24/2025 7:22 [facility] Abs Neutrophils Auto 5.16 2.00 - 7.50 Thou/uL 10/24/2025 7:22 AM [facility] Abs Immature Granulocytes 0.09 0.00 - 0.10 Thou/uL 10/24/2025 7:22 AM [facility] Abs Lymphocytes Auto 1.43(L) 1.50 - 4.50 Thou/uL 10/24/2025 7:22 AM [facility] Abs Monocytes Auto 0.87 0.20 - 1.50 Thou/uL 10/24/2025 7:22 AM [facility] Abs Eosinophils Auto 0.09 0.00 - 0.70 Thou/uL 10/24/2025 7:22 AM [facility] Abs Basophils Auto 0.05 0.00 - 0.20 Thou/uL 10/24/2025 7:22 AM [facility] Blood Blood specimen / Unknown 10/24/2025 6:37 AM EST 10/24/2025 7:07 AM EST Gladys Gerber MD LAB BLOOD ORDERABLES Final Re sult Performing Organization Address City/[facility]/[place] [address], [place] [address] * Lipase (10/23/2025 6:08 PM EST) Lipase 15 13 - 60 U/L 10/23/2025 7:07 PM [facility] Blood Blood specimen / Unknown 10/23/2025 6:08 PM EST 10/23/2025 6:48 PM EST Vamshi Castillo PA-C LAB BLOOD ORDERABLES Final Re sult Performing Organization Address City/[facility]/[place] [address], [place] [address] from Last 3 Months Insurance [facility] OUT STATE - PPO MEDICARE PART A & B [facility] OUT [facility] MEDICARE PART A & B Advance Directives * Full Code (Latest Code Status on File) Date Activated Date Inactivated Comments 10/23/2025 7:53 PM
== END 2025-11-15 13:48 | disposition home or self-care (01) ==
LOC: HO.LNP 13:47
DX: I10 Essential (primary) hypertension (principal); F41.9 Anxiety disorder, unspecified; E78.5 Hyperlipidemia, unspecified; R39.14 Feeling of incomplete bladder emptying; R39.15 Urgency of urination; R16.0 Hepatomegaly, not elsewhere classified
CPT/HCPCS: 81001; 81003; 87086; 87088; 87186

== ENCOUNTER 2025-11-23 07:58 | Outpatient (AMB) | payer MEDICARE, SELFPAY ==
--- OUTSIDE RECORDS SUMMARY | 2025-11-23 08:03 | XMS_ITS | Clinical Summary ---
Author Organization [facility] Address [address] [place] [address] Care Team Providers Care Tipple Greaser Name Role Phone Alessandra Elmore MD Primary Care Provider [phone] Allergies No known active allergies Medications lisinopril [...] Continue Ensure supplements He will follow-up with [facility] oncology after discharge. Assessment & Plan [...] Continue Ensure supplements He will follow-up with [facility] oncology after discharge. Assessment & Plan [...] Ordered Ensure supplements He will follow-up with [facility] oncology after discharge. Assessment & Plan [...] 500 mg daily He will follow-up with [facility] oncology after discharge. Obstructive jaundice 10/27/2025 [...] Continue Ensure supplements He will follow-up with [facility] oncology after discharge. Assessment & Plan [...] Continue Ensure supplements He will follow-up with [facility] oncology after discharge. Assessment & Plan [...] Ordered Ensure supplements He will follow-up with [facility] oncology after discharge. Assessment & Plan [...] 500 mg daily He will follow-up with [facility] oncology after discharge. GERD (gastroesophageal reflux [...] Continue Ensure supplements He will follow-up with [facility] oncology after discharge. Assessment & Plan [...] Continue Ensure supplements He will follow-up with [facility] oncology after discharge. Assessment & Plan [...] Ordered Ensure supplements He will follow-up with [facility] oncology after discharge. Assessment & Plan [...] 500 mg daily He will follow-up with [facility] oncology after discharge. Assessment & Plan [...] per GI, continue Plan for referral to [facility] oncology, Dr. Indio Coker (oncology) and [...] Continue Ensure supplements He will follow-up with [facility] oncology after discharge. Assessment & Plan [...] Continue Ensure supplements He will follow-up with [facility] oncology after discharge. Assessment & Plan [...] Ordered Ensure supplements He will follow-up with [facility] oncology after discharge. Assessment & Plan [...] 500 mg daily He will follow-up with [facility] oncology after discharge. Assessment & Plan [...] per GI, continue Plan for referral to [facility] oncology, Dr. Indio Coker (oncology) and [...] Description 10/26/2025 12:10 PM EST Anesthesia Event [facility] [address] [place] [address], [place] [phone] Gerson Horn MD Clair, Hannah A PA-C 10/26/2025 10:45 AM EST - 10/26/2025 11:56 AM EST Surgery [facility] [address] [place] [address], [place] [address] Boston Hunt MD ERCP /C PLACEMENT STENT 10/24/2025 5:48 PM EST Anesthesia Event [facility] [address] [place] [phone] Radha Molina MD Waqar, Syed M, MD 10/24/2025 5:16 PM EST - 10/24/2025 6:27 PM EST Surgery [facility] [address] [place] [address], [place] [address] Boston Hunt MD ERCP /C PLACEMENT STENT 10/23/2025 5:47 PM EST - 11/02/2025 3:30 PM [facility] Hospital Encounter [facility] [address] [place] [phone] She, MD Buzz Malagon, MD Ansley Graham Amna, MD Castro Montenegro, MD Federico Dao Bibek, MD Elajami, Mohamad, MD Nepal, MD Alessandra Jaundice (Primary Dx); Transaminitis; Gastroesophageal [...] any time in the past 12 m [facility], were you homeless or living in a assisted (including now)? No 10/24/2025 [facility] Utilities Answer Date Recorded In the past 12 months has [employer], gas, oil, or water company threatened to [...] 10/24/2025 3:00 AM EST Plan of Treatment Health Maintenance Due Date Last Done Comments Advance Care Planning 1945 DTaP/Tdap/Td Vaccines (1 - Tdap) 1962 Pneumococcal Vaccines 50+ (1 of 2 - PCV) 1962 Zoster (Shingles) Vaccine (1 of 2) 1993 RSV Vaccine 50 years and old er and Patients (1 - 1-dose 75+ series) 2018 Influenza Vaccine 06/29/2025 COVID-19 Vaccine ( - 2024-2 6 season) 2025 Hepatitis B Vaccines Aged Out No long er eligible based on patient's age to complete this topic Medical Devices Implanted Type Area Moss Picker Device Identifier Shelf Expiration Date Model / Serial / Lot [id number] Stent Pancreatic 5fr 12cm Guidewire Zimmon 2mm Mn Accessory - [id number] Implanted:Qty: 1 on 10/26/2025 by Boston Hunt MD at [facility] Stent N/A: Bile Duct [employer] [id number] 05/10/2027 [id number] / / [id number] Stent Pancreatic 5fr 12cm Guidewire Zimmon 2mm Mn Accessory - [id number] Implanted:Qty: 1 on 10/26/2025 by Boston Hunt MD at [facility] Stent N/A: Bile Duct [employer] [id number] 11/14/2027 [id number] / / [id number] Explanted Type Area Moss Picker Device Identifier Shelf Expiration Date Model / Serial / Lot [id number] Stent Pancreatic 5fr 5cm Pigtail Curve Radopq Push Cath - [id number] Implanted:Qty: 1 on 10/24/2025 by Boston Hunt MD at [facility] Explanted:Qty: 1 on 10/26/2025 by Boston Hunt MD at [facility] Stent N/A: Pancreas [employer] [id number] 08/31/2028 [id number] / / [id number] Stent Pancreatic 7fr 12cm Push Cath Drain Obstruct Pstn - [id number] Implanted:Qty: 1 on 10/24/2025 by Boston Hunt MD at [facility] Explanted:Qty: 1 on 10/26/2025 by Boston Hunt MD at [facility] Stent N/A: Bile Duct [employer] [id number] 08/27/2028 [id number] / / [id number] Stent Pancreatic 7fr 15cm Push Cath Drain Obstruct Pstn - [id number] Implanted:Qty: 1 on 10/24/2025 by Boston Hunt MD at [facility] Explanted:Qty: 1 on 10/26/2025 by Boston Hunt MD at [facility] Stent N/A: Bile Duct [employer] [id number] 08/06/2028 [id number] / / [id number] Procedures Procedure Name Priority Date/Time Associated Diagnosis Comments HEPATIC FUNCTION PANEL Routine 5 6:05 AM EST PROTIME-INR Routine 11/02/2025 6:05 AM EST URINALYSIS WITH REFLEX TO MICROSCOPIC Routine 11/02/2025 2:19 AM EST HEPATIC FUNCTION PANEL Routine 5 5:49 AM EST PROTIME-INR Routine 11/01/2025 5:49 AM EST MAGNESIUM Routine 10/31/2025 11:15 AM EST PHOSPHORUS Routine 10/31/2025 11:15 AM EST BASIC METABOLIC PANEL Routine 10/31/2025 11:15 AM EST HEPATIC FUNCTION PANEL Routine 11:15 AM EST HEPATIC FUNCTION PANEL Routine 6:14 AM EST PROTIME-INR Routine 10/30/2025 6:14 [...] CYTOLOGY REPORT Routine 10/26/2025 12:42 PM EST MD ERCP STENT PLACEMENT BILIARY/PANCREATIC DUCT 10/26/2025 12:04 PM EST Jaundice Transaminitis BASIC METABOLIC PANEL Routine 10/26/2025 6:07 AM EST HEPATIC FUNCTION PANEL Routine 6:[address] CHEST/ABDOMEN+PELVIS W/CONTRAST W/PO Routine 10/25/2025 6:14 AM EST COMPREHENSIVE METABOLIC PANEL Routine 10/25/2025 5:45 AM EST CA 19-9 [id number] Routine 10/25/2025 5:45 AM EST CEA Routine 10/25/2025 5:45 AM EST FL ERCP BILIARY AND PANCREATIC Routine 10/24/2025 7:30 PM EST CYTOLOGY REPORT Routine 10/24/2025 6:28 PM EST MD ERCP STENT PLACEMENT BILIARY/PANCREATIC DUCT 10/24/2025 5:37 [...] NO ANTI COAGULANT MEDS 11/01/2025 9:30 PM [facility] Prothrombin Time (PT) 13.4 10.0 - 13.5 seconds 11/02/2025 7:26 AM [facility] INR 1.2 11/02/2025 7:26 AM [facility] Comment:INR Therapeutic Rang es: Standard dose anticoagulant 2.0 to 3.0, High dose anticoagulant 2.5-3.5. Blood Blood specimen / Unknown 11/02/2025 6:05 AM EST 11/02/2025 6:51 AM EST us Alessandra Elmore MD LAB BLOOD ORDERABLES Final Resu lt [facility] [address] [place] [address], [address] [address] * (ABNORMAL) Hepatic Function Panel (AM) (11/02/2025 6:05 AM EST) Only the most recent of8 resultswithin the time period is included. Alkaline Phosphatase 312(H) 45 - 128 U/L 11/02/2025 7:49 AM [facility] Aspartate Aminotrans (AST) 112(H) 10 - 55 U/L 11/02/2025 7:49 AM [facility] Alanine Aminotrans (ALT) 130(H) 10 - 55 U/L 11/02/2025 7:49 AM [facility] Bilirubin, Total 6.2(H) 0.2 - 1.0 mg/dL 11/02/2025 7:49 AM [facility] Protein, Total 6.0(L) 6.3 - 8.3 g/dL 11/02/2025 7:49 AM [facility] Albumin 2.9(L) 3.4 - 4.8 g/dL 11/02/2025 7:49 AM [facility] Bilirubin, Direct 4.9(H) 0 - 0.2 mg/dL 11/02/2025 7:49 AM [facility] Globulin 3.1 1.5 - 3.9 g/dL 11/02/2025 7:49 AM [facility] Albumin/Globulin Ratio 0.9(L) 1.0 - 3.0 Ratio 11/02/2025 7:49 AM [facility] Blood Blood specimen / Unknown 11/02/2025 6:05 AM EST 11/02/2025 6:51 AM EST Alessandra Elmore MD LAB BLOOD ORDERABLES Final Resu lt [address] [address], [address] [address] * (ABNORMAL) Urinalysis with Reflex to Microscopic (11/02/2025 2:19 AM EST) Color Dark yellow 11/02/2025 3:57 AM [facility] Clarity Cloudy 11/02/2025 3:57 AM [facility] Specific Mcmillan 1.020 1.005 - 1.030 11/02/2025 3:57 AM [facility] pH 6.5 5.0 - 8.0 11/02/2025 3:57 AM [facility] Leukocyte Esterase Small(A) Negative 11/02/2025 3:57 AM [facility] Nitrite Positive(A) Negative 11/02/2025 3:57 AM [facility] Protein 30(A) NEG^Negative mg/dL 11/02/2025 3:57 AM [facility] Glucose Negative Negative mg/dL 11/02/2025 3:57 AM [facility] Ketones Negative Negative mg/dL 11/02/2025 3:57 AM [facility] Blood Trace(A) Negative 11/02/2025 3:57 AM [facility] Bilirubin Large(A) Negative 11/02/2025 3:57 AM [facility] RBC >25(H) 0 - 4 per hpf 11/02/2025 3:57 AM [facility] WBC 3 0 - 4 per hpf 11/02/2025 3:57 AM [facility] Epithelial Cells 2 per hpf 11/02/2025 3:57 AM [facility] Urine Urine specimen obtained via straight catheter / Unknown 11/02/2025 2:19 AM EST 11/02/2025 3:19 AM EST Alessandra Elmore MD URINE ORDERABLES Final Result [address] [address], [address] [address] * Phosphorus (10/31/2025 11:15 AM EST) Only the most recent of2 resultswithin the time period is included. Phosphorus 2.8 2.7 - 4.5 mg/dL 10/31/2025 12:30 PM [facility] Blood Blood specimen / Unknown 10/31/2025 11:15 AM EST 10/31/2025 11:56 AM EST us Alessandra Elmore MD LAB BLOOD ORDERABLES Final Resu lt Performing Organization Address City/[facility]/[place] [address], [place] [address] * Magnesium (10/31/2025 11:15 AM EST) Only the most recent of3 resultswithin the time period is included. Magnesium 2.2 1.6 - 2.7 mg/dL 10/31/2025 12:30 PM [facility] Blood Blood specimen / Unknown 10/31/2025 11:15 AM EST 10/31/2025 11:56 AM EST us Alessandra Elmore MD LAB BLOOD ORDERABLES Final Resu lt Performing Organization Address [facility] [place] [address], [place] [address] * (ABNORMAL) Basic Metabolic Panel (10/31/2025 11:15 AM EST) Only the most recent of7 resultswithin the time period is included. Glucose 127(H) 65 - 99 mg/dL 10/31/2025 12:30 PM [facility] Comment:Fasting: <100 mg/dL, Non-Fasting: <200 mg/dL (ADA 2005) Blood Urea Nitrogen (BUN) 16 8 - 21 mg/dL 10/31/2025 12:30 PM [facility] Creatinine 0.64 0.50 - 1.30 mg/dL 10/31/2025 12:30 PM [facility] eGFR >90 >59 10/31/2025 12:30 PM [facility] Comment:CKD-EPI (2020) in mL /min/1.73 sq meters. Sodium 141 136 - 145 mmol/L 10/31/2025 12:30 PM [facility] Potassium 3.8 3.4 - 5.3 mmol/L 10/31/2025 12:30 PM [facility] Chloride 104 98 - 107 mmol/L 10/31/2025 12:30 PM [facility] CO2 25 22 - 33 mmol/L 10/31/2025 12:30 PM [facility] Anion Gap 12 7 - 17 10/31/2025 12:30 PM [facility] Calcium 8.9 8.7 - 10.5 mg/dL 10/31/2025 12:30 PM [facility] BUN/Creatinine Ratio 25 10.0 - 25.0 Ratio 10/31/2025 12:30 PM [facility] Blood Blood specimen / Unknown 10/31/2025 11:15 AM EST 10/31/2025 11:56 AM EST Alessandra Elmore MD LAB BLOOD [place]AB[place] [address], [place] [address] * (ABNORMAL) COMPLETE BLOOD COUNT, WITHOUT DIFFERENTIAL (10/30/2025 6:14 AM EST) White Blood Cell Count 11.1(H) 4.0 - 11.0 Thou/uL 10/30/2025 7:37 AM [facility] Platelet Count 249 150 - 450 Thou/uL 10/30/2025 7:37 AM [facility] Hemoglobin 10.9(L) 13.0 - 17.7 g/dL 10/30/2025 7:37 AM [facility] Hematocrit 31.1(L) 39.0 - 54.0 % 10/30/2025 7:37 AM [facility] Red Blood Cell Count 3.38(L) 4.50 - 6.20 Mil/uL 10/30/2025 7:37 AM [facility] MCV 92 80 - 100 fL 10/30/2025 7:37 AM [facility] MCH 32.2(H) 27.0 - 31.0 pg 10/30/2025 7:37 AM [facility] MCHC 35.0 30.0 - 36.0 g/dL 10/30/2025 7:37 AM [facility] RDW 19.5(H) 11.5 - 14.5 % 10/30/2025 7:37 AM EST [facility] MPV 12.5 7.5 - 12.5 fL 10/30/2025 7:37 AM EST [facility] Blood Blood specimen / Unknown 10/30/2025 6:14 AM EST 10/30/2025 7:16 AM EST Perla Ivan MD LAB BLOOD ORDERABLES Final Re sult Performing Organization Address [facility]/ZIP Co de Phone Number [address] [address], [address] [address] * (ABNORMAL) POCT Glucose, Fingerstick (10/29/2025 5:19 PM EST) POC Glucose 154(H) 65 - 99 mg/dL 10/29/2025 5:23 PM EST Blood specimen / Unknown 10/29/2025 5:19 PM EST 10/29/2025 5:23 PM EST Felix Garcia MD POINT OF CARE TEST ORDERABLES Fi nal Result Performing Organization Address [facility] Co de Phone Number HOSPITAL LAB See Below * XR Chest 1 view-Portable (10/28/2025 3:33 PM EST) Anatomical Region Laterality Modality Chest Computed Radiogr aphy 10/28/2025 2:56 PM EST Impressions 10/28/2025 6:08 PM EST No acute pulmonary disease. Interpreted by: Kelton Mckinley MD Floor Coverer I personally reviewed the images and the resident's preliminary report and AGREE with the report as it is now presented (RADPAL1). Narrative 10/28/2025 6:08 PM EST EXAMINATION: XR [...] pulmonary disease. Interpreted by: Kelton Mckinley MD Floor Coverer I personally reviewed the images and the resident's preliminary report and AGREE with the report as it is now presented (RADPAL1). Perla Ivan MD IMG DIAGNOSTIC IMAGING ORDERA BLES Final Result * (ABNORMAL) High Sensitivity D-Dimer (10/28/2025 3:14 PM EST) High Sensitivity D-Dimer 372(H) <230 ng/mL DDU 10/28/2025 3:48 PM EST [facility] Comment: The threshold for exclusion of [...] MD LAB BLOOD ORDERABLES [place] [address], [place] [address] * US Guided Bedside Abdominal Paracentesis (10/28/2025 [...] N-terminal 211 <450 pg/mL 10/28/2025 11:54 AM [facility] 10/28/2025 6:30 AM EST 10/28/2025 7:38 AM EST Perla Ivan MD LAB BLOOD ORDERABLES [place] [address], [place] [address] * (ABNORMAL) Comprehensive Metabolic Panel (10/27/2025 8:06 AM EST) Only the most recent of2 resultswithin the time period is included. Glucose 109(H) 65 - 99 mg/dL 10/27/2025 9:21 AM [facility] Comment:Fasting: <100 mg/dL, Non-Fasting: <200 mg/dL (ADA 2004) Blood Urea Nitrogen (BUN) 16 8 - 21 mg/dL 10/27/2025 9:21 AM [facility] Creatinine 0.70 0.50 - 1.30 mg/dL 10/27/2025 9:21 AM [facility] eGFR >90 >59 10/27/2025 9:21 AM [facility] Comment:CKD-EPI (2020) in mL /min/1.73 sq meters. Sodium 137 136 - 145 mmol/L 10/27/2025 9:21 AM [facility] Potassium 3.5 3.4 - 5.3 mmol/L 10/27/2025 9:21 AM [facility] Chloride 99 98 - 107 mmol/L 10/27/2025 9:21 AM [facility] CO2 27 22 - 33 mmol/L 10/27/2025 9:21 AM [facility] Calcium 9.2 8.7 - 10.5 mg/dL 10/27/2025 9:21 AM [facility] Alkaline Phosphatase 364(H) 45 - 128 U/L 10/27/2025 9:21 AM [facility] Aspartate Aminotrans (AST) 144(H) 10 - 55 U/L 10/27/2025 9:21 AM [facility] Alanine Aminotrans (ALT) 194(H) 10 - 55 U/L 10/27/2025 9:21 AM [facility] Bilirubin, Total 10.6(H) 0.2 - 1.0 mg/dL 10/27/2025 9:21 AM [facility] Protein, Total 6.6 6.3 - 8.3 g/dL 10/27/2025 9:21 AM [facility] Albumin 3.4 3.4 - 4.8 g/dL 10/27/2025 9:21 AM [facility] BUN/Creatinine Ratio 23 10.0 - 25.0 Ratio 10/27/2025 9:21 AM [facility] Globulin 3.2 1.5 - 3.9 g/dL 10/27/2025 9:21 AM [facility] Albumin/Globulin Ratio 1.1 1.0 - 3.0 Ratio 10/27/2025 9:21 AM [facility] Anion Gap 11 7 - 17 10/27/2025 9:21 AM [facility] Blood Blood specimen / Unknown 10/27/2025 8:06 AM EST 10/27/2025 8:35 AM EST us Igor Caballero MD LAB BLOOD ORDERABLES Final Resul t [address] [address], [address] [address] * FL ERCP (10/26/2025 1:15 PM EST) [...] Please see procedure report for additional information. Boston Hunt MD IMG FLUOROSCOPY ORDERABL ES Final Result * (ABNORMAL) Cytology Report (10/26/2025 12:42 PM EST) Only the most recent of2 resultswithin the time period is included. Report [facility] [id number] CLIA ID [id number] [address] [place] [address] / [phone] Cytopathology Report PATIENT NAME: NAOMI DAVIS [facility] REC NUMBER: [id number] (AGE): 1945 (Age: 80) SPECIMEN NUMBER: [id number] DATE OBTAINED: 10/26/2025 DIAGNOSIS: A. 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 rna/10/30/2025 Electronicall y Signed Out MD MADISON SANTIAGO III, MD Signout Facility: [address] CLIA #: [id number] Clinical Diagnosis and History: COMMON HEPATIC DUCT [...] dating back to 01/08/2020. Marivel Panchal MD [facility] CT ORDERABLES Final Result * (ABNORMAL) CA 19-9 (10/25/2025 5:45 AM EST) CA 19-9 984(H) <34 U/mL 10/27/2025 7:14 AM EST [facility] Comment: (NOTE) This test was performed using [...] ORDERABLES Fin al Result Performing Organization Address [facility] Co de Phone Number [employer], [address] [address] [place], [place] , [employer], [address] [address] [place] * (ABNORMAL) CEA (10/25/2025 5:45 AM EST) CEA (Javy) 5.1(H) 0.0 - 3.8 ng/mL 10/25/2025 7:33 AM EST [facility] Comment: Reference range: Age 20 - [...] ORDERABLES Fin al Result Performing Organization Address [facility]/ZIP Co de Phone Number [address] [address], [address] [address] * (ABNORMAL) Complete Blood Count, with Differential (10/24/2025 6:37 AM EST) Only the most recent of2 resultswithin the time period is included. White Blood Cell Count 7.7 4.0 - 11.0 Thou/uL 10/24/2025 7:22 AM [facility] Platelet Count 250 150 - 450 Thou/uL 10/24/2025 7:22 AM [facility] Hemoglobin 11.9(L) 13.0 - 17.7 g/dL 10/24/2025 7:22 AM [facility] Hematocrit 34.1(L) 39.0 - 54.0 % 10/24/2025 7:22 AM [facility] Red Blood Cell Count 3.79(L) 4.50 - 6.20 Mil/uL 10/24/2025 7: AM [facility] MCV 90 80 - 100 fL 10/24/2025 7: AM [facility] MCH 31.4(H) 27.0 - 31.0 pg 10/24/2025 7: AM [facility] MCHC 34.9 30.0 - 36.0 g/dL 10/24/2025 7: AM [facility] RDW 18.1(H) 11.5 - 14.5 % 10/24/2025 7: AM [facility] MPV 11.7 7.5 - 12.5 fL 10/24/2025 7: AM [facility] Neutrophils Auto 67.0 % 10/24/20 7: AM [facility] Immature Granulocytes 1.2 % 10/24/2025 7: AM [facility] Lymphocytes Auto 18.6 % 10/24/20 7: AM [facility] Monocytes Auto 11.3 % 10/24/2025 7: AM [facility] Eosinophils Auto 1.2 % 10/24/20 7: AM [facility] Basophils Auto 0.7 % 10/24/2025 7: AM [facility] Abs Neutrophils Auto 5.16 2.00 - 7.50 Thou/uL 10/24/2025 7: AM [facility] Abs Immature Granulocytes 0.09 0.00 - 0.10 Thou/uL 10/24/2025 7:22 AM [facility] Abs Lymphocytes Auto 1.43(L) 1.50 - 4.50 Thou/uL 10/24/2025 7:22 AM [facility] Abs Monocytes Auto 0.87 0.20 - 1.50 Thou/uL 10/24/2025 7:22 AM [facility] Abs Eosinophils Auto 0.09 0.00 - 0.70 Thou/uL 10/24/2025 7:22 AM [facility] Abs Basophils Auto 0.05 0.00 - 0.20 Thou/uL 10/24/2025 7:22 AM [facility] Blood Blood specimen / Unknown 10/24/2025 6:37 AM EST 10/24/2025 7:07 AM EST Gladys Gerber MD LAB BLOOD ORDERABLES [place] [address], [place] [address] * Lipase (10/23/2025 6:08 PM EST) Lipase 15 13 - 60 U/L 10/23/2025 7:07 PM [facility] Blood Blood specimen / Unknown 10/23/2025 6:08 PM EST 10/23/2025 6:48 PM EST Vamshi Castillo PA-C LAB BLOOD ORDERABLES [place] [address], [place] [address] from Last 3 Months Insurance [facility] MEDICARE PART A & B BLUE BAGGS OUT [facility] MEDICARE PART A & B Advance Directives * Full Code (Latest Code Status on File) Date Activated Date Inactivated Comments 10/23/2025 7:53 PM Care Teams Tipple Greaser Relationship Specialty Start Date End Date Alessandra Elmore MD [address] [place] [id number] PCP - General Medicine Hospitalist 11/16/25
--- NOTE | 2025-11-23 08:04 | MHC.OFFVIS ---
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 Accompanied by: Spouse Allergies No Known Allergies Allergy (Verified 11/23/25 08:15) Medication List - Last Reconciled 11/23/25 by Kinga Estrada MD albuterol sulfate 90 mcg/actuation 2 puffs PO Q6H PRN 30 days aspirin (Adult Low Dose Aspirin) 81 mg PO DAILY cefuroxime axetil 500 mg PO BID 7 days chlorthalidone 25 mg PO DAILY finasteride 5 mg PO DAILY 30 days fluticasone propionate 50 mcg/actuation 1 spray intranasal Q12H hydrocortisone 2.5% (Anusol-HC) 1 appl [place] BID-QID PRN ibuprofen 600 mg PO Q6-8H PRN lisinopril 10 mg PO DAILY lorazepam 1 mg PO BID PRN mometasone-formoterol 100-5 mcg/actuation (Dulera) 2 puffs inhalation BID pantoprazole 40 mg PO DAILY sulfamethoxazole-trimethoprim 800-160 mg (Bactrim DS) 1 tab PO BID 7 days tamsulosin mg PO DAILY HPI Comments Details: 11/23/2025--Hunter is an 80-year-old male who has been seen by Dr. Mullen in the past he has a history of GreenLight laser he has been diagnosed with neurogenic bladder currently has a Becerril in place for urinary retention. He presents today. Patient newly diagnosed with liver cancer. In review of the chart he had a urine culture that was done on 11/15/2025 positive for E coli. The patient received Bactrim but states he is still having UTI symptoms urine remains cloudy. We will start Ceftin 500 mg twice a day. Proscar 5 mg daily. Discussion today included CIC which the patient declines versus suprapubic tube insertion. He agrees with this suprapubic tube insertion. We will schedule. Results: Labs: BUN- 24 Creatinine- 1.38(11/14/2025) Last PSA- 0.38(2020) 11/20/23-- Hunter is a pleasant male. He is a patient of Dr. Hauser. He is seen for the following urologic conditions - lower urinary tract symptoms - incomplete bladder emptying PVR approximately 570 cc On bethanechol Discussed CIC versus suprapubic tube versus InterStim Creatinine remains stable Continue Q 6 month follow-up Neurogenic Bladder: 12/16 Greenlight laser - 08/16 PVR 300cc, 02/14 PVR 500cc. 11/20 PVR 570cc They are here for further management for incomplete emptying neurogenic bladder. Urinary retention initially found progressive development over time. Cystoscopy results 04/13 marked cellules and significant dilation. Imaging results 2015 - US shows 600cc residual, , no hydronephrosis. Cr 0.65, 100cc prostate 04/14 , US shows, , no hydronephrosis 10/15 , US shows, no hydronephrosis - 1cm bladder stone, 1300cc capacoty with 930cc residual 08/16 , US shows, no hydronephrosis, PVR 300 02/14 Cr 0.8 03/18 , US shows, no hydro, 11/17 bladder ultrasound with high residual Associated conditions Alzhiemers No CAD No CVA No Diabetes No Multiple sclerosis No renal replacement therapy No Spinal injury/surgery No Current management - bethanechol Therapeutic plan 6 month follow-up PVR PFSH Medical History History of bladder stone Screening for prostate cancer Screening for hyperlipidemia Screening for diabetes mellitus Surgical History History of esophagogastroduodenoscopy (EGD) History of prostate surgery Hx of umbilical hernia repair History of colonoscopy History of hemorrhoidectomy History of appendectomy Family History Father No problems noted. Mother No problems noted. Social History Housing: House Do you presently have visiting nurse or other home services: No Alcohol intake: current Alcohol intake frequency: holidays/special occasions only Alcohol type: beer Patient Tobacco Use Status: Former Tobacco user Tobacco use type: Cigarette e-Cigarette/Vaping Use: Never Used Second Hand Smoke Exposure: Yes service: No Current occupational status: retired Current occupation: left hand Cognitive needs: No Hearing needs: No Vision needs: Yes Office Procedures Bladder/Catheter Procedure Details: Patient presents to the office for VT. 120mls instilled through catheter, patient tolerated well. Removed 18fr becerril catheter, patient tolerated removal well. Patient was not able to void. Reviewed with Dr. Tovar as patient previously seen by Dr. Mullen for neurogenic bladder. New 18fr rousch catheter placed 10ml balloon flip valve, patient tolerated insertion well. Educated patient on use of flip valve and bladder cycling, use of large urine bag at night. Patient stated he understood. Spouse present for visit and education as well. Dr. Tovar to room [place] [address]-Orgeicamrb of Bladder [id number]-Swkccv Temporary Bladder Catheter Procedure code (CPT) selection complete Results Reviewed Results Reviewed: Date of Service: 10/22/25 EXAMINATION: MR ABDOMEN WITHOUT THEN WITH IV CONTRAST HISTORY: R17 - Unspecified jaundice COMPARISON: Previous abdominal ultrasound September [address] of the abdomen and pelvis December 2019 TECHNIQUE: Axial in and out of phase T1-weighted gradient echo, axial diffusion weighted, and axial and coronal HASTE T2 with fat saturation images were obtained through the abdomen. Subsequently, fat suppressed axial and coronal T1-weighted images were obtained after the intravenous administration of 10 mL Gadavist. FINDINGS: Liver: There are mild atrophic changes of the left lobe of the liver, particularly the lateral segment. There is no loss of signal intensity in the liver on opposed phase imaging to suggest steatosis. There is a 5 mm low signal T1 very high signal T2 lesion in the right lobe segment 8/5 axial T2 image 15 series 5. This does not demonstrate enhancement postcontrast for example image 29 series 20 and 29 series 16 and likely represents a cyst. There is no enhancing liver mass. There is is severe left-sided intrahepatic biliary duct dilatation, particularly the lateral segment of the left lobe. There is mild right-sided intrahepatic biliary duct dilatation. The common bile duct is not well visualized but does not appear dilated. There is diffuse restricted diffusion in the left lobe. No focal mass or abnormal enhancement appreciated. Gallbladder/biliary tree: No gallstones are identified. The common bile duct is not well visualized but does not appear dilated. Spleen: Small splenule.The spleen is otherwise unremarkable. Pancreas: There is no enhancing pancreatic mass. The pancreatic duct is normal in caliber. There are multiple small bright T2 lesions throughout the pancreas. These may represent small cysts or dilated side branch pancreatic duct radicals. Largest measure up to 3 mm. Adrenals: There is a1 cm right adrenal nodule and 1.7 x 2.3 cm left adrenal nodule. These loose signal on out of phase sequences suggestive of benign lipid rich adenomas. These are similar to 2020 CT scan. Kidneys: The kidneys are unremarkable. There is no hydronephrosis. Lymph nodes: There are small retroperitoneal lymph nodes. No enlarged lymph nodes. Fluid: There is no ascites in the upper abdomen. Vascular: The visualized descending thoracic aorta is tortuous and slightly dilated measuring 3.9 cm in diameter. This is similar to 2019 CT. The upper abdominal aorta is dilated measuring 4.3 x 4.8 cm in AP and transverse dimension. This is increased from prior CT 2019 when this measured 3.8 cm. The mid and lower abdominal aorta are normal in caliber. There is severe atherosclerotic plaque seen in the lower abdominal aorta and aortic bifurcation/origin of the bilateral common iliac arteries. There is significant secondary luminal narrowing or distal aortic stenosis. The portal and splenic veins are patent. The right and middle hepatic veins are patent. The left hepatic vein is not seen. Visualized bowel: The visualized small and large bowel loops are unremarkable in appearance. Very distended bladder with trabeculated bladder wall. Visualized bones: Degenerative changes of the spine. 8 mm bright T11 and 5 mm bright L4 vertebral body lesions. This may represent hemangiomas. IMPRESSION: Severe left-sided intrahepatic biliary duct dilatation and mild right-sided intrahepatic biliary duct dilatation. This is new from December 2019 exam. The common bile duct is not well visualized but does not appear dilated. There is diffuse restricted diffusion in the left lobe and mild atrophic changes of the lateral segment of the left lobe. No mass or abnormal enhancement is appreciated. Neoplasm cannot be excluded. Correlation with the ERCP and brushings is recommended. Probable small liver cyst. Small pancreatic cysts or dilated side branch radicles measuring up to 2 to 3 mm. The main pancreatic duct does not appear dilated. Cannot exclude small side branch IPMNs. 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 Very distended bladder with trabeculated bladder wall. This is suggestive of bladder outlet obstruction. 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 Upper abdominal aorta is increased from December 2019 exam now measuring up to 4.8 cm. Significant plaque in the lower abdominal aorta and likely secondary aortic stenosis. Assessment & Plan Assessment & Plan (1) Liver cancer: Code(s): C22.9 - Malignant neoplasm of liver, not specified as primary or secondary Category: Medical Qualifiers: Liver malignancy type: unspecified liver malignancy Qualified Code(s): C22.9 - Malignant neoplasm of liver, not specified as primary or secondary (2) Acute urinary retention: Code(s): R33.8 - Other retention of urine Category: Medical Plan We will start Ceftin 500 mg twice a day. Proscar 5 mg daily. Discussion today included CIC which the patient declines versus suprapubic tube insertion. He agrees with this suprapubic tube insertion. We will schedule. Results: Labs: BUN- 24 Creatinine- 1.38(11/14/2025) Last PSA- 0.38(2020) Orders: Orders AMB Bladder/Catheter Procedure Today R33.8 - Other retention of urine Medications: New finasteride 5 mg PO DAILY 30 tabs 2RF 30 days cefuroxime axetil 500 mg PO BID 14 tabs 0RF 7 days Patient Instructions: The patient had an opportunity to ask questions regarding treatment plan. The patient expressed understanding and agreement with the above treatment plan. The patient is aware they should contact our office by phone for worsening of their current condition or the appearance of new symptoms. Compliance is encouraged with any medications and followup testing that is ordered. It is a privilege to be allowed the opportunity to participate in the urologic care of your patient. If you have any questions or concerns regarding treatment for the above conditions please do not hesitate to contact me. The office telephone contact is [phone]. This note is constructed in part using voice recognition software. While every effort has been made to ensure accuracy net solutions architect errors may have been included. Yours sincerely, Kinga Estrada MD Coding Level of Care Code Est Pt Level 4 (13388) Add On Problem Visit Only Diagnoses Malignant neoplasm of liver, unspecified liver malignancy type C22.9 Liver malignancy type: unspecified liver malignancy Acute urinary retention R33.8 CPT Codes Bladder/Catheter Procedure - CPT: 29944-Bptxmszoji of Bladder ([id number]) Bladder/Catheter Procedure - CPT: 57488-Qdffrn Temporary Bladder Catheter ([id number])
== END 2025-11-23 08:56 | disposition home or self-care (01) ==
LOC: HO.HUSH 07:59
PROVIDERS: Visit Provider Urology
DX: C22.9 Malignant neoplasm of liver, not specified as primary or secondary (principal); R33.8 Other retention of urine
CPT/HCPCS: 51700; 99214

== ENCOUNTER → 2025-11-23 07:58 | Outpatient (BNVA) | payer MEDICARE, SELFPAY | PROVIDERS: Visit Provider Urology | DX: R33.8 Other retention of urine (principal); C22.9 Malignant neoplasm of liver, not specified as primary or secondary; Z79.82 Long term (current) use of aspirin; Z87.891 Personal history of nicotine dependence | CPT/HCPCS: 51700; 99212 ==

== ENCOUNTER 2025-11-27 10:37 | Outpatient (REF) | payer MEDICARE, SELFPAY ==
[2025-11-27 13:44] LABS: MANUAL DIFF FLAG NO
[2025-11-27 14:00] LABS: Hematocrit 30.4 % (42.0-52.0); Hemoglobin 10.1 g/dl (14.0-18.0); Imm Gran Abs Auto 0.10 X10*3/uL (0.00-0.03); Imm Gran Pct Auto 0.9 % (0.0-0.4); Lymphocytes Absolute Auto 2.4 X10*3/uL (1.2-4.9); Mean Corpuscular HGB Conc 33.2 g/dl (31.0-36.0); Mean Corpuscular Hemoglobin 31.9 pg (27.0-33.0); Mean Corpuscular Volume 95.9 fL (80.0-98.0); NRBC Abs Auto 0.000 X10*3/uL (0.0-0.012); NRBC Pct Auto 0.0 /100WBC (0.0-0.2); Platelet Count 363 X10*3/uL (160-400); Red Blood Count 3.17 X10*6/uL (4.60-5.80); White Blood Count 10.8 X10*3/uL (4.8-10.8)
--- OUTSIDE RECORDS SUMMARY | 2025-11-27 14:15 | XMS_ITS | Clinical Summary ---
Author Organization Formerly [facility] Address [address] [place] [address] Care Team Providers Care Pen Tester Name Role Phone Alessandra Elmore MD Primary Care Provider [phone] Allergies No known active allergies Medications lisinopril [...] Continue Ensure supplements He will follow-up with [facility] oncology after discharge. Assessment & Plan [...] Continue Ensure supplements He will follow-up with [facility] oncology after discharge. Assessment & Plan [...] Ordered Ensure supplements He will follow-up with [facility] oncology after discharge. Assessment & Plan [...] 500 mg daily He will follow-up with [facility] oncology after discharge. Obstructive jaundice 10/27/2025 [...] Continue Ensure supplements He will follow-up with [facility] oncology after discharge. Assessment & Plan [...] Continue Ensure supplements He will follow-up with [facility] oncology after discharge. Assessment & Plan [...] Ordered Ensure supplements He will follow-up with [facility] oncology after discharge. Assessment & Plan [...] 500 mg daily He will follow-up with [facility] oncology after discharge. GERD (gastroesophageal reflux [...] Continue Ensure supplements He will follow-up with [facility] oncology after discharge. Assessment & Plan [...] Continue Ensure supplements He will follow-up with [facility] oncology after discharge. Assessment & Plan [...] Ordered Ensure supplements He will follow-up with [facility] oncology after discharge. Assessment & Plan [...] 500 mg daily He will follow-up with [facility] oncology after discharge. Assessment & Plan [...] per GI, continue Plan for referral to [facility] oncology, Dr. Indio Coker (oncology) and [...] Continue Ensure supplements He will follow-up with [facility] oncology after discharge. Assessment & Plan [...] Continue Ensure supplements He will follow-up with [facility] oncology after discharge. Assessment & Plan [...] Ordered Ensure supplements He will follow-up with [facility] oncology after discharge. Assessment & Plan [...] 500 mg daily He will follow-up with [facility] oncology after discharge. Assessment & Plan [...] per GI, continue Plan for referral to [facility] oncology, Dr. Indio Coker (oncology) and [...] Description 10/26/2025 12:10 PM EST Anesthesia Event [facility] [address] [place] [address], [place] [phone] Gerson Horn MD Clair, Hannah A PA-C 10/26/2025 10:45 AM EST - 10/26/2025 11:56 AM EST Surgery [facility] [address] [place] [address], [place] [phone] Boston Hunt MD ERCP /C PLACEMENT STENT 10/24/2025 5:48 PM EST Anesthesia Event [facility] [address] [place] [phone] Radha Molina MD Waqar, Syed M, MD 10/24/2025 5:16 PM EST - 10/24/2025 6:27 PM EST Surgery [facility] [address] [place] [address], [place] [phone] Boston Hunt MD ERCP /C PLACEMENT STENT 10/23/2025 5:47 PM EST - 11/02/2025 3:30 PM [facility] Hospital Encounter [facility] [address] [place] [phone] She, MD Buzz Malagon, MD Ansley Graham [...] any time in the past 12 m [facility], were you homeless or living in a assisted (including now)? No 10/24/2025 [facility] Utilities Answer Date Recorded In the past 12 months has [employer], gas, oil, or water company threatened to [...] this topic Medical Devices Implanted Type Area Family Services Assistant Device Identifier Shelf Expiration Date Model / Serial / Lot [id number] Stent Pancreatic 5fr 12cm Guidewire Zimmon 2mm Mn Accessory - [id number] Implanted:Qty: 1 on 10/26/2025 by Boston Hunt MD at [facility] Stent N/A: Bile Duct [employer] [id number] 05/10/2027 [id number] / / [id number] Stent Pancreatic 5fr 12cm Guidewire Zimmon 2mm Mn Accessory - [id number] Implanted:Qty: 1 on 10/26/2025 by Boston Hunt MD at [facility] Stent N/A: Bile Duct [employer] [id number] 11/14/2027 [id number] / / [id number] Explanted Type Area Family Services Assistant Device Identifier Shelf Expiration Date Model / Serial / Lot [id number] Stent Pancreatic 5fr 5cm Pigtail Curve Radopq Push Cath - [id number] Implanted:Qty: 1 on 10/24/2025 by Boston Hunt MD at [facility] Explanted:Qty: 1 on 10/26/2025 by Bosotn Hunt MD at [facility] Stent N/A: Pancreas [employer] [id number] 08/31/2028 [id number] / / [id number] Stent Pancreatic 7fr 12cm Push Cath Drain Obstruct Pstn - [id number] Implanted:Qty: 1 on 10/24/2025 by Boston Hunt MD at [facility] Explanted:Qty: 1 on 10/26/2025 by Boston Hunt MD at [facility] Stent N/A: Bile Duct [employer] [id number] 08/27/2028 [id number] / / [id number] Stent Pancreatic 7fr 15cm Push Cath Drain Obstruct Pstn - [id number] Implanted:Qty: 1 on 10/24/2025 by Boston Hunt MD at [facility] Explanted:Qty: 1 on 10/26/2025 by Boston Hunt MD at [facility] Stent N/A: Bile Duct [employer] [id number] 08/06/2028 [id number] / / [id number] Procedures Procedure Name Priority Date/Time Associated Diagnosis [...] CYTOLOGY REPORT Routine 10/26/2025 12:42 PM EST RI ERCP STENT PLACEMENT BILIARY/PANCREATIC DUCT 10/26/2025 12:04 PM EST Jaundice Transaminitis BASIC METABOLIC PANEL Routine 10/26/2025 6:07 AM EST HEPATIC FUNCTION PANEL Routine 6:[address] CHEST/ABDOMEN+PELVIS W/CONTRAST W/PO Routine 10/25/2025 6:14 AM EST COMPREHENSIVE METABOLIC PANEL Routine 10/25/2025 5:45 AM EST CA 19-9 A24326 Routine 10/25/2025 5:45 AM EST CEA Routine 10/25/2025 5:45 AM EST FL ERCP BILIARY AND PANCREATIC Routine 10/24/2025 7:30 PM EST CYTOLOGY REPORT Routine 10/24/2025 6:28 PM EST RI ERCP STENT PLACEMENT BILIARY/PANCREATIC DUCT 10/24/2025 5:37 [...] NO ANTI COAGULANT MEDS 11/01/2025 9:30 PM [facility] Prothrombin Time (PT) 13.4 10.0 - 13.5 seconds 11/02/2025 7:26 AM [facility] INR 1.2 11/02/2025 7:26 AM [facility] Comment:INR Therapeutic Rang es: Standard dose anticoagulant 2.0 to 3.0, High dose anticoagulant 2.5-3.5. Blood Blood specimen / Unknown 11/02/2025 6:05 AM EST 11/02/2025 6:51 AM EST us Alessandra Elmore MD LAB BLOOD ORDERABLES Final Resu lt [facility] [address] [place] [address], [address] [address] * (ABNORMAL) Hepatic Function Panel (AM) (11/02/2025 [...] MD LAB BLOOD ORDERABLES Final Resu lt [address] [address], [address] [address] * (ABNORMAL) Urinalysis with Reflex to Microscopic (11/02/2025 2:19 AM EST) Color Dark yellow 11/02/2025 3:57 AM [facility] Clarity Cloudy 11/02/2025 3:57 AM [facility] Specific [place] 1.020 1.005 - 1.030 11/02/2025 3:57 AM [...] Alessandra Elmore MD URINE ORDERABLES Final Result [address] [address], [address] [address] * Phosphorus (10/31/2025 11:15 AM EST) Only the most recent of2 resultswithin the time period is included. Phosphorus 2.8 2.7 - 4.5 mg/dL 10/31/2025 12:30 PM [facility] Blood Blood specimen / Unknown 10/31/2025 11:15 AM EST 10/31/2025 11:56 AM EST us Alessandra Elmore MD LAB BLOOD ORDERABLES Final Resu lt Performing Organization Address City/[facility]/[place] [address], [place] [address] * Magnesium (10/31/2025 11:15 AM EST) Only the most recent of3 resultswithin the time period is included. Magnesium 2.2 1.6 - 2.7 mg/dL 10/31/2025 12:30 PM [facility] Blood Blood specimen / Unknown 10/31/2025 11:15 AM EST 10/31/2025 11:56 AM EST us Alessandra Elmore MD LAB BLOOD ORDERABLES Final Resu lt Performing Organization Address [facility] [place] [address], [place] [address] * (ABNORMAL) Basic Metabolic Panel (10/31/2025 11:15 [...] MD LAB BLOOD [place] [address], [place] [address] * (ABNORMAL) COMPLETE BLOOD COUNT, WITHOUT DIFFERENTIAL [...] - 14.5 % 10/30/2025 7:37 AM EST [facility] MPV 12.5 7.5 - 12.5 fL 10/30/2025 7:37 AM EST [facility] Blood Blood specimen / Unknown 10/30/2025 6:14 AM EST 10/30/2025 7:16 AM EST Perla Ivan MD LAB BLOOD ORDERABLES Final Re sult Performing Organization Address [facility]/ZIP Co de Phone Number [address] [address], [address] [address] * (ABNORMAL) POCT Glucose, Fingerstick (10/29/2025 5:19 PM EST) POC Glucose 154(H) 65 - 99 mg/dL 10/29/2025 5:23 PM EST Blood specimen / Unknown 10/29/2025 5:19 PM EST 10/29/2025 5:23 PM EST Felix Garcia MD POINT OF CARE TEST ORDERABLES Fi nal Result Performing Organization Address [facility] Co de Phone Number HOSPITAL LAB See Below * XR Chest 1 view-Portable (10/28/2025 3:33 PM EST) Anatomical Region Laterality Modality Chest Computed Radiogr aphy 10/28/2025 2:56 PM EST Impressions 10/28/2025 6:08 PM EST No acute pulmonary disease. Interpreted by: Kelton Mckinley MD Fur Mixer I personally reviewed the images and the [...] pulmonary disease. Interpreted by: Kelton Mckinley MD Fur Mixer I personally reviewed the images and the resident's preliminary report and AGREE with the report as it is now presented (RADPAL1). Perla Ivan MD IMG DIAGNOSTIC IMAGING ORDERA BLES Final Result * (ABNORMAL) High Sensitivity D-Dimer (10/28/2025 3:14 PM EST) High Sensitivity D-Dimer 372(H) <230 ng/mL DDU 10/28/2025 3:48 PM EST [facility] Comment: The threshold for exclusion of [...] MD LAB BLOOD [place]AB[place] [address], [place] [address] * US Guided Bedside Abdominal Paracentesis (10/28/2025 [...] N-terminal 211 <450 pg/mL 10/28/2025 11:54 AM [facility] 10/28/2025 6:30 AM EST 10/28/2025 7:38 AM EST Perla Ivan MD LAB BLOOD ORDERABLES [place] [address], [place] [address] * (ABNORMAL) Comprehensive Metabolic Panel (10/27/2025 8:06 AM EST) Only the most recent of2 resultswithin the time period is included. Glucose 109(H) 65 - 99 mg/dL 10/27/2025 9:21 AM [facility] Comment:Fasting: <100 mg/dL, Non-Fasting: <200 [...] 22 - 33 mmol/L 10/27/2025 9:21 AM [facility] Calcium 9.2 8.7 - 10.5 mg/dL 10/27/2025 9:21 AM [facility] Alkaline Phosphatase 364(H) 45 - 128 U/L 10/27/2025 9:21 AM [facility] Aspartate Aminotrans (AST) 144(H) 10 - 55 U/L 10/27/2025 9:21 AM [facility] Alanine Aminotrans (ALT) 194(H) 10 - 55 U/L 10/27/2025 9:21 AM [facility] Bilirubin, Total 10.6(H) 0.2 - 1.0 mg/dL 10/27/2025 9:21 AM [facility] Protein, Total 6.6 6.3 - 8.3 g/dL 10/27/2025 9:21 AM [facility] Albumin 3.4 3.4 - 4.8 g/dL 10/27/2025 9:21 AM [facility] BUN/Creatinine Ratio 23 10.0 - 25.0 Ratio 10/27/2025 9:21 AM [facility] Globulin 3.2 1.5 - 3.9 g/dL 10/27/2025 9:21 AM [facility] Albumin/Globulin Ratio 1.1 1.0 - 3.0 Ratio 10/27/2025 9:21 AM [facility] Anion Gap 11 7 - 17 10/27/2025 9:21 AM [facility] Blood Blood specimen / Unknown 10/27/2025 8:06 AM EST 10/27/2025 8:35 AM EST us Igor Caballero MD LAB BLOOD ORDERABLES Final Resul t [address] [address], [address] [address] * [place] ERCP (10/26/2025 1:15 PM EST) [...] resultswithin the time period is included. Report [facility] [id number] CLIA ID [id number] [address] [place] [id number] / [phone] Cytopathology Report PATIENT NAME: NAOMI DAVIS [facility] REC NUMBER: [id number] (AGE): 1945 (Age: 80) SPECIMEN NUMBER: [id number] DATE OBTAINED: 10/26/2025 DIAGNOSIS: A. 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 rna/10/30/2025 Electronicall y Signed Out MD MADISON SANTIAGO III, MD Signout Facility: [address] CLIA #: [id number] Clinical Diagnosis and History: COMMON HEPATIC DUCT [...] dating back to 01/08/2020. Marivel Panchal MD [facility] ORDERABLES Final Result * (ABNORMAL) CA 19-9 (10/25/2025 5:45 AM EST) CA 19-9 984(H) <34 U/mL 10/27/2025 7:14 AM EST [facility] Comment: (NOTE) This test was performed using [...] ORDERABLES Fin al Result Performing Organization Address [facility] Co de Phone Number [employer], [address] [address] [place], [place] , [employer], [address] [address] [place], [place] * (ABNORMAL) CEA (10/25/2025 5:45 AM EST) CEA (Javy) 5.1(H) 0.0 - 3.8 ng/mL 10/25/2025 7:33 AM EST [facility] Comment: Reference range: Age 20 - [...] ORDERABLES Fin al Result Performing Organization Address [facility]/ZIP Co de Phone Number [address] [address], [address] [address] * (ABNORMAL) Complete Blood Count, with Differential [...] 4.50 - 6.20 Mil/uL 10/24/2025 7: AM [facility] MCV 90 80 - 100 fL 10/24/2025 7: AM [facility] MCH 31.4(H) 27.0 - 31.0 pg 10/24/2025 7: AM [facility] MCHC 34.9 30.0 - 36.0 g/dL 10/24/2025 7: AM [facility] RDW 18.1(H) 11.5 - 14.5 % 10/24/2025 7: AM [facility] MPV 11.7 7.5 - 12.5 fL 10/24/2025 7: AM [facility] Neutrophils Auto 67.0 % 10/24/20 7: AM [facility] Immature Granulocytes 1.2 % 10/24/2025 7: AM [facility] Lymphocytes Auto 18.6 % 10/24/20 7: AM [facility] Monocytes Auto 11.3 % 10/24/2025 7: AM [facility] Eosinophils Auto 1.2 % 10/24/20 7: AM [facility] Basophils Auto 0.7 % 10/24/2025 7: AM [facility] Abs Neutrophils Auto 5.16 2.00 - 7.50 Thou/uL 10/24/2025 7: AM [facility] Abs Immature Granulocytes 0.09 [...] MD LAB BLOOD [place]AB[place] [address], [place] [address] * Lipase (10/23/2025 6:08 PM EST) Lipase 15 13 - 60 U/L 10/23/2025 7:07 PM [facility] Blood Blood specimen / Unknown 10/23/2025 6:08 PM EST 10/23/2025 6:48 PM EST Vamshi Castillo PA-C LAB BLOOD ORDERABLES [place] [address], [place] [address] from Last 3 Months Insurance [facility] MEDIC[facility] PART A & B BLUE [place] OUT [facility] MEDIC[facility] PART A & B Advance Directives * Full Code (Latest Code Status on File) Date Activated Date Inactivated Comments 10/23/2025 7:53 PM Care Teams Pen Tester Relationship Specialty Start Date End Date Alessandra Elmore MD [address] [place] [id number] PCP - General Medicine Hospitalist 11/16/25
[2025-11-27 14:16] LABS: Appearance Urine Clear; Glucose Urine UA 100 mg/dL (Negative); PH 6.0 (5.0-9.0); Specific Gravity - Urine 1.025 (1.005-1.025); UMIC TRIGGER UACC YES
[2025-11-27 14:32] LABS: UACC Culture Trigger YES
[2025-11-27 15:06] LABS: Alanine Aminotransferase 179 U/L (0-40); Albumin Level 3.4 g/dL (3.5-5.0); Alkaline Phosphatase 398 U/L (39-117); Anion Gap 14 (12-20); Aspartate Amino Transferase 188 U/L (5-37); Blood Urea Nitrogen 63 mg/dL (9-16); Calcium 9.5 mg/dL (8.4-10.2); Carbon Dioxide 23 mmol/L (22-29); Chloride 106 mmol/L (96-108); Estimated Glomerular Filt Rate > 60; Potassium 3.4 mmol/L (3.3-5.1); Sodium 140 mmol/L (135-145); Total Protein 6.7 g/dL (6.5-8.0)
== END 2025-11-27 10:38 | disposition home or self-care (01) ==
LOC: HO.HMGCLDS 10:37
DX: K92.1 Melena (principal); R16.0 Hepatomegaly, not elsewhere classified
CPT/HCPCS: 36415; 80053; 81001; 85025; 87086